=== PATIENT | female | born 1950 | race Caucasian/White ===

== ENCOUNTER 2016-11-22 08:01 | Emergency (ER) | payer MEDICAID, OTHER ==
[~2016-11-22] VITALS: Ht 157.5 cm; Wt 85.7 kg
--- NOTE | 2016-11-22 08:13 | ED Fall/Injury ---
General Chief Complaint: Trauma-Non Activation Stated Complaint: FALL Source: patient, EMS Exam Limitations: no limitations History of Present Illness Time seen by provider: 08:12 Initial Comments Patient presents to ER by EMS with chief complaint of just prior to arrival she was getting up to go the bathroom and she just fell backwards landing on her butt. She has some chronic right hip and knee pain but is been exacerbated by this fall as well as she had quite a bit of back pain 9 out of 10 according to EMS of the gave her 50 g of fentanyl IV. She says she does not member the details of the fall entirely and can say that for sure she did not pass out but does not think she hit her head and she is not having any pain in her head. She has some pain in the base of her neck as well as her right hip. The neck pain is more acute as well as the back pain. She has no nausea, vomiting, headache, vision disturbances. She has a history of atrial fibrillation for which she uses aspirin only. No history of seizures. Patient states back in 2015 she did have a stroke but she was known to have a defibrillation before that. She says her atrial fibrillation goes in and out. She says at the time she had left-sided weakness and left facial droop which persisted for several weeks but then has resolved since then. She has noticed no neurologic symptoms, speech problems, facial droop etc. today. She was seen for her stroke in [place]. Allergies and Home Medications Allergies Coded Allergies: No Known Drug Allergies (Unverified , 11/22/16) Home Medications Amitriptyline HCl 50 Mg Tablet, (Reported) Aspirin 81 Mg Tablet.dr, 81 MG PO DAILY, (Reported) Atorvastatin Calcium 20 Mg Tablet, (Reported) Duloxetine HCl 30 Mg Capsule., (Reported) Gabapentin 400 Mg Capsule, (Reported) Insulin Detemir 100 Unit/1 Ml Insuln.pen, (Reported) Lisinopril 5 Mg Tablet, (Reported) Metoprolol Tartrate 50 Mg Tablet, (Reported) Trazodone HCl 50 Mg Tablet, (Reported) Constitutional: No chills, No diaphoresis, No fever, No malaise Eyes: Denies Blindness, Denies Drainage Ears, Nose, Mouth, Throat: denies ear pain, denies ear discharge Respiratory: No cough, No short of breath Cardiovascular: No chest pain, No Hx of Intervention, No palpitations, syncope , No vascular heart diseas Gastrointestinal: No abdominal pain, No constipation, No diarrhea, No nausea Genitourinary: No discharge, No dysuria : No Musculoskeletal: see HPI, back pain, joint pain (right hip) Skin: No pruritus, No rash Psychiatric/Neurological: Denies Headache, Denies Numbness, Denies Paresthesia Past Bzvogqk-Obyqat-[place]og[place] Hx Patient Social History Alcohol Use: Denies Use Recreational Drug Use: No Smoking Status: Never a Smoker Physical Exam Vital Signs Vital Sign - Last 12Hours 11/22/16 08:04 Temp 95.1 Pulse 70 Resp 18 B/P (MAP) 122/58 Pulse Ox 95 Capillary Refill : General Appearance: WD/WN, no apparent distress HEENT: PERRL/EOMI, normal ENT inspection, TMs normal, pharynx normal Neck: non-tender, supple, normal inspection Cardiovascular: normal peripheral pulses, no edema, no murmur, irregularly irregular Respiratory: chest non-tender, lungs clear, normal breath sounds, no respiratory distress Peripheral Pulses: 2+ Dorsalis Pedis (R), 2+ Left Dors-Pedis (L), 2+ Radial Pulses (R), 2+ Radial Pulses (L) Gastrointestinal: normal bowel sounds, non tender, soft, no organomegaly Back: normal inspection, vertebral tenderness (midline lumbar) Extremities: normal range of motion, non-tender, normal inspection, no pedal edema, no calf tenderness, normal capillary refill Neurologic/Psychiatric: alert, normal mood/affect, oriented x 3, abnormal regional geodetic advisor II-XII (left side cranial nerve V branch 3 has some diminished sensation on examination otherwise cranial nerves normal.), other (NIH score 0) Skin: normal color, warm/dry Lymphatic: no adenopathy [place] Coma Score Best Eye Response: (4) Open Spontaneously Best Verbal Response: (5) Oriented Best Motor Response: (6) Obeys Commands Jayme Total: 15 Progress/Results/Core Measures Results/Orders Lab Results Laboratory Tests Test 11/22/16 08:07 Range/Units White Blood Count 9.3 4.3-11.0 10^3/uL Red Blood Count 4.34 L 4.35-5.85 10^6/uL Hemoglobin 12.8 11.5-16.0 G/DL Hematocrit 39 35-52 % Mean Corpuscular Volume 90 80-99 FL Mean Corpuscular Hemoglobin 30 25-34 PG Mean Corpuscular Hemoglobin Concent 33 32-36 G/DL Red Cell Distribution Width 12.5 10.0-14.5 % Platelet Count 230 130-400 10^3/uL Mean Platelet Volume 9.9 7.4-10.4 FL Neutrophils (%) (Auto) 43 42-75 % Lymphocytes (%) (Auto) 48 H 12-44 % Monocytes (%) (Auto) 5 0-12 % Eosinophils (%) (Auto) 3 0-10 % Basophils (%) (Auto) 0 0-10 % Neutrophils # (Auto) 4.0 1.8-7.8 X 10^3 Lymphocytes # (Auto) 4.5 H 1.0-4.0 X 10^3 Monocytes # (Auto) 0.5 0.0-1.0 X 10^3 Eosinophils # (Auto) 0.3 0.0-0.3 10^3/uL Basophils # (Auto) 0.0 0.0-0.1 10^3/uL Sodium Level 138 135-145 MMOL/L Potassium Level 3.8 3.6-5.0 MMOL/L Chloride Level 98 98-107 MMOL/L Carbon Dioxide Level 29 21-32 MMOL/L Anion Gap 11 5-14 MMOL/L Blood Urea Nitrogen 9 7-18 MG/DL Creatinine 0.81 0.60-1.30 MG/DL Estimat Glomerular Filtration Rate > 60 BUN/Creatinine Ratio 11 Glucose Level 192 H 70-105 MG/DL Calcium Level 9.0 8.5-10.1 MG/DL Total Bilirubin 0.4 0.1-1.0 MG/DL Aspartate Amino Transf (AST/SGOT) 21 5-34 U/L Alanine Aminotransferase (ALT/SGPT) 14 0-55 U/L Alkaline Phosphatase 166 H 40-136 U/L Troponin I < 0.30 <0.30 NG/ML Total Protein 6.6 6.4-8.2 GM/DL Albumin 3.1 L 3.2-4.5 GM/DL My Orders Orders - JERRELL PAREDES Ct Head/Cervical Spine Wo (11/22/16 08:13) Ct Lumbar Spine Wo (11/22/16 08:13) Cbc With Automated Diff (11/22/16 08:13) Comprehensive Metabolic Panel (11/22/16 08:13) Drug Screen Stat (Urine) (11/22/16 08:13) Troponin I (11/22/16 08:13) Ua Culture If Indicated (11/22/16 08:13) Chest 1 View, Ap/Pa Only (11/22/16 08:13) Hip, Right, 2 Views (11/22/16 08:13) Ekg Tracing (11/22/16 08:13) Continuous Ekg Monitoring (11/22/16 08:13) Hydrocodone/Apap 5/325 Tablet (Lortab 5 (11/22/16 09:30) Vital Signs/I&O Vital Sign - Last 12Hours 11/22/16 08:04 Temp 95.1 Pulse 70 Resp 18 B/P (MAP) 122/58 Pulse Ox 95 ECG Initial ECG Impression Date: Nov 22, 2016 Initial ECG Impression Time: 08:50 Initial ECG Rate: 67 Initial ECG Rhythm: Normal Sinus Initial ECG Intervals: Normal Initial ECG Impression: Normal Initial ECG Comparisson: No Previous ECG Available Comment No ST elevation or depression. She is in sinus rhythm at this time. Diagnostic Imaging Diagonstic Imaging: Xray Plain Films/CT/US/NM/MRI: chest Comments NAME: FERMIN KRISHNAMURTHY [facility] REC#: [id number] PHYSICIAN: JERRELL PAREDES MD CC: GERDA BARAHONA MD; JERRELL PAREDES Page 1 of 1 RADIOLOGY REPORT VIA [facility]. [place], [place] CC: GERDA BARAHONA MD; JERRELL PAREDES Page 1 of 1 RADIOLOGY REPORT NAME: FERMIN KRISHNAMURTHY [facility] REC#: [id number] PT STATUS: REG ER : 1950 PHYSICIAN: JERRELL PAREDES MD ADMIT DATE: 11/22/16/ER Signed Date of Exam: 11/22/16 CHEST 1 VIEW, AP/PA ONLY EXAMINATION: AP view of the chest in supine position. INDICATION: Fall. FINDINGS: The cardiac silhouette appears prominent as well as the pulmonary vascular markings. This could be exaggerated by the supine position. No definite focal infiltrate. No effusion or pneumothorax is evident on this supine radiograph. The mediastinum and amelia appear unremarkable. IMPRESSION: Prominent cardiac size. Dictated by: Dictated on workstation # [id number] Dict: 11/22/16 0843 Trans: 11/22/1649 Interpreted by: GERDA BARAHONA MD Electronically signed by: GERDA BARAHONA MD 11/22/1649 Reviewed: Reviewed by Or Diagonstic Imaging: Xray Plain Films/CT/US/NM/MRI: hip (right) Comments VIA [place], [place] [facility] [id number] PT STATUS: REG ER : 1950 PHYSICIAN: JERRELL PAREDES MD ADMIT DATE: 11/22/16/ER Draft Date of Exam:11/22/16 HIP, RIGHT, 2 VIEWS EXAMINATION: AP and frog-lateral views of the right hip. INDICATION: Fall. FINDINGS: There is a mild subchondral sclerosis and suggestion of a subchondral cyst and mild hypertrophy along the lateral margin of the acetabulum probably degenerative. No fracture or dislocation is seen. No radiopaque foreign body. IMPRESSION: Mild right hip osteoarthritis. Dictated on workstation # [id number] Dict: 11/22/1646 Trans: 11/22/16 0850 NESS [id number] Interpreted by: GERDA BARAHONA MD Electronically signed by: Reviewed: Reviewed by Or Diagonstic Imaging: CT Plain Films/CT/US/NM/MRI: c-spine, head Comments [place]IA [place], [place] [facility] REC[facility] [id number] PT STATUS: REG ER : 1950 PHYSICIAN: JERRELL PAREDES MD ADMIT DATE: 11/22/16/ER Draft Date of Exam:11/22/16 CT HEAD/CERVICAL SPINE WO PROCEDURE: CT head and CT cervical spine without contrast. TECHNIQUE: Multiple contiguous axial images were obtained through the brain and cervical spine without the use of intravenous contrast. Sagittal and coronal reformations through the cervical spine were then performed. INDICATION: Fall, pain. No priors. FINDINGS: There is no intracranial hemorrhage. There is no hydrocephalus, edema, mass or mass effect. The basal cisterns are patent. Orbits, sinuses and calvarium appeared within normal limits. There is no hydrocephalus. No sulcal effacement. No evidence for focal or generalized edema. No hemorrhage. CT cervical spine: Skull base intact. No cervical fracture or paravertebral hemorrhage. There is straightening of curvature without listhesis. No fracture. Degenerative changes are present greatest at C5-C6 without high-grade canal stenosis. IMPRESSION: CT head: Negative. CT cervical spine: Degenerative change but no fracture or dislocation. Dictated on workstation # [id number] Dict: 11/22/16 0850 Trans: 11/22/16 0902 [id number] Interpreted by: HEIDI KNIGHT Electronically signed by: Reviewed: Reviewed by Me Diagonstic Imaging: CT Plain Films/CT/US/NM/MRI: other (lumbar spine) Comments [place]IA [place], [place] NAME: FERMIN KRISHNAMURTHY [facility] REC#: [id number] PT STATUS: REG ER : 1950 PHYSICIAN: JERRELL PAREDES MD ADMIT DATE: 11/22/16/ER Draft Date of Exam:11/22/16 CT LUMBAR SPINE WO PROCEDURE: CT lumbar spine without contrast. TECHNIQUE: Multiple contiguous axial images were obtained through the lumbar spine without the use of intravenous contrast. Sagittal and coronal reformations were then performed. INDICATION: Fall with low back pain. COMPARISON: I have no previous exam for comparison. FINDINGS: A superior endplate compression fracture involves predominantly the anterior third of the L1 vertebral body. There are lucent fracture lines seen in the axial imaging and, despite the absence of any appreciable paravertebral hemorrhage, the appearance is felt more likely an acute to subacute fracture. No involvement of the posterior cortex or retropulsion. The remaining lumbar vertebral body heights are maintained and aligned anatomically. There is mild lumbar degenerative disc, endplate, and facet disease. No high-grade canal stenosis. IMPRESSION: A superior endplate fracture of L1 is isolated to its anterior third and shows a maximal 20% stature loss. No retropulsion or involvement of its posterior cortex. This is a single column injury. While there is no appreciable paravertebral hemorrhage associated with this fracture, its appearance is felt more likely to reflect an acute injury as opposed to an old chronic finding. No other acute appearing abnormality. There are mild degenerative changes without substantial stenosis. Dictated on workstation # [id number] Dict: 11/22/1647 Trans: 11/22/16904 [id number] Interpreted by: HEIDI KNIGHT Electronically signed by: Reviewed: Reviewed by Me Consults Consults : Consulting Physician: ZACHERY FINNEGAN DO Consults Notes spoke to Igor; recommends conservative treatment, back brace and follow up in 1- 2 weeks in their clinic where they can order a outpatient MRI. I gave him the patient's information and he will have their balcony worker's call her. Departure Impression Impression: Primary Impression: L1 vertebral fracture Qualified Codes: S32.019A - Unspecified fracture of first lumbar vertebra, initial encounter for closed fracture Additional Impressions: Fall from standing Qualified Codes: W19.XXXA - Unspecified fall, initial encounter Syncope and collapse Disposition: HOME, SELF-CARE Condition: Stable Departure-Patient Inst. Decision time for Depature: 09:31 Referrals: NO,LOCAL PHYSICIAN (PCP) Primary Care Physician AMY ANDERSON MD Patient Instructions: Vertebral Compression Fracture (DC) Add. Discharge Instructions: Make plans to follow-up with your primary care physician in the next week or 2 to workup this fainting episode. Expect a phone call from [facility] Dr. Finnegan's office to schedule an appointment in 1-2 weeks to follow up your L1, vertebral compression fracture. Wear the back brace when it helps. You can also use ice or heat directly applied to the area that hurts. You can use Tylenol 1000 mg every 8 hours or ibuprofen 800 mg every 8 hours. In lieu of ibuprofen you can use Naprosyn 2 capsules twice a day. If this is not controlling her pain and limiting her function then you may also use the hydrocodone, pain pill. Be aware that the hydrocodone will cause constipation so you should be on a laxative when using it as well as drowsiness and increase your risk of further falls. All discharge instructions reviewed with patient and/or family. Voiced understanding. Scripts Hydrocodone/Acetaminophen (Hydrocodon -Acetaminophen 5-325) 1 Each Tablet 1-2 EACH PO Q6H Y for BREAKTHROUGH PAIN, #15 TAB 0 Refills Prov: JERRELL PAREDES 11/22/16 Copy Copies To 1: THERESA AMARO TITUS J Nov 22, 2016 08:13
[2016-11-22 08:21] LABS: BASOPHILS % (AUTO) 0 % (0-10); EOSINOPHILS # (AUTO) 0.3 10^3/uL (0.0-0.3); EOSINOPHILS % (AUTO) 3 % (0-10); LYMPHOCYTES # (AUTO) 4.5 X 10^3 (1.0-4.0); LYMPHOCYTES % (AUTO) 48 % (12-44); MEAN CORPUSCULAR HEMOGLOBIN 30 PG (25-34); MEAN CORPUSCULAR HGB CONC 33 G/DL (32-36); MEAN CORPUSCULAR VOLUME 90 FL (80-99); MEAN PLATELET VOLUME 9.9 FL (7.4-10.4); MONOCYTES # (AUTO) 0.5 X 10^3 (0.0-1.0); MONOCYTES % (AUTO) 5 % (0-12); NEUTROPHILS % (AUTO) 43 % (42-75); PLATELET COUNT 230 10^3/uL (130-400); RED BLOOD COUNT 4.34 10^6/uL (4.35-5.85); RED CELL DISTRIBUTION WIDTH 12.5 % (10.0-14.5); WHITE BLOOD COUNT 9.3 10^3/uL (4.3-11.0)
[2016-11-22] MEDS ORDERED: INSU100I29 (08:27)
[2016-11-22] MEDS ORDERED: TRAZ-28 (08:27)
[2016-11-22] MEDS ORDERED: DULO30CA48 (08:27)
[2016-11-22] MEDS ORDERED: GABA-490 (08:27)
[2016-11-22] MEDS ORDERED: AMIT50TA3 (08:27)
[2016-11-22] MEDS ORDERED: ASPI-586 PO (08:27)
[2016-11-22] MEDS ORDERED: METO50TA2 (08:27)
[2016-11-22] MEDS ORDERED: LISI-556 (08:27)
[2016-11-22] MEDS ORDERED: ATOR20TA66 (08:27)
[2016-11-22 08:35] LABS: ALANINE AMINOTRANSFERASE 14 U/L (0-55); ALBUMIN 3.1 GM/DL (3.2-4.5); ANION GAP 11 MMOL/L (5-14); ASPARTATE AMINO TRANSFERASE 21 U/L (5-34); BILIRUBIN,TOTAL 0.4 MG/DL (0.1-1.0); BLOOD UREA NITROGEN 9 MG/DL (7-18); BUN/CREATININE RATIO 11; CARBON DIOXIDE 29 MMOL/L (21-32); CHLORIDE 98 MMOL/L (98-107); CREATININE SERUM 0.81 MG/DL (0.60-1.30); GFR ESTIMATED > 60; GLUCOSE 192 MG/DL (70-105); POTASSIUM 3.8 MMOL/L (3.6-5.0); SODIUM 138 MMOL/L (135-145); TOTAL PROTEIN 6.6 GM/DL (6.4-8.2)
[2016-11-22 08:43] LABS: TROPONIN I < 0.30 NG/ML (<0.30)
--- NOTE | 2016-11-22 08:48 | Diagnostic Imaging Report ---
EXAMINATION: AP view of the chest in supine position. INDICATION: Fall. FINDINGS: The cardiac silhouette appears prominent as well as the pulmonary vascular markings. This could be exaggerated by the supine position. No definite focal infiltrate. No effusion or pneumothorax is evident on this supine radiograph. The mediastinum and amelia appear unremarkable. IMPRESSION: Prominent cardiac size. Dictated by: Dictated on workstation # [id number]
--- NOTE | 2016-11-22 08:50 | Diagnostic Imaging Report ---
EXAMINATION: AP and frog-lateral views of the right hip. INDICATION: Fall. FINDINGS: There is a mild subchondral sclerosis and suggestion of a subchondral cyst and mild hypertrophy along the lateral margin of the acetabulum probably degenerative. No fracture or dislocation is seen. No radiopaque foreign body. IMPRESSION: Mild right hip osteoarthritis. Dictated by: Dictated on workstation # [id number]
--- NOTE | 2016-11-22 09:03 | Diagnostic Imaging Report ---
PROCEDURE: CT head and CT cervical spine without contrast. TECHNIQUE: Multiple contiguous axial images were obtained through the brain and cervical spine without the use of intravenous contrast. Sagittal and coronal reformations through the cervical spine were then performed. INDICATION: Fall, pain. No priors. FINDINGS: There is no intracranial hemorrhage. There is no hydrocephalus, edema, mass or mass effect. The basal cisterns are patent. Orbits, sinuses and calvarium appeared within normal limits. There is no hydrocephalus. No sulcal effacement. No evidence for focal or generalized edema. No hemorrhage. CT cervical spine: Skull base intact. No cervical fracture or paravertebral hemorrhage. There is straightening of curvature without listhesis. No fracture. Degenerative changes are present greatest at C5-C6 without high-grade canal stenosis. IMPRESSION: CT head: Negative. CT cervical spine: Degenerative change but no fracture or dislocation. Dictated by: Dictated on workstation # [id number]
--- NOTE | 2016-11-22 09:05 | Diagnostic Imaging Report ---
PROCEDURE: CT lumbar spine without contrast. TECHNIQUE: Multiple contiguous axial images were obtained through the lumbar spine without the use of intravenous contrast. Sagittal and coronal reformations were then performed. INDICATION: Fall with low back pain. COMPARISON: I have no previous exam for comparison. FINDINGS: A superior endplate compression fracture involves predominantly the anterior third of the L1 vertebral body. There are lucent fracture lines seen in the axial imaging and, despite the absence of any appreciable paravertebral hemorrhage, the appearance is felt more likely an acute to subacute fracture. No involvement of the posterior cortex or retropulsion. The remaining lumbar vertebral body heights are maintained and aligned anatomically. There is mild lumbar degenerative disc, endplate, and facet disease. No high-grade canal stenosis. IMPRESSION: A superior endplate fracture of L1 is isolated to its anterior third and shows a maximal 20% stature loss. No retropulsion or involvement of its posterior cortex. This is a single column injury. While there is no appreciable paravertebral hemorrhage associated with this fracture, its appearance is felt more likely to reflect an acute injury as opposed to an old chronic finding. No other acute appearing abnormality. There are mild degenerative changes without substantial stenosis. Dictated by: Dictated on workstation # [id number]
[2016-11-22 09:25] LABS: BILIRUBIN,URINE NEGATIVE (NEGATIVE); KETONES,URINE NEGATIVE (NEGATIVE); LEUKOCYTE ESTERASE ,URINE 1+ (NEGATIVE); NITRITE,URINE NEGATIVE (NEGATIVE); PH,URINE 6 (5-9); PROTEIN,URINE NEGATIVE (NEGATIVE); UROBILINOGEN,URINE NORMAL (NORMAL)
[2016-11-22] MEDS ORDERED: HYDROcodone/APAP 5 MG/325 MG (LORTAB) TAB PO ONE (09:30)
[2016-11-22] MEDS ORDERED: HYDR-3812 PO (09:36)
[2016-11-22 09:52] VITALS: BP 120/63
== END 2016-11-22 10:15 | disposition home or self-care (01) ==
LOC: EDUNIT# 08:01 → ER 08:04
DX: S32.019A Unspecified fracture of first lumbar vertebra, initial encounter for closed fracture (principal); R55 Syncope and collapse; I48.91 Unspecified atrial fibrillation; G89.29 Other chronic pain; M25.551 Pain in right hip; M25.561 Pain in right knee; Z86.73 Personal history of transient ischemic attack (TIA), and cerebral infarction without residual deficits; Z79.82 Long term (current) use of aspirin; Z79.4 Long term (current) use of insulin; W18.30XA Fall on same level, unspecified, initial encounter
CPT/HCPCS: 36415; 70450; 71010; 72125; 72131; 73502; 80053; 80306; 81000; 84484; 85025; 87088; 93005

== ENCOUNTER 2016-12-13 14:44 | Observation (INO) | payer MEDICAID ==
[~2016-12-13] VITALS: Ht 157.5 cm; Wt 98.0 kg
[~2016-12-13 14:44] MED LIST: AMIT50TA3 PO; ASPI-586 PO; ATOR20TA66 PO; DULO30CA48 PO; GABA-490 PO; HYDR-3812 PO; INSU100I29 SC; LISI-556 PO; METO50TA2 PO; TRAZ-28 PO
[2016-12-13] MEDS ORDERED: NS IV 1000 ML 1,000 ML IV STA (15:07)
[2016-12-13] MEDS ORDERED: ONDANSETRON 4 MG/2 ML (SDV) Z0FRAN IVP ONE (15:15)
[2016-12-13] MEDS ORDERED: ASPIRIN 81 MG CHEW (CHILDREN'S ASA) PO ONE (15:15)
[2016-12-13 15:21] LABS: BASOPHILS % (AUTO) 0 % (0-10); EOSINOPHILS % (AUTO) 0 % (0-10); LYMPHOCYTES # (AUTO) 5.1 X 10^3 (1.0-4.0); LYMPHOCYTES % (AUTO) 49 % (12-44); MEAN CORPUSCULAR HEMOGLOBIN 29 PG (25-34); MEAN CORPUSCULAR HGB CONC 33 G/DL (32-36); MEAN CORPUSCULAR VOLUME 88 FL (80-99); MEAN PLATELET VOLUME 9.6 FL (7.4-10.4); MONOCYTES # (AUTO) 0.6 X 10^3 (0.0-1.0); MONOCYTES % (AUTO) 6 % (0-12); NEUTROPHILS # (AUTO) 4.6 X 10^3 (1.8-7.8); NEUTROPHILS % (AUTO) 44 % (42-75); PLATELET COUNT 350 10^3/uL (130-400); RED BLOOD COUNT 5.06 10^6/uL (4.35-5.85); RED CELL DISTRIBUTION WIDTH 13.9 % (10.0-14.5); WHITE BLOOD COUNT 10.5 10^3/uL (4.3-11.0)
[2016-12-13 15:31] LABS: PROTHROMBIN TIME PATIENT 12.8 SEC (12.2-14.7)
--- NOTE | 2016-12-13 15:38 | Diagnostic Imaging Report ---
INDICATION: Nausea, vomiting, and diarrhea for three days. Portable chest at 03:30 p.m. FINDINGS: Heart size and pulmonary vascularity are normal. Lungs are clear. There are no effusions or pneumothoraces. IMPRESSION: Negative chest. Dictated by: Dictated on workstation # [id number]
[2016-12-13 15:41] LABS: ALANINE AMINOTRANSFERASE 33 U/L (0-55); ALBUMIN 3.5 GM/DL (3.2-4.5); ANION GAP 18 MMOL/L (5-14); ASPARTATE AMINO TRANSFERASE 29 U/L (5-34); BILIRUBIN,TOTAL 0.8 MG/DL (0.1-1.0); BLOOD UREA NITROGEN 10 MG/DL (7-18); BUN/CREATININE RATIO 11; CALCIUM 9.7 MG/DL (8.5-10.1); CARBON DIOXIDE 22 MMOL/L (21-32); CHLORIDE 95 MMOL/L (98-107); GFR ESTIMATED > 60; GLUCOSE 382 MG/DL (70-105); MAGNESIUM 1.5 MG/DL (1.8-2.4); SODIUM 135 MMOL/L (135-145); TOTAL PROTEIN 8.2 GM/DL (6.4-8.2)
--- NOTE | 2016-12-13 15:48 | ED General ---
General Chief Complaint: Abdominal/GI Problems Stated Complaint: N/V/D, DEHYDRATED/ Nursing Triage Note: VOMITING X3 DAYS WITH X3 EPISODES TODAY. LOOSE STOOL X1 YESTERDAY. Nursing Sepsis Screen: No Definite Risk Source of Information: Patient Exam Limitations: No Limitations History of Present Illness Time Seen by Provider: 15:00 Initial Comments Here with a variety of complaints including 3 days of nausea and vomiting and one day of diarrhea which was yesterday. States that she's vomited 3 times today. Complains of some upper chest discomfort as well. She is a diabetic and out of her regular insulin but not her long-acting insulin. She has ability to previous visit August so she has not taken her insulin. Denies blood in her vomit or stool. Denies breathing problems but states his breathing faster. Timing/Duration: 2-3 Days Severity: Moderate Associated Systoms: Chest Pain, No Cough, No Fever/Chills, Nausea/Vomiting, Shortness of Air, Weakness Allergies and Home Medications Allergies Coded Allergies: No Known Drug Allergies (Unverified , 11/22/16) Home Medications Amitriptyline HCl 50 Mg Tablet, (Reported) Aspirin 81 Mg Tablet.dr, 81 MG PO DAILY, (Reported) Atorvastatin Calcium 20 Mg Tablet, (Reported) Duloxetine HCl 30 Mg Capsule.dr, (Reported) Gabapentin 400 Mg Capsule, (Reported) Hydrocodone/Acetaminophen 1 Each Tablet, 1-2 EACH PO Q6H PRN for BREAKTHROUGH PAIN, #15 Ref 0 Prescribed by: JERRELL PAREDES on 11/22/16 0936 Insulin Detemir 100 Unit/1 Ml Insuln.pen, (Reported) Lisinopril 5 Mg Tablet, (Reported) Metoprolol Tartrate 50 Mg Tablet, (Reported) Trazodone HCl 50 Mg Tablet, (Reported) Constitutional: see HPI, No chills, No fever EENTM: no symptoms reported Respiratory: see HPI, short of breath, No wheezing Cardiovascular: chest pain, No palpitations Gastrointestinal: No abdominal pain, diarrhea, nausea, vomiting Genitourinary: no symptoms reported : No Musculoskeletal: no symptoms reported Skin: no symptoms reported All Other Systems Reviewed Negative Unless Noted: Yes Past Npdlqda-Zdpoux-Bzsugg Hx Patient Social History Alcohol Use: Denies Use Recreational Drug Use: No Smoking Status: Never a Smoker Recent Foreign Travel: No Contact w/Someone Who Travel: No Recent Infectious Disease Expo: No Recent Hopitalizations: No Seasonal Allergies Seasonal Allergies: No Surgeries Surgeries: Joint Replacement, Orthopedic Respiratory History of Respiratory Disorde: No Cardiovascular History of Cardiac Disorders: Yes Cardiac Disorders: Atrial Fibrillation, Hypertension Neurological History of Neurological Disord: No Gastrointestinal History of Gastrointestinal Di: No Musculoskeletal History of Musculoskeletal Dis: Yes Musculoskeletal Disorders: Arthritis Endocrine History of Endocrine Disorders: Yes Endocrine Disorders: Diabetes, Non-Insulin dep Cancer History of Cancer: No Psychosocial History of Psychiatric Problem: Yes Behavioral Health Disorders: Anxiety, Depression Integumentary History of Skin or Integumenta: No Reviewed Nursing Assessment Reviewed/Agree w Nursing PMH: Yes Physical Exam Vital Signs Vital Sign - Last 12Hours 12/13/16 14:55 Temp 97.9 Pulse 122 Resp 18 B/P (MAP) 129/83 Pulse Ox 96 Capillary Refill : Less Than 3 Seconds General Appearance: No Apparent Distress, WD/WN HEENT: PERRL/EOMI, Pharynx Normal Neck: Non Tender, Supple Respiratory: Lungs Clear, Normal Breath Sounds Cardiovascular: No Murmur, Tachycardia Gastrointestinal: Non Tender, Soft Back: Normal Inspection, No CVA Tenderness, No Vertebral Tenderness Extremity: Normal Range of Motion, Non Tender Neurologic/Psychiatric: Alert, Oriented x3 Skin: Normal Color, Warm/Dry Progress/Results/Core Measures Results/Orders Lab Results Laboratory Tests Test 12/13/16 15:05 12/13/16 15:50 12/13/16 16:19 Range/Units White Blood Count 10.5 4.3-11.0 10^3/uL Red Blood Count 5.06 4.35-5.85 10^6/uL Hemoglobin 14.8 11.5-16.0 G/DL Hematocrit 45 35-52 % Mean Corpuscular Volume 88 80-99 FL Mean Corpuscular Hemoglobin 29 25-34 PG Mean Corpuscular Hemoglobin Concent 33 32-36 G/DL Red Cell Distribution Width 13.9 10.0-14.5 % Platelet Count 350 130-400 10^3/uL Mean Platelet Volume 9.6 7.4-10.4 FL Neutrophils (%) (Auto) 44 42-75 % Lymphocytes (%) (Auto) 49 H 12-44 % Monocytes (%) (Auto) 6 0-12 % Eosinophils (%) (Auto) 0 0-10 % Basophils (%) (Auto) 0 0-10 % Neutrophils # (Auto) 4.6 1.8-7.8 X 10^3 Lymphocytes # (Auto) 5.1 H 1.0-4.0 X 10^3 Monocytes # (Auto) 0.6 0.0-1.0 X 10^3 Eosinophils # (Auto) 0.0 0.0-0.3 10^3/uL Basophils # (Auto) 0.0 0.0-0.1 10^3/uL Prothrombin Time 12.8 12.2-14.7 SEC INR Comment 1.0 0.8-1.4 Activated Partial Thromboplast Time 27 24-35 SEC Sodium Level 135 135-145 MMOL/L Potassium Level 4.0 3.6-5.0 MMOL/L Chloride Level 95 L 98-107 MMOL/L Carbon Dioxide Level 22 21-32 MMOL/L Anion Gap 18 H 5-14 MMOL/L Blood Urea Nitrogen 10 7-18 MG/DL Creatinine 0.90 0.60-1.30 MG/DL Estimat Glomerular Filtration Rate > 60 BUN/Creatinine Ratio 11 Glucose Level 382 H 70-105 MG/DL Calcium Level 9.7 8.5-10.1 MG/DL Magnesium Level 1.5 L 1.8-2.4 MG/DL Total Bilirubin 0.8 0.1-1.0 MG/DL Aspartate Amino Transf (AST/SGOT) 29 5-34 U/L Alanine Aminotransferase (ALT/SGPT) 33 0-55 U/L Alkaline Phosphatase 303 H 40-136 U/L Myoglobin 29.8 10.0-92.0 NG/ML Troponin I < 0.30 <0.30 NG/ML Total Protein 8.2 6.4-8.2 GM/DL Albumin 3.5 3.2-4.5 GM/DL D-Dimer 1.38 H 0.00-0.49 UG/ML Urine Color YELLOW Urine Clarity CLEAR Urine pH 6 5-9 Urine Specific [place] 1.010 L 1.016-1.022 Urine Protein 1+ H NEGATIVE Urine Glucose (UA) 4+ H NEGATIVE Urine Ketones 4+ H NEGATIVE Urine Nitrite NEGATIVE NEGATIVE Urine Bilirubin NEGATIVE NEGATIVE Urine Urobilinogen 1 NORMAL MG/DL Urine Leukocyte Esterase NEGATIVE NEGATIVE Urine RBC (Auto) 2+ H NEGATIVE Urine RBC 2-5 H /HPF Urine WBC RARE /HPF Urine Squamous Epithelial Cells 5-10 /HPF Urine Crystals NONE /LPF Urine Bacteria TRACE /HPF Urine Casts NONE /LPF Urine Mucus NEGATIVE /LPF Urine Yeast TRACE /HPF Urine Culture Indicated NO My Orders Orders - SOULEYMANE VELASQUEZ MD Cbc With Automated Diff (12/13/16 15:07) Magnesium (12/13/16 15:07) Chest 1 View, Ap/Pa Only (12/13/16 15:07) Ekg Tracing (12/13/16:07) Cardiac Profile 1 (12/13/16 15:07) Comprehensive Metabolic Panel (12/13/16 15:07) Myoglobin Serum (12/13/16 15:07) Protime With Inr (12/13/16:07) Partial Thromboplastin Time (12/13/16:07) O2 (12/13/16 15:07) Monitor-Rhythm Ecg Trace Only (12/13/16 15:07) Lipid Panel (12/14/16 06:00) Aspirin Chewable Tablet (Baby Aspirin Ch (12/13/16 15:15) Saline Lock/Iv-Start (12/13/16 15:07) Ondansetron Injection (Zofran Injectio (12/13/16 15:15) Ns Iv 1000 Ml (Sodium Chloride 0.9%) (12/13/16 15:07) Saline Lock/Iv-Start (12/13/16 16:05) Ns Iv 1000 Ml (Sodium Chloride 0.9%) (12/13/16 16:05) Fibrin Degradation Products (12/13/16 16:05) Ua Culture If Indicated (12/13/16 16:05) Insulin (Regular) Human (Humulin R (Per (12/13/16 16:12) Ct Angio Chest W (12/13/16 16:48) Iohexol Injection (Omnipaque 350 Mg/Ml 1 (12/13/16 17:00) Ns (Ivpb) (Sodium Chloride 0.9% Ivpb Bag (12/13/16 17:00) Labetalol Injection (Normodyne Injection (12/13/16 17:45) Mylanta Po (12/13/16 18:00) Pepcid 20 Mg Iv (12/13/16 17:50) Medications Given in ED Current Medications Medications Dose Ordered Sig/Radha Route Start Time Stop Time Status Last Admin Dose Admin Aspirin 324 mg ONCE ONCE PO 12/13/16 15:15 12/13/16 15:16 DC 12/13/16 15:18 324 MG Iohexol 150 ml ONCE ONCE IV 12/13/16 17:00 12/13/16 17:01 DC 12/13/16 16:59 125 ML Ondansetron HCl 4 mg ONCE ONCE IVP 12/13/16 15:15 12/13/16 15:16 DC 12/13/16 15:17 4 MG Sodium Chloride 100 ml ONCE ONCE IV 12/13/16 17:00 12/13/16 17:01 DC 12/13/16 16:59 80 ML Sodium Chloride 1,000 ml @ 0 mls/hr Q0M ONCE IV 12/13/16 16:05 12/13/16 16:06 DC 12/13/16 16:25 1,000 MLS/HR Vital Signs/I&O Vital Sign - Last 12Hours 12/13/16 14:55 Temp 97.9 Pulse 122 Resp 18 B/P (MAP) 129/83 Pulse Ox 96 Intake and Output 12/14/16 00:00 Intake Total 1000 ml Balance 1000 ml Blood Pressure Mean: 98 Progress Note : Progress Note Seen and evaluated. IV, labs, EKG and chest x-ray ordered. Normal saline 1 L bolus. ASA 324 mg by mouth. Zofran 4 mg IV. Monitor patient. 1610: Repeat normal saline 1 L bolus. UA and d-dimer ordered. Patient's heart rate still 120. Monitor patient. 1730: CT scan of the chest rule out PE was ordered due to elevated d-dimer. Second liter of normal saline has infused and heart rate still 120s. States feels a little better. Patient did receive 10 units of insulin IV. No evidence of PE. I'm unsure of the cause of the persistent tachycardia at this point. Continue to monitor. 1745: I did discuss the case with Dr. Amy Anderson. This is the patient's primary care doctor. Due to the persistent tachycardia and nausea and vomiting as well as dehydration with ketones and the hyperglycemia, we will admit the patient overnight for continued hydration and to control the sugars. Labetalol 20 mg IV now and we will continue metoprolol by mouth dosing. I admit, observation status. Patient family agree with plan. ECG Initial ECG Impression Date: Dec 13, 2016 Initial ECG Impression Time: 15:12 Initial ECG Rate: 127 Initial ECG Rhythm: S.Tach Comment Sinus tachycardia with multiple PVCs. Left atrial abnormality noted. Normal axis. No evidence of ST elevation MA. Interpreted by me. Change from previous with respect to rate. Underlying morphology appears similar to previous. Diagnostic Imaging Diagonstic Imaging: Xray Plain Films/CT/US/NM/MRI: chest Comments [place]IA [place], [place] NAME: FERMIN KRISHNAMURTHY [facility] REC#: [id number] PT STATUS: REG ER : 1950 PHYSICIAN: SOULEYMANE VELASQUEZ MD ADMIT DATE: 12/13/16/ER Draft Date of Exam:12/13/16 CHEST 1 VIEW, AP/PA ONLY INDICATION: Nausea, vomiting, and diarrhea for three days. Portable chest at 03:30 p.m. FINDINGS: Heart size and pulmonary vascularity are normal. Lungs are clear. There are no effusions or pneumothoraces. IMPRESSION: Negative chest. Dictated on workstation # [id number] Dict: 12/13/16 1532 Trans: 12/13/16 1537 [id number] Interpreted by: SOULEYMANE CHICAS MD Electronically signed by: Diagonstic Imaging: CT Plain Films/CT/US/NM/MRI: chest Comments [place], [place] NAME: FERMIN KRISHNAMURTHY [facility] REC#: [id number] PT STATUS: REG ER : 1950 PHYSICIAN: SOULEYMANE VELASQUEZ MD ADMIT DATE: 12/13/16/ER Draft Date of Exam:12/13/16 CT ANGIO CHEST W PROCEDURE: CT angiography of the chest with contrast. TECHNIQUE: Multiple contiguous axial images were obtained through the chest after uneventful bolus administration of intravenous contrast. Reconstructed CTA MIP acquisitions were also performed. INDICATION: Respiratory distress, arrhythmia. FINDINGS: There are no infiltrates, effusions or pneumothoraces. There is no hilar or mediastinal lymphadenopathy. There are no pulmonary emboli. There is no aortic aneurysm or dissection. There is some calcification of the coronary arteries and the thoracic aorta. IMPRESSION: Atherosclerosis. No evidence for pulmonary embolism. 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 Referrals: AMY ANDERSON MD (PCP/Family) Primary Care Physician SOULEYMANE VELASQUEZ MD Dec 13, 2016 15:48
[2016-12-13 15:51] LABS: MYOGLOBIN SERUM 29.8 NG/ML (10.0-92.0)
[2016-12-13] MEDS ORDERED: NS IV 1000 ML 1,000 ML IV ONE (16:05)
[2016-12-13] MEDS ORDERED: inSUlin (REGULAR) HUMAN 1 UNIT/0.01 ML (CHARGE PER UNIT) IV STA (16:12)
[2016-12-13 16:28] LABS: BILIRUBIN,URINE NEGATIVE (NEGATIVE); KETONES,URINE 4+ (NEGATIVE); LEUKOCYTE ESTERASE ,URINE NEGATIVE (NEGATIVE); NITRITE,URINE NEGATIVE (NEGATIVE); PH,URINE 6 (5-9); PROTEIN,URINE 1+ (NEGATIVE); UROBILINOGEN,URINE 1 MG/DL (NORMAL)
[2016-12-13 16:39] LABS: WBC,URINE RARE /HPF
[2016-12-13 16:40] LABS: YEAST,URINE TRACE /HPF
[2016-12-13] MEDS ORDERED: NS 100 ML (IVPB) BAG IV ONE (17:00)
[2016-12-13] MEDS ORDERED: IOHEXOL 350 MG/ML 150 ML (OMNIPAQUE 350) VIAL IV ONE (17:00)
--- NOTE | 2016-12-13 17:22 | Diagnostic Imaging Report ---
PROCEDURE: CT angiography of the chest with contrast. TECHNIQUE: Multiple contiguous axial images were obtained through the chest after uneventful bolus administration of intravenous contrast. Reconstructed CTA MIP acquisitions were also performed. INDICATION: Respiratory distress, arrhythmia. FINDINGS: There are no infiltrates, effusions or pneumothoraces. There is no hilar or mediastinal lymphadenopathy. There are no pulmonary emboli. There is no aortic aneurysm or dissection. There is some calcification of the coronary arteries and the thoracic aorta. IMPRESSION: Atherosclerosis. No evidence for pulmonary embolism. Dictated by: Dictated on workstation # [id number]
[2016-12-13] MEDS ORDERED: LABETALOL HCL 20 MG/4 ML VIAL IV ONE (17:45)
[2016-12-13] MEDS ORDERED: FAMOTIDINE 20MG/2ML IV (PEPCID) IV STA (17:50)
[2016-12-13] MEDS ORDERED: ANTACID SUSP 30 ML UDC (MYLANTA) PO ONE (18:00)
[2016-12-13 19:20] VITALS: BP 133/74
[2016-12-13] MEDS ORDERED: CATHETER FLUSH 10 ML SYR IV PRN ×2 (19:45)
[2016-12-13] MEDS ORDERED: ONDANSETRON 4 MG/2 ML (SDV) Z0FRAN IV PRN (19:45)
[2016-12-13] MEDS: NS IV 1000 ML 1,000 ML IV SCH (19:56)
[2016-12-13] MEDS ORDERED: FAMOTIDINE 20MG/2ML IV (PEPCID) IV SCH (21:00)
[2016-12-13] MEDS: meTOprolol TARTRATE 25 MG (LOPRESSOR) TABLET PO SCH (22:37)
[2016-12-13] MEDS: inSUlin (REGULAR) HUMAN 1 UNIT/0.01 ML (CHARGE PER UNIT) SC SCH (22:38)
[2016-12-13 22:39] VITALS: BP 138/74
[2016-12-14] VITALS: BP 126/68
[2016-12-14 04:00] VITALS: BP 116/74
[2016-12-14] MEDS: NS IV 1000 ML 1,000 ML IV SCH ×2 (04:02→11:52)
[2016-12-14 05:54] LABS: BASOPHILS % (AUTO) 0 % (0-10); EOSINOPHILS # (AUTO) 0.1 10^3/uL (0.0-0.3); EOSINOPHILS % (AUTO) 2 % (0-10); LYMPHOCYTES # (AUTO) 2.9 X 10^3 (1.0-4.0); LYMPHOCYTES % (AUTO) 43 % (12-44); MEAN CORPUSCULAR HEMOGLOBIN 30 PG (25-34); MEAN CORPUSCULAR HGB CONC 32 G/DL (32-36); MEAN CORPUSCULAR VOLUME 91 FL (80-99); MEAN PLATELET VOLUME 9.3 FL (7.4-10.4); MONOCYTES # (AUTO) 0.5 X 10^3 (0.0-1.0); MONOCYTES % (AUTO) 8 % (0-12); NEUTROPHILS # (AUTO) 3.2 X 10^3 (1.8-7.8); NEUTROPHILS % (AUTO) 47 % (42-75); PLATELET COUNT 258 10^3/uL (130-400); RED BLOOD COUNT 3.92 10^6/uL (4.35-5.85); RED CELL DISTRIBUTION WIDTH 14.2 % (10.0-14.5); WHITE BLOOD COUNT 6.8 10^3/uL (4.3-11.0)
[2016-12-14 06:14] LABS: ALANINE AMINOTRANSFERASE 21 U/L (0-55); ANION GAP 10 MMOL/L (5-14); ASPARTATE AMINO TRANSFERASE 17 U/L (5-34); BLOOD UREA NITROGEN 8 MG/DL (7-18); BUN/CREATININE RATIO 11; CALCIUM 8.1 MG/DL (8.5-10.1); CARBON DIOXIDE 24 MMOL/L (21-32); CHLORIDE 105 MMOL/L (98-107); CHOLESTEROL 169 MG/DL (< 200); CREATININE SERUM 0.75 MG/DL (0.60-1.30); DIRECT LDL 108 MG/DL (1-129); GFR ESTIMATED > 60; GLUCOSE 177 MG/DL (70-105); POTASSIUM 3.3 MMOL/L (3.6-5.0); SODIUM 139 MMOL/L (135-145); TOTAL PROTEIN 5.8 GM/DL (6.4-8.2); TRIGLYCERIDES 176 MG/DL (<150); VLDL CHOLESTEROL 35 MG/DL (5-40)
[2016-12-14 06:27] LABS: ALBUMIN 2.6 GM/DL (3.2-4.5); BILIRUBIN,TOTAL 0.5 MG/DL (0.1-1.0)
[2016-12-14] MEDS ORDERED: INFLUENZA TRIvalent 2017-2018 0.5 ML/45 MCG SYR IM ONE (07:15)
[2016-12-14] MEDS: inSUlin (REGULAR) HUMAN 1 UNIT/0.01 ML (CHARGE PER UNIT) SC SCH ×2 (07:42→10:11)
[2016-12-14 08:16] VITALS: BP 105/67
[2016-12-14] MEDS ORDERED: DIPH25TA65 PO (08:53)
[2016-12-14] MEDS ORDERED: NAPR220T66 PO (08:53)
[2016-12-14] MEDS ORDERED: ACET-2469 PO (08:53)
[2016-12-14] MEDS ORDERED: NITR0.4T SL (08:53)
[2016-12-14] MEDS ORDERED: ACET-2650 PO ×2 (08:53→09:05)
[2016-12-14] MEDS ORDERED: FAMOTIDINE 20MG/2ML IV (PEPCID) IV SCH (09:00)
[2016-12-14] MEDS ORDERED: INSU100V16 SC ×2 (09:05→10:32)
[2016-12-14] MEDS ORDERED: ACET1TAB43 PO (09:05)
[2016-12-14] MEDS: meTOprolol TARTRATE 25 MG (LOPRESSOR) TABLET PO SCH (09:37)
--- NOTE | 2016-12-14 10:35 | Discharge Instructions ---
Discharge [facility] Discharge Medications New, Converted or Re-Newed RX: Transmitted to Pharmacy Continued Medications: Acetaminophen (Tylenol Arthritis) 650 Mg Tablet.er 650 MG PO HS, TAB Acetaminophen with Codeine (Acetaminophen-Cod #3 Tablet) 1 Each Tablet 1 TAB PO Q4H PRN for PAIN-MODERATE, TAB Acetaminophen (Tylenol Arthritis) 650 Mg Tablet.er 650 MG PO Q8H PRN for PAIN-MILD, TAB Amitriptyline HCl (Amitriptyline HCl) 50 Mg Tablet 100 MG PO HS, TAB LAST FILLED #60 11-10-16 TAKES 2 (50MG) TABLETS Aspirin (Aspir 81) 81 Mg Tablet.dr 81 MG PO DAILY, TAB Atorvastatin Calcium (Atorvastatin Calcium) 20 Mg Tablet 20 MG PO HS, TAB LAST FILLED #30 10-18-16 Diphenhydramine HCl (Benadryl Allergy) 25 Mg Tablet 50 MG PO HS, TAB TAKES 2 (25MG) TABLETS Duloxetine HCl (Duloxetine HCl) 30 Mg Capsule.dr 90 MG PO HS, CAP LAST FILLED #90 11-10-16 TAKES 3 (30MG) CAPSULES Gabapentin (Gabapentin) 400 Mg Capsule 400 MG PO BID, CAP Insulin Aspart (Novolog) 100 Unit/1 Ml Susp 30 UNITS SC AC, #100 ML 0 Refills (This prescription has been renewed) Insulin Detemir (Levemir Flextouch) 100 Unit/1 Ml Insuln.pen 50 UNITS SC HS, EA Lisinopril (Lisinopril) 5 Mg Tablet 5 MG PO DAILY, TAB LAST FILLED #30 11-10-16 Metoprolol Tartrate (Metoprolol Tartrate) 50 Mg Tablet 75 MG PO BID, TAB LAST FILLED #90 09-27-16 TAKES 1 & 1/2 (50MG) TABLETS Naproxen Sodium (Aleve) 220 Mg Tablet 440 MG PO Q8H PRN for KNEE PAIN, TAB TAKES 2 (220MG) TABLETS Nitroglycerin (Nitrostat) 0.4 Mg Tab.subl 0.4 MG SL UD PRN for CHEST PAIN, TAB Trazodone HCl (Trazodone HCl) 50 Mg Tablet 50 MG PO HS, TAB LAST FILLED #30 11-10-16 Patient Instructions Goal/Follow Up Appt: DR ANDERSON DEC 11 AT 1:40 PM Patient Instructions: PLEASE TAKE ALL MEDICATIONS - INCLUDING YOUR INSULIN - PRESCRIBED. OUR DIABETIC NURSE WILL BE CALLING YOU TO VERIFY YOUR BLOOD SUGARS ARE IMPROVING. PLEASE ATTEND ALL CLINIC FOLLOW UP APPOINTMENTS TO IMPROVE CONTINUITY OF CARE AND YOUR OVERALL HEALTH. Return to The Hospital For: BS >500 - CALL CLINIC; IF YOU CANNOT KEEP ANY LIQUIDS DOWN Activity & Diet Discharge Diet: ADA Diet Activity as Tolerated: Yes Copy Copies To 1: AMY ANDERSON MD, JULIE A MD Dec 14, 2016 10:35 am
[2016-12-14 11:30] VITALS: BP 114/73
[2016-12-14 13:36] VITALS: BP 114/73
--- NOTE | 2016-12-14 14:42 | Short Stay Summary ---
HPI History of Present Illness: Lennox is a 65yo woman with a history of uncontrolled diabetes who presented to ER with a several day history of nausea, vomiting, and a brief episode of diarrhea. SHe reported to ER that she has been out of her prandial insulin for some period of time and her BS have been quite high. SHe has not had any fever. Mild, diffuse abd pain in this time. NO blood in diarrhea or vomitus. She has not had any sick contacts. Source: patient Exam Limitations: no limitations Date seen by provider: Dec 14, 2016 Time Seen by Provider: 09:00 Attending Physician Amy Anderson MD PCP Amy Anderson MD Consult Date of Admission Dec 13, 2016 at 6:34 pm Home Medications Home Medications Reviewed patient Home Medication Reconciliation Form Allergies Coded Allergies: No Known Drug Allergies (Unverified , 11/22/16) NIR-Jxofmg-Fryjve Hx Patient Social History Alcohol Use: Denies Use Recreational Drug Use: No Smoking Status: Never a Smoker Recent Foreign Travel: No Contact w/other who traveled: No Recent Hopitalizations: No Recent Infectious Disease Expo: No Physical Abuse Screen: No Sexual Abuse: No Immunizations Up To Date Date of Pneumonia Vaccine: Jan 11, 2014 Family Medical History Family History: Diabetes mellitus 19 MOTHER G8 BROTHER FH: CVA (cerebrovascular accident) FH: pancreatic cancer 19 FATHER Hypertension G8 BROTHER Review of Systems ([facility]) Constitutional: no symptoms reported All Other Systems Reviewed Negative Unless Noted: Yes (Negative excepted noted.) Reviewed Test Results Reviewed Test Results Lab Laboratory Tests Test 12/13/16 15:05 12/13/16 15:50 12/13/16 16:19 12/13/16 17:56 Range/Units White Blood Count 10.5 4.3-11.0 10^3/uL Red Blood Count 5.06 4.35-5.85 10^6/uL Hemoglobin 14.8 11.5-16.0 G/DL Hematocrit 45 35-52 % Mean Corpuscular Volume 88 80-99 FL Mean Corpuscular Hemoglobin 29 25-34 PG Mean Corpuscular Hemoglobin Concent 33 32-36 G/DL Red Cell Distribution Width 13.9 10.0-14.5 % Platelet Count 350 130-400 10^3/uL Mean Platelet Volume 9.6 7.4-10.4 FL Neutrophils (%) (Auto) 44 42-75 % Lymphocytes (%) (Auto) 49 H 12-44 % Monocytes (%) (Auto) 6 0-12 % Eosinophils (%) (Auto) 0 0-10 % Basophils (%) (Auto) 0 0-10 % Neutrophils # (Auto) 4.6 1.8-7.8 X 10^3 Lymphocytes # (Auto) 5.1 H 1.0-4.0 X 10^3 Monocytes # (Auto) 0.6 0.0-1.0 X 10^3 Eosinophils # (Auto) 0.0 0.0-0.3 10^3/uL Basophils # (Auto) 0.0 0.0-0.1 10^3/uL Prothrombin Time 12.8 12.2-14.7 SEC INR Comment 1.0 0.8-1.4 Activated Partial Thromboplast Time 27 24-35 SEC Sodium Level 135 135-145 MMOL/L Potassium Level 4.0 3.6-5.0 MMOL/L Chloride Level 95 L 98-107 MMOL/L Carbon Dioxide Level 22 21-32 MMOL/L Anion Gap 18 H 5-14 MMOL/L Blood Urea Nitrogen 10 7-18 MG/DL Creatinine 0.90 0.60-1.30 MG/DL Estimat Glomerular Filtration Rate > 60 BUN/Creatinine Ratio 11 Glucose Level 382 H 70-105 MG/DL Calcium Level 9.7 8.5-10.1 MG/DL Magnesium Level 1.5 L 1.8-2.4 MG/DL Total Bilirubin 0.8 0.1-1.0 MG/DL Aspartate Amino Transf (AST/SGOT) 29 5-34 U/L Alanine Aminotransferase (ALT/SGPT) 33 0-55 U/L Alkaline Phosphatase 303 H 40-136 U/L Myoglobin 29.8 10.0-92.0 NG/ML Troponin I < 0.30 <0.30 NG/ML Total Protein 8.2 6.4-8.2 GM/DL Albumin 3.5 3.2-4.5 GM/DL D-Dimer 1.38 H 0.00-0.49 UG/ML Urine Color YELLOW Urine Clarity CLEAR Urine pH 6 5-9 Urine Specific [place] 1.010 L 1.016-1.022 Urine Protein 1+ H NEGATIVE Urine Glucose (UA) 4+ H NEGATIVE Urine Ketones 4+ H NEGATIVE Urine Nitrite NEGATIVE NEGATIVE Urine Bilirubin NEGATIVE NEGATIVE Urine Urobilinogen 1 NORMAL MG/DL Urine Leukocyte Esterase NEGATIVE NEGATIVE Urine RBC (Auto) 2+ H NEGATIVE Urine RBC 2-5 H /HPF Urine WBC RARE /HPF Urine Squamous Epithelial Cells 5-10 /HPF Urine Crystals NONE /LPF Urine Bacteria TRACE /HPF Urine Casts NONE /LPF Urine Mucus NEGATIVE /LPF Urine Yeast TRACE /HPF Urine Culture Indicated NO Glucometer 191 H 70-110 MG/DL Test 12/13/16 22:00 12/14/16 05:13 12/14/16 05:22 12/14/16 09:50 Range/Units Glucometer 258 H 177 H 282 H 70-110 MG/DL White Blood Count 6.8 4.3-11.0 10^3/uL Red Blood Count 3.92 L 4.35-5.85 10^6/uL Hemoglobin 11.6 # 11.5-16.0 G/DL Hematocrit 36 35-52 % Mean Corpuscular Volume 91 80-99 FL Mean Corpuscular Hemoglobin 30 25-34 PG Mean Corpuscular Hemoglobin Concent 32 32-36 G/DL Red Cell Distribution Width 14.2 10.0-14.5 % Platelet Count 258 130-400 10^3/uL Mean Platelet Volume 9.3 7.4-10.4 FL Neutrophils (%) (Auto) 47 42-75 % Lymphocytes (%) (Auto) 43 12-44 % Monocytes (%) (Auto) 8 0-12 % Eosinophils (%) (Auto) 2 0-10 % Basophils (%) (Auto) 0 0-10 % Neutrophils # (Auto) 3.2 1.8-7.8 X 10^3 Lymphocytes # (Auto) 2.9 1.0-4.0 X 10^3 Monocytes # (Auto) 0.5 0.0-1.0 X 10^3 Eosinophils # (Auto) 0.1 0.0-0.3 10^3/uL Basophils # (Auto) 0.0 0.0-0.1 10^3/uL Sodium Level 139 135-145 MMOL/L Potassium Level 3.3 L 3.6-5.0 MMOL/L Chloride Level 105 98-107 MMOL/L Carbon Dioxide Level 24 21-32 MMOL/L Anion Gap 10 5-14 MMOL/L Blood Urea Nitrogen 8 7-18 MG/DL Creatinine 0.75 0.60-1.30 MG/DL Estimat Glomerular Filtration Rate > 60 BUN/Creatinine Ratio 11 Glucose Level 177 H 70-105 MG/DL Calcium Level 8.1 L 8.5-10.1 MG/DL Total Bilirubin 0.5 0.1-1.0 MG/DL Aspartate Amino Transf (AST/SGOT) 17 5-34 U/L Alanine Aminotransferase (ALT/SGPT) 21 0-55 U/L Alkaline Phosphatase 209 H 40-136 U/L Total Protein 5.8 L 6.4-8.2 GM/DL Albumin 2.6 L 3.2-4.5 GM/DL Triglycerides Level 176 H <150 MG/DL Cholesterol Level 169 < 200 MG/DL LDL Cholesterol Direct 108 1-129 MG/DL VLDL Cholesterol 35 5-40 MG/DL HDL Cholesterol 30 L 40-60 MG/DL Radiology Date of Exam: 12/13/16 CT ANGIO CHEST W PROCEDURE: CT angiography of the chest with contrast. TECHNIQUE: Multiple contiguous axial images were obtained through the chest after uneventful bolus administration of intravenous contrast. Reconstructed CTA MIP acquisitions were also performed. INDICATION: Respiratory distress, arrhythmia. FINDINGS: There are no infiltrates, effusions or pneumothoraces. There is no hilar or mediastinal lymphadenopathy. There are no pulmonary emboli. There is no aortic aneurysm or dissection. There is some calcification of the coronary arteries and the thoracic aorta. IMPRESSION: Atherosclerosis. No evidence for pulmonary embolism. Physical Exam-([facility]) Physical Exam Vital Signs VS - Last 72 Hours, by Label 12/13/16 12/13/16 12/13/16 12/13/16 14:55 19:04 19:20 19:20 Temp 97.9 97.8 Pulse 122 9 96 Resp 18 16 18 B/P (MAP) 129/83 133/74 Pulse Ox 96 95 97 O2 Delivery Room Air Room Air 12/13/16 12/14/16 12/14/16 12/14/16 22:39 00:00 04:00 08:16 Temp 97.7 97.2 96.8 Pulse 96 91 82 84 Resp 18 20 18 B/P (MAP) 138/74 126/68 116/74 105/67 Pulse Ox 94 92 92 O2 Delivery Room Air Room Air Room Air 12/14/16 12/14/16 11:30 13:36 Temp 97.4 Pulse 87 87 Resp 16 16 B/P (MAP) 114/73 114/73 Pulse Ox 96 96 O2 Delivery Room Air Room Air Capillary Refill : Less Than 3 Seconds General Appearance: WD/WN, no apparent distress HEENT: PERRL/EOMI, normal ENT inspection, pharynx normal Neck: non-tender, full range of motion, supple, normal inspection Respiratory: chest non-tender, lungs clear, normal breath sounds, no respiratory distress, no accessory muscle use Cardiovascular: regular rate, rhythm, no edema, no gallop, no JVD, no murmur Gastrointestinal: normal bowel sounds, non tender, soft, no organomegaly, no pulsatile mass Extremities: normal range of motion, non-tender, normal inspection, no pedal edema, no calf tenderness, normal capillary refill Neurologic/Psychiatric: respiratory care faculty II-XII nml as tested, no motor/sensory deficits, alert, normal mood/affect, oriented x 3 Skin: normal color, warm/dry Short Stay Diagnosis Discharge Diagnosis-Short Stay Admission Diagnosis DEHYDRATION UNCONTROLLED TYPE 2 DIABETES, INSULIN REQUIRING WITH COMPLICATIONS NONCOMPLIANCE WITH MEDICAL THERAPY Final Discharge Diagnosis SAME Conclusion Plan Lennox was observed in hospital overnight where she received IVF and a clear diet. By morning, her symptoms had improved, and she was able to be discharged. I did encourage her to make her follow up appointments with me at the clinic (I am her PCP). She has no-showed several clinic visits but appears to be frequenting the ER. This will not improve her overall prognosis or quality of life. SHe did agree to be seen next week. I have refilled her prandial insulin so that she can restart that prior to our next visit. Clinical Quality Measures DVT/VTE Risk/Contraindication: Risk Factor Score Per Nursin RFS Level Per Nursing on Admit: 4+=Very High Copy Copies To 1: AMY ANDERSON MD, JULIE A MD Dec 14, 2016 14:42
== END 2016-12-14 10:33 | disposition home or self-care (01) ==
LOC: EDUNIT# 14:44 → ER 14:46 → 4TH 18:34 → UNDOADMOB 18:34 → 4TH 19:20 → UNDODISOB 12-14 13:30
PROVIDERS: ADMIT Pediatrics; ATTEND Pediatrics
DX: Z79.899 Other long term (current) drug therapy; R00.0 Tachycardia, unspecified; E11.65 Type 2 diabetes mellitus with hyperglycemia; E86.0 Dehydration; I10 Essential (primary) hypertension; I70.0 Atherosclerosis of aorta; R11.2 Nausea with vomiting, unspecified; I25.10 Atherosclerotic heart disease of native coronary artery without angina pectoris; I48.2 Chronic atrial fibrillation; R19.7 Diarrhea, unspecified; Z79.4 Long term (current) use of insulin; Z79.82 Long term (current) use of aspirin
CPT/HCPCS: 36415; 71010; 71275; 80053; 80061; 81000; 82962; 83735; 83874; 84484; 85025; 85379; 85610; 85730; 93005; 93041; 96374; 96375; G0378

== ENCOUNTER 2016-12-26 18:44 | Emergency (ER) | payer MEDICAID ==
[~2016-12-26] VITALS: Ht 157.5 cm; Wt 90.7 kg
[~2016-12-26 18:44] MED LIST changes: +ACET-2469 PO; +ACET-2650 PO; +ACET1TAB43 PO; +DIPH25TA65 PO; +INSU100V16 SC; +NAPR220T66 PO; +NITR0.4T SL
[2016-12-26] MEDS ORDERED: APIX5TAB (19:55)
--- NOTE | 2016-12-26 20:27 | ED Back Pain ---
General Chief Complaint: Back Problems Stated Complaint: FALL/LOWER BACK PAIN Nursing Triage Note: RIGHT FLANK/LOWER BACK PAIN S/P FALL 12/23/16 Nursing Sepsis Screen: No Definite Risk Source of Information: Patient, Spouse Exam Limitations: No Limitations History of Present Illness Time Seen by Provider: 20:17 Initial Comments Patient presents ER report conveyance with her spouse with a chief complaint that she has some pain in her back, starts in the right side and travels across to the left of her upper lumbar lower thoracic spine. She states Monday approximate 4 days ago she was trying to sit down in her chair and missed her chair and landed on the floor with her back striking the coffee table for her but floor. She denies hitting her head or passing out. She is on blood thinners , Eliquis. She has pretty good bruise on her back right flank. She states that she had a fall in March 2016 and fractured her femur of her right leg because of the prostheses TKA joint being twisted. She also has a history of stroke. She denies any confusion, dysuria, cough, shortness of breath. She takes medicines for pain to include Tylenol, gabapentin, Cymbalta for her peripheral neuropathy secondary to her diabetes but says she cannot stand the pain anymore. She typically uses a walker to ambulate. Allergies and Home Medications Allergies Coded Allergies: No Known Drug Allergies (Unverified , 11/22/16) Home Medications Acetaminophen 650 Mg Tablet.er, 650 MG PO Q8H PRN for PAIN-MILD, (Reported) Acetaminophen with Codeine 1 Each Tablet, 1 TAB PO Q4H PRN for PAIN-MODERATE, ( Reported) Amitriptyline HCl 50 Mg Tablet, 100 MG PO HS, (Reported) LAST FILLED #60 11-10-16 TAKES 2 (50MG) TABLETS Apixaban 5 Mg Tablet, (Reported) Aspirin 81 Mg Tablet.dr, 81 MG PO DAILY, (Reported) Atorvastatin Calcium 20 Mg Tablet, 20 MG PO HS, (Reported) LAST FILLED #30 10-18-16 Diphenhydramine HCl 25 Mg Tablet, 50 MG PO HS, (Reported) TAKES 2 (25MG) TABLETS Duloxetine HCl 30 Mg Capsule.dr, 90 MG PO HS, (Reported) LAST FILLED #90 11-10-16 TAKES 3 (30MG) CAPSULES Gabapentin 400 Mg Capsule, 400 MG PO BID, (Reported) Insulin Aspart 100 Unit/1 Ml Susp, 30 UNITS SC AC, #100 Ref 0 Prescribed by: AMY ANDERSON on 12/14/16 1032 Insulin Detemir 100 Unit/1 Ml Insuln.pen, 50 UNITS SC HS, (Reported) Lisinopril 5 Mg Tablet, 5 MG PO DAILY, (Reported) LAST FILLED #30 11-10-16 Metoprolol Tartrate 50 Mg Tablet, 75 MG PO BID, (Reported) LAST FILLED #90 09-27-16 TAKES 1 & 1/2 (50MG) TABLETS Trazodone HCl 50 Mg Tablet, 50 MG PO HS, (Reported) LAST FILLED #30 11-10-16 Constitutional: No chills, No fever, No malaise EENTM: No ear discharge, No ear pain Respiratory: No cough, No phlegm, No short of breath, No wheezing Cardiovascular: No chest pain, No edema, No palpitations Gastrointestinal: No abdominal pain, No constipation, No diarrhea, No nausea, No vomiting Genitourinary: No dysuria, No frequency, No hematuria Musculoskeletal: see HPI, back pain Skin: see HPI, No pruritus, No rash Psychiatric/Neurological: Denies Numbness, Paresthesia (chronic peripheral neuropathy) Past Uraowwt-Vzfnkb-Njvjkr Hx Patient Social History Alcohol Use: Denies Use Recreational Drug Use: No Smoking Status: Never a Smoker Recent Foreign Travel: No Contact w/Someone Who Travel: No Recent Infectious Disease Expo: No Recent Hopitalizations: No Immunizations Up To Date Tetanus Booster (TDap): Unknown Date of Pneumonia Vaccine: Jan 11, 2014 Seasonal Allergies Seasonal Allergies: No Surgeries Surgeries: Gallbladder, Hysterectomy, Joint Replacement, Orthopedic Respiratory History of Respiratory Disorde: No Cardiovascular History of Cardiac Disorders: No (tachycardia) Cardiac Disorders: Atrial Fibrillation, Hypertension Neurological History of Neurological Disord: Yes Neurological Disorders: Stroke Reproductive System : 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 Genitourinary History of Genitourinary Disor: No Gastrointestinal History of Gastrointestinal Di: No Musculoskeletal History of Musculoskeletal Dis: Yes Musculoskeletal Disorders: Arthritis Endocrine History of Endocrine Disorders: Yes Endocrine Disorders: Diabetes, Insulin dep HEENT History of HEENT Disorders: No Cancer History of Cancer: No Psychosocial History of Psychiatric Problem: Yes Behavioral Health Disorders: Anxiety, Depression Integumentary History of Skin or Integumenta: No Family Medical History Family Medial History: Diabetes mellitus 19 MOTHER G8 BROTHER FH: CVA (cerebrovascular accident) FH: pancreatic cancer 19 FATHER Hypertension G8 BROTHER Physical Exam Vital Signs Vital Sign - Last 12Hours 12/26/16 19:55 Temp 96.5 Pulse 102 Resp 18 B/P (MAP) 140/77 Pulse Ox 96 O2 Delivery Room Air Capillary Refill : Less Than 3 Seconds General Appearance: WD/WN, Mild Distress HEENT: PERRL/EOMI, Pharynx Normal Neck: Full Range of Motion, Supple Cardiovascular: No Edema, Normal Peripheral Pulses Respiratory: No Accessory Muscle Use, No Respiratory Distress Peripheral Pulses: 2+ Dorsalis Pedis (R), 2+ Left Dors-Pedis (L) Gastrointestinal: Normal Bowel Sounds, No Organomegaly, Non Tender, Soft, No Distended Back: No CVA Tenderness, Vertebral Tenderness (upper lumbar spine bilaterally) , Other (6-8 cm diameter ecchymoses on the right flank even with about L1) Extremity: Normal Capillary Refill, No Pedal Edema Neurologic/Psychiatric: Alert, Oriented x3 Skin: Warm/Dry, Ecchymosis (right flank) Progress/Results/Core Measures Results/Orders My Orders Orders - JERRELL PAREDES Thoracic Spine, 2 Views Only (12/26/16 20:20) Lumbar Spine - 2-3 Views (12/26/16 20:20) Ua Culture If Indicated (12/26/16 20:20) Hydrocodone/Apap 5/325 Tablet (Lortab 5 (12/26/16 20:30) Medications Given in ED Current Medications Medications Dose Ordered Sig/Radha Route Start Time Stop Time Status Last Admin Dose Admin Acetaminophen/ Hydrocodone Bitart 1 tab ONCE ONCE PO 12/26/16 20:30 12/26/16 20:31 DC 12/26/16 20:38 1 TAB Vital Signs/I&O Vital Sign - Last 12Hours 12/26/16 19:55 Temp 96.5 Pulse 102 Resp 18 B/P (MAP) 140/77 Pulse Ox 96 O2 Delivery Room Air Blood Pressure Mean: 98 Diagnostic Imaging Diagonstic Imaging: Xray Plain Films/CT/US/NM/MRI: other (thoracic and lumbar spine) Comments NAME: F[facility] REC#: [id number] PHYSICIAN: JERRELL PAREDES MD CC: GREER WILBURN MD; JERRELL PAREDES Page 2 of 2 RADIOLOGY REPORT [facility]IA [facility]. [place], [place] CC: GREER WILBURN MD; JERRELL PAREDES Page 1 of 2 RADIOLOGY REPORT NAME: FERMIN KRISHNAMURTHY [facility] REC#: [id number] PT STATUS: REG ER : 1950 PHYSICIAN: JERRELL PAREDES MD ADMIT DATE: 12/26/16/ER Signed Date of Exam: 12/26/16 LUMBAR SPINE - 2-3 VIEWS Clinical indication: Patient status post fall and having back pain and bruising. Exam: X-ray of the lumbar spine, 3 views. Comparison: CT scan of the lumbar spine dated 11/22/2016. Findings: There is progression of loss of height involving the compression deformity of the upper endplate of the L1 vertebral body which is seen on the prior CT scan. The upper portion appears slightly sclerotic which has progressed in the interim. There is no other concern for acute fracture. There is grade 1 anterolisthesis of L4 on L5 with no pars defect which is better seen on this exam than the prior CT. There are degenerative spurs involving the lumbar spine. There is lumbar spine facet arthropathy. Visualized portions of the sacrum is unremarkable. There is mild left curvature of the lumbar spine. Impression: 1: There is progression of loss of height involving the L1 vertebral body compression fracture deformity of the upper endplate. There is progression of sclerosis in the region. 2: There is no interval acute lumbar spine fracture. 3: There is subtle grade 1 anterolisthesis of L4 on L5 which is better seen on this x-ray exam. Dictated by: Dictated on workstation # [id number] Dict: 12/26/162039 Trans: 12/26/162049 Interpreted by: GREER WILBURN MD Electronically signed by: GREER WILBURN MD 12/26/162049 [facility] [place], [place] NAME: FERMIN KRISHNAMURTHY [facility] REC#: [id number] PT STATUS: REG ER : 1950 PHYSICIAN: JERRELL PAREDES MD ADMIT DATE: 12/26/16/ER Draft Date of Exam:12/26/16 THORACIC SPINE, 2 VIEWS ONLY Clinical indication: Patient status post fall, now having pain and bruising on back. Exam: X-ray of the thoracic spine, 3 views. Comparison: CT scan lumbar spine dated 11/22/2016. Findings: Again seen compression deformity of the upper L1 vertebral body level. This fracture appears to have slightly progressed compared to the prior study, but there is sclerosis in the regions suggesting some degree of healing. There is no retropulsed fragment seen. There is no other concern for fracture of the thoracic spine. Limited visualization of the upper thoracic spine due to overlapping bone and soft tissue. There is hypertrophic spurs involving the thoracic spine. Likely gallbladder resection clips seen in the right upper quadrant region. Impression: 1.: There is no acute thoracic spine fracture or dislocation visualized. 2: Progression of loss of height of the L1 vertebral body fracture seen on the prior CT scan with sclerosis seen in the fracture region. Dictated on workstation # [id number] Dict: 12/26/162044 Trans: 12/26/162049 [facility] [id number] Interpreted by: GREER WILBURN MD Electronically signed by: Reviewed: Reviewed by Me Departure Impression Impression: Primary Impression: Back pain Qualified Codes: M54.5 - Low back pain Additional Impression: Closed compression fracture of L1 lumbar vertebral body Disposition: 01 HOME, SELF-CARE Condition: Stable Departure-Patient Inst. Decision time for Depature: 21:13 Referrals: AMY ANDERSON MD (PCP/Family) Primary Care Physician Patient Instructions: Low Back Pain (DC) Add. Discharge Instructions: Although you may have aggravated your L1 vertebral body compression fracture from this fall it does show signs of healing and there are no new fractures. You should use conservative care to treat your pain so that you can remain functional. Tylenol, creams such as icy hot or Biofreeze, heating pads, back brace and if needed hydrocodone. Hydrocodone is to be used one tablet every 6 hours as it will cause constipation. Please use MiraLAX every day that you use hydrocodone. Hydrocodone can also cause drowsiness so be cautious as it may increase your risk for falls. If you have new worrisome symptoms or you're unable to control your back pain you should follow-up with your primary care physician. All discharge instructions reviewed with patient and/or family. Voiced understanding. Scripts Hydrocodone/Acetaminophen (Hydrocodon -Acetaminophen 5-325) 1 Each Tablet 1 EACH PO Q6H Y for BREAKTHROUGH PAIN, #15 TAB 0 Refills Prov: JERRELL PAREDES 12/26/16 Copy Copies To 1: THERESA AMARO DO JERRELL PAREDES Dec 26, 2016 20:27
[2016-12-26] MEDS ORDERED: HYDROcodone/APAP 5 MG/325 MG (LORTAB) TAB PO ONE (20:30)
--- NOTE | 2016-12-26 20:48 | Diagnostic Imaging Report ---
Clinical indication: Patient status post fall and having back pain and bruising. Exam: X-ray of the lumbar spine, 3 views. Comparison: CT scan of the lumbar spine dated 11/22/2016. Findings: There is progression of loss of height involving the compression deformity of the upper endplate of the L1 vertebral body which is seen on the prior CT scan. The upper portion appears slightly sclerotic which has progressed in the interim. There is no other concern for acute fracture. There is grade 1 anterolisthesis of L4 on L5 with no pars defect which is better seen on this exam than the prior CT. There are degenerative spurs involving the lumbar spine. There is lumbar spine facet arthropathy. Visualized portions of the sacrum is unremarkable. There is mild left curvature of the lumbar spine. Impression: 1: There is progression of loss of height involving the L1 vertebral body compression fracture deformity of the upper endplate. There is progression of sclerosis in the region. 2: There is no interval acute lumbar spine fracture. 3: There is subtle grade 1 anterolisthesis of L4 on L5 which is better seen on this x-ray exam. Dictated by: Dictated on workstation # [id number]
--- NOTE | 2016-12-26 20:51 | Diagnostic Imaging Report ---
Clinical indication: Patient status post fall, now having pain and bruising on back. Exam: X-ray of the thoracic spine, 3 views. Comparison: CT scan lumbar spine dated 11/22/2016. Findings: Again seen compression deformity of the upper L1 vertebral body level. This fracture appears to have slightly progressed compared to the prior study, but there is sclerosis in the regions suggesting some degree of healing. There is no retropulsed fragment seen. There is no other concern for fracture of the thoracic spine. Limited visualization of the upper thoracic spine due to overlapping bone and soft tissue. There is hypertrophic spurs involving the thoracic spine. Likely gallbladder resection clips seen in the right upper quadrant region. Impression: 1.: There is no acute thoracic spine fracture or dislocation visualized. 2: Progression of loss of height of the L1 vertebral body fracture seen on the prior CT scan with sclerosis seen in the fracture region. Dictated by: Dictated on workstation # [id number]
[2016-12-26] MEDS ORDERED: HYDR-3812 PO (21:17)
[2016-12-26 21:39] VITALS: BP 140/77
== END 2016-12-26 21:38 | disposition home or self-care (01) ==
LOC: EDUNIT# 18:44 → ER 18:46
DX: M48.56XA Collapsed vertebra, not elsewhere classified, lumbar region, initial encounter for fracture (principal); E11.40 Type 2 diabetes mellitus with diabetic neuropathy, unspecified; F41.9 Anxiety disorder, unspecified; F32.9 Major depressive disorder, single episode, unspecified; I10 Essential (primary) hypertension; I48.91 Unspecified atrial fibrillation; Z86.73 Personal history of transient ischemic attack (TIA), and cerebral infarction without residual deficits; Z90.710 Acquired absence of both cervix and uterus; Z79.4 Long term (current) use of insulin; Z79.82 Long term (current) use of aspirin; Z79.01 Long term (current) use of anticoagulants
CPT/HCPCS: 72070; 72100; 99283

== ENCOUNTER 2017-05-04 16:06 | Emergency (ER) | payer MEDICAID ==
[~2017-05-04] VITALS: Ht 157.5 cm; Wt 122.5 kg
[~2017-05-04 16:06] MED LIST changes: +ACHD5005 PO; +APIX5TAB; -HYDR-3812 PO; +METO50TA15 PO; -METO50TA2 PO
--- NOTE | 2017-05-04 16:23 | ED Lower Extremity ---
General Chief Complaint: Trauma-Non Activation Stated Complaint: FALL/R KNEE DEFORMITY History of Present Illness Date Seen by Provider: May 04, 2017 Time Seen by Provider: 16:18 Initial Comments PT TO ER BY EMS WITH REPORTS OF FALLING WHILE WALKING DOWN THE [place] IN HER HOME TODAY. PT HAS DEFORMITY TO R KNEE AND LACERATION TO LEFT THIRD TOE. Location Injury Occurred: PTS HOME Onset: this afternoon Severity: moderate Pain/Injury Location: right knee (DEFORMITY TO KNEE), left 3rd toe (1.5 CM LACERATION) Method of Injury: fell Modifying Factors: Improves With Immobilization, Worse With Movement (LAMIN WINTER STUDENT) Initial Comments I have seen the patient with nurse practitioner student Lamin Iqbal. Patient fell at home unknown mechanism she states. She states that she has neuropathy and falls fairly frequently.. Complains of pain and deformity to the right knee or just below the knee, laceration and bleeding to one of the toes on the left foot. Denies hitting her head or any other injury. EMS was summoned, given 100 g of fentanyl in route to the hospital. She is an insulin dependent diabetic. She had bilateral total knee replacement 19 years ago at [facility] in [place], revision of the right knee last year at [place]. She does not recall who the physician was because she states "I had several of them".. (NONI MCDONALD APRN) Allergies and Home Medications Allergies Coded Allergies: No Known Drug Allergies (Unverified , 11/22/16) Home Medications Acetaminophen 650 Mg Tablet.er, 650 MG PO Q8H PRN for PAIN-MILD, (Reported) Acetaminophen with Codeine 1 Each Tablet, 1 TAB PO Q4H PRN for PAIN-MODERATE, ( Reported) Amitriptyline HCl 50 Mg Tablet, 100 MG PO HS, (Reported) LAST FILLED #60 11-10-16 TAKES 2 (50MG) TABLETS Apixaban 5 Mg Tablet, (Reported) Aspirin 81 Mg Tablet.dr, 81 MG PO DAILY, (Reported) Atorvastatin Calcium 20 Mg Tablet, 20 MG PO HS, (Reported) LAST FILLED #30 10-18-16 Diphenhydramine HCl 25 Mg Tablet, 50 MG PO HS, (Reported) TAKES 2 (25MG) TABLETS Duloxetine HCl 30 Mg Capsule.dr, 90 MG PO HS, (Reported) LAST FILLED #90 11-10-16 TAKES 3 (30MG) CAPSULES Gabapentin 400 Mg Capsule, 400 MG PO BID, (Reported) Hydrocodone Bit/Acetaminophen 1 Each Tablet, 1 EACH PO Q6H PRN for BREAKTHROUGH PAIN, #15 Ref 0 Prescribed by: JERRELL PAREDES on 12/26/167 Insulin Aspart 100 Unit/1 Ml Susp, 30 UNITS SC AC, #100 Ref 0 Prescribed by: AMY ANDERSON on 12/14/16 1032 Insulin Detemir 100 Unit/1 Ml Insuln.pen, 50 UNITS SC HS, (Reported) Lisinopril 5 Mg Tablet, 5 MG PO DAILY, (Reported) LAST FILLED #30 11-10-16 Metoprolol Tartrate 50 Mg Tablet, 75 MG PO BID, (Reported) LAST FILLED #90 09-27-16 TAKES 1 & 1/2 (50MG) TABLETS Trazodone HCl 50 Mg Tablet, 50 MG PO HS, (Reported) LAST FILLED #30 11-10-16 Constitutional: no symptoms reported, see HPI EENTM: see HPI, no symptoms reported Respiratory: no symptoms reported Cardiovascular: no symptoms reported, see HPI Genitourinary: no symptoms reported, see HPI Musculoskeletal: no symptoms reported, see HPI Skin: no symptoms reported, see HPI Psychiatric/Neurological: No Symptoms Reported, See HPI (LAMIN WINTER STUDENT) Past Vfqjpeu-Plptkd-Ipjbvt Hx Patient Social History Recent Hopitalizations: No (LAMIN WINTER STUDENT) Immunizations Up To Date Tetanus Booster (TDap): Unknown Date of Pneumonia Vaccine: Jan 11, 2014 (LAMIN WINTER STUDENT) Seasonal Allergies Seasonal Allergies: No (LAMIN WINTER STUDENT) Surgeries Surgeries: Gallbladder, Hysterectomy, Joint Replacement, Orthopedic (LAMIN WINTER STUDENT) Respiratory History of Respiratory Disorde: No (LAMIN WINTER STUDENT) Cardiovascular History of Cardiac Disorders: No (tachycardia) Cardiac Disorders: Atrial Fibrillation, Hypertension (LAMIN WINTER STUDENT) Neurological History of Neurological Disord: Yes Neurological Disorders: Stroke (LAMIN WINTER STUDENT) 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 (LAMIN WINTER STUDENT) Genitourinary History of Genitourinary Disor: No (LAMIN WINTER STUDENT) Gastrointestinal History of Gastrointestinal Di: No (LAMIN WINTER STUDENT) Musculoskeletal History of Musculoskeletal Dis: Yes Musculoskeletal Disorders: Arthritis (LAMIN WINTER STUDENT) Endocrine History of Endocrine Disorders: Yes Endocrine Disorders: Diabetes, Insulin dep (LAMIN WINTER STUDENT) HEENT History of HEENT Disorders: No (LAMIN WINTER STUDENT) Cancer History of Cancer: No (LAMIN WINTER STUDENT) Psychosocial History of Psychiatric Problem: Yes Behavioral Health Disorders: Anxiety, Depression (LAMIN IWNTER STUDENT) Integumentary History of Skin or Integumenta: No (LAMIN WINTER STUDENT) Family Medical History Family Medial History: Diabetes mellitus 19 MOTHER G8 BROTHER FH: CVA (cerebrovascular accident) FH: pancreatic cancer 19 FATHER Hypertension G8 BROTHER (LAMIN WINTER STUDENT) Family Medial History: Diabetes mellitus 19 MOTHER G8 BROTHER FH: CVA (cerebrovascular accident) FH: pancreatic cancer 19 FATHER Hypertension G8 BROTHER (NONI MCDONALD APRN) Physical Exam Vital Signs Vital Signs - First Documented 05/04/17 16:29 Temp 98.2 Pulse 98 Resp 20 B/P (MAP) 124/65 (84) Pulse Ox 94 (NONI MCDONALD APRN) Vital Signs Capillary Refill : (LAMIN WINTER STUDENT) General Appearance: WD/WN HEENT: normal ENT inspection Neck: non-tender, full range of motion Cardiovascular: normal peripheral pulses, regular rate, rhythm Respiratory: chest non-tender, lungs clear Gastrointestinal: normal bowel sounds, non tender Back: normal inspection Legs: left leg non-tender, left leg normal inspection, right leg deformity, right leg limited range of motion Knees: left knee non-tender, left knee normal inspection, right knee deformity Ankles: bilateral ankle non-tender, bilateral ankle normal inspection Feet: right foot pain, right foot other (LACERATION TO LEFT 3RD TOE) Neurologic/Tendon: normal sensation, normal motor functions, responds to pain Neurologic/Psychiatric: alert, normal mood/affect, oriented x 3 Skin: normal color, warm/dry Lymphatic: no adenopathy (LAMIN IWNTER STUDENT) Knees: right knee other (right proximal tibia has deformity and ecchymosis. She maintains motor and sensory function of the foot) Feet: left foot other (LACERATION TO LEFT 3RD TOE there is a 1.5 cm laceration to the plantar surface of the left third toe at the MTP joint. Depth is to the subcutaneous tissue.) (NONI MCDONALD APRN) Laceration Repair : Other Wound Location plantar surface of the left 3 toe. Wound Length (cm): 1.5 Wound's Depth, Shape: superficial Wound Explored: clean Irrigated w/ Saline (ccs): 50 Betadine Prep?: No Anesthesia: 1% Lidocaine Volume Anesthetic (ccs): 2 Wound Debrided: minimal Suture: Prolene Suture Size: 5-0 Number of Sutures: 5 Progress The laceration was cleaned with normal saline and chlorhexidine. The area was anesthetized with 2ml 1% lidocaine without epi and the wound was closed with 5 simple interrupted 5-0 Prolene sutures. (LAMIN WINTER STUDENT) Progress/Results/Core Measures Results/Orders Lab Results Laboratory Tests Test 05/04/17 16:14 Range/Units White Blood Count 14.1 H 4.3-11.0 10^3/uL Red Blood Count 4.44 4.35-5.85 10^6/uL Hemoglobin 13.5 11.5-16.0 G/DL Hematocrit 40 35-52 % Mean Corpuscular Volume 91 80-99 FL Mean Corpuscular Hemoglobin 30 25-34 PG Mean Corpuscular Hemoglobin Concent 34 32-36 G/DL Red Cell Distribution Width 13.0 10.0-14.5 % Platelet Count 356 130-400 10^3/uL Mean Platelet Volume 9.4 7.4-10.4 FL Neutrophils (%) (Auto) 53 42-75 % Lymphocytes (%) (Auto) 41 12-44 % Monocytes (%) (Auto) 5 0-12 % Eosinophils (%) (Auto) 2 0-10 % Basophils (%) (Auto) 0 0-10 % Neutrophils # (Auto) 7.4 1.8-7.8 X 10^3 Lymphocytes # (Auto) 5.8 H 1.0-4.0 X 10^3 Monocytes # (Auto) 0.6 0.0-1.0 X 10^3 Eosinophils # (Auto) 0.3 0.0-0.3 10^3/uL Basophils # (Auto) 0.0 0.0-0.1 10^3/uL Neutrophils % (Manual) 56 % Lymphocytes % (Manual) 40 % Monocytes % (Manual) 0 % Eosinophils % (Manual) 3 % Basophils % (Manual) 0 % Band Neutrophils 1 % Blood Morphology Comment NORMAL Sodium Level 136 135-145 MMOL/L Potassium Level 3.6 3.6-5.0 MMOL/L Chloride Level 98 98-107 MMOL/L Carbon Dioxide Level 25 21-32 MMOL/L Anion Gap 13 5-14 MMOL/L Blood Urea Nitrogen 11 7-18 MG/DL Creatinine 0.81 0.60-1.30 MG/DL Estimat Glomerular Filtration Rate > 60 BUN/Creatinine Ratio 14 Glucose Level 163 H 70-105 MG/DL Calcium Level 8.9 8.5-10.1 MG/DL Total Bilirubin 0.4 0.1-1.0 MG/DL Aspartate Amino Transf (AST/SGOT) 31 5-34 U/L Alanine Aminotransferase (ALT/SGPT) 20 0-55 U/L Alkaline Phosphatase 127 40-136 U/L Total Protein 7.3 6.4-8.2 GM/DL Albumin 3.3 3.2-4.5 GM/DL (NONI MCDONALD APRN) My Orders Orders - NONI MCDONALD APRN Cbc With Automated Diff (05/04/17 16:17) Comprehensive Metabolic Panel (05/04/17 16:17) Femur, Right, 2 Views (05/04/17 16:17) Tibia/Fibula, Right, 2 Views (05/04/17 16:17) Foot, Left, 3 Views (05/04/17 16:17) Fentanyl Injection (Sublimaze Injection (05/04/17 16:30) Saline Lock/Iv-Start (05/04/17 16:17) Ekg Tracing (05/04/17 16:17) Chest 1 View, Ap/Pa Only (05/04/17 16:17) Manual Differential (05/04/17 16:14) Lidocaine 2% Injection 20 Ml (Xylocaine (05/04/17 16:30) Fentanyl Injection (Sublimaze Injection (05/04/17 16:30) Ua Culture If Indicated (05/04/17 16:37) Varma Cath Insertion (05/04/17 16:37) Dipht,Pertuss(Acell),Tet Adult (Boostrix (05/04/17 16:45) Hydromorphone Injection (Dilaudid Inject (05/04/17 17:00) (NONI MCDONALD APRN) Vital Signs/I&O Vital Sign - Last 12Hours 05/04/17 16:29 Temp 98.2 Pulse 98 Resp 20 B/P (MAP) 124/65 (84) Pulse Ox 94 (NONI MCDONALD APRN) Departure Communication (Admissions) Progress Notes [facility] dispatch notified of need for EMS transfer to [place] at 174 (LAMIN WINTER STUDENT) Progress Notes 173- discussed the case with Dr. Mcfadden from orthopedics. Since the patient had revision done at [facility] he would like to have her transferred back there. I then discussed the case with Dr. Kirkpatrick in the emergency room at [place] and Dr. Meeks from orthopedics. They would like the patient placed in a posterior long-leg splint and transferred. 1746-patient placed in a posterior long-leg splint using 4 inch Ortho-Glass. Maintains brisk capillary refill of the toes (NONI MCDONALD APRN) Impression Impression: Primary Impression: Closed fracture of proximal end of right tibia and fibula Disposition: 02 XFER SHT-TRM HOSP Condition: Stable Departure-Patient Inst. Referrals: AMY ANDERSON MD (PCP/Family) Primary Care Physician LAMIN WINTER STUDENT May 04, 2017 16:23 NONI MCDONALD APRN May 04, 2017 16:37
[2017-05-04 16:24] LABS: BASOPHILS % (AUTO) 0 % (0-10); EOSINOPHILS # (AUTO) 0.3 10^3/uL (0.0-0.3); EOSINOPHILS % (AUTO) 2 % (0-10); HEMATOCRIT 40 % (35-52); HEMOGLOBIN 13.5 G/DL (11.5-16.0); LYMPHOCYTES # (AUTO) 5.8 X 10^3 (1.0-4.0); LYMPHOCYTES % (AUTO) 41 % (12-44); MEAN CORPUSCULAR HEMOGLOBIN 30 PG (25-34); MEAN CORPUSCULAR HGB CONC 34 G/DL (32-36); MEAN CORPUSCULAR VOLUME 91 FL (80-99); MEAN PLATELET VOLUME 9.4 FL (7.4-10.4); MONOCYTES # (AUTO) 0.6 X 10^3 (0.0-1.0); MONOCYTES % (AUTO) 5 % (0-12); NEUTROPHILS # (AUTO) 7.4 X 10^3 (1.8-7.8); NEUTROPHILS % (AUTO) 53 % (42-75); PLATELET COUNT 356 10^3/uL (130-400); RED BLOOD COUNT 4.44 10^6/uL (4.35-5.85); WHITE BLOOD COUNT 14.1 10^3/uL (4.3-11.0)
[2017-05-04] MEDS ORDERED: LIDOCAINE 2% 20 ML (XYLOCAINE) VIAL INJ ONE (16:30)
[2017-05-04] MEDS ORDERED: fentaNYL INJECTION 100 MCG/2 ML AMP IVP ONE ×3 (16:30→19:00)
[2017-05-04 16:44] LABS: BAND NEUTROPHILS 1 %; BASOPHILS % (MANUAL) 0 %; EOSINOPHILS % (MANUAL) 3 %; LYMPHOCYTES % (MANUAL) 40 %; MONOCYTES % (MANUAL) 0 %; NEUTROPHILS % (MANUAL) 56 %; RBC MORPH NORMAL
[2017-05-04] MEDS ORDERED: TETANUS,DIPTH,PERTUSS P/F (BOOSTRIX) 0.5 ML VIAL IM ONE (16:45)
[2017-05-04 16:46] LABS: ALANINE AMINOTRANSFERASE 20 U/L (0-55); ALBUMIN 3.3 GM/DL (3.2-4.5); ALKALINE PHOSPHATASE 127 U/L (40-136); BILIRUBIN,TOTAL 0.4 MG/DL (0.1-1.0); BUN/CREATININE RATIO 14; CALCIUM 8.9 MG/DL (8.5-10.1); CARBON DIOXIDE 25 MMOL/L (21-32); CHLORIDE 98 MMOL/L (98-107); CREATININE SERUM 0.81 MG/DL (0.60-1.30); GFR ESTIMATED > 60; GLUCOSE 163 MG/DL (70-105); POTASSIUM 3.6 MMOL/L (3.6-5.0); SODIUM 136 MMOL/L (135-145); TOTAL PROTEIN 7.3 GM/DL (6.4-8.2)
--- NOTE | 2017-05-04 16:56 | Diagnostic Imaging Report ---
INDICATION: Fall with laceration to left foot. FINDINGS: The alignment of the foot is grossly normal. There is a questionable fracture of the dorsal aspect of the distal talus. There is no other fracture or dislocation. There are mild degenerative changes. IMPRESSION: Questionable fracture of the dorsal aspect of the distal talus. Osteopenia and mild degenerative change. Dictated by: Dictated on workstation # [id number]
--- NOTE | 2017-05-04 16:58 | Diagnostic Imaging Report ---
INDICATION: Nausea, vomiting, and diarrhea. Comparison made with prior examination from 12/13/2016. FINDINGS: There is cardiomegaly. There is mild venous congestion. There is no pleural effusion or pneumothorax. Mediastinum is unremarkable. IMPRESSION: Cardiomegaly and mild central pulmonary venous congestion. Dictated by: Dictated on workstation # [id number]
--- NOTE | 2017-05-04 16:59 | Diagnostic Imaging Report ---
INDICATION: Fall with right leg pain. AP and lateral views of the right tibia and fibula are performed at 5:01 p.m. FINDINGS: There is a previous right knee prosthesis. There is an oblique fracture of the proximal tibia just below the level of prosthesis. There is also a fracture of the fibular neck with mild displacement. There is no definite fracture seen elsewhere. IMPRESSION: Acute proximal tibial fracture just below the level of the patient's knee prosthesis, with oblique orientation and mild displacement. There is also a fibular neck fracture. Dictated by: Dictated on workstation # [id number]
[2017-05-04] MEDS ORDERED: HYDROmorphone (DILAUDID) 2 MG/ML VIAL IVP ONE (17:00)
--- NOTE | 2017-05-04 17:01 | Diagnostic Imaging Report ---
INDICATION: Fall with painful deformity. FINDINGS: There are fractures of the proximal tibia and fibula extending below the [id number] of this exam. Femur is osteoporotic and there is a knee replacement and plate and screws transfixing the distal femur laterally. The femur itself appears nonacute. IMPRESSION: Osteoporosis and partial visualization of the proximal tibial and fibular fractures with no acute femoral injury apparent. Dictated by: Dictated on workstation # [id number]
[2017-05-04 19:35] VITALS: BP 111/70
== END 2017-05-04 19:35 | disposition short-term general hospital (02) ==
LOC: EDUNIT# 16:06 → ER 16:07
DX: S82.101A Unspecified fracture of upper end of right tibia, initial encounter for closed fracture (principal); S82.831A Other fracture of upper and lower end of right fibula, initial encounter for closed fracture; S91.115A Laceration without foreign body of left lesser toe(s) without damage to nail, initial encounter; E11.9 Type 2 diabetes mellitus without complications; I48.91 Unspecified atrial fibrillation; I10 Essential (primary) hypertension; F41.9 Anxiety disorder, unspecified; F32.9 Major depressive disorder, single episode, unspecified; Z86.73 Personal history of transient ischemic attack (TIA), and cerebral infarction without residual deficits; Z23 Encounter for immunization; Z80.0 Family history of malignant neoplasm of digestive organs; Z79.01 Long term (current) use of anticoagulants; Z79.4 Long term (current) use of insulin; Z79.82 Long term (current) use of aspirin; Z96.653 Presence of artificial knee joint, bilateral; W18.30XA Fall on same level, unspecified, initial encounter
CPT/HCPCS: 29505; 36415; 71045; 73552; 73590; 73630; 80053; 85007; 85027; 90471; 90715; 93005; 96374; 96376

== ENCOUNTER 2017-06-18 13:20 | Inpatient (IN) | payer MEDICAID ==
[~2017-06-18] VITALS: Ht 157.5 cm; Wt 100.8 kg
[~2017-06-18 13:20] MED LIST changes: -APIX5TAB; +APIX5TAB PO; -INSU100I29 SC; +INSU100I29 SQ; +TRAZ-189 PO; -TRAZ-28 PO
[2017-06-18] MEDS ORDERED: NS IV 1000 ML 1,000 ML IV ONE (13:33)
[2017-06-18 13:39] LABS: BASOPHILS % (AUTO) 0 % (0-10); EOSINOPHILS # (AUTO) 0.1 10^3/uL (0.0-0.3); EOSINOPHILS % (AUTO) 2 % (0-10); HEMATOCRIT 27 % (35-52); HEMOGLOBIN 8.5 G/DL (11.5-16.0); LYMPHOCYTES # (AUTO) 2.5 X 10^3 (1.0-4.0); LYMPHOCYTES % (AUTO) 33 % (12-44); MEAN CORPUSCULAR HEMOGLOBIN 30 PG (25-34); MEAN CORPUSCULAR HGB CONC 31 G/DL (32-36); MEAN CORPUSCULAR VOLUME 96 FL (80-99); MEAN PLATELET VOLUME 9.4 FL (7.4-10.4); MONOCYTES # (AUTO) 0.4 X 10^3 (0.0-1.0); MONOCYTES % (AUTO) 5 % (0-12); NEUTROPHILS # (AUTO) 4.4 X 10^3 (1.8-7.8); NEUTROPHILS % (AUTO) 60 % (42-75); PLATELET COUNT 274 10^3/uL (130-400); RED BLOOD COUNT 2.85 10^6/uL (4.35-5.85); RED CELL DISTRIBUTION WIDTH 14.7 % (10.0-14.5); WHITE BLOOD COUNT 7.4 10^3/uL (4.3-11.0)
--- NOTE | 2017-06-18 13:55 | Diagnostic Imaging Report ---
EXAMINATION: Portable chest. Compared to prior study from May 04, 2017. INDICATION: Chest pain with cough and dizziness. FINDINGS: There is enlargement of the cardiac silhouette which is similar to the prior study. While there are chronic interstitial changes on the previous exam there are new increased prominent interstitial markings at both lung bases as well as a few small regions of superimposed alveolar opacification. There is no large effusion. There is no pneumothorax. IMPRESSION: 1. While there are chronic features of interstitial lung disease on prior examination, the prominence of the interstitial markings increased and there also are scattered bibasilar alveolar opacities. In the setting of cough, pneumonia would be the primary consideration. There is stable enlargement of the cardiac silhouette. The central pulmonary vascularity appears within normal limits. Dictated by: Dictated on workstation # [id number]
[2017-06-18 14:00] LABS: ALBUMIN 2.9 GM/DL (3.2-4.5); BILIRUBIN,TOTAL 0.7 MG/DL (0.1-1.0); CALCIUM 9.4 MG/DL (8.5-10.1); CREATININE SERUM 1.23 MG/DL (0.60-1.30); POTASSIUM 5.1 MMOL/L (3.6-5.0); TOTAL PROTEIN 6.5 GM/DL (6.4-8.2)
[2017-06-18 14:05] LABS: SMEAR SCAN COMMENT YES
--- NOTE | 2017-06-18 14:31 | ED Respiratory ---
General Chief Complaint: Respiratory Problems Stated Complaint: DIZZINESS Nursing Triage Note: ARRIVED VIA EMS FROM [facility]. STAFF REPORTS PT PULSE OX WAS LOW IN THE 80'S ET INCREASED HIGH 90'S ON 3L. ALSO REPORTS A BP OF 79/55 AFTER TAKING BP PILL THIS AM. WHEN PT ARRIVED SHE STATES SHE FEELS FINE AND DID NOT WANT TO COME TO THE ER. Source: patient Exam Limitations: no limitations History of Present Illness Date Seen by Provider: Jun 18, 2017 Time Seen by Provider: 13:30 Initial Comments Here by EMS from the half-way with report of low blood pressure and O2 saturations in the 80s. She is placed on oxygen, which she is not normally on clonidine and this rapidly improved her O2 saturations back to normal. Arrives and was noted to be 80 percent on room air here and 97 percent or above on O2 via nasal cannula at 3 L. Chest x-ray, labs normal saline 1 L bolus ordered. Patient states that she does not necessarily feel bad. Denies any recent fever or chills, nausea, vomiting or diarrhea. She did have right leg surgery a month and a half ago. This was to the proximal tib-fib region. Does report that she's had recent cough and chills. Not sure about fever. She is on blood thinners (apixavan) and has been taking those as scheduled per half-way records. Did have episode of vomiting last night. Denies diarrhea. Timing/Duration: getting worse, other Severity: moderate Prior Episodes/Possible Cause: occasional episodes Modifying Factors: Worse With Activity, Improves With Oxygen, Improves With Rest Associated Symptoms: cough, fever/chills, No muscle aches, nasal congestion, shortness of breath, No wheezing Allergies and Home Medications Allergies Coded Allergies: No Known Drug Allergies (Unverified , 11/22/16) Home Medications Acetaminophen 650 Mg Tablet.er, 650 MG PO Q8H PRN for PAIN-MILD, (Reported) Acetaminophen with Codeine 1 Each Tablet, 1 TAB PO Q4H PRN for PAIN-MODERATE, ( Reported) Amitriptyline HCl 50 Mg Tablet, 100 MG PO HS, (Reported) LAST FILLED #60 11-10-16 TAKES 2 (50MG) TABLETS Aspirin 81 Mg Tablet.dr, 81 MG PO DAILY, (Reported) Atorvastatin Calcium 20 Mg Tablet, 20 MG PO HS, (Reported) LAST FILLED #30 10-18-16 Diphenhydramine HCl 25 Mg Tablet, 50 MG PO HS, (Reported) TAKES 2 (25MG) TABLETS Duloxetine HCl 30 Mg Capsule.dr, 90 MG PO HS, (Reported) LAST FILLED #90 11-10-16 TAKES 3 (30MG) CAPSULES Gabapentin 400 Mg Capsule, 400 MG PO BID, (Reported) Hydrocodone Bit/Acetaminophen 1 Each Tablet, 1 EACH PO Q6H PRN for BREAKTHROUGH PAIN Prescribed by: JERRELL PAREDES on 12/26/162116 Insulin Aspart 100 Unit/1 Ml Susp, 30 UNITS SC AC Prescribed by: AMY ANDERSON on 12/14/16 1032 Insulin Detemir 100 Unit/1 Ml Insuln.pen, 50 UNITS SC HS, (Reported) Lisinopril 5 Mg Tablet, 5 MG PO DAILY, (Reported) LAST FILLED #30 11-10-16 Metoprolol Tartrate 50 Mg Tablet, 75 MG PO BID, (Reported) LAST FILLED #90 09-27-16 TAKES 1 & 1/2 (50MG) TABLETS Trazodone HCl 50 Mg Tablet, 50 MG PO HS, (Reported) LAST FILLED #30 11-10-16 Patient Home Medication List Home Medication List Reviewed: Yes Review of Systems Constitutional: see HPI EENTM: see HPI Respiratory: see HPI, cough, short of breath Cardiovascular: No chest pain, edema Gastrointestinal: No abdominal pain, nausea, vomiting Genitourinary: no symptoms reported Musculoskeletal: no symptoms reported Skin: no symptoms reported All Other Systems Reviewed Negative Unless Noted: Yes Past Tnswjbd-Uhuqdw-Ypxjlr Hx Past Med/Social Hx: Reviewed Nursing Past Med/Soc Hx Patient Social History Alcohol Use: Denies Use Recreational Drug Use: No Smoking Status: Former Smoker Former Smoker, Quit: May 08, 1998 Recent Foreign Travel: No Contact w/Someone Who Travel: No Recent Infectious Disease Expo: No Recent Hopitalizations: No Immunizations Up To Date Tetanus Booster (TDap): Unknown Date of Pneumonia Vaccine: Jan 11, 2014 Seasonal Allergies Seasonal Allergies: No Past Medical History Gallbladder, Hysterectomy, Joint Replacement, Orthopedic Respiratory: No Cardiac: No (tachycardia) Atrial Fibrillation, Hypertension Neurological: Yes Stroke 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 Genitourinary: No Gastrointestinal: No Musculoskeletal: Yes Arthritis Endocrine: Yes Diabetes, Insulin dep HEENT: No Cancer: No Did You Recieve Any Treatments: No Psychosocial: Yes Anxiety, Depression Integumentary: No Family Medical History Reviewed Nursing Family Hx ([place] as) Diabetes mellitus 19 MOTHER G8 BROTHER FH: CVA (cerebrovascular accident) FH: pancreatic cancer 19 FATHER Hypertension G8 BROTHER Physical Exam Vital Signs Vital Signs - First Documented 06/18/17 13:34 Temp 97.9 Pulse 75 Resp 18 B/P (MAP) 101/63 (76) Pulse Ox 88 O2 Delivery Room Air Capillary Refill : Less Than 3 Seconds General Appearance: WD/WN, no apparent distress HEENT: PERRL/EOMI, pharynx normal Neck: full range of motion, supple Respiratory: lungs clear, normal breath sounds Cardiovascular: regular rate, rhythm, no murmur Gastrointestinal: non tender, soft Extremities: non-tender, normal inspection Neurologic/Psychiatric: alert, oriented x 3 Skin: normal color, warm/dry Focused Exam Lactate Level 06/18/17 14:38: Lactic Acid Level 1.88 Lactic Acid Level Laboratory Tests Test 06/18/17 14:38 Lactic Acid Level 1.88 MMOL/L (0.50-2.00) Procedures/Interventions Suture Size: 5-0 Progress/Results/Core Measures Suspected Sepsis Recent Fever Within 48 Hours: No Infection Criteria Present: Suspected New Infection New/Unexplained Altered Menta: No Sepsis Screen: No Definite Risk Sepsis Diagnosis: SIRS Temperature:97.9 Pulse: 75 Respiratory Rate: 18 Laboratory Tests 06/18/17 13:30: White Blood Count 7.4 Blood Pressure 101 /63 Mean: 76 06/18/17 14:38: Lactic Acid Level 1.88 Laboratory Tests 06/18/17 13:30: Creatinine 1.23, Platelet Count 274, Total Bilirubin 0.7 Results/Orders Lab Results Laboratory Tests Test 06/18/17 13:30 06/18/17 14:38 Range/Units White Blood Count 7.4 4.3-11.0 10^3/uL Red Blood Count 2.85 L 4.35-5.85 10^6/uL Hemoglobin 8.5 L 11.5-16.0 G/DL Hematocrit 27 L 35-52 % Mean Corpuscular Volume 96 80-99 FL Mean Corpuscular Hemoglobin 30 25-34 PG Mean Corpuscular Hemoglobin Concent 31 L 32-36 G/DL Red Cell Distribution Width 14.7 H 10.0-14.5 % Platelet Count 274 130-400 10^3/uL Mean Platelet Volume 9.4 7.4-10.4 FL Neutrophils (%) (Auto) 60 42-75 % Lymphocytes (%) (Auto) 33 12-44 % Monocytes (%) (Auto) 5 0-12 % Eosinophils (%) (Auto) 2 0-10 % Basophils (%) (Auto) 0 0-10 % Neutrophils # (Auto) 4.4 1.8-7.8 X 10^3 Lymphocytes # (Auto) 2.5 1.0-4.0 X 10^3 Monocytes # (Auto) 0.4 0.0-1.0 X 10^3 Eosinophils # (Auto) 0.1 0.0-0.3 10^3/uL Basophils # (Auto) 0.0 0.0-0.1 10^3/uL Sodium Level 136 135-145 MMOL/L Potassium Level 5.1 H 3.6-5.0 MMOL/L Chloride Level 103 98-107 MMOL/L Carbon Dioxide Level 27 21-32 MMOL/L Anion Gap 6 5-14 MMOL/L Blood Urea Nitrogen 17 7-18 MG/DL Creatinine 1.23 0.60-1.30 MG/DL Estimat Glomerular Filtration Rate 44 BUN/Creatinine Ratio 14 Glucose Level 187 H 70-105 MG/DL Calcium Level 9.4 8.5-10.1 MG/DL Total Bilirubin 0.7 0.1-1.0 MG/DL Aspartate Amino Transf (AST/SGOT) 42 H 5-34 U/L Alanine Aminotransferase (ALT/SGPT) 21 0-55 U/L Alkaline Phosphatase 207 H 40-136 U/L C-Reactive Protein High Sensitivity 23.04 H 0.00-0.50 MG/DL B-Type Natriuretic Peptide 680.3 H <100.0 PG/ML Total Protein 6.5 6.4-8.2 GM/DL Albumin 2.9 L 3.2-4.5 GM/DL Smear Scan YES Lactic Acid Level 1.88 0.50-2.00 MMOL/L My Orders Orders - SOULEYMANE VELASQUEZ MD Cbc With Automated Diff (06/18/17 13:33) Comprehensive Metabolic Panel (06/18/17 13:33) Hs C Reactive Protein (06/18/17 13:33) Chest 1 View, Ap/Pa Only (06/18/17 13:33) Saline Lock/Iv-Start (06/18/17 13:33) Ns Iv 1000 Ml (Sodium Chloride 0.9%) (06/18/17 13:33) Lactic Acid Analyzer (06/18/17 14:22) Blood Culture (06/18/17 14:22) BNP (06/18/17 14:23) Medications Given in ED Current Medications Medications Dose Ordered Sig/Radha Route Start Time Stop Time Status Last Admin Dose Admin Sodium Chloride 1,000 ml @ 0 mls/hr Q0M ONCE IV 06/18/17 13:33 06/18/17 13:36 DC 06/18/17 13:55 1,000 MLS/HR Vital Signs/I&O 06/18/17 13:34 Temp 97.9 Pulse 75 Resp 18 B/P (MAP) 101/63 (76) Pulse Ox 88 O2 Delivery Room Air Capillary Refill : Less Than 3 Seconds Blood Pressure Mean: 76 Progress Note : Progress Note Seen and evaluated on arrival by EMS. IV, labs and chest x-ray ordered. Monitor patient. While in -5: Chest x-ray concerning for infiltrate in bilateral pneumonia. Patient has improved on oxygen. Blood pressure remains greater than 90 systolic and greater than 65 not throughout the ER stay. We will get blood cultures and lactic acid and initiate pneumonia protocol. No need to further workup embolism as patient is therapeutic on medication currently. Monitor patient. 1510: I discussed the case with Dr. Arminda Flores. She accepts patient for admission, inpatient status for right lower lobe pneumonia. We will keep the patient on her blood thinners. Cefepime 2 g IV ordered. Findings concerns discussed with patient and she agrees to admission. Diagnostic Imaging Diagonstic Imaging: Xray Plain Films/CT/US/NM/MRI: chest Comments NAME: JIHAN MCMULLEN MED REC#: [id number] PT STATUS: REG ER : 09/10/1929 PHYSICIAN: SOULEYMANE VELASQUEZ MD ADMIT DATE: 06/18/17/ER Signed Date of Exam: 06/18/17 CHEST 1 VIEW, AP/PA ONLY PATIENT HISTORY: Shortness of breath and decreased oxygen saturation. TECHNIQUE: Single frontal view of the chest. COMPARISON: 02/15/2017 FINDINGS: There is mildly increased opacity at the medial right lung base, new since 02/15/2017. No large pleural effusion or pneumothorax is seen. The cardiac silhouette is stable in size. There is mild aortic atherosclerosis. No acute osseous abnormality seen. IMPRESSION: New airspace opacities in the medial right lung base, may represent atelectasis or infiltrate. Dictated by: Dictated on workstation # [id number] Dict: 06/18/17 1159 Trans: 06/18/17 1206 Interpreted by: MARYELLEN QUEVEDO MD Electronically signed by: MARYELLEN QUEVEDO MD 06/18/17 1206 Departure Communication (Admissions) Time/Spoke to Admitting Phy: 15:10 Impression Primary Impression: Right lower lobe pneumonia Qualified Codes: J18.1 - Lobar pneumonia, unspecified organism Additional Impression: Hypoxia Disposition: 09 ADMITTED INPATIENT Condition: Stable Admissions Decision to Admit Reason: Admit from ER (General) Decision to Admit/Date: Jun 18, 2017 Time/Decision to Admit Time: 15:10 Departure-Patient Inst. Referrals: AMY ANDERSON MD (PCP/Family) Primary Care Physician SOULEYMANE VELASQUEZ MD Jun 18, 2017 14:31
[2017-06-18] MEDS ORDERED: CEFEPIME INJECTION 2,000 MG in NS (IVPB) 100 ML IV STA (15:17)
[2017-06-18 16:50] VITALS: BP 122/88
[2017-06-18] MEDS ORDERED: CATHETER FLUSH 10 ML SYR IV PRN (17:15)
[2017-06-18] MEDS: NS IV 1000 ML 1,000 ML IV SCH (17:21)
[2017-06-18 19:52] VITALS: BP 122/88
[2017-06-18 20:00] VITALS: BP 137/66
[2017-06-18] MEDS: APIXABAN 5 MG (ELIQUIS) TABLET PO SCH (20:16)
[2017-06-18] MEDS ORDERED: INSU100V16 SQ (20:50)
[2017-06-18] MEDS ORDERED: diphenhydrAMINE 25 MG TAB (BENADRYL) PO SCH (21:00)
[2017-06-18] MEDS ORDERED: NON-FORMULARY MEDICATION 1 EA EA (Insulin Detemir (Levemir Flextouch) 50 UNITS) SC SCH (21:00)
[2017-06-18] MEDS ORDERED: inSUlin DETERMIR 1 UNIT/0.01 ML (LEVEMIR) CHARGE PER UNIT SQ ONE (21:44)
[2017-06-18] MEDS: ATORVASTATIN 20 MG (LIPITOR) TABLET PO SCH (21:56)
[2017-06-18] MEDS: traZODone 50 MG (DESYREL) TAB PO SCH (21:56)
[2017-06-18] MEDS: AMITRIPTYLINE 50 MG (ELAVIL) TAB PO SCH (21:56)
[2017-06-18] MEDS: DULoxetine 30 MG (CYMBALTA) CAP PO SCH (21:56)
[2017-06-18] MEDS: meTOprolol TARTRATE 50 MG (LOPRESSOR) TAB PO SCH (21:57)
[2017-06-18] MEDS: GABAPENTIN 400 MG (NEURONTIN) CAP PO SCH (22:00)
[2017-06-19] VITALS: BP 126/60
[2017-06-19] MEDS: CEFEPIME INJECTION 2,000 MG in NS (IVPB) 100 ML IV SCH ×2 (03:22→16:50)
[2017-06-19 04:00] VITALS: BP 108/63
[2017-06-19] MEDS: inSUlin ASPART (NovoLOG) 1 UNIT/0.01 ML (CHARGE PER UNIT) SC SCH ×4 (05:25→21:07)
[2017-06-19] MEDS ORDERED: inSUlin (REGULAR) HUMAN 1 UNIT/0.01 ML (CHARGE PER UNIT) SC SCH (06:00)
[2017-06-19] MEDS ORDERED: inSUlin ASPART (NovoLOG) 1 UNIT/0.01 ML (CHARGE PER UNIT) SQ SCH (06:00)
[2017-06-19] MEDS: RT-ALBUTEROL SULF 2.5 MG/3 ML PRE-MIX VIAL INH SCH ×4 (07:26→18:55)
[2017-06-19 07:47] LABS: BASOPHILS % (AUTO) 0 % (0-10); EOSINOPHILS # (AUTO) 0.5 10^3/uL (0.0-0.3); EOSINOPHILS % (AUTO) 6 % (0-10); HEMATOCRIT 27 % (35-52); HEMOGLOBIN 8.2 G/DL (11.5-16.0); LYMPHOCYTES # (AUTO) 2.8 X 10^3 (1.0-4.0); LYMPHOCYTES % (AUTO) 34 % (12-44); MEAN CORPUSCULAR HEMOGLOBIN 29 PG (25-34); MEAN CORPUSCULAR HGB CONC 31 G/DL (32-36); MEAN CORPUSCULAR VOLUME 96 FL (80-99); MEAN PLATELET VOLUME 9.4 FL (7.4-10.4); MONOCYTES # (AUTO) 0.5 X 10^3 (0.0-1.0); MONOCYTES % (AUTO) 6 % (0-12); NEUTROPHILS # (AUTO) 4.5 X 10^3 (1.8-7.8); NEUTROPHILS % (AUTO) 54 % (42-75); PLATELET COUNT 289 10^3/uL (130-400); RED BLOOD COUNT 2.79 10^6/uL (4.35-5.85); RED CELL DISTRIBUTION WIDTH 14.5 % (10.0-14.5); WHITE BLOOD COUNT 8.3 10^3/uL (4.3-11.0)
[2017-06-19 08:00] VITALS: BP 128/60
[2017-06-19 08:10] LABS: ALBUMIN 2.8 GM/DL (3.2-4.5); BILIRUBIN,TOTAL 0.5 MG/DL (0.1-1.0); CALCIUM 8.8 MG/DL (8.5-10.1); CREATININE SERUM 1.03 MG/DL (0.60-1.30); POTASSIUM 4.6 MMOL/L (3.6-5.0); TOTAL PROTEIN 5.9 GM/DL (6.4-8.2)
[2017-06-19] MEDS: lisINopril 5 MG (PRINIVIL) TABLET PO SCH (08:36)
[2017-06-19] MEDS: ASPIRIN E.C. 81 MG (ECOTRIN) TAB PO SCH (08:36)
[2017-06-19] MEDS: GABAPENTIN 400 MG (NEURONTIN) CAP PO SCH ×2 (08:36→20:05)
[2017-06-19] MEDS: meTOprolol TARTRATE 50 MG (LOPRESSOR) TAB PO SCH ×2 (08:36→20:05)
[2017-06-19] MEDS: APIXABAN 5 MG (ELIQUIS) TABLET PO SCH ×2 (08:36→20:05)
[2017-06-19] MEDS: ACETAMINOPHEN 325 MG TABLET PO PRN (09:29)
[2017-06-19] MEDS ORDERED: SENN-145 PO (10:16)
[2017-06-19] MEDS ORDERED: NAPR-915 PO (10:16)
[2017-06-19] MEDS ORDERED: AMIT25TA9 PO (10:16)
[2017-06-19] MEDS ORDERED: HYDR-34 PO (10:16)
[2017-06-19] MEDS ORDERED: CALC1TAB94 PO (10:16)
[2017-06-19] MEDS ORDERED: ACET-2267 PO (10:16)
[2017-06-19] MEDS ORDERED: NITR0.4T SL (10:16)
[2017-06-19] MEDS ORDERED: DEXTROSE 50% 50 ML (IMS) SYR IV NR (11:15)
[2017-06-19 12:00] VITALS: BP 139/63
--- NOTE | 2017-06-19 12:02 | Diagnostic Imaging Report ---
PROCEDURE: CT head without contrast. TECHNIQUE: Multiple contiguous axial images were obtained through the brain without the use of intravenous contrast. INDICATION: Hypoxia and confusion. Comparison is made with prior CT brain from 11/22/2016. The ventricles and sulci are within normal limits. No sulcal effacement is identified. There is no midline shift. No acute intra-axial or extra-axial hemorrhage is detected. Cisterns are patent. The visualized paranasal sinuses are clear. IMPRESSION: No acute intracranial process is detected. Dictated by: Dictated on workstation # [id number]
--- NOTE | 2017-06-19 14:31 | History & Physicial ([facility]) ---
HPI History of Present Illness: 66 yo F that came from [facility] when she was found to be hypoxic. They state that she does not have a previous oxygen requirement and was found to be in the 80s prior to transfer to the ER. She recently had surgery to repair RLE fracture and placed on oral anticoagulation. Saturations improved rapidly with oxygen supplementation but she was found to have infiltrates on CXR. This AM patient was confused and not responding appropriately to questioning. She was following some commands and moving all extremities equally. Oxygen saturations were 98%. Blood sugar was taken and was 78. Patient was then given an amp of D50 and improved some but was still confused. CT head ordered. Patient denies any pain. Source: patient, RN/MD, old records Exam Limitations: clinical condition Date seen by provider: Jun 19, 2017 Time Seen by Provider: 11:05 Attending Physician Arminda Flores Julie A MD Consult Date of Admission Jun 18, 2017 at 15:20 Home Medications Home Medications Reviewed patient Home Medication Reconciliation performed by pharmacy medication reconciliations cryptologic technician technical and/or nursing. Patients Allergies have been reviewed. Allergies Coded Allergies: No Known Drug Allergies (Unverified , 11/22/16) GEB-Ixfpkp-Prwyfp Hx Patient Social History Living Status: Staying at [facility] for PT post surgery Alcohol Use: Denies Use Recreational Drug Use: No Smoking Status: Former Smoker Recent Foreign Travel: No Contact w/other who traveled: No Recent Hopitalizations: No Recent Infectious Disease Expo: No Physical Abuse Screen: No Sexual Abuse: No Immunizations Up To Date Tetanus Booster (TDap): Unknown Date of Pneumonia Vaccine: Jan 11, 2014 Past Medical History IDDM Paroxysmal Atrial fibrillation Obesity Family Medical History Family History: Diabetes mellitus 19 MOTHER G8 BROTHER FH: CVA (cerebrovascular accident) FH: pancreatic cancer 19 FATHER Hypertension G8 BROTHER Review of Systems ([facility]) Constitutional: no symptoms reported Other Unable to get due to confusion and altered mental status Reviewed Test Results Reviewed Test Results Lab Laboratory Tests Test 06/18/17 20:23 06/19/17 05:19 06/19/17 07:20 06/19/17 10:26 Range/Units Glucometer 147 H 133 H 98 70-110 MG/DL White Blood Count 8.3 4.3-11.0 10^3/uL Red Blood Count 2.79 L 4.35-5.85 10^6/uL Hemoglobin 8.2 L 11.5-16.0 G/DL Hematocrit 27 L 35-52 % Mean Corpuscular Volume 96 80-99 FL Mean Corpuscular Hemoglobin 29 25-34 PG Mean Corpuscular Hemoglobin Concent 31 L 32-36 G/DL Red Cell Distribution Width 14.5 10.0-14.5 % Platelet Count 289 130-400 10^3/uL Mean Platelet Volume 9.4 7.4-10.4 FL Neutrophils (%) (Auto) 54 42-75 % Lymphocytes (%) (Auto) 34 12-44 % Monocytes (%) (Auto) 6 0-12 % Eosinophils (%) (Auto) 6 0-10 % Basophils (%) (Auto) 0 0-10 % Neutrophils # (Auto) 4.5 1.8-7.8 X 10^3 Lymphocytes # (Auto) 2.8 1.0-4.0 X 10^3 Monocytes # (Auto) 0.5 0.0-1.0 X 10^3 Eosinophils # (Auto) 0.5 H 0.0-0.3 10^3/uL Basophils # (Auto) 0.0 0.0-0.1 10^3/uL Sodium Level 138 135-145 MMOL/L Potassium Level 4.6 3.6-5.0 MMOL/L Chloride Level 106 98-107 MMOL/L Carbon Dioxide Level 25 21-32 MMOL/L Anion Gap 7 5-14 MMOL/L Blood Urea Nitrogen 20 H 7-18 MG/DL Creatinine 1.03 0.60-1.30 MG/DL Estimat Glomerular Filtration Rate 54 BUN/Creatinine Ratio 19 Glucose Level 113 H 70-105 MG/DL Calcium Level 8.8 8.5-10.1 MG/DL Total Bilirubin 0.5 0.1-1.0 MG/DL Aspartate Amino Transf (AST/SGOT) 37 H 5-34 U/L Alanine Aminotransferase (ALT/SGPT) 24 0-55 U/L Alkaline Phosphatase 227 H 40-136 U/L Total Protein 5.9 L 6.4-8.2 GM/DL Albumin 2.8 L 3.2-4.5 GM/DL Test 06/19/17 11:07 06/19/17 12:25 06/19/17 14:40 Range/Units Glucometer 76 106 477 *H 70-110 MG/DL Radiology Date of Exam:06/18/17 CHEST 1 VIEW, AP/PA ONLY EXAMINATION: Portable chest. Compared to prior study from May 04, 2017. INDICATION: Chest pain with cough and dizziness. FINDINGS: There is enlargement of the cardiac silhouette which is similar to the prior study. While there are chronic interstitial changes on the previous exam there are new increased prominent interstitial markings at both lung bases as well as a few small regions of superimposed alveolar opacification. There is no large effusion. There is no pneumothorax. IMPRESSION: 1. While there are chronic features of interstitial lung disease on prior examination, the prominence of the interstitial markings increased and there also are scattered bibasilar alveolar opacities. In the setting of cough, pneumonia would be the primary consideration. There is stable enlargement of the cardiac silhouette. The central pulmonary vascularity appears within normal limits. Date of Exam:06/19/17 CT HEAD WO PROCEDURE: CT head without contrast. TECHNIQUE: Multiple contiguous axial images were obtained through the brain without the use of intravenous contrast. INDICATION: Hypoxia and confusion. Comparison is made with prior CT brain from 11/22/2016. The ventricles and sulci are within normal limits. No sulcal effacement is identified. There is no midline shift. No acute intra-axial or extra-axial hemorrhage is detected. Cisterns are patent. The visualized paranasal sinuses are clear. IMPRESSION: No acute intracranial process is detected. Physical Exam-([facility]) Physical Exam Vital Signs VS - Last 72 Hours, by Label 06/18/17 06/18/17 06/18/17 06/18/17 13:34 13:34 16:36 16:50 Temp 97.9 97.9 96.5 Pulse 75 70 75 Resp 18 16 20 B/P (MAP) 101/63 (76) 100/75 122/88 (99) Pulse Ox 88 100 97 O2 Delivery Nasal Cannula Room Air Nasal Cannula Nasal Cannula O2 Flow Rate 2.00 3.00 2.00 06/18/17 06/18/17 06/18/17 06/18/17 18:30 19:52 20:00 20:55 Temp 97.5 Pulse 80 79 Resp 20 B/P (MAP) 137/66 (89) Pulse Ox 97 97 99 98 O2 Delivery Nasal Cannula Nasal Cannula Nasal Cannula O2 Flow Rate 0.00 2.00 2.00 FiO2 30 06/18/17 06/19/17 06/19/17 06/19/17 21:00 00:00 04:00 04:06 Temp 96.8 97.3 Pulse 83 67 Resp 20 22 B/P (MAP) 126/60 (82) 108/63 (78) Pulse Ox 98 98 80 85 O2 Delivery Nasal Cannula Nasal Cannula Nasal Cannula Nasal Cannula O2 Flow Rate 2.00 2.00 2.00 4.00 06/19/17 06/19/17 06/19/17 06/19/17 04:10 07:26 08:00 09:00 Temp 96.7 Pulse 69 Resp 18 B/P (MAP) 128/60 (82) Pulse Ox 95 84 100 100 O2 Delivery OxyMask Room Air OxyMask Nasal Cannula O2 Flow Rate 5.00 3.00 06/19/17 06/19/17 11:15 12:00 Temp 97.7 Pulse 79 Resp 18 B/P (MAP) 139/63 (88) Pulse Ox 98 95 O2 Delivery Nasal Cannula Nasal Cannula O2 Flow Rate 3.00 Capillary Refill : Less Than 3 SecondsLess Than 3 Seconds General Appearance: other (Pleasantly confused, not answering questions appropriately) HEENT: PERRL/EOMI Respiratory: chest non-tender, normal breath sounds, no respiratory distress, no accessory muscle use Cardiovascular: regular rate, rhythm, no murmur Gastrointestinal: normal bowel sounds, non tender, soft, no organomegaly Extremities: non-tender, no calf tenderness, pedal edema (3+ pitting edema equal bilaterally) Neurologic/Psychiatric: no motor/sensory deficits, other (Oriented x1) Skin: normal color, warm/dry Lymphatic: no adenopathy Assessment/Plan Assessment/Plan Admission Dx Right Lower Lobe PNA s/p surgery Altered Mental Status Admission Status: Inpatient Order (span 2 midnights) Reason for Inpatient Admission: Requiring oxygen support and poorly controlled DM (1) Right lower lobe pneumonia Status: Acute Assessment & Plan: - Likely related to recent surgery - A/A nebs PRN - Titrate oxygen as tolerated - Continue antibiotics to cover HCAP Qualifiers: Qualified Codes: J18.1 - Lobar pneumonia, unspecified organism (2) Hypoxia Status: Acute Assessment & Plan: - See Above - CT chest neg for PE (3) Altered mental status Status: Acute Assessment & Plan: - Likely 2/2 to hypoglycemia as she is improving after treatment - CT head normal, No acute processes - Reviewed medication list Qualifiers: Qualified Codes: R40.4 - Transient alteration of awareness (4) Insulin dependent diabetes mellitus with complications Status: Chronic Assessment & Plan: - Adjusted insulin down due to low PO intake, continue to monitor blood sugars closely - A1c pending (5) Paroxysmal atrial fibrillation Status: Chronic Assessment & Plan: - First episode during recent hospitalization for fracture repair - Continue PO anticoagulation (6) Normocytic anemia due to blood loss Status: Acute Assessment & Plan: - Iron studies pending, no signs of acute bleeding, post surgical (7) DVT prophylaxis Status: Acute Assessment & Plan: - Continue PO anticoagulation (8) Discharge planning issues Status: Acute Assessment & Plan: - Plan to d/c back to [facility] when safe to D/c Clinical Quality Measures DVT/VTE Risk/Contraindication: Risk Factor Score Per Nursin RFS Level Per Nursing on Admit: 4+=Very High Copy Copies To 1: AMY ANDERSON MD, HOLLY R MD Jun 19, 2017 14:30
--- NOTE | 2017-06-19 14:51 | Physical Therapy Evaluation ---
PT Evaluation-General Medical Diagnosis Admission Date Jun 18, 2017 at 15:20 Medical Diagnosis: RLL pneumonia/hypoxia Onset Date: Jun 18, 2017 Therapy Diagnosis Therapy Diagnosis: generalized weakness/debility Height/Weight Height (Feet): 5 Height (Inches): 2.00 Weight (Pounds): 255 Weight (Ounces): 0.0 Precautions Precautions/Isolations: Fall Prevention, Standard Precautions Weight Bear Status Right Lower Extremity: Right Weight Bearing/Tolerated Left Lower Extremity: Left Weight Bearing/Tolerated Referral Physician: Vince Reason for Referral: Evaluation/Treatment Medical History Pertinent Medical History: Atrial Fib, DM, HTN Additional Medical History fall in Apr resulting in right distal femur fracture and proximal tib/fib fracture with repair Current History EMS from [place] with decreased BP and SAO2 Reviewed History: Yes Social History Home: [facility] Prior/Core FIM Prior Level of Function Functional R[place] Measure 0=Not Assessed/NA 4=Minimal Assistance 1=Total Assistance 5=Supervision or Setup 2=Maximal Assistance 6=Modified [place] 3=Moderate Assistance 7=Complete R[place] Bed Mobility: 4 Transfers (B,C,W/C) (FIM): 1 PT Evaluation-Current Subjective Patient reports she is 6 wks out from surgery and is able to weight bear right LE. Pain Numeric Pain Scale: 0-No Pain Location: No Pain Reported Objective Patient Orientation: Person, Time, Situation Problem Solving: Fair ROM/Strength ROM Lower Extremities bilateral LE WNL (noted edema right LE) Strength Lower Extremities right knee flexion/extension 3-/5; hip flexion 2/5; DF/PF 3-/5 left knee flexion/extension 3/5; hip flexion 3/5; DF/PF 3/5 Integumentary/Posture Integumentary refer to nursing notes Bowel Incontinence: No Bladder Incontinence: No Posture WFL Neuromuscular (Tone, Coordination, Reflexes) noted "twitching" of bilateral UE's at rest and with movement/severely diminished coordination due to inactivity PLOF Sensory Vision: Wears Glasses Hearing: Functional Sensation Right Lower Extremit: Impaired Sensation Left Lower Extremity: Impaired Transfers Functional R[place] Measure 0=Not Assessed/NA 4=Minimal Assistance 1=Total Assistance 5=Supervision or Setup 2=Maximal Assistance 6=Modified Rhea 3=Moderate Assistance 7=Complete Rhea Transfers (B, C, W/C) (FIM): 2 Scootin Rollin Supine to/from Sit: 4 Sit to/from Stand: 2 bed t/f WC(FIM only if WC use): 2 max assist x 2 with blocking bilateral knees to prevent flexion Gait Mode of Locomotion: Wheelchair Anticipated Mode of Locomotion: Wheelchair Balance Sitting Static: Poor Sitting Dynamic: Poor Standing Static: Poor Standing Dynamic: Poor Assessment/Needs 66 y.o. female, will benefit from skilled PT to address functional strength and mobility to improve current LOF. Patient is currently receiving therapies in NH with will continue to receive upon dismissal. Rehab Potential: Guarded PT Disbursing Officer Goals Mcc Goals PT Mcc Goals Time Frame: Jun 30, 2017 Transfers (B,C,W/C) (FIM): 3 PT Plan Problem List Problem List: Activity Tolerance, Functional Strength, Safety, Balance, Transfer, Bed Mobility Treatment/Plan Treatment Plan: Continue Plan of Care Treatment Plan: Bed Mobility, Education, Functional Activity Zen[place], Functional Strength, Safety, Therapeutic Exercise, Transfers Treatment Duration: Jun 30, 2017 Frequency: 6 times per week Estimated Hrs Per Day: .5 hour per day Patient and/or Family Agrees t: Yes Discharge Recommendations Therapy D/C Recommendations: [facility] Placement, Shelter (TCU/NH) Time/GCodes Time In: 1331 Time Out: 1350 Total Billed Treatment Time: 19 Total Billed Treatment 1 visit EVMod 19 min PARUL MCFARLAND PT Jun 19, 2017 14:50
[2017-06-19 15:30] VITALS: BP 129/58
[2017-06-19] MEDS: NS IV 1000 ML 1,000 ML IV SCH (17:28)
[2017-06-19 19:55] VITALS: BP 125/59
[2017-06-19] MEDS: traZODone 50 MG (DESYREL) TAB PO SCH (20:05)
[2017-06-19] MEDS: ATORVASTATIN 20 MG (LIPITOR) TABLET PO SCH (20:05)
[2017-06-19] MEDS: SENNA W/DOCUSATE (SENOKOT S) TABLET PO SCH (20:05)
[2017-06-19] MEDS: DULoxetine 30 MG (CYMBALTA) CAP PO SCH (20:06)
[2017-06-19] MEDS: AMITRIPTYLINE 50 MG (ELAVIL) TAB PO SCH (20:09)
[2017-06-19] MEDS ORDERED: diphenhydrAMINE 25 MG TAB (BENADRYL) PO SCH (21:00)
[2017-06-19] MEDS ORDERED: inSUlin DETERMIR 1 UNIT/0.01 ML (LEVEMIR) CHARGE PER UNIT SQ SCH (21:00)
[2017-06-19] MEDS: inSUlin DETERMIR 1 UNIT/0.01 ML (LEVEMIR) CHARGE PER UNIT SQ SCH (21:07)
[2017-06-20 00:11] VITALS: BP 110/68
[2017-06-20] MEDS: CEFEPIME INJECTION 2,000 MG in NS (IVPB) 100 ML IV SCH ×2 (03:13→14:56)
[2017-06-20] MEDS: NS IV 1000 ML 1,000 ML IV SCH (03:15)
[2017-06-20 04:41] VITALS: BP 124/73
[2017-06-20] MEDS: inSUlin ASPART (NovoLOG) 1 UNIT/0.01 ML (CHARGE PER UNIT) SC SCH ×4 (05:08→21:44)
[2017-06-20 06:27] LABS: BASOPHILS % (AUTO) 0 % (0-10); EOSINOPHILS # (AUTO) 0.4 10^3/uL (0.0-0.3); EOSINOPHILS % (AUTO) 5 % (0-10); HEMATOCRIT 27 % (35-52); HEMOGLOBIN 8.3 G/DL (11.5-16.0); LYMPHOCYTES % (AUTO) 24 % (12-44); MEAN CORPUSCULAR HEMOGLOBIN 30 PG (25-34); MEAN CORPUSCULAR HGB CONC 31 G/DL (32-36); MEAN CORPUSCULAR VOLUME 96 FL (80-99); MEAN PLATELET VOLUME 9.6 FL (7.4-10.4); MONOCYTES # (AUTO) 0.5 X 10^3 (0.0-1.0); MONOCYTES % (AUTO) 6 % (0-12); NEUTROPHILS # (AUTO) 5.6 X 10^3 (1.8-7.8); NEUTROPHILS % (AUTO) 65 % (42-75); PLATELET COUNT 328 10^3/uL (130-400); RED BLOOD COUNT 2.79 10^6/uL (4.35-5.85); RED CELL DISTRIBUTION WIDTH 14.6 % (10.0-14.5); WHITE BLOOD COUNT 8.6 10^3/uL (4.3-11.0)
[2017-06-20 06:48] LABS: ALANINE AMINOTRANSFERASE 24 U/L (0-55); ALBUMIN 2.9 GM/DL (3.2-4.5); ALKALINE PHOSPHATASE 284 U/L (40-136); BILIRUBIN,TOTAL 0.5 MG/DL (0.1-1.0); BUN/CREATININE RATIO 21; CALCIUM 8.9 MG/DL (8.5-10.1); CARBON DIOXIDE 27 MMOL/L (21-32); CHLORIDE 107 MMOL/L (98-107); CREATININE SERUM 0.73 MG/DL (0.60-1.30); GFR ESTIMATED > 60; GLUCOSE 116 MG/DL (70-105); POTASSIUM 4.7 MMOL/L (3.6-5.0); SODIUM 139 MMOL/L (135-145); TOTAL PROTEIN 6.6 GM/DL (6.4-8.2)
[2017-06-20] MEDS: RT-ALBUTEROL SULF 2.5 MG/3 ML PRE-MIX VIAL INH SCH ×4 (07:12→18:23)
[2017-06-20 08:00] VITALS: BP 146/68
[2017-06-20] MEDS: lisINopril 5 MG (PRINIVIL) TABLET PO SCH (08:52)
[2017-06-20] MEDS: GABAPENTIN 400 MG (NEURONTIN) CAP PO SCH ×2 (08:52→21:44)
[2017-06-20] MEDS: APIXABAN 5 MG (ELIQUIS) TABLET PO SCH ×2 (08:52→21:45)
[2017-06-20] MEDS: ASPIRIN E.C. 81 MG (ECOTRIN) TAB PO SCH (08:52)
[2017-06-20] MEDS: ACETAMINOPHEN 325 MG TABLET PO PRN (08:53)
[2017-06-20] MEDS: meTOprolol TARTRATE 50 MG (LOPRESSOR) TAB PO SCH ×2 (08:53→21:45)
[2017-06-20 12:00] VITALS: BP 164/65
--- NOTE | 2017-06-20 14:13 | Physical Therapy Daily Note ---
PT Daily Note-Current Subjective "I've done enough already today." Eventually agrees to PT. Transfers Functional [place] Measure 0=Not Assessed/NA 4=Minimal Assistance 1=Total Assistance 5=Supervision or Setup 2=Maximal Assistance 6=Modified [place] 3=Moderate Assistance 7=Complete IndependenceIRFPAI Quality Coding Scale 6 Independent with activity with or without an assistive device 5 Patient requires set up or clean up by helper. Patient completes activity by themselves 4 Supervision or touching assist (CGA). [place] provide cues , steadying assist 3 The helper provides less than half the effort to complete the activity 2 The helper provides more than half the effort to complete the activity 1 Dependent. The helper does all the effort to complete an activity 7 Patient refused to complete or attempt activity 9 The patient did not perform the activity before the current illness or injury 88 Not attempted due to Medical conditions or safety concerns Transfers (B, C, W/C) (FIM): 3 Supine to/from Sit: 3 Sit to/from Stand: 3 (assist of 2 but only needed min assist of 1 to complete. ) Pt required mod assist to transfer from supine to sit EOB but was able to lie back down with min assist. Sit to stand x 4 at EOB with FWW with assist of 2 for safety but required min assist. In standing, her right knee would buckle and she would sit on the bed. In sitting, she present with jerking movements of her UE;s and poor control of her trunk. At times needed min assist for seated balance and other times was SBA. In standing, her hip girdle and core seemed weak and with poor control. Pt in bed post treatment with needs met. Weight Bearing Right Lower Extremity: Right Weight Bearing/Tolerated Left Lower Extremity: Left Weight Bearing/Tolerated Assessment Current Status: Fair Progress Pt has movements of the UE and trunk that are uncontrolled. She also has a buckling of the right knee in standing that makes standing, transfers or gait difficult due to decreased stability. PT Senior Living Goals Senior Living Goals PT Core Composer Machine Tender Goals Time Frame: Jun 30, 2017 Transfers (B,C,W/C) (FIM): 3 PT Plan Problem List Problem List: Activity Tolerance, Functional Strength, Safety, Balance, Gait, Transfer, Bed Mobility Treatment/Plan Treatment Plan: Continue Plan of Care Treatment Plan: Bed Mobility, Education, Functional Activity Zen[place], Functional Strength, Safety, Therapeutic Exercise, Transfers Treatment Duration: Jun 30, 2017 Frequency: 6 times per week Estimated Hrs Per Day: .5 hour per day Patient and/or Family Agrees t: Yes Safety Risks/Education Patient Education: Safety Issues Teaching Recipient: Patient Teaching Methods: Discussion Response to Teaching: Reinforcement Needed Time/GCodes Time In: 1300 Time Out: 1324 Total Billed Treatment Time: 24 Total Billed Treatment vsiit FA 24 RHONDA RAMIREZ PT Jun 20, 2017 14:13
[2017-06-20 16:00] VITALS: BP 105/64
[2017-06-20 17:22] LABS: BILIRUBIN,URINE NEGATIVE (NEGATIVE); CLARITY,URINE CLEAR; COLOR,URINE YELLOW; GLUCOSE, URINE (UA) NEGATIVE (NEGATIVE); KETONES,URINE 1+ (NEGATIVE); LEUKOCYTE ESTERASE ,URINE NEGATIVE (NEGATIVE); NITRITE,URINE NEGATIVE (NEGATIVE); PH,URINE 5 (5-9); PROTEIN,URINE 1+ (NEGATIVE); UROBILINOGEN,URINE NORMAL (NORMAL)
[2017-06-20 17:36] LABS: BACTERIA,URINE MODERATE /HPF; WBC,URINE 0-2 /HPF
[2017-06-20 19:46] VITALS: BP 139/62
[2017-06-20] MEDS ORDERED: FUROSEMIDE 40 MG/4 ML INJ (LASIX) IVP ONE (21:30)
[2017-06-20] MEDS ORDERED: LORazepam INJ 2 MG/ML (ATIVAN) VIAL IVP ONE (21:30)
--- NOTE | 2017-06-20 21:35 | Progress Note (SOAP) ---
Subjective Subjective/Events-last exam Patient confused this AM but answers most questions appropriately. Tolerating PO diet. No BM since admission. Denies any pain this AM. Breathing comfortably. No low blood sugars ON. Review of Systems Date Seen by Provider: Jun 20, 2017 Time Seen by Provider: 10:30 General: Fatigue Pulmonary: Dyspnea Cardiovascular: Edema, No: Chest Pain Gastrointestinal: Constipation, No: Nausea, Vomiting, Diarrhea Genitourinary: No Dysuria, No Frequency, No Incontinence Neurological: Confusion Focused Exam Lactate Level 06/18/17 14:38: Lactic Acid Level 1.88 Objective Exam Last Set of Vital Signs Vital Signs Date Time Temp Pulse Resp B/P (MAP) Pulse Ox O2 Delivery O2 Flow Rate FiO2 06/20/17 19:46 99.3 87 18 139/62 (87) 93 Vapotherm 90.00 22.00 06/20/17 19:27 90 Capillary Refill : Less Than 3 SecondsLess Than 3 Seconds I&O Intake and Output 06/20/17 00:00 Intake Total 1880 ml Output Total 1100 ml Balance 780 ml Intake Oral 1780 ml IV Total 100 ml Output Urine Total 1100 ml # Voids 1 General: Alert, Cooperative, No Acute Distress, Other (Oriented x2, patient does not know where she is) Lungs: Other (+ crackles and wheezing diffusely) Heart: Regular Rate, No Murmurs Abdomen: Normal Bowel Sounds, Soft, No Tenderness, No Hepatosplenomegaly, No Masses Extremities: Other (Pitting edema bilaterally 3+) Neuro: Normal Speech, Sensation Intact, Cranial Nerves 3-12 NL Results/Procedures Lab Laboratory Tests 06/20/17 05:07: Glucometer 131H 06/20/17 05:45: White Blood Count 8.6, Red Blood Count 2.79L, Hemoglobin 8.3L, Hematocrit 27L, Mean Corpuscular Volume 96, Mean Corpuscular Hemoglobin 30, Mean Corpuscular Hemoglobin Concent 31L, Red Cell Distribution Width 14.6H, Platelet Count 328, Mean Platelet Volume 9.6, Neutrophils (%) (Auto) 65, Lymphocytes (%) (Auto) 24, Monocytes (%) (Auto) 6, Eosinophils (%) (Auto) 5, Basophils (%) (Auto) 0, Neutrophils # (Auto) 5.6, Lymphocytes # (Auto) 2.0, Monocytes # (Auto) 0.5, Eosinophils # (Auto) 0.4H, Basophils # (Auto) 0.0, Sodium Level 139, Potassium Level 4.7, Chloride Level 107, Carbon Dioxide Level 27, Anion Gap 5, Blood Urea Nitrogen 15, Creatinine 0.73, Estimat Glomerular Filtration Rate > 60, BUN/ Creatinine Ratio 21, Glucose Level 116H, Calcium Level 8.9, Total Bilirubin 0.5 , Aspartate Amino Transf (AST/SGOT) 34, Alanine Aminotransferase (ALT/SGPT) 24, Alkaline Phosphatase 284H, Total Protein 6.6, Albumin 2.9L 06/20/17 07:50: Iron Level 17L, Total Iron Binding Capacity 197L, Unsaturated Iron Binding Capacity 180, Transferrin % Saturation 9L 06/20/17 09:58: Glucometer 166H 06/20/17 14:26: Glucometer 149H 06/20/17 16:43: Urine Color YELLOW, Urine Clarity CLEAR, Urine pH 5, Urine Specific [place] 1.015L, Urine Protein 1+H, Urine Glucose (UA) NEGATIVE, Urine Ketones 1+H, Urine Nitrite NEGATIVE, Urine Bilirubin NEGATIVE, Urine Urobilinogen NORMAL, Urine Leukocyte Esterase NEGATIVE, Urine RBC (Auto) 1+H, Urine RBC 2-5H, Urine WBC 0-2, Urine Squamous Epithelial Cells 5-10, Urine Crystals NONE, Urine Bacteria MODERATEH, Urine Casts NONE, Urine Mucus SMALLH, Urine Culture Indicated NO 06/20/17 21:07: Glucometer 216H Microbiology 06/18/17 Blood Culture - Preliminary, Resulted No growth Radiology Date of Exam:06/18/17 CHEST 1 VIEW, AP/PA ONLY EXAMINATION: Portable chest. Compared to prior study from May 04, 2017. INDICATION: Chest pain with cough and dizziness. FINDINGS: There is enlargement of the cardiac silhouette which is similar to the prior study. While there are chronic interstitial changes on the previous exam there are new increased prominent interstitial markings at both lung bases as well as a few small regions of superimposed alveolar opacification. There is no large effusion. There is no pneumothorax. IMPRESSION: 1. While there are chronic features of interstitial lung disease on prior examination, the prominence of the interstitial markings increased and there also are scattered bibasilar alveolar opacities. In the setting of cough, pneumonia would be the primary consideration. There is stable enlargement of the cardiac silhouette. The central pulmonary vascularity appears within normal limits. Date of Exam:06/19/17 CT HEAD WO PROCEDURE: CT head without contrast. TECHNIQUE: Multiple contiguous axial images were obtained through the brain without the use of intravenous contrast. INDICATION: Hypoxia and confusion. Comparison is made with prior CT brain from 11/22/2016. The ventricles and sulci are within normal limits. No sulcal effacement is identified. There is no midline shift. No acute intra-axial or extra-axial hemorrhage is detected. Cisterns are patent. The visualized paranasal sinuses are clear. IMPRESSION: No acute intracranial process is detected. Assessment/Plan Assessment/Plan Admission Status: Inpatient Order (span 2 midnights) Reason for Inpatient Admission: Patient continues to require supplemental oxygen (1) Right lower lobe pneumonia Status: Acute Assessment & Plan: - Likely related to recent surgery - A/A nebs PRN - Titrate oxygen as tolerated - Continue antibiotics to cover HCAP Qualifiers: Qualified Codes: J18.1 - Lobar pneumonia, unspecified organism (2) Hypoxia Status: Acute Assessment & Plan: - See Above - CT chest neg for PE - Added steroids and lasix today (3) Altered mental status Status: Acute Assessment & Plan: - Likely 2/2 to hypoglycemia as she is improving after treatment - CT head normal, No acute processes - Reviewed medication list, Will hold gabapentin - UA today Qualifiers: Qualified Codes: R40.4 - Transient alteration of awareness (4) Insulin dependent diabetes mellitus with complications Status: Chronic Assessment & Plan: - Adjusted insulin down due to low PO intake, continue to monitor blood sugars closely - A1c pending (5) Paroxysmal atrial fibrillation Status: Chronic Assessment & Plan: - First episode during recent hospitalization for fracture repair, currently NSR - Continue PO anticoagulation (6) Normocytic anemia due to blood loss Status: Acute Assessment & Plan: - Iron def anemia, will dose iron in AM with pharmacy (7) DVT prophylaxis Status: Acute Assessment & Plan: - Continue PO anticoagulation (8) Discharge planning issues Status: Acute Assessment & Plan: - Plan to d/c back to [facility] when safe to D/c Clinical Quality Measures DVT/VTE Risk/Contraindication: Risk Factor Score Per Nursin RFS Level Per Nursing on Admit: 4+=Very High LUPE LEAL MD Jun 20, 2017 21:35
[2017-06-20] MEDS: DULoxetine 30 MG (CYMBALTA) CAP PO SCH (21:44)
[2017-06-20] MEDS: inSUlin DETERMIR 1 UNIT/0.01 ML (LEVEMIR) CHARGE PER UNIT SQ SCH (21:44)
[2017-06-20] MEDS: traZODone 50 MG (DESYREL) TAB PO SCH (21:45)
[2017-06-20] MEDS: AMITRIPTYLINE 50 MG (ELAVIL) TAB PO SCH (21:45)
[2017-06-20] MEDS: ATORVASTATIN 20 MG (LIPITOR) TABLET PO SCH (21:45)
[2017-06-20] MEDS: SENNA W/DOCUSATE (SENOKOT S) TABLET PO SCH (21:45)
[2017-06-20] MEDS: predniSONE 20 MG TAB PO SCH (21:47)
[2017-06-20] MEDS: RT-ALBUTEROL SULF 2.5 MG/3 ML PRE-MIX VIAL INH PRN (21:50)
[2017-06-21] VITALS (25 sets, daily range): BP systolic 101–154; BP diastolic 50–94
[2017-06-21] MEDS: RT-ALBUTEROL SULF 2.5 MG/3 ML PRE-MIX VIAL INH PRN (01:24)
[2017-06-21] MEDS: CEFEPIME INJECTION 2,000 MG in NS (IVPB) 100 ML IV SCH ×2 (02:31→16:33)
[2017-06-21 05:54] LABS: BASOPHILS % (AUTO) 0 % (0-10); EOSINOPHILS % (AUTO) 0 % (0-10); HEMATOCRIT 27 % (35-52); HEMOGLOBIN 8.4 G/DL (11.5-16.0); LYMPHOCYTES # (AUTO) 0.9 X 10^3 (1.0-4.0); LYMPHOCYTES % (AUTO) 11 % (12-44); MEAN CORPUSCULAR HEMOGLOBIN 30 PG (25-34); MEAN CORPUSCULAR HGB CONC 31 G/DL (32-36); MEAN CORPUSCULAR VOLUME 95 FL (80-99); MEAN PLATELET VOLUME 9.6 FL (7.4-10.4); MONOCYTES # (AUTO) 0.2 X 10^3 (0.0-1.0); MONOCYTES % (AUTO) 2 % (0-12); NEUTROPHILS # (AUTO) 6.9 X 10^3 (1.8-7.8); NEUTROPHILS % (AUTO) 87 % (42-75); PLATELET COUNT 314 10^3/uL (130-400); RED BLOOD COUNT 2.84 10^6/uL (4.35-5.85); RED CELL DISTRIBUTION WIDTH 14.6 % (10.0-14.5)
[2017-06-21 06:10] LABS: ALANINE AMINOTRANSFERASE 21 U/L (0-55); ALKALINE PHOSPHATASE 302 U/L (40-136); BILIRUBIN,TOTAL 0.6 MG/DL (0.1-1.0); BUN/CREATININE RATIO 19; CALCIUM 8.8 MG/DL (8.5-10.1); CARBON DIOXIDE 24 MMOL/L (21-32); CHLORIDE 103 MMOL/L (98-107); CREATININE SERUM 0.79 MG/DL (0.60-1.30); GFR ESTIMATED > 60; GLUCOSE 237 MG/DL (70-105); POTASSIUM 4.5 MMOL/L (3.6-5.0); SODIUM 138 MMOL/L (135-145); TOTAL PROTEIN 6.8 GM/DL (6.4-8.2)
[2017-06-21] MEDS: RT-ALBUTEROL SULF 2.5 MG/3 ML PRE-MIX VIAL INH SCH ×5 (06:39→22:01)
[2017-06-21] MEDS: predniSONE 20 MG TAB PO SCH (07:05)
[2017-06-21] MEDS: inSUlin ASPART (NovoLOG) 1 UNIT/0.01 ML (CHARGE PER UNIT) SC SCH ×4 (07:48→20:25)
--- NOTE | 2017-06-21 09:45 | Physical Therapy Daily Note ---
PT Daily Note-Current Subjective Pt sitting up in bed upon arrival. Pt is confused and wants to remove O2, advised this is needed. Pt reports needing to use BSC. Pain Location: No Pain Reported Mental Status Patient Orientation: Person, Confused, Place Attachments: Oxygen, Varma Catheter, IV Transfers Functional [place] Measure 0=Not Assessed/NA 4=Minimal Assistance 1=Total Assistance 5=Supervision or Setup 2=Maximal Assistance 6=Modified [place] 3=Moderate Assistance 7=Complete IndependenceIRFPAI Quality Coding Scale 6 Independent with activity with or without an assistive device 5 Patient requires set up or clean up by helper. Patient completes activity by themselves 4 Supervision or touching assist (CGA). [place] provide cues , steadying assist 3 The helper provides less than half the effort to complete the activity 2 The helper provides more than half the effort to complete the activity 1 Dependent. The helper does all the effort to complete an activity 7 Patient refused to complete or attempt activity 9 The patient did not perform the activity before the current illness or injury 88 Not attempted due to Medical conditions or safety concerns Scootin Supine to/from Sit: 4 Sit to/from Stand: 2 Bed to/from Chair: 2 Weight Bearing Right Lower Extremity: Right Weight Bearing/Tolerated Left Lower Extremity: Left Weight Bearing/Tolerated Treatments Pt transfers from Supine to EOB at Min A/SUMMER NANNY and needs to CGA to remain sitting up. Pt transfers via SPT from EOB to BSC. Pt's knees buckle and pt needs to sit back at EOB to adjust before attempting again. Pt using BSC but asks for a "little time" for completion. Pt is given call light and encouraged to Pursed Lip breathe to keep O2 up. GLOBAL CHIEF EXPERIENCE OFFICER returned to transfer pt back to Supine in bed. Assessment Current Status: Fair Progress Pt's O2 drops and knees buckle during transfers. PT Filler Shredder Machine Goals Fpc Goals PT Filler Shredder Machine Goals Time Frame: Jun 30, 2017 Transfers (B,C,W/C) (FIM): 3 PT Plan Problem List Problem List: Activity Tolerance, Functional Strength, Safety, Balance, Transfer Treatment/Plan Treatment Plan: Continue Plan of Care Treatment Plan: Bed Mobility, Education, Functional Activity [place], Functional Strength, Safety, Therapeutic Exercise, Transfers Treatment Duration: Jun 30, 2017 Frequency: 6 times per week Estimated Hrs Per Day: .5 hour per day Patient and/or Family Agrees t: Yes Safety Risks/Education Patient Education: Transfer Techniques, Correct Positioning, Safety Issues Teaching Recipient: Patient Teaching Methods: Discussion Response to Teaching: Verbalize Understanding Time/GCodes Time In: 900 (900, 1000) Time Out: 915 (915, 1015) Total Billed Treatment Time: 15 Total Billed Treatment 1, FA (15m) Returned for additional 15m of FA at 1000 TROY ROGERS GLOBAL CHIEF EXPERIENCE OFFICER Jun 21, 2017 09:45
--- NOTE | 2017-06-21 10:15 | Diagnostic Imaging Report ---
INDICATION: Shortness of breath and hypoxia. TIME OF EXAM: 10:03 AM Correlation is made with prior study from 06/18/2017. FINDINGS: There is a curvilinear density overlying the mid chest, perhaps a tubing overlying the patient. Diffuse bilateral infiltrates have increased since examination from 3 days earlier. The heart is enlarged. No significant effusion or pneumothorax is seen. IMPRESSION: Significant increase in diffuse bilateral pulmonary infiltrates when compared with examination from 3 days earlier. Dictated by: Dictated on workstation # [id number]
[2017-06-21] MEDS: GABAPENTIN 400 MG (NEURONTIN) CAP PO SCH ×2 (10:23→21:32)
[2017-06-21] MEDS: APIXABAN 5 MG (ELIQUIS) TABLET PO SCH ×2 (10:24→21:28)
[2017-06-21] MEDS: ASPIRIN E.C. 81 MG (ECOTRIN) TAB PO SCH (10:24)
[2017-06-21] MEDS: lisINopril 5 MG (PRINIVIL) TABLET PO SCH (10:24)
[2017-06-21] MEDS: meTOprolol TARTRATE 50 MG (LOPRESSOR) TAB PO SCH ×2 (10:24→21:28)
[2017-06-21 12:23] LABS: ABG BASE EXCESS 4.4 MMOL/L (-2.5-2.5); ABG OXYGEN SATURATION 96 % (94-100); ABG PCO2 42 MMHG (35-45); ABG PH 7.44 (7.37-7.43); ABG PO2 76 MMHG (79-93); ABG TCO2 29.7 MMOL/L (21.0-31.0)
[2017-06-21 12:25] LABS: ALLENS TEST YES-POS
[2017-06-21 12:26] LABS: INSPIRED O2 55% BIPAP; VENTILATOR NO
[2017-06-21] MEDS ORDERED: FUROSEMIDE 40 MG/4 ML INJ (LASIX) IVP NR (13:45)
[2017-06-21] MEDS: traZODone 50 MG (DESYREL) TAB PO SCH (20:27)
[2017-06-21] MEDS: AMITRIPTYLINE 50 MG (ELAVIL) TAB PO SCH (20:28)
[2017-06-21] MEDS: ATORVASTATIN 20 MG (LIPITOR) TABLET PO SCH (21:28)
[2017-06-21] MEDS: DULoxetine 30 MG (CYMBALTA) CAP PO SCH (21:28)
[2017-06-21] MEDS: SENNA W/DOCUSATE (SENOKOT S) TABLET PO SCH (21:28)
[2017-06-21] MEDS: inSUlin DETERMIR 1 UNIT/0.01 ML (LEVEMIR) CHARGE PER UNIT SQ SCH (21:32)
--- NOTE | 2017-06-21 22:21 | Progress Note (SOAP) ---
Subjective Subjective/Events-last exam Patient wakes but then falls asleep easily this AM. Not following directions as well as she has been. More confused and pulling off oxygen which is causing patient to decompensate. Spoke with nurse and melt house drag operator and patient to be transferred up to the ICU for critical care. Patient placed on Bipap and stat labs, ABG, CXR ordered. Consult for Dr Bowles to see patient in AM. Review of Systems Date Seen by Provider: Jun 21, 2017 Time Seen by Provider: 09:45 Objective Exam Last Set of Vital Signs Vital Signs Date Time Temp Pulse Resp B/P (MAP) Pulse Ox O2 Delivery O2 Flow Rate FiO2 06/21/17 22:01 79 38 92 55.00 06/21/17 19:39 98.8 06/21/17 18:13 149/76 (100) NIV Bilevel 06/21/17 16:10 55 Capillary Refill : Less Than 3 SecondsLess Than 3 Seconds I&O Intake and Output 06/21/17 00:00 Intake Total 2290 ml Output Total 800 ml Balance 1490 ml Intake Oral 1190 ml IV Total 1100 ml Output Urine Total 800 ml # Voids 4 General: Moderate Distress Lungs: Other (Diffuse crackles and wheezing, increased work of breathing) Heart: Regular Rate, No Murmurs Abdomen: Normal Bowel Sounds, Soft, No Tenderness, No Hepatosplenomegaly, No Masses Extremities: Other (3+ pitting edema bilaterally) Neuro: Other (Answers and follows some commands, responds to pain) Results/Procedures Lab Laboratory Tests 06/21/17 05:15: White Blood Count 8.0, Red Blood Count 2.84L, Hemoglobin 8.4L, Hematocrit 27L, Mean Corpuscular Volume 95, Mean Corpuscular Hemoglobin 30, Mean Corpuscular Hemoglobin Concent 31L, Red Cell Distribution Width 14.6H, Platelet Count 314, Mean Platelet Volume 9.6, Neutrophils (%) (Auto) 87H, Lymphocytes (%) (Auto) 11L , Monocytes (%) (Auto) 2, Eosinophils (%) (Auto) 0, Basophils (%) (Auto) 0, Neutrophils # (Auto) 6.9, Lymphocytes # (Auto) 0.9L, Monocytes # (Auto) 0.2, Eosinophils # (Auto) 0.0, Basophils # (Auto) 0.0, Sodium Level 138, Potassium Level 4.5, Chloride Level 103, Carbon Dioxide Level 24, Anion Gap 11, Blood Urea Nitrogen 15, Creatinine 0.79, Estimat Glomerular Filtration Rate > 60, BUN/ Creatinine Ratio 19, Glucose Level 237H, Calcium Level 8.8, Total Bilirubin 0.6 , Aspartate Amino Transf (AST/SGOT) 23, Alanine Aminotransferase (ALT/SGPT) 21, Alkaline Phosphatase 302H, Total Protein 6.8, Albumin 3.0L 06/21/17 05:20: Glucometer 258H 06/21/17 12:10: Blood Gas Puncture Site R RADIAL, Blood Gas Patient Temperature 98.0, Arterial Blood pH 7.44H, Arterial Blood Partial Pressure CO2 42, Arterial Blood Partial Pressure O2 76L, Arterial Blood HCO3 28H, Arterial Blood Total CO2 29.7, Arterial Blood Oxygen Saturation 96, Arterial Blood Base Excess 4.4H, [place] Test YES-POS, Blood Gas Ventilator Setting NO, Blood Gas Inspired Oxygen 55% BIPAP 06/21/17 12:58: Glucometer 318H 06/21/17 20:16: Glucometer 315H Microbiology 06/18/17 Blood Culture - Preliminary, Resulted No growth Radiology Date of Exam:06/18/17 CHEST 1 VIEW, AP/PA ONLY EXAMINATION: Portable chest. Compared to prior study from May 04, 2017. INDICATION: Chest pain with cough and dizziness. FINDINGS: There is enlargement of the cardiac silhouette which is similar to the prior study. While there are chronic interstitial changes on the previous exam there are new increased prominent interstitial markings at both lung bases as well as a few small regions of superimposed alveolar opacification. There is no large effusion. There is no pneumothorax. IMPRESSION: 1. While there are chronic features of interstitial lung disease on prior examination, the prominence of the interstitial markings increased and there also are scattered bibasilar alveolar opacities. In the setting of cough, pneumonia would be the primary consideration. There is stable enlargement of the cardiac silhouette. The central pulmonary vascularity appears within normal limits. Date of Exam:06/19/17 CT HEAD WO PROCEDURE: CT head without contrast. TECHNIQUE: Multiple contiguous axial images were obtained through the brain without the use of intravenous contrast. INDICATION: Hypoxia and confusion. Comparison is made with prior CT brain from 11/22/2016. The ventricles and sulci are within normal limits. No sulcal effacement is identified. There is no midline shift. No acute intra-axial or extra-axial hemorrhage is detected. Cisterns are patent. The visualized paranasal sinuses are clear. IMPRESSION: No acute intracranial process is detected. Assessment/Plan Assessment/Plan (1) Acute respiratory failure with hypoxia Status: Acute Assessment & Plan: - Patient placed on Bipap - CXR worse with multi lobe infiltrates - Consult Dr Bowles to see patient in AM (2) Right lower lobe pneumonia Status: Acute Assessment & Plan: - A/A nebs PRN - Titrate oxygen as tolerated - Continue antibiotics to cover HCAP 06/21: Patient with acute worsening Qualifiers: Qualified Codes: J18.1 - Lobar pneumonia, unspecified organism (3) Hypoxia Status: Acute Assessment & Plan: - See Above - CT chest neg for PE - Added steroids and lasix today 06/21: lasix given this AM (4) Altered mental status Status: Acute Assessment & Plan: - Likely 2/2 to hypoglycemia as she is improving after treatment - CT head normal, No acute processes - Reviewed medication list, Will hold gabapentin - UA today 06/21: Stopped all sedating medications Qualifiers: Qualified Codes: R40.4 - Transient alteration of awareness (5) Insulin dependent diabetes mellitus with complications Status: Chronic (6) Paroxysmal atrial fibrillation Status: Chronic Assessment & Plan: - First episode during recent hospitalization for fracture repair, currently NSR - Continue PO anticoagulation (7) Normocytic anemia due to blood loss Status: Acute Assessment & Plan: - Iron def anemia, will dose iron in AM with pharmacy (8) DVT prophylaxis Status: Acute Assessment & Plan: - Continue PO anticoagulation (9) Discharge planning issues Status: Acute Assessment & Plan: - Plan to d/c back to [facility] when safe to D/c Clinical Quality Measures DVT/VTE Risk/Contraindication: Risk Factor Score Per Nursin RFS Level Per Nursing on Admit: 4+=Very High LUPE LEAL MD Jun 21, 2017 22:21
[2017-06-22] VITALS (33 sets, daily range): BP systolic 104–162; BP diastolic 42–91
[2017-06-22] MEDS: RT-ALBUTEROL SULF 2.5 MG/3 ML PRE-MIX VIAL INH SCH ×6 (01:07→22:23)
[2017-06-22] MEDS: CEFEPIME INJECTION 2,000 MG in NS (IVPB) 100 ML IV SCH ×2 (03:05→15:29)
[2017-06-22] MEDS: ACETAMINOPHEN 325 MG TABLET PO PRN (03:36)
[2017-06-22] MEDS ORDERED: RT-ALBUTEROL/IPRATROPIUM 3 ML (DUONEB) VIAL INH PRN (04:00)
[2017-06-22 04:37] LABS: BASOPHILS % (AUTO) 0 % (0-10); EOSINOPHILS % (AUTO) 0 % (0-10); HEMATOCRIT 27 % (35-52); HEMOGLOBIN 8.3 G/DL (11.5-16.0); LYMPHOCYTES # (AUTO) 1.1 X 10^3 (1.0-4.0); LYMPHOCYTES % (AUTO) 12 % (12-44); MEAN CORPUSCULAR HEMOGLOBIN 29 PG (25-34); MEAN CORPUSCULAR HGB CONC 31 G/DL (32-36); MEAN CORPUSCULAR VOLUME 94 FL (80-99); MEAN PLATELET VOLUME 9.6 FL (7.4-10.4); MONOCYTES # (AUTO) 0.6 X 10^3 (0.0-1.0); MONOCYTES % (AUTO) 6 % (0-12); NEUTROPHILS % (AUTO) 83 % (42-75); PLATELET COUNT 353 10^3/uL (130-400); RED BLOOD COUNT 2.85 10^6/uL (4.35-5.85); RED CELL DISTRIBUTION WIDTH 14.3 % (10.0-14.5); WHITE BLOOD COUNT 9.7 10^3/uL (4.3-11.0)
[2017-06-22 04:55] LABS: ALANINE AMINOTRANSFERASE 17 U/L (0-55); ALKALINE PHOSPHATASE 237 U/L (40-136); BILIRUBIN,TOTAL 0.4 MG/DL (0.1-1.0); BUN/CREATININE RATIO 24; CALCIUM 8.9 MG/DL (8.5-10.1); CARBON DIOXIDE 27 MMOL/L (21-32); CHLORIDE 101 MMOL/L (98-107); CREATININE SERUM 0.72 MG/DL (0.60-1.30); GFR ESTIMATED > 60; GLUCOSE 247 MG/DL (70-105); PHOSPHORUS 2.4 MG/DL (2.3-4.7); POTASSIUM 3.6 MMOL/L (3.6-5.0); SODIUM 139 MMOL/L (135-145); TOTAL PROTEIN 6.7 GM/DL (6.4-8.2)
[2017-06-22] MEDS: inSUlin ASPART (NovoLOG) 1 UNIT/0.01 ML (CHARGE PER UNIT) SC SCH ×4 (05:01→20:20)
[2017-06-22] MEDS: KCL 20 MEQ TAB (K-DUR) PO SCH (05:02)
[2017-06-22] MEDS: MAGNESIUM 1 GM/100 ML IVPB 100 ML IV SCH (05:02)
[2017-06-22] MEDS: POTASSIUM CL 10MEQ/50ML IVPB 50 ML IV SCH ×3 (05:02→05:58)
[2017-06-22 05:43] LABS: ABG BASE EXCESS 6.3 MMOL/L (-2.5-2.5); ABG OXYGEN SATURATION 92 % (94-100); ABG PCO2 41 MMHG (35-45); ABG PH 7.48 (7.37-7.43); ABG PO2 57 MMHG (79-93); ABG TCO2 31.5 MMOL/L (21.0-31.0)
[2017-06-22 05:44] LABS: ALLENS TEST YES-POS; INSPIRED O2 60% FIO2; PATIENT TEMP 97.5; VENTILATOR NO
[2017-06-22] MEDS: predniSONE 20 MG TAB PO SCH (05:55)
[2017-06-22] MEDS: meTOprolol TARTRATE 50 MG (LOPRESSOR) TAB PO SCH ×2 (07:38→20:28)
[2017-06-22] MEDS: ASPIRIN E.C. 81 MG (ECOTRIN) TAB PO SCH (07:38)
[2017-06-22] MEDS: APIXABAN 5 MG (ELIQUIS) TABLET PO SCH ×2 (07:38→20:30)
[2017-06-22] MEDS: lisINopril 5 MG (PRINIVIL) TABLET PO SCH (07:39)
--- NOTE | 2017-06-22 09:03 | Diagnostic Imaging Report ---
Indication: Hypoxia. Comparison: Study compared to one day prior. Findings: While there is severe 5 lobe airspace opacities present, they have improved in overall density from the prior with better demonstration of the cardiac margins as well as diaphragmatic contours. There has been no adverse development. Impression: Improvements in what remains to be severe 5 lobe airspace disease. There has been no adverse development. Dictated by: Dictated on workstation # [id number]
[2017-06-22] MEDS ORDERED: FUROSEMIDE 40 MG/4 ML INJ (LASIX) IVP NR (09:45)
[2017-06-22] MEDS: PANTOPRAZOLE 40 MG/10 ML (PROTONIX) VIAL IV SCH (10:07)
--- NOTE | 2017-06-22 11:08 | Physical Therapy Progress Note ---
Therapy Progress Note Per Meka JOHN, patient is unable to tolerate activity and is currently on BiPap. Patient desats while on BiPap per report. PT will require new orders to continue. PARUL MCFARLAND PT Jun 22, 2017 11:08
--- NOTE | 2017-06-22 11:15 | Consultation-Hospitalist ---
HPI History of Present Illness: HPI/Chief Complaint CC: Consultation for respiratory failure HPI: This is a 66-year-old white female who recently sustained a right hip fracture and that was repaired at [facility] been sent from there to [facility] half-way and began having issues so she was assessed for hypoxia admitted on 06/18/17 and patient has declined gradually since that time. She has been on anticoagulation since admission and while at [facility]. She was transferred to the ICU with respiratory failure and now is on BiPAP and Lasix initiated for airspace disease on chest x-ray consistent with volume overload with elevated BNP of 630. Cardiology has been consulted and I have ordered an echocardiogram. ABG will be checked at noon to evaluate the need for intubation. Altered mental status has improved of which she had previously been unresponsive but now she is able to talk but she is confused. Unsure of the baseline cognitive ability of this patient considering she is 66 and now in a half-way due to debility so likely delirium is a factor. She has been placed on cefepime for IV antibiotic coverage for gram-negative resistant organism for pneumonia. Source: patient Exam Limitations: clinical condition Date Seen 06/22/17 Attending Physician Arminda Flores Julie A MD Referring Physician Date of Admission Jun 18, 2017 at 15:20 Home Medications & Allergies Home Medications Reviewed patient Home Medication Reconciliation performed by pharmacy medication reconciliations x ray service technician and/or nursing. Patients Allergies have been reviewed. Allergies Allergies Coded Allergies No Known Drug Allergies (Unverified11/22/16) Past Cozszxc-Mebxbb-Cduxkt Hx Past Med/Social Hx: Reviewed Nursing Past Med/Soc Hx, Reviewed and Corrections made Patient Social History Living Status: Staying at [facility] for PT post surgery Alcohol Use: Denies Use Recreational Drug Use: No Smoking Status: Former Smoker Former Smoker, Quit: May 08, 1998 Physical Abuse Screen: No Sexual Abuse: No Recent Foreign Travel: No Contact w/other who traveled: No Recent Hopitalizations: No Recent Infectious Disease Expo: No Immunizations Up To Date Tetanus Booster (TDap): Unknown Date of Pneumonia Vaccine: Jan 11, 2014 Seasonal Allergies Seasonal Allergies: No Past Medical History Surgeries: Gallbladder, Hysterectomy, Joint Replacement, Orthopedic Currently Using CPAP: No Currently Using BIPAP: No Cardiac: Atrial Fibrillation, Hypertension Neurological: Stroke : No Menopausal Gastrointestinal: Gastroesophageal Reflux Musculoskeletal: Arthritis Endocrine: Diabetes, Insulin dep Are Your Blood Sugars Over 250: No Did You Recieve Any Treatments: No Psychosocial: Anxiety, Depression History of Blood Disorders: No Adverse Reaction to Blood Vásquez: No Family History Reviewed Nursing Family Hx (Oler as) Diabetes mellitus 19 MOTHER G8 BROTHER FH: CVA (cerebrovascular accident) FH: pancreatic cancer 19 FATHER Hypertension G8 BROTHER Review of Systems ROS-Unable to Obtain: patient with AMS unable to ascertain Constitutional: see HPI Physical Exam Physical Exam Vital Signs Vital Signs - First Documented 06/18/17 06/18/17 13:34 19:52 Temp 97.9 Pulse 75 Resp 18 B/P (MAP) 101/63 (76) Pulse Ox 88 O2 Delivery Nasal Cannula O2 Flow Rate 2.00 FiO2 30 Capillary Refill : Less Than 3 SecondsLess Than 3 Seconds General Appearance: WD/WN, Chronically ill, Mild Distress (on biPAP), Obese, Other (on biPAP) HEENT: PERRL/EOMI, Normal ENT Inspection Neck: Normal Inspection, Non Tender Respiratory: Accessory Muscle Use (mild), Decreased Breath Sounds, Respiratory Distress (mild), Wheezing Cardiovascular: Tachycardia Gastrointestinal: Normal Bowel Sounds, Non Tender Back: Normal Inspection, No CVA Tenderness, No Vertebral Tenderness Extremity: Normal Capillary Refill, Normal Inspection, Normal Range of Motion, Non Tender, No Calf Tenderness, Pedal Edema, Swelling (equal lower legs) Neurologic/Psychiatric: Alert, Disoriented x3 Skin: Normal Color, Warm/Dry Lymphatic: No Adenopathy Results Results/Procedures Labs Laboratory Tests 06/21/17 05:15 06/22/17 03:50 Patient resulted labs reviewed. Assessment/Plan Assessment and Plan Assess & Plan/Chief Complaint Assessment: Subacute respiratory failure now and volume overload with elevated BNP giving Lasix with good urinary output for cardiology consultation and echocardiogram is ordered Multilobar airspace disease covered with cefepime in case infectious bacterial origin Recent hip fracture but maintain on anticoagulation for DVT prophylaxis Altered mental status unsure of baseline but likely delirium is a factor Plan: Check ECHO Consult Cardiology Monitor closely May need intubation depending on toleration of biPAP and ABG at 1200 Prognosis guarded Diagnosis/Problems Diagnosis/Problems (1) Acute respiratory failure with hypoxia Status: Acute (2) PNA (pneumonia) Status: Acute Qualifiers: Pneumonia type: due to unspecified organism Laterality: bilateral Lung location: unspecified part of lung Qualified Codes: J18.9 - Pneumonia, unspecified organism (3) Volume overload Status: Acute Qualifiers: Hypervolemia type: unspecified Qualified Codes: E87.70 - Fluid overload, unspecified (4) Diabetes mellitus Status: Chronic Qualifiers: Diabetes mellitus type: type 2 Diabetes mellitus senior care insulin use: without senior care use Diabetes mellitus complication status: without complication Qualified Codes: E11.9 - Type 2 diabetes mellitus without complications (5) Delirium Status: Acute Clinical Quality Measures DVT/VTE Risk/Contraindication: Risk Factor Score Per Nursin RFS Level Per Nursing on Admit: 4+=Very High REFUGIO ABERNATHY DO Jun 22, 2017 11:15
--- NOTE | 2017-06-22 11:38 | Consultation-Cardiology ---
HPI-Cardiology Cardiology Consultation: Date of Consultation 06/22/17 Time Seen by Provider: 11:10 Date of Admission 06-18-17 Attending Physician Arminda Flores DO Admitting Physician Dalia Blackburn MD Consulting Physician Kathi Hu MD, MA FACP [facility] HPI: Chief Complaint: Shortness of breath Leg swelling Ms. Rocha is a 66 year old female who was admitted on 06-18-17 from the ED. She currently resides at [facility]. She does have some confusion this morning. She is currently on Bi-pap which makes conversation difficult. She de -sats quickly with conversation. Chart review has been completed. She has been having increasing dyspnea over the last few days. She was found to be hypoxic with sats in the 70's at the [facility] facility and she was transferred to the ED. She reports her breathing is worse than before. She reports chronic chest heaviness which she states has been present for over 20 years and is unchanged. She reports she has seen Dr. Benavides in the past and had a cardiac cath 25 years ago; she reports he told her "it was nothing to worry about". She reports chronic LE swelling which has been worse. She does have some confusion. She reports she is not a diabetic, but records indicate she is. She is currently picking at her bedspread even though there is nothing on it. She report she had right knee surgery on June 05 at [facility] d/t a fracture. Review of Systems-Cardiology Review of Systems Constitutional: No chills, No fever Ears/Nose/Throat: No epistaxis Respiratory: As described under HPI Cardiovascular: As described under HPI Gastrointestinal: No nausea, No vomiting Genitourinary: No hematuria Skin: No rash Psychiatric/Neurological: No syncope All Other Systems Reviewed Negative Unless Noted: Yes AXQ-Agrxce-Jxnqnu Hx Patient Social History Living Status: Staying at [facility] for PT post surgery Alcohol Use: Denies Use Recreational Drug Use: No Smoking Status: Former Smoker Recent Foreign Travel: No Recent Infectious Disease Expo: No Physical Abuse Screen: No Sexual Abuse: No Immunizations Up To Date Tetanus Booster (TDap): Unknown Date of Pneumonia Vaccine: Jan 11, 2014 Past Medical History PMH As described under Assessment. Family Medical History Family History: Diabetes mellitus 19 MOTHER G8 BROTHER FH: CVA (cerebrovascular accident) FH: pancreatic cancer 19 FATHER Hypertension G8 BROTHER Allergies and Home Medications Allergies Coded Allergies: No Known Drug Allergies (Unverified , 11/22/16) Home Medications Acetaminophen 500 Mg Tablet, 1,000 MG PO Q6H PRN for PAIN-MILD, (Reported) TAKES 2 (500MG) TABLETS Amitriptyline HCl 25 Mg Tablet, 100 MG PO DAILY, (Reported) TAKES 4 (25MG) TABLETS Apixaban 5 Mg Tablet, 5 MG PO BID, (Reported) Aspirin 81 Mg Tablet.dr, 81 MG PO DAILY, (Reported) Calcium Carbonate/Vitamin D3 1 Each Tablet, 1 TAB PO BID, (Reported) Diphenhydramine HCl 25 Mg Tablet, 25 MG PO HS, (Reported) Duloxetine HCl 30 Mg Capsule.dr, 90 MG PO HS, (Reported) TAKES 3 (30MG) CAPSULES Gabapentin 400 Mg Capsule, 400 MG PO BID, (Reported) Hydrocodone Bit/Acetaminophen 1 Ea Tablet, 1 TAB PO Q6H PRN for PAIN-MODERATE, ( Reported) Insulin Aspart 100 Unit/1 Ml Susp, 15 UNIT SQ AC, (Reported) Insulin Detemir 100 Unit/1 Ml Insuln.pen, 50 UNITS SC HS, (Reported) Lisinopril 5 Mg Tablet, 5 MG PO DAILY, (Reported) HOLD FOR PULSE LESS THAN 60 OR SBP LESS THAN 100 Metoprolol Tartrate 50 Mg Tablet, 25 MG PO BID, (Reported) TAKES 1/2 (50MG) TABLET Naproxen 500 Mg Tablet, 500 MG PO BID, (Reported) Nitroglycerin 0.4 Mg Tab.subl, 0.4 MG SL UD PRN for CHEST PAIN, (Reported) Sennosides/Docusate Sodium 1 Each Tablet, 2 TAB PO HS, (Reported) Trazodone HCl 50 Mg Tablet, 50 MG PO TID, (Reported) Patient Home Medication List Home Medication List Reviewed: Yes Physical Exam-Cardiology Physical Exam Vital Signs/I&O 06/22/17 06/22/17 06/22/17 06/22/17 02:00 03:00 03:34 03:40 Temp 98.4 Pulse 79 75 75 Resp 30 30 35 B/P (MAP) 104/55 (71) 117/72 (87) Pulse Ox 95 89 90 O2 Delivery NIV Bilevel NIV Bilevel O2 Flow Rate 55.00 55.00 60.00 406/22/17 06/22/17 06/22/17 03:45 03:52 04:00 05:00 Pulse 80 81 79 Resp 39 33 31 B/P (MAP) 126/75 (92) 124/60 (81) Pulse Ox 95 92 93 90 O2 Delivery NIV Bilevel NIV Bilevel NIV Bilevel O2 Flow Rate 60.00 55.00 55.00 FiO2 60 06/22/17 06/22/17 06/22/17 06/22/17 06:00 06:36 07:00 07:00 Temp 99.9 Pulse 77 86 91 Resp 29 28 41 B/P (MAP) 131/59 (83) 137/67 (90) Pulse Ox 93 91 90 O2 Delivery NIV Bilevel NIV Bilevel O2 Flow Rate 55.00 65.00 55.00 06/22/17 06/22/17 06/22/17 06/22/17 07:00 07:45 08:00 08:00 Pulse 87 83 Resp 33 B/P (MAP) 146/66 (92) Pulse Ox 91 97 O2 Delivery NIV Bilevel NIV Bilevel O2 Flow Rate 70.00 100.00 FiO2 70 06/22/17 06/22/17 06/22/17 06/22/17 09:00 09:05 10:00 10:18 Pulse 87 81 71 Resp 31 18 38 B/P (MAP) 125/73 (90) 114/91 (99) Pulse Ox 92 91 93 O2 Delivery NIV Bilevel NIV Bilevel O2 Flow Rate 100.00 60.00 60.00 06/22/17 06/22/17 06/22/17 06/22/17 11:00 12:00 12:00 12:00 Temp 99.4 Pulse 75 77 Resp 40 49 B/P (MAP) 120/71 (87) 136/67 (90) Pulse Ox 93 92 92 O2 Delivery NIV Bilevel NIV Bilevel NIV Bilevel O2 Flow Rate 60.00 60.00 FiO2 60 06/22/17 06/22/17 12:05 13:45 Pulse 78 83 Resp 38 29 Pulse Ox 96 94 O2 Flow Rate 60.00 70.00 06/22/17 00:00 Intake Total 1000 ml Output Total 3300 ml Balance -2300 ml Capillary Refill : Less Than 3 SecondsLess Than 3 Seconds Constitutional: appears stated age, AAO x 3, well-developed, well-nourished HEENT: PERRL, hearing is well preserved Neck: No carotid bruit Respiratory: other (diminished all kerns; Bi-pap in place) Cardiovascular: regular rate-rhythm; No JVD; S1 and S2 Gastrointestinal: audible bowel sounds Rectal: deferred Genital/Rectal: other (Urinary catheter to DD; clear yellow) Extremities: swelling (Bilat pitting LE edema) Neurologic/Psychiatric: grossly intact Skin: No rash, No ulcerations Data Review Labs Laboratory Tests 06/21/17 20:16: Glucometer 315H 06/22/17 03:50: White Blood Count 9.7, Red Blood Count 2.85L, Hemoglobin 8.3L, Hematocrit 27L, Mean Corpuscular Volume 94, Mean Corpuscular Hemoglobin 29, Mean Corpuscular Hemoglobin Concent 31L, Red Cell Distribution Width 14.3, Platelet Count 353, Mean Platelet Volume 9.6, Neutrophils (%) (Auto) 83H, Lymphocytes (%) (Auto) 12 , Monocytes (%) (Auto) 6, Eosinophils (%) (Auto) 0, Basophils (%) (Auto) 0, Neutrophils # (Auto) 8.0H, Lymphocytes # (Auto) 1.1, Monocytes # (Auto) 0.6, Eosinophils # (Auto) 0.0, Basophils # (Auto) 0.0, Sodium Level 139, Potassium Level 3.6, Chloride Level 101, Carbon Dioxide Level 27, Anion Gap 11, Blood Urea Nitrogen 17, Creatinine 0.72, Estimat Glomerular Filtration Rate > 60, BUN/ Creatinine Ratio 24, Glucose Level 247H, Calcium Level 8.9, Phosphorus Level 2.4 , Magnesium Level 2.0, Total Bilirubin 0.4, Aspartate Amino Transf (AST/SGOT) 18 , Alanine Aminotransferase (ALT/SGPT) 17, Alkaline Phosphatase 237H, Total Protein 6.7, Albumin 3.0L 06/22/17 05:35: Blood Gas Puncture Site R RAD, Blood Gas Patient Temperature 97.5, Arterial Blood pH 7.48H, Arterial Blood Partial Pressure CO2 41, Arterial Blood Partial Pressure O2 57L, Arterial Blood HCO3 30H, Arterial Blood Total CO2 31.5H, Arterial Blood Oxygen Saturation 92L, Arterial Blood Base Excess 6.3H, Ludwin Test YES-POS, Blood Gas Ventilator Setting NO, Blood Gas Inspired Oxygen 60% FIO2 06/22/17 09:54: Glucometer 222H 06/22/17 12:47: Blood Gas Puncture Site left radial, Blood Gas Patient Temperature 97.0, Arterial Blood pH 7.47H, Arterial Blood Partial Pressure CO2 41, Arterial Blood Partial Pressure O2 50L, Arterial Blood HCO3 30H, Arterial Blood Total CO2 31.0 , Arterial Blood Oxygen Saturation 87L, Arterial Blood Base Excess 5.8H, Ludwin Test YES-POS, Blood Gas Ventilator Setting NO, Blood Gas Inspired Oxygen 60% bipap Microbiology 06/18/17 Blood Culture - Preliminary, Resulted No growth Radiology NAME: FERMIN ROCHA [facility] REC#: [id number] PT STATUS: ADM IN : 1950 PHYSICIAN: LUPE LEAL MD ADMIT DATE: 06/18/17/ICU Draft Date of Exam:06/22/17 CHEST 1 VIEW, AP/PA ONLY Indication: Hypoxia. Comparison: Study compared to one day prior. Findings: While there is severe 5 lobe airspace opacities present, they have improved in overall density from the prior with better demonstration of the cardiac margins as well as diaphragmatic contours. There has been no adverse development. Impression: Improvements in what remains to be severe 5 lobe airspace disease. There has been no adverse development. Dictated on workstation # [id number] Dict: 06/22/17717 Trans: 06/22/179[address] [facility] [id number] Interpreted by: HEIDI KNIGHT Electronically signed by: A/P-Cardiology Assessment/Admission Diagnosis Hypoxia likely r/t pneumonia Confusion likely d/t hypoxia Multi-factorial dyspnea likely r/t prob pneumonia and obesity hypoventilation syndrome Poss CHF of undetermined etiology H/O PAF (details unknown) OAC with Eliquis Probable pneumonia - management per medical services DM 2 Hypochromic monocytic anemia of undetermined etiology Pt reports h/o cardiac cath [address] Benavides which she states "did not show anything to be worried about" - details unknown, she is on ASA 81 mg HTN H/O right leg fracture requiring surgical repair at [facility] in May per pt report - detail unknown Obesity Discussion and Recomendations Complex management issue Multi-factorial dyspnea likely r/t prob pneumonia and obesity hypoventilation syndrome Possible CHF of undetermined etiology - echocardiogram today H/O PAF - keep on tele, EKG today OAC with Eliquis - continue for stroke prophylaxis Hypochromic monocytic anemia of undetermined etiology - medical services managing Monitor lab closely - CMP, CBC, TSH, Mg and BNP in the morning Give IV Lasix Further recs will be based on her hospital course We would like to thank medical services for this consult This consult is being scribed by MARY KATE Delatorre on behalf of Dr. Hu after discussion regarding plan of care Clinical Quality Measures DVT/VTE Risk/Contraindication: Risk Factor Score Per Nursin RFS Level Per Nursing on Admit: 4+=Very High Physician Assessment Physician Assessment On BiPAP. Notes shortness of breath. No cp or palp or syncope. Has had some leg swelling, apparently in the recent past Lungs: scattered rhonchi, diminished air entry at the bases Cor: reg with occ irreg Ext: no c/c. Mild to mod edema ECG: NSR with isolated PVCs A&R * As documented in our note above that I updated (italics) and as noted below * Echo * Monitor labs * Furosemide, empirically, for now JAYDA PARISI Jun 22, 2017 11:38 KATHI HU MD FACP [facility] Jun 22, 2017 13:57
[2017-06-22 13:00] LABS: ABG BASE EXCESS 5.8 MMOL/L (-2.5-2.5); ABG OXYGEN SATURATION 87 % (94-100); ABG PCO2 41 MMHG (35-45); ABG PH 7.47 (7.37-7.43); ABG PO2 50 MMHG (79-93)
[2017-06-22 13:01] LABS: ALLENS TEST YES-POS
[2017-06-22 13:02] LABS: VENTILATOR NO
[2017-06-22] MEDS ORDERED: NS (IVPB) 50 ML ONE (14:51)
[2017-06-22] MEDS ORDERED: FUROSEMIDE 40 MG/4 ML INJ (LASIX) IV NR (15:00)
[2017-06-22] MEDS: methylPREDNISolone 40 MG/ML (Solu-MEDROL) VIAL IV SCH ×2 (15:24→21:48)
[2017-06-22] MEDS ORDERED: DEXMEDETOMIDINE 400 MCG/NS 100 ML IV DRIP IV SCH ×2 (15:30)
[2017-06-22] MEDS ORDERED: FUROSEMIDE 40 MG/4 ML INJ (LASIX) IVP SCH (17:00)
[2017-06-22] MEDS ORDERED: DEXMEDETOMIDINE INJECTION 1,000 MCG in NS (IVPB) 240 ML IV SCH ×2 (17:45→20:00)
[2017-06-22] MEDS: GABAPENTIN 400 MG (NEURONTIN) CAP PO SCH (18:19)
[2017-06-22] MEDS ORDERED: FUROSEMIDE 40 MG/4 ML INJ (LASIX) IVP ONE (18:30)
[2017-06-22 18:49] LABS: ABG BASE EXCESS 8.5 MMOL/L (-2.5-2.5); ABG OXYGEN SATURATION 87 % (94-100); ABG PCO2 42 MMHG (35-45); ABG PO2 53 MMHG (79-93); ABG TCO2 33.4 MMOL/L (21.0-31.0)
[2017-06-22 18:50] LABS: ALLENS TEST YES-POS; INSPIRED O2 70%; PATIENT TEMP 99.9; VENTILATOR NO
[2017-06-22 18:52] LABS: BUN/CREATININE RATIO 26; CALCIUM 8.9 MG/DL (8.5-10.1); CARBON DIOXIDE 29 MMOL/L (21-32); CHLORIDE 99 MMOL/L (98-107); CREATININE SERUM 0.72 MG/DL (0.60-1.30); GFR ESTIMATED > 60; GLUCOSE 247 MG/DL (70-105); POTASSIUM 3.8 MMOL/L (3.6-5.0); SODIUM 138 MMOL/L (135-145)
[2017-06-22] MEDS: inSUlin DETERMIR 1 UNIT/0.01 ML (LEVEMIR) CHARGE PER UNIT SQ SCH (20:21)
[2017-06-22] MEDS: traZODone 50 MG (DESYREL) TAB PO SCH (20:28)
[2017-06-22] MEDS: DULoxetine 30 MG (CYMBALTA) CAP PO SCH (20:28)
[2017-06-22] MEDS: AMITRIPTYLINE 50 MG (ELAVIL) TAB PO SCH (20:28)
[2017-06-22] MEDS: ATORVASTATIN 20 MG (LIPITOR) TABLET PO SCH (20:28)
[2017-06-22] MEDS: SENNA W/DOCUSATE (SENOKOT S) TABLET PO SCH (20:29)
--- NOTE | 2017-06-22 22:11 | Progress Note (SOAP) ---
Subjective Subjective/Events-last exam Patient more alert this AM. Responding appropriately with Bipap on. Continues to have increased work of breathing with Bipap. Denies any pain. States that she is hungry but unable to tolerate bipap off long enough to eat. Review of Systems Date Seen by Provider: Jun 22, 2017 Time Seen by Provider: 09:55 Pulmonary: Dyspnea Cardiovascular: No: Chest Pain, Palpitations Gastrointestinal: No: Nausea, Vomiting, Diarrhea, Constipation Neurological: Weakness, Confusion Objective Exam Last Set of Vital Signs Vital Signs Date Time Temp Pulse Resp B/P (MAP) Pulse Ox O2 Delivery O2 Flow Rate FiO2 06/22/17 20:00 97.4 NIV Bilevel 65.00 06/22/17 19:10 71 26 96 06/22/17 16:00 60 Capillary Refill : Less Than 3 SecondsLess Than 3 Seconds I&O Intake and Output 06/22/17 00:00 Intake Total 1150 ml Output Total 5925 ml Balance -4775 ml Intake Oral 200 ml IV Total 950 ml Output Urine Total 5925 ml # Bowel Movements 1 General: Alert, Oriented X3, Mild Distress (Increased work of breathing with bipap on) Lungs: Other (diffuse wheezing, crackles and increased work of breathing.) Heart: Regular Rate, No Murmurs Abdomen: Normal Bowel Sounds, Soft, No Tenderness, No Hepatosplenomegaly, No Masses Extremities: Other (3+ pitting edema bilaterally R>L) Neuro: Normal Speech, Sensation Intact Results/Procedures Lab Laboratory Tests 06/22/17 03:50: White Blood Count 9.7, Red Blood Count 2.85L, Hemoglobin 8.3L, Hematocrit 27L, Mean Corpuscular Volume 94, Mean Corpuscular Hemoglobin 29, Mean Corpuscular Hemoglobin Concent 31L, Red Cell Distribution Width 14.3, Platelet Count 353, Mean Platelet Volume 9.6, Neutrophils (%) (Auto) 83H, Lymphocytes (%) (Auto) 12 , Monocytes (%) (Auto) 6, Eosinophils (%) (Auto) 0, Basophils (%) (Auto) 0, Neutrophils # (Auto) 8.0H, Lymphocytes # (Auto) 1.1, Monocytes # (Auto) 0.6, Eosinophils # (Auto) 0.0, Basophils # (Auto) 0.0, Sodium Level 139, Potassium Level 3.6, Chloride Level 101, Carbon Dioxide Level 27, Anion Gap 11, Blood Urea Nitrogen 17, Creatinine 0.72, Estimat Glomerular Filtration Rate > 60, BUN/ Creatinine Ratio 24, Glucose Level 247H, Calcium Level 8.9, Phosphorus Level 2.4 , Magnesium Level 2.0, Total Bilirubin 0.4, Aspartate Amino Transf (AST/SGOT) 18 , Alanine Aminotransferase (ALT/SGPT) 17, Alkaline Phosphatase 237H, Total Protein 6.7, Albumin 3.0L 06/22/17 05:35: Blood Gas Puncture Site R RAD, Blood Gas Patient Temperature 97.5, Arterial Blood pH 7.48H, Arterial Blood Partial Pressure CO2 41, Arterial Blood Partial Pressure O2 57L, Arterial Blood HCO3 30H, Arterial Blood Total CO2 31.5H, Arterial Blood Oxygen Saturation 92L, Arterial Blood Base Excess 6.3H, Ludwin Test YES-POS, Blood Gas Ventilator Setting NO, Blood Gas Inspired Oxygen 60% FIO2 06/22/17 09:54: Glucometer 222H 06/22/17 12:47: Blood Gas Puncture Site left radial, Blood Gas Patient Temperature 97.0, Arterial Blood pH 7.47H, Arterial Blood Partial Pressure CO2 41, Arterial Blood Partial Pressure O2 50L, Arterial Blood HCO3 30H, Arterial Blood Total CO2 31.0 , Arterial Blood Oxygen Saturation 87L, Arterial Blood Base Excess 5.8H, Ludwin Test YES-POS, Blood Gas Ventilator Setting NO, Blood Gas Inspired Oxygen 60% bipap 06/22/17 15:28: Glucometer 230H 06/22/17 18:30: Sodium Level 138, Potassium Level 3.8, Chloride Level 99, Carbon Dioxide Level 29, Anion Gap 10, Blood Urea Nitrogen 19H, Creatinine 0.72, Estimat Glomerular Filtration Rate > 60, BUN/Creatinine Ratio 26, Glucose Level 247H, Calcium Level 8.9, Phosphorus Level 2.0L, Albumin 3.0L 06/22/17 18:44: Blood Gas Puncture Site RT RAD, Blood Gas Patient Temperature 99.9, Arterial Blood pH 7.50H, Arterial Blood Partial Pressure CO2 42, Arterial Blood Partial Pressure O2 53L, Arterial Blood HCO3 32H, Arterial Blood Total CO2 33.4H, Arterial Blood Oxygen Saturation 87L, Arterial Blood Base Excess 8.5H, Ludwin Test YES-POS, Blood Gas Ventilator Setting NO, Blood Gas Inspired Oxygen 70% 06/22/17 20:04: Glucometer 265H Microbiology 06/18/17 Blood Culture - Preliminary, Resulted No growth Radiology NAME: [facility] REC#: [id number] PT STATUS: ADM IN : 1950 PHYSICIAN: LUPE LEAL MD ADMIT DATE: 06/18/17/ICU Draft Date of Exam:06/22/17 CHEST 1 VIEW, AP/PA ONLY Indication: Hypoxia. Comparison: Study compared to one day prior. Findings: While there is severe 5 lobe airspace opacities present, they have improved in overall density from the prior with better demonstration of the cardiac margins as well as diaphragmatic contours. There has been no adverse development. Impression: Improvements in what remains to be severe 5 lobe airspace disease. There has been no adverse development. Dictated on workstation # [id number] Dict: 06/22/17717 Trans: 06/22/1702 CV [id number] Interpreted by: HEIDI KNIGHT Electronically signed by: Assessment/Plan Assessment/Plan (1) Acute respiratory failure with hypoxia Status: Acute Assessment & Plan: - Multifactoral with 5 lobe infiltrates, CXR improved this AM - Will increase lasix today - EICU consulted and helping in management of patient, Dr Renee also consulted for help with critical care management - Cardiology consulted and Echo pending (2) PNA (pneumonia) Status: Acute Assessment & Plan: - 5 lobe disease, on Cefepime for PNA broad spectrum coverage Qualifiers: Qualified Codes: J18.9 - Pneumonia, unspecified organism (3) Volume overload Status: Acute Assessment & Plan: - Varma in place for accurate UOP - Aggressive diuresis today, repeat CXR in AM - Echo pending Qualifiers: Qualified Codes: E87.70 - Fluid overload, unspecified (4) Diabetes mellitus Status: Chronic Qualifiers: Qualified Codes: E11.9 - Type 2 diabetes mellitus without complications (5) Delirium Status: Acute Assessment & Plan: - Patient put on Precedex today to help with agitation (6) Normocytic anemia due to blood loss Status: Acute Assessment & Plan: - Likely post surgical - Will replace iron when concerns for infection have decreased (7) Paroxysmal atrial fibrillation Status: Chronic Assessment & Plan: - Rate controlled, continue PO anticoagulation (8) DVT prophylaxis Status: Acute Assessment & Plan: - PO anticoagulation given h/o A fib Clinical Quality Measures DVT/VTE Risk/Contraindication: Risk Factor Score Per Nursin RFS Level Per Nursing on Admit: 4+=Very High LUPE LEAL MD Jun 22, 2017 22:11
[2017-06-23] VITALS (23 sets, daily range): BP systolic 129–170; BP diastolic 59–93
[2017-06-23] MEDS: RT-ALBUTEROL SULF 2.5 MG/3 ML PRE-MIX VIAL INH SCH ×3 (02:35→09:49)
[2017-06-23] MEDS: CEFEPIME INJECTION 2,000 MG in NS (IVPB) 100 ML IV SCH (02:59)
[2017-06-23 03:35] LABS: ABG BASE EXCESS 7.6 MMOL/L (-2.5-2.5); ABG OXYGEN SATURATION 89 % (94-100); ABG PCO2 41 MMHG (35-45); ABG PH 7.49 (7.37-7.43); ABG PO2 53 MMHG (79-93); ABG TCO2 32.8 MMOL/L (21.0-31.0); ALLENS TEST YES-POS
[2017-06-23 03:36] LABS: INSPIRED O2 65% FIO2 BIPAP; PATIENT TEMP 97.3; VENTILATOR NO
[2017-06-23 03:51] LABS: BASOPHILS % (AUTO) 0 % (0-10); EOSINOPHILS % (AUTO) 0 % (0-10); HEMATOCRIT 30 % (35-52); HEMOGLOBIN 9.4 G/DL (11.5-16.0); LYMPHOCYTES # (AUTO) 0.6 X 10^3 (1.0-4.0); LYMPHOCYTES % (AUTO) 9 % (12-44); MEAN CORPUSCULAR HEMOGLOBIN 29 PG (25-34); MEAN CORPUSCULAR HGB CONC 32 G/DL (32-36); MEAN CORPUSCULAR VOLUME 93 FL (80-99); MEAN PLATELET VOLUME 9.9 FL (7.4-10.4); MONOCYTES # (AUTO) 0.2 X 10^3 (0.0-1.0); MONOCYTES % (AUTO) 3 % (0-12); NEUTROPHILS # (AUTO) 6.2 X 10^3 (1.8-7.8); NEUTROPHILS % (AUTO) 88 % (42-75); PLATELET COUNT 370 10^3/uL (130-400); RED BLOOD COUNT 3.21 10^6/uL (4.35-5.85); RED CELL DISTRIBUTION WIDTH 14.5 % (10.0-14.5); WHITE BLOOD COUNT 7.1 10^3/uL (4.3-11.0)
[2017-06-23 04:05] LABS: ANISOCYTOSIS SLIGHT; BAND NEUTROPHILS 0 %; BASOPHILS % (MANUAL) 0 %; EOSINOPHILS % (MANUAL) 0 %; LYMPHOCYTES % (MANUAL) 5 %; MONOCYTES % (MANUAL) 1 %; NEUTROPHILS % (MANUAL) 94 %; POLYCHROMASIA SLIGHT
[2017-06-23 04:11] LABS: ALANINE AMINOTRANSFERASE 14 U/L (0-55); ALBUMIN 3.1 GM/DL (3.2-4.5); ALKALINE PHOSPHATASE 231 U/L (40-136); BILIRUBIN,TOTAL 0.5 MG/DL (0.1-1.0); BUN/CREATININE RATIO 30; CALCIUM 9.1 MG/DL (8.5-10.1); CARBON DIOXIDE 29 MMOL/L (21-32); CHLORIDE 97 MMOL/L (98-107); CREATININE SERUM 0.81 MG/DL (0.60-1.30); GFR ESTIMATED > 60; GLUCOSE 309 MG/DL (70-105); MAGNESIUM 2.2 MG/DL (1.8-2.4); PHOSPHORUS 2.3 MG/DL (2.3-4.7); POTASSIUM 3.7 MMOL/L (3.6-5.0); SODIUM 139 MMOL/L (135-145); TOTAL PROTEIN 7.5 GM/DL (6.4-8.2)
[2017-06-23] MEDS: MAGNESIUM 1 GM/100 ML IVPB 100 ML IV SCH (05:13)
[2017-06-23] MEDS: KCL 20 MEQ TAB (K-DUR) PO SCH (05:13)
[2017-06-23] MEDS: POTASSIUM CL 10MEQ/50ML IVPB 50 ML IV SCH (05:14)
[2017-06-23] MEDS: inSUlin ASPART (NovoLOG) 1 UNIT/0.01 ML (CHARGE PER UNIT) SC SCH ×2 (05:38→12:06)
[2017-06-23] MEDS: methylPREDNISolone 40 MG/ML (Solu-MEDROL) VIAL IV SCH (05:38)
[2017-06-23] MEDS ORDERED: FUROSEMIDE 40 MG/4 ML INJ (LASIX) IVP SCH ×2 (07:00→22:00)
[2017-06-23] MEDS ORDERED: FUROSEMIDE 40 MG/4 ML INJ (LASIX) IVP ONE (07:00)
--- NOTE | 2017-06-23 08:15 | Physical Therapy Progress Note ---
Therapy Progress Note Patient continues to have difficulty with pulmonary function. No PT orders at this time. PARUL MCFARLAND PT Jun 23, 2017 08:15
--- NOTE | 2017-06-23 08:45 | Diagnostic Imaging Report ---
INDICATION: Shortness of air. TIME OF EXAM: 3:21 AM Comparison is made with prior study one day earlier. FINDINGS: The heart is enlarged. Extensive bilateral pulmonary infiltrates persist and appear to be increased when compared with yesterday. In particular, there is significant increase in consolidation on the left. No effusion or pneumothorax is seen. IMPRESSION: Significant increase in bilateral pulmonary infiltrates when compared with examination one day earlier. Dictated by: Dictated on workstation # [id number]
--- NOTE | 2017-06-23 09:29 | Progress Note-Cardiology ---
Cardiology SOAP Progress Note Subjective: On BiPAP, somnolent. Does not report symptoms Objective: I&O/Vital Signs 06/22/17 06/22/17 06/22/17 06/22/17 22:00 22:23 22:31 23:00 Pulse 64 63 68 Resp 23 24 27 B/P (MAP) 141/72 (95) 157/77 (103) Pulse Ox 100 100 95 O2 Delivery NIV Bilevel NIV Bilevel NIV Bilevel O2 Flow Rate 70.00 65.00 65.00 65.00 06/22/17 06/23/17 06/23/17 06/23/17 23:46 00:00 00:00 00:30 Temp 96.8 Pulse 63 65 Resp 25 24 B/P (MAP) 157/76 (103) Pulse Ox 92 96 100 O2 Delivery NIV Bilevel NIV Bilevel NIV Bilevel O2 Flow Rate 65.00 65.00 65.00 FiO2 60 06/23/17 06/23/17 06/23/17 06/23/17 01:00 01:00 02:00 02:35 Pulse 63 64 65 66 Resp 22 28 33 B/P (MAP) 162/81 (108) 155/72 (99) Pulse Ox 97 89 93 O2 Delivery NIV Bilevel NIV Bilevel O2 Flow Rate 65.00 65.00 65.00 06/23/17 06/23/17 06/23/17 06/23/17 03:00 04:00 04:00 04:00 Temp 97.3 Pulse 78 76 Resp 32 30 B/P (MAP) 163/87 (112) 162/78 (106) Pulse Ox 94 91 93 O2 Delivery NIV Bilevel NIV Bilevel NIV Bilevel O2 Flow Rate 65.00 65.00 FiO2 65 06/23/17 06/23/17 06/23/17 06/23/17 05:00 06:00 06:08 06:25 Pulse 61 66 64 Resp 28 29 34 B/P (MAP) 159/77 (104) 169/86 (113) Pulse Ox 95 90 92 O2 Delivery NIV Bilevel NIV Bilevel NIV Bilevel O2 Flow Rate 65.00 65.00 65.00 70.00 06/23/17 06/23/17 06/23/17 06/23/17 07:00 07:00 07:35 08:00 Pulse 78 80 74 73 Resp 25 22 22 B/P (MAP) 170/77 (108) 160/80 (106) Pulse Ox 98 98 94 O2 Delivery NIV Bilevel NIV Bilevel O2 Flow Rate 70.00 70.00 70.00 06/23/17 06/23/17 08:32 09:00 Temp 97.2 Pulse 71 Resp 25 B/P (MAP) 166/93 (117) Pulse Ox 97 O2 Delivery NIV Bilevel NIV Bilevel O2 Flow Rate 70.00 70.00 06/22/17 23:59 Intake Total 275 ml Output Total 1500 ml Balance -1225 ml Weight (Pounds): 222 Weight (Ounces): 4.0 Weight (Calculated Kilograms): 100.714973 Constitutional: appears stated age, well-developed, well-nourished, other (on BiPAP) Respiratory: other (diminished all kerns; Bi-pap in place) Cardiovascular: regular rate-rhythm; No JVD; S1 and S2 Gastrointestional: audible bowel sounds Genital/Rectal: other (Urinary catheter to DD; clear yellow) Extremities: swelling (Bilat pitting LE edema) Neurologic/Psychiatric: grossly intact Skin: No rash, No ulcerations Results/Procedures: Labs Laboratory Tests 06/22/17 09:54: Glucometer 222H 06/22/17 12:47: Blood Gas Puncture Site left radial, Blood Gas Patient Temperature 97.0, Arterial Blood pH 7.47H, Arterial Blood Partial Pressure CO2 41, Arterial Blood Partial Pressure O2 50L, Arterial Blood HCO3 30H, Arterial Blood Total CO2 31.0 , Arterial Blood Oxygen Saturation 87L, Arterial Blood Base Excess 5.8H, Ludwin Test YES-POS, Blood Gas Ventilator Setting NO, Blood Gas Inspired Oxygen 60% bipap 06/22/17 15:28: Glucometer 230H 06/22/17 18:30: Sodium Level 138, Potassium Level 3.8, Chloride Level 99, Carbon Dioxide Level 29, Anion Gap 10, Blood Urea Nitrogen 19H, Creatinine 0.72, Estimat Glomerular Filtration Rate > 60, BUN/Creatinine Ratio 26, Glucose Level 247H, Calcium Level 8.9, Phosphorus Level 2.0L, Albumin 3.0L 06/22/17 18:44: Blood Gas Puncture Site RT RAD, Blood Gas Patient Temperature 99.9, Arterial Blood pH 7.50H, Arterial Blood Partial Pressure CO2 42, Arterial Blood Partial Pressure O2 53L, Arterial Blood HCO3 32H, Arterial Blood Total CO2 33.4H, Arterial Blood Oxygen Saturation 87L, Arterial Blood Base Excess 8.5H, Ludwin Test YES-POS, Blood Gas Ventilator Setting NO, Blood Gas Inspired Oxygen 70% 06/22/17 20:04: Glucometer 265H 06/23/17 03:15: White Blood Count 7.1, Red Blood Count 3.21L, Hemoglobin 9.4L, Hematocrit 30L, Mean Corpuscular Volume 93, Mean Corpuscular Hemoglobin 29, Mean Corpuscular Hemoglobin Concent 32, Red Cell Distribution Width 14.5, Platelet Count 370, Mean Platelet Volume 9.9, Neutrophils (%) (Auto) 88H, Lymphocytes (%) (Auto) 9L , Monocytes (%) (Auto) 3, Eosinophils (%) (Auto) 0, Basophils (%) (Auto) 0, Neutrophils # (Auto) 6.2, Lymphocytes # (Auto) 0.6L, Monocytes # (Auto) 0.2, Eosinophils # (Auto) 0.0, Basophils # (Auto) 0.0, Neutrophils % (Manual) 94, Lymphocytes % (Manual) 5, Monocytes % (Manual) 1, Eosinophils % (Manual) 0, Basophils % (Manual) 0, Band Neutrophils 0, Polychromasia SLIGHT, Anisocytosis SLIGHT, Sodium Level 139, Potassium Level 3.7, Chloride Level 97L, Carbon Dioxide Level 29, Anion Gap 13, Blood Urea Nitrogen 24H, Creatinine 0.81, Estimat Glomerular Filtration Rate > 60, BUN/Creatinine Ratio 30, Glucose Level 309H, Calcium Level 9.1, Phosphorus Level 2.3, Magnesium Level 2.2, Total Bilirubin 0.5, Aspartate Amino Transf (AST/SGOT) 17, Alanine Aminotransferase ( ALT/SGPT) 14, Alkaline Phosphatase 231H, B-Type Natriuretic Peptide 923.8H, Total Protein 7.5, Albumin 3.1L, Thyroid Stimulating Hormone (TSH) 0.81 06/23/17 03:29: Blood Gas Puncture Site R RAD, Blood Gas Patient Temperature 97.3, Arterial Blood pH 7.49H, Arterial Blood Partial Pressure CO2 41, Arterial Blood Partial Pressure O2 53L, Arterial Blood HCO3 32H, Arterial Blood Total CO2 32.8H, Arterial Blood Oxygen Saturation 89L, Arterial Blood Base Excess 7.6H, Ludwin Test YES-POS, Blood Gas Ventilator Setting NO, Blood Gas Inspired Oxygen 65% FIO2 BIPAP Microbiology 06/18/17 Blood Culture - Preliminary, Resulted No growth A/P: Assessment: Acute resp failure, likely multifactorial Pneumonia with ARDS Probable obesity-hypoventilation and mild to mod mod pulm htn (PASP 40-45 mmHg on echo) Ac diastolic CHF Echo of 06/22/17: LVEF 60-65%, grade 2 diastolic dysfunction, mild MR and TR, PASP 40-45 mmHG Hypoxia and confusion due to ac resp failure H/O PAF, stated to have been diagnosed at [facility] during recent admission for R leg fracture that was treated with surgery OAC with Eliquis DM 2 Hypochromic monocytic anemia of undetermined etiology Pt reports h/o cardiac cath [address] Benavides which she states "did not show anything to be worried about" - details unknown, she is on ASA 81 mg HTN Plan: * Complex management due to multiple comorbidities * Continue diuretics as needed * Continue apixaban for stroke prophylaxis * Management of pneumonia, ARDS, anemia is with the Med Svce * Follow labs CAROL ESTRADA MD FACP FAC CCDS Jun 23, 2017 09:29
[2017-06-23] MEDS ORDERED: KCL 20 MEQ TAB (K-DUR) PO ONE (09:30)
[2017-06-23] MEDS: meTOprolol TARTRATE 50 MG (LOPRESSOR) TAB PO SCH (09:39)
[2017-06-23] MEDS: ASPIRIN E.C. 81 MG (ECOTRIN) TAB PO SCH (09:39)
[2017-06-23] MEDS: lisINopril 5 MG (PRINIVIL) TABLET PO SCH (09:40)
[2017-06-23] MEDS: PANTOPRAZOLE 40 MG/10 ML (PROTONIX) VIAL IV SCH (09:40)
[2017-06-23] MEDS: APIXABAN 5 MG (ELIQUIS) TABLET PO SCH (09:40)
[2017-06-23] MEDS ORDERED: PROPOFOL DRIP (ICU) 100 ML IV ONE (10:00)
[2017-06-23] MEDS ORDERED: ENOXAPARIN 100 MG/1 ML (LOVENOX) SYR SC SCH (10:00)
[2017-06-23] MEDS ORDERED: MIDAZOLAM FOR DRIPS 10 MG/2 ML VIAL ONE (10:19)
[2017-06-23] MEDS ORDERED: NS (IVPB) 100 ML ONE (10:20)
--- NOTE | 2017-06-23 10:39 | Anesthesia-Procedure Note ---
Procedures/Interventions Procedure Start/Stop/Diagnosis Date of Procedure: Jun 23, 2017 Start Time: 10:00 Stop Time: 10:20 Intubation Reason Intubation/Diagnosis: ARDS RSI: Yes 100% pre-Ox, [id number]: Yes Intubation Method: orotracheal Videoscope used: Yes Grade View: 1 Medications: Propofol (100), Succinylcholine (100) Mask Ventilation: positive Positive End Tide CO2: Yes Breath Sounds after Intubation: bilateral-equal ETT Securred @ (cm): 23 Intubated with ease: Yes Post Intubation Xray-done: Yes Post Procedure Attempts x 2. First attempt unable to pass tube due to poor bend on ETT. Bagged. Tube re-bent by myself. Attempt 2 with ease. Care turned over to: CAREER AND GUIDANCE COUNSELOR. HORTENCIA KONG CRNA Jun 23, 2017 10:39
--- NOTE | 2017-06-23 10:42 | Diagnostic Imaging Report ---
INDICATION: ET tube and OG tube placement. TIME OF EXAMINATION: 10:28 AM. COMPARISON: Correlation is made with the prior exam from earlier this same day. FINDINGS: An endotracheal tube has been placed with the tip located just above the ross by approximately 1 cm. An OG tube also has been placed and passes below the diaphragm. Extensive bilateral pulmonary infiltrates are again noted. No pneumothorax is seen. The heart is enlarged. IMPRESSION: Endotracheal and OG tube placement, as described. Dictated by: Dictated on workstation # [id number]
--- NOTE | 2017-06-23 10:53 | Progress Note-Hospitalist ---
Subjective HPI/CC On Admission Date Seen by Provider: Jun 23, 2017 Time Seen by Provider: 10:00 CC: Consultation for respiratory failure HPI: This is a 66-year-old white female who recently sustained a right hip fracture and that was repaired at [facility] been sent from there to [facility] and began having issues so she was assessed for hypoxia admitted on 06/18/17 and patient has declined gradually since that time. She has been on anticoagulation since admission and while at [facility]. She was transferred to the ICU with respiratory failure and now is on BiPAP and Lasix initiated for airspace disease on chest x-ray consistent with volume overload with elevated BNP of 630. Cardiology has been consulted and I have ordered an echocardiogram. ABG will be checked at noon to evaluate the need for intubation. Altered mental status has improved of which she had previously been unresponsive but now she is able to talk but she is confused. Unsure of the baseline cognitive ability of this patient considering she is 66 and now in a shelter due to debility so likely delirium is a factor. She has been placed on cefepime for IV antibiotic coverage for gram-negative resistant organism for pneumonia. Subjective/Events-last exam Patient is failing noninvasive ventilation Evaluated chest x-ray in the appears ARDS Patient will need to be intubated and transferred to her local care at [facility] Lovenox will be given therapeutic dose now since she did not take her Eliquis this am Prognosis guarded and she is critically ill I spoke with Dr. Clarke and updated her on the plan and she agrees Objective Exam Vital Signs Vital Signs Date Time Temp Pulse Resp B/P (MAP) Pulse Ox O2 Delivery O2 Flow Rate FiO2 06/18/17 13:34 Nasal Cannula 2.00 06/18/17 13:34 97.9 75 18 101/63 (76 88 06/18/17 19:52 30 Capillary Refill : Less Than 3 SecondsLess Than 3 Seconds General Appearance: WD/WN, Mild Distress, Obese, Other (on biPAP) Respiratory: Accessory Muscle Use, Crackles, Decreased Breath Sounds, Respiratory Distress Cardiovascular: Tachycardia Neurologic/Psychiatric: Disoriented x3 Results/Procedures Lab Laboratory Tests 06/22/17 18:30 06/23/17 03:15 Patient resulted labs reviewed. Assessment/Plan Assessment and Plan Assess & Plan/Chief Complaint Assessment: Subacute respiratory failure and volume overload with elevated BNP s/p Lasix with good urinary output for cardiology consultation and echocardiogram completed but patient has worsened and now CXR and clinical scenario appears ARDS and failed biPAP Multilobar airspace disease covered with cefepime in case infectious bacterial origin Recent hip fracture but maintain on anticoagulation for DVT prophylaxis Altered mental status unsure of baseline but likely delirium is a factor Plan: Intubate Franco transfer Diagnosis/Problems Diagnosis/Problems (1) Acute respiratory failure with hypoxia Status: Acute (2) PNA (pneumonia) Status: Acute Qualifiers: Pneumonia type: due to unspecified organism Laterality: bilateral Lung location: unspecified part of lung Qualified Codes: J18.9 - Pneumonia, unspecified organism (3) Volume overload Status: Acute Qualifiers: Hypervolemia type: unspecified Qualified Codes: E87.70 - Fluid overload, unspecified (4) Diabetes mellitus Status: Chronic Qualifiers: Diabetes mellitus type: type 2 Diabetes mellitus longterm insulin use: without longterm use Diabetes mellitus complication status: without complication Qualified Codes: E11.9 - Type 2 diabetes mellitus without complications (5) Delirium Status: Acute Clinical Quality Measures DVT/VTE Risk/Contraindication: Risk Factor Score Per Nursin RFS Level Per Nursing on Admit: 4+=Very High REFUGIO ABERNATHY DO Jun 23, 2017 10:53
[2017-06-23] MEDS ORDERED: MIDAZOLAM INJECTION FOR DRIPS 50 MG in NS (IVPB) 90 ML IV SCH (11:30)
[2017-06-23] MEDS: PROPOFOL DRIP (ICU) 100 ML IV SCH ×3 (11:53→14:45)
[2017-06-23] MEDS ORDERED: SUCCINYLCHOLINE INJ 100 MG/5 ML SYR INJ ONE (14:40)
[2017-06-24] MEDS ORDERED: KCL 20 MEQ TAB (K-DUR) PO SCH (07:00)
--- NOTE | 2017-06-24 22:07 | Discharge Summary ---
Diagnosis/Chief Complaint Date of Admission Jun 18, 2017 at 15:20 Date of Discharge Jun 23, 2017 at 14:45 Admission Diagnosis Admission Diagnosis Acute on Chronic Respiratory Failure with hypoxia PNA with ARDS Acute Diastolic CHF with preserved EF Paroxysmal Atrial fibrillation IDDM II Microcytic Anemia with iron def HTN Discharge Diagnosis See Above Chief Complaint/HPI Chief Complaint/HPI 66 yo F that came from [facility] when she was found to be hypoxic. They state that she does not have a previous oxygen requirement and was found to be in the 80s prior to transfer to the ER. She recently had surgery to repair RLE fracture and placed on oral anticoagulation. Saturations improved rapidly with oxygen supplementation but she was found to have infiltrates on CXR. This AM patient was confused and not responding appropriately to questioning. She was following some commands and moving all extremities equally. Oxygen saturations were 98%. Blood sugar was taken and was 78. Patient was then given an amp of D50 and improved some but was still confused. CT head ordered. Patient denies any pain. Discharge Summary-Simple/Stand Consultations Dr Renee: Internal Medicine Dr Hu: Cardiology Discharge Physical Examination Allergies: Coded Allergies: No Known Drug Allergies (Unverified , 11/22/16) Vitals & I&Os Vital Sign - Last 12Hours Date Time Temp Pulse Resp B/P (MAP) Pulse Ox O2 Delivery O2 Flow Rate FiO2 06/23/17 14:45 61 18 131/63 97 Mechanical Ventilator 70.00 06/23/17 14:45 96.9 06/23/17 13:45 100 Intake and Output 06/24/17 00:00 Intake Total 160 ml Output Total 150 ml Balance 10 ml General Appearance: Alert, Moderate Distress HEENT: Mucous Memb Moist/Medley Respiratory: Other (Diminished breath sounds with increased work of breathing, wheezing and crackles in all lung kerns) Cardiovascular: Regular Rate, No Murmurs Abdominal: Normal Bowel Sounds, Soft, No Tenderness, No Hepatosplenomegaly, No Masses Extremities: Other (2+ pitting edema to knee bilaterally, no erythema, non tender, neg homans) Skin: No Rashes Neuro: Normal Speech, Sensation Intact, Cranial Nerves 3-12 NL Psych/Mental Status: Other (+ anxiety) Hospital Course See final discharge diagnosis. Radiology Reviewed NAME: YESSYFERMIN Segundo MED REC#: [id number] PT STATUS: ADM IN : 1950 PHYSICIAN: LUPE LEAL MD ADMIT DATE: 06/18/17/ICU Draft Date of Exam:06/22/17 CHEST 1 VIEW, AP/PA ONLY Indication: Hypoxia. Comparison: Study compared to one day prior. Findings: While there is severe 5 lobe airspace opacities present, they have improved in overall density from the prior with better demonstration of the cardiac margins as well as diaphragmatic contours. There has been no adverse development. Impression: Improvements in what remains to be severe 5 lobe airspace disease. There has been no adverse development. Dictated on workstation # [id number] Dict: 06/22/17717 Trans: 06/22/17901 CV [id number] Interpreted by: HEIDI KNIGHT Electronically signed by: Discussion & Recommendations 66 yo F with recent surgery that was sent to ER from [facility] with new oxygen requirement and confusion Acute on Chronic Respiratory Failure with hypoxia: Patient required oxygen at 3L upon arrival. On day 2 of admission patient became profoundly hypoxic and required vapotherm at 20L. She was then transitioned to ICU care and started on Bipap. Multiple ABGs with hypoxia. Patient had CT scan that did not show PE. She was thought to be in pulmonary edema and given aggressive diuretics for fluid overload. Patient diuresed over 6L of fluid w/o any significant improvement in hypoxia and no improvement on ABG and was unable to be titrated off bipap. eICU was consulted and helped with management. Echo showed that patient was in diastolic CHF with preserved EF. Patient continued to have difficultly breathing and had 5 lung field worsening on CXR and was then intubated for support. Case was reviewed with Dr Renee and decision to transfer patient to tertiary care center was made. PNA with ARDS: See above. Patient was on Cefepime during admission. Acute Diastolic CHF with preserved EF: Cardiology was consulted and echo performed. Paroxysmal Atrial fibrillation: Patient was on PO anticoagulation upon admission and was transitioned to Lovenox when unable to take PO. IDDM II: Managed with subcutaneous insulin. Microcytic Anemia with iron def: No signs of acute bleeding. Likely 2/2 to recent surgery. HTN: Controlled during admission. Patient required critical care and intubation and transferred to [facility] for high level of care. Discharge Condition at discharge Guarded Instructions to patient/family Please see electronic discharge instructions given to patient. Discharge Medications Reviewed and agree with Discharge Medication list on patient's Discharge Instruction sheet Clinical Quality Measures DVT/VTE Risk/Contraindication: Risk Factor Score Per Nursin RFS Level Per Nursing on Admit: 4+=Very High Copy Copies To 1: AMY ANDERSON MD, HOLLY R MD Jun 24, 2017 22:07
[2017-07-22] MEDS ORDERED: IPRA3AMP31 IH (17:43)
== END 2017-06-23 14:45 | disposition short-term general hospital (02) | DRG 208 ==
LOC: ER 13:20 → EDUNIT# 13:20 → 4TH 15:20 → ICU 06-21 11:45
PROVIDERS: ADMIT Family Medicine; ATTEND Family Medicine
PROC: 5A1935Z Respiratory Ventilation, Less than 24 Consecutive Hours (ICD-10-PCS; principal; 2017-06-23)
DX: J18.9 Pneumonia, unspecified organism (principal); J80 Acute respiratory distress syndrome; I11.0 Hypertensive heart disease with heart failure; I50.31 Acute diastolic (congestive) heart failure; E66.2 Morbid (severe) obesity with alveolar hypoventilation; Z68.41 Body mass index [BMI] 40.0-44.9, adult; I27.20 Pulmonary hypertension, unspecified; I08.1 Rheumatic disorders of both mitral and tricuspid valves; R41.0 Disorientation, unspecified; D50.0 Iron deficiency anemia secondary to blood loss (chronic); I48.0 Paroxysmal atrial fibrillation; E11.9 Type 2 diabetes mellitus without complications; F32.9 Major depressive disorder, single episode, unspecified; F41.9 Anxiety disorder, unspecified; Z86.73 Personal history of transient ischemic attack (TIA), and cerebral infarction without residual deficits; Z79.4 Long term (current) use of insulin
CPT/HCPCS: 36415; 36600; 70450; 71045; 80053; 80069; 81000; 82728; 82805; 82962; 83036; 83540; 83605; 83735; 83880; 84100; 84443; 84478; 85007; 85025; 85027; 86141; 87040; 87070; 87205; 93005; 93306; 94002; 94640; 94660; 94664; 94760; 94799; 96361; 96365

== ENCOUNTER 2017-07-22 09:14 | Inpatient (IN) | payer MEDICAID ==
[2017-07-22] VITALS (16 sets, daily range): BP systolic 93–130; BP diastolic 46–82
[~2017-07-22] VITALS: Ht 157.5 cm; Wt 93.1 kg
[~2017-07-22 09:14] MED LIST changes: +ACET-2267 PO; +AMIT25TA9 PO; +CALC1TAB94 PO; +HYDR-34 PO; +INSU100V16 SQ; +NAPR-915 PO; +SENN-145 PO; -TRAZ-189 PO; +TRAZ-28 PO
--- OUTSIDE RECORDS SUMMARY | 2017-07-22 09:24 | XMS REPORT ---
Author Author AMY ANDERSON Organization [facility] Address [address] [place] [address] Care Team Providers Care Tufter Name Role Phone AMY ANDERSON Unavailable PROBLEMS Type Condition ICD9-CM Code AJP89-LL Code Onset Dates Condition Status SNOMED Code Problem Essential hypertension I10 Active 16045019 Problem Coronary artery disease involving chinik coronary artery of chinik heart without angina pectoris I25.10 Active 0534311010520 Problem Hypoglycemia E16.2 Active 605629523 Problem Paroxysmal atrial fibrillation I48.0 Active 095049541 Problem Type 2 diabetes mellitus without complications E11.9 Active 218414448 Problem Pain in right knee M25.561 Active 11797652 Problem Polyneuropathy associated with underlying disease G63 Active 562888673 Problem Insomnia, unspecified type G47.00 Active 725195593 ALLERGIES No Information ENCOUNTERS Encounter Location Date Diagnosis [facility] [id number] [place] [address] Jun, [facility] [id number] [place] [address]- [address] Jun, [facility] [id number] [place] [address]34- [address] May, [facility] [id number] [place] [address]- [address] May, Hypoglycemia E16.2 [facility] [id number] [place] [address] 41874- [address] May, [facility] [id number] [place] [address]4865- [address] May, [facility] and [address] [id number] May, Encounter for examination for admission to alf Z02.2 ; Closed fracture of shaft of left tibia with routine healing, unspecified fracture morphology, subsequent encounter S82.202D ; Type 2 diabetes mellitus without complications E11.9 ; Essential hypertension I10 and Paroxysmal atrial fibrillation I48.0 [facility] [id number] [place] [address]93- [address] May, [facility] [id number] [place] [address]267- [address] Apr, [facility] [id number] [place] [address]132- [address] Feb, [facility] [id number] [place] [address] 78359- [address] Jan, [facility] [id number] [place] [address] 35720- [address]600 Dec, Pain in right knee M25.561 [facility] [address] [phone] Dec, [facility] [id number] [place] [address] 24679- [address]96 Dec, [facility] [id number] [place] [address] 08772- 3557 Dec, Type 2 diabetes mellitus without complications E11.9 [facility] [id number] [place] [address]- [address] Dec, Type 2 diabetes mellitus without complications E11.9 [facility] [id number] [place] [address]92- 2943 Dec, Type 2 diabetes mellitus without complications E11.9 ; Paroxysmal atrial fibrillation I48.0 and Polyneuropathy associated with underlying disease G63 [facility] [id number] [place] [address]- [address] Dec, [facility] [id number] [place] [address] 64289- [address] Nov, [facility] [id number] [place] [address] 90015- 8086 Oct, [facility] [address] [facility] [id number] [place] [address] Oct, [facility] [address] [facility] [id number] [address] Oct, [facility] [address] [facility] [id number] [place] [address] 2546 Oct, Type 2 diabetes mellitus without complications E11.9 ; Essential hypertension I10 ; Coronary artery disease involving chinik coronary artery of chinik heart without angina pectoris I25.10 ; Insomnia, unspecified type G47.00 and Pain in right knee M25.561 IMMUNIZATIONS No Known Immunizations SOCIAL HISTORY Never Assessed REASON FOR VISIT Medication refill request PLAN OF CARE VITAL SIGNS MEDICATIONS Medication Instructions Dosage Frequency Start Date End Date Duration Status Atorvastatin Calcium 20 mg Orally Once a day 1 tablet 24h 30 days Active RESULTS No Results PROCEDURES No Known procedures INSTRUCTIONS MEDICATIONS ADMINISTERED No Known Medications MEDICAL (GENERAL) HISTORY Type Description Date Medical History Diabetes Medical History Neuropathy Medical History irregular heartbeat Medical History CVA- April 2015 Surgical History Right total knee replacement 19 years ago Surgical History Right knee replacement gave out and right femur fracture. Repairments made, but knee replacement was not replacement 03/2016 Surgical History Total hysterectomy Surgical History Left rotator cuff repair Surgical History Right rotator cuff repair and bone scraping Surgical History Left total knee replacement Surgical History Left ankle surgery Hospitalization History past surgery Hospitalization History [facility] gastritis 11/2016
--- OUTSIDE RECORDS SUMMARY | 2017-07-22 09:24 | XMS REPORT ---
Author Author AMY ANDERSON Organization [facility] Address [address] [place] [address] Care Team Providers Care Radiology Asst Name Role Phone AMY ANDERSON Unavailable PROBLEMS Type Condition ICD9-CM Code MLB17-CL Code Onset Dates Condition Status SNOMED Code Problem Essential hypertension I10 Active 28905028 Problem Coronary artery disease involving [place] coronary artery of [place] heart without angina pectoris I25.10 Active 3194115685958 Problem Hypoglycemia E16.2 Active 790100896 Problem Paroxysmal atrial fibrillation I48.0 Active 949867280 Problem Type 2 diabetes mellitus without complications E11.9 Active 450525854 Problem Pain in right knee M25.561 Active 32172611 Problem Polyneuropathy associated with underlying disease G63 Active 531276625 Problem Insomnia, unspecified type G47.00 Active 327150800 ALLERGIES No Information ENCOUNTERS Encounter Location Date Diagnosis [facility] [id number] [place] [address]23- 4265 Jun, [facility] [id number] [place] [address] 53735- 7060 May, [facility] [id number] [place] [address] 91547- 0709 May, Hypoglycemia E16.2 [facility] [id number] [place] [address] 14033- 3455 May, [facility] [id number] [place] [address] 99913- 5465 May, [facility] [address] [place] [id number] May, Encounter for examination for admission to detention Z02.2 ; Closed fracture of shaft of left tibia with routine healing, unspecified fracture morphology, subsequent encounter S82.202D ; Type 2 diabetes mellitus without complications E11.9 ; Essential hypertension I10 and Paroxysmal atrial fibrillation I48.0 [facility] [address], [place] [address] May, [facility] [id number] [place] [address] 42759- 9819 Apr, [facility] [id number] [place] [address] 63367- 4842 Feb, [facility] [id number] [place] [address] 24498- 5406 Jan, [facility] [id number] [place] [address] 48997- 9283 Dec, Pain in right knee M25.561 [facility] [id number] [place] [address] 07563- 1441 Dec, [facility] [id number] [place] [address] 85598- 1302 Dec, [facility] [id number] [place] [address] 77889- 8679 Dec, Type 2 diabetes mellitus without complications E11.9 [facility] [id number] [place] [address] 09419- 1533 Dec, Type 2 diabetes mellitus without complications E11.9 [facility] [address], [place] [address] 3[address] Dec, Type 2 diabetes mellitus without complications E11.9 ; Paroxysmal atrial fibrillation I48.0 and Polyneuropathy associated with underlying disease G63 [facility] [address], [place] [address] 5882 Dec, [facility] [id number] [place] [address] 47949- 5698 Nov, [facility] [id number], [place] [address] 28[address] Oct, [facility] [id number] [place] [address] 09976- 2546 Oct, [facility] [address] [facility] [id number] [place] [address] Oct, [facility] [address] [facility] [id number] [place] [address]- 0976 Oct, Type 2 diabetes mellitus without complications E11.9 ; Essential hypertension I10 ; Coronary artery disease involving [place] coronary artery of [place] heart without angina pectoris I25.10 ; Insomnia, unspecified type G47.00 and Pain in right knee M25.561 IMMUNIZATIONS No Known Immunizations SOCIAL HISTORY Never Assessed REASON FOR VISIT requesting back brace PLAN OF CARE VITAL SIGNS MEDICATIONS Unknown Medications RESULTS No Results PROCEDURES No Known procedures [...]
--- OUTSIDE RECORDS SUMMARY | 2017-07-22 09:25 | XMS REPORT ---
Author Author AMY ANDERSON Organization [facility] Address [address] [place] [address] Care Team Providers Care Clinical Genetics Laboratory Chief Name Role Phone AMY ANDERSON Unavailable PROBLEMS Type Condition ICD9-CM Code RNX12-IX Code Onset Dates Condition Status SNOMED Code Problem Essential hypertension I10 Active 93969564 Problem Coronary artery disease involving [place] coronary artery of [place] heart without angina pectoris I25.10 Active 1889211299053 Problem Hypoglycemia E16.2 Active 766910330 Problem Paroxysmal atrial fibrillation I48.0 Active 088703097 Problem Type 2 diabetes mellitus without complications E11.9 Active 776176647 Problem Pain in right knee M25.561 Active 67226989 Problem Polyneuropathy associated with underlying disease G63 Active 151296557 Problem Insomnia, unspecified type G47.00 Active 526331949 ALLERGIES No Information ENCOUNTERS Encounter Location Date Diagnosis [facility] [id number] [place] [address] 33527- 4631 Jun, [facility] [id number] [place] [address] 34600- 2579 May, [facility] [id number] [place] [address] 47391- 2119 May, Hypoglycemia E16.2 [facility] [id number] [place] [address] 95466- 3393 May, [facility] [id number] [place] [address] 67463- 5923 May, [facility] [address] [place] [phone] May, Encounter for examination for admission to [facility] Z02.2 ; Closed fracture of shaft of left tibia with routine healing, unspecified fracture morphology, subsequent encounter S82.202D ; Type 2 diabetes mellitus without complications E11.9 ; Essential hypertension I10 and Paroxysmal atrial fibrillation I48.0 [facility] [address] [address]- 1766 May, [facility] [id number] [place] [address] 28002- 5964 Apr, [facility] [id number] [place] [address] 89745- 1545 Feb, [facility] [id number] [place] [address] 59679- 0115 Jan, [facility] [id number] [place] [address] 97047- 9161 Dec, Pain in right knee M25.561 [facility] [id number] [place] [address] 86004- 6031 Dec, [facility] [id number] [place] [address] 12107- 2711 Dec, [facility] [id number] [place] [address] 54105- 2075 Dec, Type 2 diabetes mellitus without complications E11.9 [facility] [id number] [place] [address] 77712- 0432 Dec, Type 2 diabetes mellitus without complications E11.9 [facility] [address] [address]- 6250 Dec, Type 2 diabetes mellitus without complications E11.9 ; Paroxysmal atrial fibrillation I48.0 and Polyneuropathy associated with underlying disease G63 [facility] [address] [address]- 6544 Dec, [facility] [id number] [place] [address] 87951- 2014 Nov, [facility] [id number] [address]- 9504 Oct, [facility] [id number] [place] [address] 50819- 2546 Oct, [facility] [address] [facility] [id number] [place] [address]- 2071 Oct, [facility] [address] [facility] [id number] [place] [address]- 6756 Oct, Type 2 diabetes mellitus without complications E11.9 ; Essential hypertension I10 ; Coronary artery disease involving [place] coronary artery of [place] heart without angina pectoris I25.10 ; Insomnia, unspecified type G47.00 and Pain in right knee M25.561 IMMUNIZATIONS No Known Immunizations SOCIAL HISTORY Never Assessed REASON FOR VISIT schedule eye appt. PLAN OF CARE VITAL SIGNS MEDICATIONS Unknown [...]
--- OUTSIDE RECORDS SUMMARY | 2017-07-22 09:25 | XMS REPORT ---
Author Author AMY ANDERSON Organization [facility] Address [address] [place] [address] Care Team Providers Care Pea Viner Mechanic Name Role Phone AMY ANDERSON Unavailable PROBLEMS Type Condition ICD9-CM Code SPI61-AM Code Onset Dates Condition Status SNOMED Code Problem Essential hypertension I10 Active 80226702 Problem Coronary artery disease involving [place]re[place]ski coronary artery of [place]reafski heart without angina pectoris I25.10 Active 1331335938643 Problem Hypoglycemia E16.2 Active 714002584 Problem Paroxysmal atrial fibrillation I48.0 Active 654934658 Problem Type 2 diabetes mellitus without complications E11.9 Active 058304158 Problem Pain in right knee M25.561 Active 69724623 Problem Polyneuropathy associated with underlying disease G63 Active 204855504 Problem Insomnia, unspecified type G47.00 Active 652652727 ALLERGIES No Information ENCOUNTERS Encounter Location Date Diagnosis [facility] [id number] [place] [address] 17655- 8973 Jun, [facility] [id number] [place] [address] 41043- 4855 May, [facility] [id number] [place] [address] 72079- 6368 May, Hypoglycemia E16.2 [facility] [id number] [place] [address] 33141- 0206 May, [facility] [id number] [place] [address] 90683- 8525 May, [facility] [address] [place] [address] [id number] May, Encounter for examination for admission to residential Z02.2 ; Closed fracture of shaft of left tibia with routine healing, unspecified fracture morphology, subsequent encounter S82.202D ; Type 2 diabetes mellitus without complications E11.9 ; Essential hypertension I10 and Paroxysmal atrial fibrillation I48.0 [facility] [address], [place] [address]- 7219 May, [facility] [id number] [place] [address] 43897- 7272 Apr, [facility] [id number] [place] [address] 86414- 6075 Feb, [facility] [id number] [place] [address] 64257- 6047 Jan, [facility] [id number] [place] [address] 09935- 7103 Dec, Pain in right knee M25.561 [facility] [id number] [place] [address] 00248- 6679 Dec, [facility] [id number] [place] [address] 86103- 3890 Dec, [facility] [id number] [place] [address] 72815- 4327 Dec, Type 2 diabetes mellitus without complications E11.9 [facility] [id number] [place] [address] 53162- 2094 Dec, Type 2 diabetes mellitus without complications E11.9 [facility] [address], [place] [address]- 3099 Dec, Type 2 diabetes mellitus without complications E11.9 ; Paroxysmal atrial fibrillation I48.0 and Polyneuropathy associated with underlying disease G63 [facility] [address], [place] [address]- 8433 Dec, [facility] [id number] [place] [address] 22985- 3361 Nov, [facility] [id number], [place] [address]- 8486 Oct, [facility] [id number] [place] [address] 28239- 9206 Oct, [facility] [address] [facility] [id number] [place] [address]- 8136 Oct, [facility] [address] [facility] [id number] [place] [address]- 4136 Oct, Type 2 diabetes mellitus without complications E11.9 ; Essential hypertension I10 ; Coronary artery disease involving [place]reafski coronary artery of andreafski heart without angina pectoris I25.10 ; Insomnia, unspecified type G47.00 and Pain in right knee M25.561 IMMUNIZATIONS No Known Immunizations SOCIAL HISTORY Never Assessed REASON FOR VISIT refills PLAN OF CARE VITAL SIGNS MEDICATIONS Medication Instructions Dosage Frequency Start Date End Date Duration Status Lisinopril 5 mg Orally Once a day 1 tablet 24h Oct, 90 days Active Trazodone HCl 50 mg Orally Once a day 1 tablet at bedtime as needed 24h 90 days Active Amitriptyline HCl 50 mg Orally Once a day 2 tablets at bedtime 24h 90 days Active Duloxetine HCl 30 MG Orally Once a day 3 capsules at bedtime 24h 90 days Active RESULTS No Results PROCEDURES No [...]
--- NOTE | 2017-07-22 09:29 | ED Respiratory ---
General Stated Complaint: RESP DISTRESS Source: patient, EMS, [place] [facility] records History of Present Illness Date Seen by Provider: July 22, 2017 Time Seen by Provider: 09:24 Initial Comments This 66-year-old white female presents with increasing respiratory distress that was noted at the [place] [facility] this morning. Although the patient did not complain of shortness of breath her pulse oximeter was in the 70s. This improved with supplemental oxygen and the patient was brought to the emergency department by the paramedics. In route to try some of room air demonstrated that the patient continued to be significantly hypoxic. The patient denied associated chest pain, fever, chills, productive cough, palpitations, increase in peripheral edema, the missing of her daily medications , nausea, vomiting, diarrhea, or dysuria. Patient states that she has chronic A. fib. Patient states that she has been coughing since yesterday but that it has been nonproductive. Allergies and Home Medications Allergies Coded Allergies: No Known Drug Allergies (Unverified , 11/22/16) Home Medications Acetaminophen 500 Mg Tablet, 1,000 MG PO Q6H PRN for PAIN-MILD, (Reported) TAKES 2 (500MG) TABLETS Amitriptyline HCl 25 Mg Tablet, 100 MG PO DAILY, (Reported) TAKES 4 (25MG) TABLETS Apixaban 5 Mg Tablet, 5 MG PO BID, (Reported) Aspirin 81 Mg Tablet.dr, 81 MG PO DAILY, (Reported) Calcium Carbonate/Vitamin D3 1 Each Tablet, 1 TAB PO BID, (Reported) Diphenhydramine HCl 25 Mg Tablet, 25 MG PO HS, (Reported) Duloxetine HCl 30 Mg Capsule.dr, 90 MG PO HS, (Reported) TAKES 3 (30MG) CAPSULES Gabapentin 400 Mg Capsule, 400 MG PO BID, (Reported) Hydrocodone Bit/Acetaminophen 1 Ea Tablet, 1 TAB PO Q6H PRN for PAIN-MODERATE, ( Reported) Insulin Aspart 100 Unit/1 Ml Susp, 15 UNIT SQ AC, (Reported) Insulin Detemir 100 Unit/1 Ml Insuln.pen, 50 UNITS SC HS, (Reported) Lisinopril 5 Mg Tablet, 5 MG PO DAILY, (Reported) HOLD FOR PULSE LESS THAN 60 OR SBP LESS THAN 100 Metoprolol Tartrate 50 Mg Tablet, 25 MG PO BID, (Reported) TAKES 1/2 (50MG) TABLET Naproxen 500 Mg Tablet, 500 MG PO BID, (Reported) Nitroglycerin 0.4 Mg Tab.subl, 0.4 MG SL UD PRN for CHEST PAIN, (Reported) Sennosides/Docusate Sodium 1 Each Tablet, 2 TAB PO HS, (Reported) Trazodone HCl 50 Mg Tablet, 50 MG PO TID, (Reported) Patient Home Medication List Home Medication List Reviewed: Yes Review of Systems Constitutional: No chills, No fever EENTM: No throat swelling Respiratory: see HPI, cough; No short of breath Cardiovascular: No chest pain, No palpitations, No syncope Gastrointestinal: No abdominal pain, No diarrhea, No vomiting Genitourinary: No dysuria, No frequency : No Musculoskeletal: No back pain Skin: No rash Psychiatric/Neurological: No Symptoms Reported Hematologic/Lymphatic: No Symptoms Reported Immunological/Allergic: no symptoms reported Past Otknuos-Bpormi-Hhksjz Hx Past Med/Social Hx: Reviewed Nursing Past Med/Soc Hx Patient Social History Former Smoker, Quit: May 08, 1998 Recent Hopitalizations: No Immunizations Up To Date Tetanus Booster (TDap): Unknown Date of Pneumonia Vaccine: Jan 11, 2014 Seasonal Allergies Seasonal Allergies: No Past Medical History Gallbladder, Hysterectomy, Joint Replacement, Orthopedic Respiratory: Yes Pneumonia Currently Using CPAP: No Currently Using BIPAP: No Cardiac: Yes (tachycardia) Atrial Fibrillation, Hypertension Neurological: 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 Genitourinary: No Gastrointestinal: Yes Gastroesophageal Reflux Musculoskeletal: Yes Arthritis Endocrine: Yes Diabetes, Insulin dep HEENT: No Cancer: No Did You Recieve Any Treatments: No Psychosocial: Yes Anxiety, Depression Integumentary: No Blood Disorders: No Adverse Reaction/Blood Tranf: No Family Medical History Diabetes mellitus 19 MOTHER G8 BROTHER FH: CVA (cerebrovascular accident) FH: pancreatic cancer 19 FATHER Hypertension G8 BROTHER Physical Exam Vital Signs Vital Signs - First Documented 07/22/17 09:30 Pulse Ox 95 O2 Delivery Simple Mask O2 Flow Rate 10.00 Capillary Refill : General Appearance: WD/WN, no apparent distress HEENT: normal ENT inspection Neck: normal inspection Respiratory: decreased breath sounds Cardiovascular: irregularly irregular Gastrointestinal: normal bowel sounds, non tender, soft Extremities: normal range of motion, non-tender, normal inspection, pedal edema (1+) Neurologic/Psychiatric: no motor/sensory deficits, alert, normal mood/affect Skin: normal color, warm/dry Focused Exam Lactate Level 07/22/17 09:37: Lactic Acid Level 2.20*H Lactic Acid Level Laboratory Tests Test 07/22/17 09:37 Lactic Acid Level 2.20 MMOL/L (0.50-2.00) *H Procedures/Interventions Date of ETT Placement: Jun 23, 2017 Time of ETT Placement: 1030 Suture Size: 5-0 Progress/Results/Core Measures Suspected Sepsis SIRS Temperature: Pulse: Respiratory Rate: Blood Pressure / Mean: 07/22/17 09:37: Lactic Acid Level 2.20*H Results/Orders Lab Results Laboratory Tests Test 07/22/17 09:37 07/22/17 09:39 Range/Units Lactic Acid Level 2.20 *H 0.50-2.00 MMOL/L Blood Gas Puncture Site RT RAD Blood Gas Patient Temperature 97.1 Arterial Blood pH 7.44 H 7.37-7.43 Arterial Blood Partial Pressure CO2 49 H 35-45 MMHG Arterial Blood Partial Pressure O2 73 L 79-93 MMHG Arterial Blood HCO3 33 H 23-27 MMOL/L Arterial Blood Total CO2 34.4 H 21.0-31.0 MMOL/L Arterial Blood Oxygen Saturation 96 94-100 % Arterial Blood Base Excess 8.3 H -2.5-2.5 MMOL/L Ludwin Test YES-POS Blood Gas Ventilator Setting NO Blood Gas Inspired Oxygen 10 L My Orders Orders - MEREDITH HARPER MD Cbc With Automated Diff (07/22/17:20) Comprehensive Metabolic Panel (07/22/17:20) BNP (07/22/17:20) Blood Culture (07/22/17:20) Chest 1 View, Ap/Pa Only (07/22/17:20) Albuterol/Ipra Inhalation Soln (Duoneb I (07/22/17 09:30) Fibrin Degradation Products (07/22/17:20) Ekg Tracing (07/22/17:20) O2 (07/22/17:20) Saline Lock/Iv-Start (07/22/17:20) Monitor-Rhythm Ecg Trace Only (07/22/17:20) Lactic Acid Analyzer (07/22/17:20) Svn Small Volume Nebulizer (07/22/17:20) Troponin I (07/22/17:20) Furosemide Injection (Lasix Injection) (07/22/17 09:30) Arterial Blood Gas (07/22/17 09:42) Piperacillin Sodium/Tazobactam (Zosyn Vi (07/22/17 10:30) Vancomycin Injection (Vancomycin Injecti (07/22/17 10:30) Medications Given in ED Current Medications Medications Dose Ordered Sig/Radha Route Start Time Stop Time Status Last Admin Dose Admin Albuterol/ Ipratropium 3 ml ONCE ONCE INH 07/22/17 09:30 07/22/17 09:31 DC 07/22/17 09:30 3 ML Vital Signs/I&O 07/22/17 09:30 Pulse Ox 95 O2 Delivery Simple Mask O2 Flow Rate 10.00 Capillary Refill : Progress Note : Time: 10:32 Progress Note The patient remained hypoxic without significant oxygen support. Patient was ultimately placed on Vapotherm at 15 L with an FiO2 of 65 percent. Patient's chest x-ray demonstrated a bilateral infiltrative process suggestive of CHF and pneumonia. The patient's lactic acid was elevated at more than 2. The patient received 40 mg of Lasix IV. 1 g of vancomycin IV and 4.5 grams of Zosyn IV after telephone consultation with Drs. Bowles and Mark. The patient was given a limited amount of saline due to the failure. I don't think that sepsis is severe enough to require 30 makes per cake. Furthermore think this would be counterproductive to the patient's best medical care. Critical Care Note Critical Care Total Time (minutes) 30 minutes. Departure Communication (Admissions) Time/Spoke to Admitting Phy: 10:30 Dr. Flores. Time/Spoke to Consulting Phy: 10:30 Dr. Bowles. Impression Primary Impression: Acute respiratory failure with hypoxia Additional Impressions: CHF (congestive heart failure) Qualified Codes: I50.9 - Heart failure, unspecified Pneumonia Qualified Codes: J18.9 - Pneumonia, unspecified organism Disposition: ADMITTED INPATIENT Condition: Improved Admissions Decision to Admit Reason: Admit from ER (General) Decision to Admit/Date: July 22, 2017 Time/Decision to Admit Time: 10:52 Departure-Patient Inst. Referrals: AMY ANDERSON MD (PCP/Family) Primary Care Physician MEREDITH HARPER MD July 22, 2017 09:29
[2017-07-22] MEDS ORDERED: FUROSEMIDE 40 MG/4 ML INJ (LASIX) IVP ONE (09:30)
[2017-07-22] MEDS ORDERED: RT-ALBUTEROL/IPRATROPIUM 3 ML (DUONEB) VIAL INH ONE (09:30)
[2017-07-22 09:49] LABS: ABG BASE EXCESS 8.3 MMOL/L (-2.5-2.5); ABG OXYGEN SATURATION 96 % (94-100); ABG PCO2 49 MMHG (35-45); ABG PH 7.44 (7.37-7.43); ABG PO2 73 MMHG (79-93); ABG TCO2 34.4 MMOL/L (21.0-31.0)
[2017-07-22 09:52] LABS: ALLENS TEST YES-POS; INSPIRED O2 10 L; PATIENT TEMP 97.1; VENTILATOR NO
--- NOTE | 2017-07-22 10:20 | Diagnostic Imaging Report ---
INDICATION: Cough, shortness of air. TECHNIQUE: Single view chest 10:08 AM. CORRELATION STUDY: 06/23/2017 FINDINGS: There has been interval extubation to remove the gastric tube. Heart size enlarged. Mediastinum is prominent, likely stable. There is rather significant pulmonary vascular congestion and perihilar edema. Scattered pulmonary parenchyma is noted, likely largely edematous. A superimposed infiltrate/pneumonia would be difficult to exclude. IMPRESSION: 1. Enlargement present with pulmonary vascular congestion, perihilar and likely pulmonary edema. Superimposed infiltrate difficult to exclude. Followup imaging recommended. Dictated by: Dictated on workstation # [id number]
[2017-07-22] MEDS ORDERED: PIPERACILLIN SODIUM/TAZOBACTAM 4.5 GM in D5W 100 ML IVPB 100 ML IV ONE (10:30)
[2017-07-22 10:40] LABS: BASOPHILS % (AUTO) 0 % (0-10); EOSINOPHILS # (AUTO) 0.2 10^3/uL (0.0-0.3); EOSINOPHILS % (AUTO) 1 % (0-10); HEMATOCRIT 37 % (35-52); HEMOGLOBIN 11.5 G/DL (11.5-16.0); LYMPHOCYTES # (AUTO) 5.9 X 10^3 (1.0-4.0); LYMPHOCYTES % (AUTO) 41 % (12-44); MEAN CORPUSCULAR HEMOGLOBIN 28 PG (25-34); MEAN CORPUSCULAR HGB CONC 31 G/DL (32-36); MEAN CORPUSCULAR VOLUME 91 FL (80-99); MEAN PLATELET VOLUME 9.3 FL (7.4-10.4); MONOCYTES # (AUTO) 1.2 X 10^3 (0.0-1.0); MONOCYTES % (AUTO) 8 % (0-12); NEUTROPHILS # (AUTO) 7.3 X 10^3 (1.8-7.8); NEUTROPHILS % (AUTO) 50 % (42-75); PLATELET COUNT 343 10^3/uL (130-400); RED BLOOD COUNT 4.04 10^6/uL (4.35-5.85); RED CELL DISTRIBUTION WIDTH 14.9 % (10.0-14.5); WHITE BLOOD COUNT 14.6 10^3/uL (4.3-11.0)
[2017-07-22 10:58] LABS: ALANINE AMINOTRANSFERASE 12 U/L (0-55); ALKALINE PHOSPHATASE 93 U/L (40-136); BILIRUBIN,TOTAL 0.2 MG/DL (0.1-1.0); BUN/CREATININE RATIO 39; CALCIUM 9.2 MG/DL (8.5-10.1); CARBON DIOXIDE 31 MMOL/L (21-32); CHLORIDE 101 MMOL/L (98-107); CREATININE SERUM 0.74 MG/DL (0.60-1.30); GFR ESTIMATED > 60; GLUCOSE 113 MG/DL (70-105); POTASSIUM 3.9 MMOL/L (3.6-5.0); SODIUM 140 MMOL/L (135-145); TOTAL PROTEIN 6.4 GM/DL (6.4-8.2)
[2017-07-22] MEDS: VANCOMYCIN INJECTION 1,000 MG in NS (IVPB) 250 ML IV ONE ×2 (10:59→11:15)
[2017-07-22 11:17] LABS: NEUTROPHILS % (MANUAL) 46 %
[2017-07-22 11:18] LABS: EOSINOPHILS % (MANUAL) 1 %; LYMPHOCYTES % (MANUAL) 47 %; MONOCYTES % (MANUAL) 6 %; RBC MORPH NORMAL
[2017-07-22] MEDS ORDERED: VANCOMYCIN 1 GM/NS 250 ML IVPB IV NR ×2 (13:20)
[2017-07-22] MEDS ORDERED: diphenhydrAMINE 25 MG TAB (BENADRYL) PO PRN (13:30)
[2017-07-22] MEDS ORDERED: ONDANSETRON 4 MG/2 ML (SDV) Z0FRAN IV PRN (13:30)
[2017-07-22] MEDS: NS IV 1000 ML 1,000 ML IV SCH (13:52)
[2017-07-22] MEDS ORDERED: RT-ALBUTEROL SULF 2.5 MG/3 ML PRE-MIX VIAL INH PRN (15:30)
[2017-07-22] MEDS: PIPERACILLIN/TAZO 4.5 GM/D5W 100 ML IVPB IV SCH ×2 (17:19)
[2017-07-22] MEDS ORDERED: ALBU1.25 IH (17:36)
[2017-07-22] MEDS ORDERED: IPRA3AMP IH (17:43)
[2017-07-22] MEDS ORDERED: MELA3TAB PO (17:43)
[2017-07-22] MEDS ORDERED: DOCU100C37 PO (17:43)
[2017-07-22] MEDS ORDERED: METO-451 PO (17:43)
[2017-07-22] MEDS ORDERED: ISOS30TA3 PO (17:43)
[2017-07-22] MEDS ORDERED: MAGN400O7 PO (17:43)
[2017-07-22] MEDS ORDERED: PANT40TA3 PO (17:43)
[2017-07-22] MEDS ORDERED: RT-ALBUTEROL SULF 2.5 MG/3 ML PRE-MIX VIAL INH SCH (18:00)
[2017-07-22] MEDS: RT-ALBUTEROL SULF 2.5 MG/3 ML PRE-MIX VIAL INH SCH ×2 (18:32→22:21)
[2017-07-22] MEDS ORDERED: inSUlin ASPART (NovoLOG) 1 UNIT/0.01 ML (CHARGE PER UNIT) ONE (18:44)
[2017-07-22] MEDS: inSUlin ASPART (NovoLOG) 1 UNIT/0.01 ML (CHARGE PER UNIT) SC SCH ×2 (18:49→20:33)
[2017-07-22] MEDS: VANCOMYCIN 1500 MG/NS 500 ML IVPB IV SCH ×2 (23:13)
[2017-07-23] VITALS (24 sets, daily range): BP systolic 91–145; BP diastolic 31–99
[2017-07-23] MEDS: PIPERACILLIN/TAZO 4.5 GM/D5W 100 ML IVPB IV SCH ×6 (01:35→16:20)
[2017-07-23] MEDS: RT-ALBUTEROL SULF 2.5 MG/3 ML PRE-MIX VIAL INH SCH ×6 (02:53→22:03)
[2017-07-23 03:35] LABS: BASOPHILS % (AUTO) 0 % (0-10); EOSINOPHILS # (AUTO) 1.2 10^3/uL (0.0-0.3); EOSINOPHILS % (AUTO) 11 % (0-10); HEMATOCRIT 35 % (35-52); HEMOGLOBIN 11.1 G/DL (11.5-16.0); LYMPHOCYTES # (AUTO) 4.9 X 10^3 (1.0-4.0); LYMPHOCYTES % (AUTO) 44 % (12-44); MEAN CORPUSCULAR HEMOGLOBIN 29 PG (25-34); MEAN CORPUSCULAR HGB CONC 31 G/DL (32-36); MEAN CORPUSCULAR VOLUME 91 FL (80-99); MEAN PLATELET VOLUME 9.6 FL (7.4-10.4); MONOCYTES # (AUTO) 0.8 X 10^3 (0.0-1.0); MONOCYTES % (AUTO) 8 % (0-12); NEUTROPHILS # (AUTO) 4.2 X 10^3 (1.8-7.8); NEUTROPHILS % (AUTO) 38 % (42-75); PLATELET COUNT 319 10^3/uL (130-400); RED BLOOD COUNT 3.89 10^6/uL (4.35-5.85); RED CELL DISTRIBUTION WIDTH 14.7 % (10.0-14.5); WHITE BLOOD COUNT 11.1 10^3/uL (4.3-11.0)
[2017-07-23 03:57] LABS: PHOSPHORUS 3.8 MG/DL (2.3-4.7)
[2017-07-23 04:01] LABS: ALANINE AMINOTRANSFERASE 15 U/L (0-55); ALBUMIN 2.7 GM/DL (3.2-4.5); ALKALINE PHOSPHATASE 106 U/L (40-136); BILIRUBIN,TOTAL 0.3 MG/DL (0.1-1.0); BUN/CREATININE RATIO 31; CALCIUM 8.5 MG/DL (8.5-10.1); CARBON DIOXIDE 29 MMOL/L (21-32); CHLORIDE 101 MMOL/L (98-107); CREATININE SERUM 0.68 MG/DL (0.60-1.30); GFR ESTIMATED > 60; GLUCOSE 105 MG/DL (70-105); POTASSIUM 4.2 MMOL/L (3.6-5.0); SODIUM 141 MMOL/L (135-145); TOTAL PROTEIN 5.7 GM/DL (6.4-8.2)
[2017-07-23] MEDS: POTASSIUM CL 10MEQ/50ML IVPB 50 ML IV SCH (05:15)
[2017-07-23] MEDS: MAGNESIUM 1 GM/100 ML IVPB 100 ML IV SCH (05:15)
[2017-07-23] MEDS: KCL 20 MEQ TAB (K-DUR) PO SCH (05:15)
[2017-07-23] MEDS: inSUlin ASPART (NovoLOG) 1 UNIT/0.01 ML (CHARGE PER UNIT) SC SCH ×3 (05:16→16:19)
--- NOTE | 2017-07-23 08:45 | History & Physicial (CHS) ---
HPI History of Present Illness: Was hospitalized 1 month ago at for pneumonia w/ ARDS, required intubation and was transferred to [place]. Pt was just recently admitted to [facility]; required 6L oxygen as baseline after DC from [place] (did not require oxygen prior to that hospitalization). Pt was stable until the day of admission and sats were in the 70's. Pt did not feel SOA. Denies cough or fever. Currently on 13L Vapotherm at 55% sats 94%. Date seen by provider: July 23, 2017 Time Seen by Provider: 08:45 Attending Physician Theresa Flores Julie A MD Consult Date of Admission July 22, 2017 at 11:08 Home Medications Home Medications Reviewed patient Home Medication Reconciliation performed by pharmacy medication reconciliations licensed chemical spray technician and/or nursing. Patients Allergies have been reviewed. Allergies Coded Allergies: No Known Drug Allergies (Unverified , 11/22/16) [id number] Hx Patient Social History Alcohol Use: Denies Use Recreational Drug Use: No Smoking Status: Former Smoker Recent Foreign Travel: No Contact w/other who traveled: No Recent Hopitalizations: Yes (RDS) Recent Infectious Disease Expo: No Physical Abuse Screen: No Sexual Abuse: No Immunizations Up To Date Tetanus Booster (TDap): Unknown Date of Pneumonia Vaccine: Jan 11, 2014 Past Medical History IDDM- Type 2 Paroxysmal Atrial fibrillation Obesity GERD Depression/Anxiety Diastolic dysfunction; Echo 06/2017 EF 60-65% Diabetic Neuropathy Hypertension OA PSH: hoang knee replacement TEO/BSO - for AUB cholecystectomy appendectomy Family Medical History Family History: Diabetes mellitus 19 MOTHER G8 BROTHER FH: CVA (cerebrovascular accident) FH: pancreatic cancer 19 FATHER Hypertension G8 BROTHER Review of Systems (CHC) Constitutional: see HPI; No fever Respiratory: no symptoms reported; No cough, No short of breath, No wheezing Cardiovascular: no symptoms reported Gastrointestinal: no symptoms reported Genitourinary: no symptoms reported Musculoskeletal: no symptoms reported Psychiatric/Neurological: Anxiety, Depressed Other see HPI for ROS Reviewed Test Results Reviewed Test Results Lab Laboratory Tests 07/22/17 09:37: Lactic Acid Level 2.20*H 07/22/17 09:39: Blood Gas Puncture Site RT RAD, Blood Gas Patient Temperature 97.1, Arterial Blood pH 7.44H, Arterial Blood Partial Pressure CO2 49H, Arterial Blood Partial Pressure O2 73L, Arterial Blood HCO3 33H, Arterial Blood Total CO2 34.4H, Arterial Blood Oxygen Saturation 96, Arterial Blood Base Excess 8.3H, Ludwin Test YES-POS, Blood Gas Ventilator Setting NO, Blood Gas Inspired Oxygen 10 L 07/22/17 10:28: White Blood Count 14.6H, Red Blood Count 4.04L, Hemoglobin 11.5, Hematocrit 37, Mean Corpuscular Volume 91, Mean Corpuscular Hemoglobin 28, Mean Corpuscular Hemoglobin Concent 31L, Red Cell Distribution Width 14.9H, Platelet Count 343, Mean Platelet Volume 9.3, Neutrophils (%) (Auto) 50, Lymphocytes (%) (Auto) 41, Monocytes (%) (Auto) 8, Eosinophils (%) (Auto) 1, Basophils (%) (Auto) 0, Neutrophils # (Auto) 7.3, Lymphocytes # (Auto) 5.9H, Monocytes # (Auto) 1.2H, Eosinophils # (Auto) 0.2, Basophils # (Auto) 0.0, Neutrophils % (Manual) 46, Lymphocytes % (Manual) 47, Monocytes % (Manual) 6, Eosinophils % (Manual) 1, Blood Morphology Comment NORMAL, D-Dimer 0.94H, Sodium Level 140, Potassium Level 3.9, Chloride Level 101, Carbon Dioxide Level 31, Anion Gap 8, Blood Urea Nitrogen 29H, Creatinine 0.74, Estimat Glomerular Filtration Rate > 60, BUN/ Creatinine Ratio 39, Glucose Level 113H, Calcium Level 9.2, Total Bilirubin 0.2 , Aspartate Amino Transf (AST/SGOT) 27, Alanine Aminotransferase (ALT/SGPT) 12, Alkaline Phosphatase 93, Troponin I < 0.30, B-Type Natriuretic Peptide 232.8H, Total Protein 6.4, Albumin 3.0L 07/22/17 11:53: Lactic Acid Level 2.02*H 07/22/17 15:04: Lactic Acid Level 1.71 07/22/17 17:38: Glucometer 193H 07/22/17 20:29: Glucometer 183H 07/23/17 03:05: Lactic Acid Level 1.73, White Blood Count 11.1H, Red Blood Count 3.89L, Hemoglobin 11.1L, Hematocrit 35, Mean Corpuscular Volume 91, Mean Corpuscular Hemoglobin 29, Mean Corpuscular Hemoglobin Concent 31L, Red Cell Distribution Width 14.7H, Platelet Count 319, Mean Platelet Volume 9.6, Neutrophils (%) (Auto ) 38L, Lymphocytes (%) (Auto) 44, Monocytes (%) (Auto) 8, Eosinophils (%) (Auto ) 11H, Basophils (%) (Auto) 0, Neutrophils # (Auto) 4.2, Lymphocytes # (Auto) 4.9H, Monocytes # (Auto) 0.8, Eosinophils # (Auto) 1.2H, Basophils # (Auto) 0.0 , Sodium Level 141, Potassium Level 4.2, Chloride Level 101, Carbon Dioxide Level 29, Anion Gap 11, Blood Urea Nitrogen 21H, Creatinine 0.68, Estimat Glomerular Filtration Rate > 60, BUN/Creatinine Ratio 31, Glucose Level 105, Calcium Level 8.5, Phosphorus Level 3.8, Magnesium Level 2.0, Total Bilirubin 0.3, Aspartate Amino Transf (AST/SGOT) 28, Alanine Aminotransferase (ALT/SGPT) 15, Alkaline Phosphatase 106, Total Protein 5.7L, Albumin 2.7L Radiology Date of Exam: 07/22/17 CHEST 1 VIEW, AP/PA ONLY INDICATION: Cough, shortness of air. TECHNIQUE: Single view chest 10:08 AM. CORRELATION STUDY: 06/23/2017 FINDINGS: There has been interval extubation to remove the gastric tube. Heart size enlarged. Mediastinum is prominent, likely stable. There is rather significant pulmonary vascular congestion and perihilar edema. Scattered pulmonary parenchyma is noted, likely largely edematous. A superimposed infiltrate/pneumonia would be difficult to exclude. IMPRESSION: 1. Enlargement present with pulmonary vascular congestion, perihilar and likely pulmonary edema. Superimposed infiltrate difficult to exclude. Followup imaging recommended. Physical Exam-([facility]) Physical Exam Vital Signs VS - Last 72 Hours, by Label 07/22/17 07/22/17 07/22/17 07/22/17 09:14 09:14 09:30 10:32 Temp 97.1 Pulse 59 Resp 18 B/P (MAP) 126/71 (89) Pulse Ox 99 98 95 93 O2 Delivery Non Rebreather Simple Mask Nasal Cannula O2 Flow Rate 10.00 10.00 10.00 6.00 07/22/17 07/22/17 07/22/17 07/22/17 10:53 11:42 12:20 12:25 Temp 97.3 96.8 Pulse 80 86 Resp 18 18 B/P (MAP) 108/60 112/44 Pulse Ox 99 96 98 O2 Delivery High Flow NC Vapotherm High Flow N/C Vapotherm O2 Flow Rate 15.00 15.00 15.00 60.00 13.00 FiO2 65 07/22/17 07/22/17 07/22/17 07/22/17 12:27 12:40 12:45 12:45 Pulse 79 80 84 Resp 19 27 B/P (MAP) 130/70 (90) 119/82 (94) Pulse Ox 94 99 O2 Delivery Vapotherm Vapotherm Vapotherm O2 Flow Rate 60.00 13.00 FiO2 60 07/22/17 07/22/17 07/22/17 07/22/17 13:00 13:15 13:30 14:00 Pulse 84 80 81 84 Resp 21 10 23 12 B/P (MAP) 127/70 (89) 126/80 (95) 111/63 (79) 130/51 (77) Pulse Ox 97 97 100 97 O2 Delivery Vapotherm Vapotherm Vapotherm Vapotherm O2 Flow Rate 60.00 60.00 60.00 60.00 13.00 13.00 13.00 13.00 07/22/17 07/22/17 07/22/17 07/22/17 15:00 15:09 15:19 15:25 Pulse 85 86 Resp 18 B/P (MAP) 126/61 (82) Pulse Ox 99 99 O2 Delivery Vapotherm Vapotherm Vapotherm O2 Flow Rate 45.00 45.00 13.00 13.00 13.00 FiO2 60 60 07/22/17 07/22/17 07/22/17 07/22/17 16:00 16:00 16:19 16:41 Temp 98.0 98.0 Pulse 90 Resp 18 B/P (MAP) 115/61 (79) Pulse Ox 100 100 O2 Delivery Vapotherm Vapotherm Vapotherm Vapotherm O2 Flow Rate 60.00 60.00 13.00 13.00 13.00 13.00 FiO2 60 65 07/22/17 07/22/17 07/22/17 07/22/17 17:00 18:00 18:32 19:00 Pulse 90 98 91 Resp 27 35 B/P (MAP) 118/46 (70) 120/68 (85) Pulse Ox 100 97 97 O2 Delivery Vapotherm Vapotherm O2 Flow Rate 55.00 55.00 13.00 13.00 13.00 FiO2 55 07/22/17 07/22/17 07/22/17 07/22/17 19:44 19:50 20:00 21:00 Temp 98.2 Pulse 92 94 100 Resp 24 26 32 B/P (MAP) 123/64 (83) 123/55 (77) 101/55 (70) Pulse Ox 95 95 93 96 O2 Delivery Vapotherm Vapotherm Vapotherm Vapotherm O2 Flow Rate 55.00 13.00 55.00 55.00 13.00 13.00 13.00 FiO2 55 07/22/17 07/22/17 07/22/17 07/22/17 22:00 22:21 23:00 23:10 Temp 98.6 Pulse 94 85 Resp 27 22 B/P (MAP) 93/54 (67) 98/48 (65) Pulse Ox 96 94 97 98 O2 Delivery Vapotherm Vapotherm Vapotherm Vapotherm O2 Flow Rate 55.00 13.00 55.00 13.00 13.00 13.00 FiO2 55 55 07/23/17 07/23/17 07/23/17 07/23/17 00:00 01:00 01:00 02:00 Pulse 81 82 82 84 Resp 20 23 20 B/P (MAP) 100/45 (63) 97/41 (59) 93/69 (77) Pulse Ox 98 99 96 O2 Delivery Vapotherm Vapotherm Vapotherm O2 Flow Rate 55.00 55.00 55.00 13.00 13.00 13.00 07/23/17 07/23/17 07/23/17 07/23/17 02:53 03:00 03:20 03:50 Temp 97.7 Pulse 92 Resp 28 B/P (MAP) 116/57 (76) Pulse Ox 97 93 95 O2 Delivery Vapotherm Vapotherm Vapotherm O2 Flow Rate 13.00 55.00 13.00 13.00 FiO2 55 55 07/23/17 07/23/17 07/23/17 07/23/17 04:00 05:00 06:00 06:30 Pulse 91 94 89 Resp 23 25 24 B/P (MAP) 118/67 (84) 104/60 (75) 99/50 (66) Pulse Ox 98 95 97 95 O2 Delivery Vapotherm Vapotherm Vapotherm Vapotherm O2 Flow Rate 55.00 55.00 55.00 13.00 13.00 13.00 13.00 FiO2 55 07/23/17 07/23/17 07/23/17 07/23/17 06:37 06:52 06:52 07:00 Pulse 111 Pulse Ox 86 O2 Delivery Vapotherm Vapotherm O2 Flow Rate 50.00 55.00 10.00 10.00 13.00 FiO2 50 07/23/17 07/23/17 08:00 08:00 Temp 98.1 Pulse 105 Resp 20 B/P (MAP) 105/48 (67) Pulse Ox 95 95 O2 Delivery Vapotherm Vapotherm O2 Flow Rate 13.00 55.00 13.00 FiO2 55 Capillary Refill : Less Than 3 Seconds General Appearance: WD/WN, no apparent distress HEENT: PERRL/EOMI Respiratory: lungs clear, normal breath sounds, no respiratory distress Cardiovascular: tachycardia Gastrointestinal: non tender, soft Back: normal inspection Extremities: no pedal edema Neurologic/Psychiatric: alert, normal mood/affect, oriented x 3 Skin: normal color, warm/dry Assessment/Plan Assessment/Plan Admission Dx 1. Acute on chronic respiratory failure w/ hypoxia 2. hx of ARDS w/ prolonged hospitalization June 2017 3. possible Pneumonia 4. Diabetes Mellitus Type 2 - insulin requiring 5. Paroxysmal Afib on chronic anticoaguation 6. CHF Admission Status: Inpatient Order (span 2 midnights) Reason for Inpatient Admission: Respiratory distress requiring ICU Assessment & Plan 1. Acute on chronic respiratory failure w/ hypoxia 07/23 - admitted 07/22/17 to ICU on Vapotherm, titrated down since admission currently on 13L 55% FIO2; O2 sat 94% (baseline 6L nc) - Dr. Bowles consulted 2. hx of ARDS w/ prolonged hospitalization June 2017 - required intubation and transfer to [place] from - recently admitted to [facility] after DC from [place] 3. possible Pneumonia - CXR in ED showed vascular congestion; unable to delineate clear infiltrated - currently on Zosyn and Vancomycin 4. Diabetes Mellitus Type 2 - insulin requiring - restart home insulin regimen of Levemir and novolog w/ Novolog SSI 5. Paroxysmal Afib on chronic anticoaguation - on Eliquis 6. 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 Mild to moderate pulmonary hypertension 40-45mmHg on Echo 06/2017 8. Probably obesity-hypoventilation syndrome Clinical Quality Measures DVT/VTE Risk/Contraindication: VTE Addressed: Yes Risk Factor Score Per Nursin RFS Level Per Nursing on Admit: 4+=Very High Risk Score Comment: on THERESA See DO July 23, 2017 08:45
[2017-07-23] MEDS ORDERED: inSUlin DETERMIR 1 UNIT/0.01 ML (LEVEMIR) CHARGE PER UNIT SQ ONE (09:21)
[2017-07-23] MEDS: GABAPENTIN 400 MG (NEURONTIN) CAP PO SCH ×2 (09:31→20:30)
[2017-07-23] MEDS: traZODone 50 MG (DESYREL) TAB PO SCH ×3 (09:31→20:30)
[2017-07-23] MEDS: PANTOPRAZOLE 40 MG (PROTONIX) TAB PO SCH (09:31)
[2017-07-23] MEDS: APIXABAN 5 MG (ELIQUIS) TABLET PO SCH ×2 (09:31→20:31)
[2017-07-23] MEDS: ASPIRIN 81 MG CHEW (CHILDREN'S ASA) PO SCH (09:31)
[2017-07-23] MEDS: meTOprolol TARTRATE 50 MG (LOPRESSOR) TAB PO SCH ×2 (09:32→20:30)
[2017-07-23] MEDS: lisINopril 5 MG (PRINIVIL) TABLET PO SCH (09:33)
[2017-07-23] MEDS: inSUlin DETERMIR 1 UNIT/0.01 ML (LEVEMIR) CHARGE PER UNIT SQ SCH (09:33)
--- NOTE | 2017-07-23 10:29 | Diagnostic Imaging Report ---
INDICATION: Pneumonia and congestive failure. Shortness of breath. COMPARISON: Comparison is made to prior from 07/22/2017. FINDINGS: Enlargement of the cardiac silhouette is unchanged. Mediastinal margins stable. Prominence of pulmonary vascularity as well as patchy predominately basilar alveolar opacification is not significantly changed. No large effusion is evident. There is no evidence of pneumothorax. IMPRESSION: 1. Enlarged cardiac silhouette with persistent vascular prominence as well as scattered alveolar opacities at the lung bases. As before, the findings are most suggestive of congestive failure but would be difficult to exclude superimposed pneumonia. Dictated by: Dictated on workstation # [id number]
[2017-07-23] MEDS ORDERED: TROUGH ORDER-PHARMACY XX NR (10:30)
[2017-07-23] MEDS ORDERED: INSULIN VIAL ASPART for PUMP 100 UNIT/ML VIAL SQ SCH (11:00)
[2017-07-23] MEDS: VANCOMYCIN 1500 MG/NS 500 ML IVPB IV SCH ×2 (11:07)
--- NOTE | 2017-07-23 12:27 | Consultation-Cardiology ---
HPI-Cardiology Cardiology Consultation: Date of Consultation 07/23/17 Date of Admission Attending Physician Arminda Flores DO Admitting Physician Dalia Blackburn MD Consulting Physician Ratna MARIE MD HPI: Time Seen by Provider: 12:00 Chief Complaint: Shortness of breath This is a 66-year-old lady who was admitted to our hospital around a month ago with pneumonia and severe hypoxia, gradually worsened to ARDS and required intubation and transferred to [place]. She was discharged subsequently from [facility] to a intermediate. She was discharged on home oxygen. She presented with again mild shortness of breath with hypoxia with oxygen saturations in the 70s. The patient seems to be stable during my examination. She denied complaining of any significant shortness of breath, chest pain, palpitation, syncope or near syncope. She does have history of paroxysmal atrial fibrillation and is on Eliquis. Review of Systems-Cardiology Review of Systems Constitutional: As described under HPI; No As described under HPI, No no symptoms reported, No chills, No fever, No lightheadedness Eyes: No As described under HPI, No no symptoms reported, No blindness, No blurred vision, No contact lenses, No drainage, No decreased acuity, No foreign body sensation, No pain, No vision change Ears/Nose/Throat: No As described under HPI, No no symptoms reported, No chronic hearing loss, No ear discharge, No ear pain, No nasal drainage, No ulcerations Respiratory: No no symptoms reported; As described under HPI; No As described under HPI, No cough, No orthopnea; shortness of breath; No SOB with excertion Cardiovascular: No no symptoms reported; As described under HPI; No As described under HPI, No chest pain, No edema, No irregular heart rate, No lightheadedness, No palpitations Gastrointestinal: No no symptoms reported, No As described under HPI, No abdomen distended, No abdominal pain, No blood streaked bowels, No constipation , No diarrhea, No nausea, No vomiting, No stool coloration changes Genitourinary: No As described under HPI, No burning, No dysuria, No discharge , No frequency, No flank pain, No hematuria, No urgency : No Musculoskeletal: No no symptoms reported, No As describe under HPI, No back pain, No gout, No joint pain, No joint swelling, No muscle pain, No muscle stiffness, No neck pain, No other Skin: No no symptoms reported, No As described under HPI, No change in color, No change in hair/nails, No dryness, No lesions, No lumps, No rash, No other, No skin related problems, No ulcerations, No rash on exposed areas, No ulcerations on exposed areas Psychiatric/Neurological: No anxiety, No depression, No seizure, No focal weakness, No syncope Hematologic: No bleeding abnormalities [id number] Hx Patient Social History Alcohol Use: Denies Use Recreational Drug Use: No Smoking Status: Former Smoker Recent Foreign Travel: No Recent Infectious Disease Expo: No Physical Abuse Screen: No Sexual Abuse: No Immunizations Up To Date Tetanus Booster (TDap): Unknown Date of Pneumonia Vaccine: Jan 11, 2014 Past Medical History PMH As described under Assessment. Family Medical History Family History: Diabetes mellitus 19 MOTHER G8 BROTHER FH: CVA (cerebrovascular accident) FH: pancreatic cancer 19 FATHER Hypertension G8 BROTHER Allergies and Home Medications Allergies Coded Allergies: No Known Drug Allergies (Unverified , 11/22/16) Home Medications Acetaminophen 500 Mg Tablet, 1,000 MG PO Q6H PRN for PAIN-MILD, (Reported) TAKES 2 (500MG) TABLETS Albuterol Sulfate 1.25 Mg/3 Ml Vial.neb, 1.25 MG IH Q3HR PRN for SHORTNESS OF BREATH, (Reported) Amitriptyline HCl 25 Mg Tablet, 100 MG PO HS, (Reported) TAKES 4 (25MG) TABLETS Apixaban 5 Mg Tablet, 5 MG PO BID, (Reported) Aspirin 81 Mg Tablet.dr, 81 MG PO DAILY, (Reported) Calcium Carbonate/Vitamin D3 1 Each Tablet, 1 TAB PO BID, (Reported) Diphenhydramine HCl 25 Mg Tablet, 25 MG PO HS, (Reported) Docusate Sodium 100 Mg Capsule, 100 MG PO DAILY, (Reported) Duloxetine HCl 30 Mg Capsule.dr, 90 MG PO HS, (Reported) TAKES 3 (30MG) CAPSULES Gabapentin 400 Mg Capsule, 400 MG PO BID, (Reported) Insulin Aspart 100 Unit/1 Ml Susp, 15 UNIT SQ AC, (Reported) Insulin Detemir 100 Unit/1 Ml Insuln.pen, 50 UNITS SC HS, (Reported) Ipratropium/Albuterol Sulfate 3 Ml Ampul.neb, 3 ML IH Q6H PRN for SHORTNESS OF BREATH, (Reported) Isosorbide Mononitrate 30 Mg Tab.er.24h, 30 MG PO DAILY, (Reported) Lisinopril 5 Mg Tablet, 5 MG PO DAILY, (Reported) HOLD FOR PULSE LESS THAN 60 OR SBP LESS THAN 100 Magnesium Hydroxide 400 Mg/5 Ml Oral.susp, 400 MG PO Q6H PRN for CONSTIPATION- 2ND LINE, (Reported) Melatonin 3 Mg Tablet, 3 MG PO HS, (Reported) Metoprolol Tartrate 50 Mg Tablet, 75 MG PO BID, (Reported) Naproxen 500 Mg Tablet, 500 MG PO BID, (Reported) Nitroglycerin 0.4 Mg Tab.subl, 0.4 MG SL UD PRN for CHEST PAIN, (Reported) Pantoprazole Sodium 40 Mg Tablet.dr, 40 MG PO DAILY, (Reported) Sennosides/Docusate Sodium 1 Each Tablet, 2 TAB PO HS, (Reported) Trazodone HCl 50 Mg Tablet, 50 MG PO TID, (Reported) Patient Home Medication List Home Medication List Reviewed: Yes Physical Exam-Cardiology Physical Exam Vital Signs/I&O 07/23/17 07/23/17 07/23/17 07/23/17 02:00 02:53 03:00 03:20 Pulse 84 92 Resp 20 28 B/P (MAP) 93/69 (77) 116/57 (76) Pulse Ox 96 97 93 95 O2 Delivery Vapotherm Vapotherm Vapotherm Vapotherm O2 Flow Rate 55.00 13.00 55.00 13.00 13.00 13.00 FiO2 55 55 07/23/17 07/23/17 07/23/17 07/23/17 03:50 04:00 05:00 06:00 Temp 97.7 Pulse 91 94 89 Resp 23 25 24 B/P (MAP) 118/67 (84) 104/60 (75) 99/50 (66) Pulse Ox 98 95 97 O2 Delivery Vapotherm Vapotherm Vapotherm O2 Flow Rate 55.00 55.00 55.00 13.00 13.00 13.00 07/23/17 07/23/17 07/23/17 07/23/17 06:30 06:37 06:52 06:52 Pulse Ox 95 86 O2 Delivery Vapotherm Vapotherm Vapotherm O2 Flow Rate 13.00 50.00 55.00 10.00 10.00 13.00 FiO2 55 50 07/23/17 07/23/17 07/23/17 07/23/17 07:00 07:00 08:00 08:00 Temp 98.1 Pulse 111 102 105 Resp 34 20 B/P (MAP) 98/50 (66) 105/48 (67) Pulse Ox 97 95 95 O2 Delivery Vapotherm Vapotherm Vapotherm O2 Flow Rate 55.00 13.00 55.00 13.00 13.00 FiO2 55 07/23/17 07/23/17 07/23/17 07/23/17 09:00 10:00 10:44 11:00 Pulse 105 89 66 Resp 35 17 28 B/P (MAP) 110/43 (65) 112/56 (74) 91/35 (53) Pulse Ox 94 99 97 95 O2 Delivery Vapotherm Vapotherm Vapotherm Vapotherm O2 Flow Rate 55.00 55.00 13.00 55.00 13.00 13.00 13.00 FiO2 55 07/23/17 12:00 Pulse 71 Resp 32 B/P (MAP) 95/31 (52) Pulse Ox 94 O2 Delivery Vapotherm O2 Flow Rate 55.00 13.00 07/23/17 00:00 Intake Total 587 ml Output Total 1500 ml Balance -913 ml Capillary Refill : Less Than 3 Seconds Constitutional: appears stated age, AAO x 3; No apparent distress; well- developed, well-nourished HEENT: PERRL; No normal ENT inspection, No TMs normal, No pharynx normal, No scleral icterus (R), No scleral icterus (L), No pale conjunctivae (R), No pale conjunctivae (L), No photophobia, No TM abnormal (R), No TM abnormal (L), No pharyngeal erythema, No tonsillar exudate, No other, No discharge, No EOMI; hearing is well preserved; No hard of hearing; oral hygience is good; No ulceration, No xanthelasmas are seen Neck: No non-tender, No full range of motion, No supple, No normal inspection, No carotid bruit, No limited range of motion, No lymphadenopathy (R), No lymphadenopathy (L), No tender lateral, No tender midline, No thyromegaly, No other; carotid pulses are 2 + bilaterally; No with good upstrokes Respiratory: No accessory muscle use, No respiratory distress, No chest tender , No chest expansion is symmetric; chest is bilaterally symmetric; No lungs clear to percussion; lungs clear to auscultation; No crackles, No rhonchi, No rales, No stridor, No wheezing, No pleural rub, No other Cardiovascular: regular rate-rhythm; No irregularly irregular, No extra beats, No parasternal heave is noted, No JVD, No edema, No bradycardia, No tachycardia , No point of maximal impulse, No cardiac thrills are palpable; S1 and S2; No gallop/S3, No gallop/S4, No diastolic murmur, No systolic murmur, No friction rub, No click, No other Gastrointestinal: No tender, No soft, No round, No distended, No pulsatile mass , No organomegaly, No guarding, No rebound, No tenderness, No hernia, No mass, No audible bowel sounds, No abnormal bowel sounds, No abdominal bruits, No spleenomegaly, No other Rectal: deferred Extremities: No normal range of motion, No non-tender, No normal inspection, No pedal edema, No calf tenderness, No normal capillary refill, No pelvis stable , No calf tenderness, No inflammation, No pedal edema, No slow capillary refill , No swelling, No other, No abrasion, No clubbing, No cyanosis, No ecchymosis, No laceration, No no lower extremity edema bilateral, No significant edema, No tenderness, No wound Neurologic/Psychiatric: no motor/sensory deficits, alert, normal mood/affect, oriented x 3, power is 5/5 both on sides Skin: No normal color, No warm/dry, No cyanosis, No cool, No diaphoresis, No damp, No ecchymosis, No jaundice, No mottled, No pallor, No rash, No tattoos/ piercings, No ulcerations, No rash on exposed areas, No ulcerations on exposed areas, No other Data Review Labs Laboratory Tests 07/22/17 15:04: Lactic Acid Level 1.71 07/22/17 17:38: Glucometer 193H 07/22/17 20:29: Glucometer 183H 07/23/17 03:05: Lactic Acid Level 1.73, White Blood Count 11.1H, Red Blood Count 3.89L, Hemoglobin 11.1L, Hematocrit 35, Mean Corpuscular Volume 91, Mean Corpuscular Hemoglobin 29, Mean Corpuscular Hemoglobin Concent 31L, Red Cell Distribution Width 14.7H, Platelet Count 319, Mean Platelet Volume 9.6, Neutrophils (%) (Auto ) 38L, Lymphocytes (%) (Auto) 44, Monocytes (%) (Auto) 8, Eosinophils (%) (Auto ) 11H, Basophils (%) (Auto) 0, Neutrophils # (Auto) 4.2, Lymphocytes # (Auto) 4.9H, Monocytes # (Auto) 0.8, Eosinophils # (Auto) 1.2H, Basophils # (Auto) 0.0 , Sodium Level 141, Potassium Level 4.2, Chloride Level 101, Carbon Dioxide Level 29, Anion Gap 11, Blood Urea Nitrogen 21H, Creatinine 0.68, Estimat Glomerular Filtration Rate > 60, BUN/Creatinine Ratio 31, Glucose Level 105, Calcium Level 8.5, Phosphorus Level 3.8, Magnesium Level 2.0, Total Bilirubin 0.3, Aspartate Amino Transf (AST/SGOT) 28, Alanine Aminotransferase (ALT/SGPT) 15, Alkaline Phosphatase 106, Total Protein 5.7L, Albumin 2.7L 07/23/17 10:00: Glucometer 196H 07/23/17 10:32: Vancomycin Level Trough 27.6*H ECG Impression ECG Initial ECG Rhythm: Normal Sinus Comment PVCs. A/P-Cardiology Assessment/Admission Diagnosis Shortness of breath, hypoxia, Sepsis, Pneumonia, Mild diastolic congestive heart failure, Paroxysmal atrial fibrillation, Pulmonary hypertension, Moderate aortic insufficiency, Frequent PVCs, Diabetes Plan Shortness of breath, hypoxia, on Vapotherm. Broad-spectrum IV antibiotics. Sepsis, with lactic acidosis. Can give IV fluids as required. Pneumonia, on IV antibiotics. Mild diastolic congestive heart failure, mild elevated BNP. Will hold Lasix for now since IV fluids need to be given for severe sepsis. Echocardiogram shows normal LVEF. Paroxysmal atrial fibrillation, currently in sinus rhythm. Continue Eliquis. Pulmonary hypertension: Continue to monitor. Moderate aortic regurgitation: Continue to monitor. Frequent PVCs: Low-dose metoprolol is recommended. Diabetes Thank you for your consultation. Please call me if you have any questions. Sloan Marie MD, FACP, FACC, FSCAI, FHRS, CCDS Interventional Cardiology Cardiac Electrophysiology Vascular Medicine and Endovascular Interventions Clinical Quality Measures DVT/VTE Risk/Contraindication: VTE Addressed: Yes Risk Factor Score Per Nursin RFS Level Per Nursing on Admit: 4+=Very High Risk Score Comment: on Ratna Amaya MD July 23, 2017 12:27 pm
[2017-07-23] MEDS ORDERED: DEXTROSE 50% 50 ML (IMS) SYR ONE (14:03)
[2017-07-23] MEDS ORDERED: DEXTROSE 50% 50 ML (IMS) SYR IV ONE (14:15)
[2017-07-23] MEDS ORDERED: inSUlin ASPART (NovoLOG) 1 UNIT/0.01 ML (CHARGE PER UNIT) SC SCH (14:30)
[2017-07-23] MEDS ORDERED: AMIT100T2 PO (15:02)
[2017-07-23] MEDS ORDERED: PRD20T PO (15:02)
[2017-07-23] MEDS: NS IV 1000 ML 1,000 ML IV SCH (16:20)
[2017-07-23] MEDS: DULoxetine 30 MG (CYMBALTA) CAP PO SCH (20:31)
[2017-07-23] MEDS: AMITRIPTYLINE 50 MG (ELAVIL) TAB PO SCH (20:31)
[2017-07-23] MEDS ORDERED: inSUlin DETERMIR 1 UNIT/0.01 ML (LEVEMIR) CHARGE PER UNIT SQ SCH ×2 (21:00)
[2017-07-23] MEDS ORDERED: VANCOMYCIN INJECTION 1,000 MG in NS (IVPB) 250 ML IV SCH (23:00)
[2017-07-24] VITALS (38 sets, daily range): BP systolic 71–141; BP diastolic 19–77
[2017-07-24] MEDS: PIPERACILLIN/TAZO 4.5 GM/D5W 100 ML IVPB IV SCH ×6 (01:38→16:46)
[2017-07-24] MEDS: RT-ALBUTEROL SULF 2.5 MG/3 ML PRE-MIX VIAL INH SCH ×6 (02:21→21:21)
[2017-07-24 04:23] LABS: BASOPHILS % (AUTO) 0 % (0-10); EOSINOPHILS # (AUTO) 1.3 10^3/uL (0.0-0.3); EOSINOPHILS % (AUTO) 11 % (0-10); HEMATOCRIT 35 % (35-52); HEMOGLOBIN 10.9 G/DL (11.5-16.0); LYMPHOCYTES # (AUTO) 4.7 X 10^3 (1.0-4.0); LYMPHOCYTES % (AUTO) 39 % (12-44); MEAN CORPUSCULAR HEMOGLOBIN 29 PG (25-34); MEAN CORPUSCULAR HGB CONC 31 G/DL (32-36); MEAN CORPUSCULAR VOLUME 92 FL (80-99); MEAN PLATELET VOLUME 9.6 FL (7.4-10.4); MONOCYTES % (AUTO) 8 % (0-12); NEUTROPHILS % (AUTO) 42 % (42-75); PLATELET COUNT 317 10^3/uL (130-400); RED CELL DISTRIBUTION WIDTH 14.9 % (10.0-14.5)
[2017-07-24 04:30] LABS: BUN/CREATININE RATIO 23; CALCIUM 8.6 MG/DL (8.5-10.1); CARBON DIOXIDE 31 MMOL/L (21-32); CHLORIDE 104 MMOL/L (98-107); GFR ESTIMATED > 60; GLUCOSE 97 MG/DL (70-105); MAGNESIUM 2.1 MG/DL (1.8-2.4); PHOSPHORUS 2.4 MG/DL (2.3-4.7); SODIUM 142 MMOL/L (135-145)
[2017-07-24] MEDS: MAGNESIUM 1 GM/100 ML IVPB 100 ML IV SCH (04:52)
[2017-07-24] MEDS: KCL 20 MEQ TAB (K-DUR) PO SCH (04:52)
[2017-07-24] MEDS: POTASSIUM CL 10MEQ/50ML IVPB 50 ML IV SCH (04:52)
[2017-07-24] MEDS ORDERED: FUROSEMIDE 40 MG/4 ML INJ (LASIX) IVP ONE (05:45)
[2017-07-24] MEDS ORDERED: KCL 10 MEQ TAB (MICRO K) PO ONE (05:45)
--- NOTE | 2017-07-24 05:54 | Pulmonary Consultation ---
History of Present Illness History of Present Illness Date of Consultation 07/24/17 05:47 Time Seen by Provider: 05:47 Date of Admission History of Present Illness 66yo with recent hospitalization secondary to pneumonia and ARDS required intubation and was transferred to [facility] at the time. From [facility] she was discharged to [facility]. She required 6 liters of oxygen at baseline after [place] discharge. Pt was found to have sp02 in the 70's and was transferred here for ICU admission. Pt is currently on Vapotherm at 100%. She still does c/o SOB. I am consulted for pulmonary/ICU management. All labs and radiology reviewed. Allergies and Home Medications Allergies Coded Allergies: No Known Drug Allergies (Unverified , 11/22/16) Home Medications Acetaminophen 500 Mg Tablet, 1,000 MG PO Q6H PRN for PAIN-MILD, (Reported) TAKES 2 (500MG) TABLETS Albuterol Sulfate 1.25 Mg/3 Ml Vial.neb, 1.25 MG IH Q3HR PRN for SHORTNESS OF BREATH, (Reported) Amitriptyline HCl 100 Mg Tablet, 100 MG PO HS, (Reported) Apixaban 5 Mg Tablet, 5 MG PO BID, (Reported) Aspirin 81 Mg Tablet.dr, 81 MG PO DAILY, (Reported) Calcium Carbonate/Vitamin D3 1 Each Tablet, 1 TAB PO BID, (Reported) Diphenhydramine HCl 25 Mg Tablet, 25 MG PO HS, (Reported) Docusate Sodium 100 Mg Capsule, 100 MG PO DAILY, (Reported) Duloxetine HCl 30 Mg Capsule.dr, 90 MG PO HS, (Reported) TAKES 3 (30MG) CAPSULES Gabapentin 400 Mg Capsule, 400 MG PO BID, (Reported) Insulin Aspart 100 Unit/1 Ml Susp, 15 UNIT SQ AC, (Reported) Insulin Detemir 100 Unit/1 Ml Insuln.pen, 50 UNITS SQ HS, (Reported) Ipratropium/Albuterol Sulfate 3 Ml Ampul.neb, 3 ML IH Q6H PRN for SHORTNESS OF BREATH, (Reported) Isosorbide Mononitrate 30 Mg Tab.er.24h, 30 MG PO DAILY, (Reported) Lisinopril 5 Mg Tablet, 5 MG PO DAILY, (Reported) HOLD FOR BLOOD PRESSURE < 80/50, > 180-110, OR PULSE < 50 Magnesium Hydroxide 400 Mg/5 Ml Oral.susp, 30 ML PO Q6H PRN for CONSTIPATION- 2ND LINE, (Reported) Melatonin 3 Mg Tablet, 6 MG PO HS, (Reported) TAKES 2 (3 MG) TABLETS Metoprolol Tartrate 50 Mg Tablet, 75 MG PO BID, (Reported) TAKES 1 & 1/2 OF A (50 MG) TABLET / HOLD FOR BLOOD PRESSURE < 80/50, > 180- 110, OR PULSE < 50 Naproxen 500 Mg Tablet, 500 MG PO BID, (Reported) Nitroglycerin 0.4 Mg Tab.subl, 0.4 MG SL UD PRN for CHEST PAIN, (Reported) Pantoprazole Sodium 40 Mg Tablet.dr, 40 MG PO DAILY, (Reported) Prednisone 20 Mg Tab, 40 MG PO DAILY, (Reported) TAKES 2 (20 MG) TABLETS / STARTED 07/19/17 FOR A 4 DAY THERAPY Sennosides/Docusate Sodium 1 Each Tablet, 2 TAB PO HS, (Reported) Trazodone HCl 50 Mg Tablet, 50 MG PO TID, (Reported) Past Bdiekaz-Drqgqt-Snqpqy Hx Past Med/Social Hx: Reviewed Nursing Past Med/Soc Hx Patient Social History Alcohol Use: Denies Use Recreational Drug Use: No Smoking Status: Former Smoker Former Smoker, Quit: May 08, 1998 Recent Foreign Travel: No Contact w/Someone Who Travel: No Recent Infectious Disease Expo: No Recent Hopitalizations: Yes (RDS) Physical Abuse: No Sexual Abuse: No Mistreated: No Fear: No Immunizations Up To Date Tetanus Booster (TDap): Unknown Date of Pneumonia Vaccine: Jan 11, 2014 Seasonal Allergies Seasonal Allergies: No Past Medical History Gallbladder, Hysterectomy, Joint Replacement, Orthopedic Respiratory: Yes Pneumonia Currently Using CPAP: No Currently Using BIPAP: No Cardiac: Yes (tachycardia) Atrial Fibrillation, Hypertension Neurological: Yes Stroke 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 Genitourinary: No Gastrointestinal: Yes Gastroesophageal Reflux Musculoskeletal: Yes Arthritis Endocrine: Yes Diabetes, Insulin dep HEENT: No Cancer: No Did You Recieve Any Treatments: No Psychosocial: Yes Anxiety, Depression Nursing Suicide Risk Score: 0 Integumentary: No Blood Disorders: No Adverse Reaction/Blood Tranf: No Family Medical History Diabetes mellitus 19 MOTHER G8 BROTHER FH: CVA (cerebrovascular accident) FH: pancreatic cancer 19 FATHER Hypertension G8 BROTHER Review of Systems Time Seen by Provider: 05:56 Constitutional: Sweats, Weakness, Malaise; No: Fever, Chills Eyes: No: Pain, Vision change, Conjunctivae inflammation, Eyelid inflammation, Other, Redness ENT: No: Ear pain, Ear discharge, Nose pain, Nose discharge, Nose congestion, Mouth pain, Mouth swelling, Throat pain, Throat swelling, Other Respiratory: Cough, Dry, Shortness of breath, SOB with excertion; No: Wheezing , Hemoptysis Cardiovascular: Orthopnea, Paroxysmal Noc. Dyspnea, Edema Gastrointestinal: No: Nausea, Abdominal Pain Neurological: Weakness Exam Exam Vital Signs Date Time Temp Pulse Resp B/P (MAP) Pulse Ox O2 Delivery O2 Flow Rate FiO2 07/24/17 05:00 73 21 100/46 (64) 100 Vapotherm 100.00 6.00 07/24/17 04:20 Vapotherm 100.00 6.00 07/24/17 04:00 76 30 102/51 (68) 81 Vapotherm 75.00 5.00 07/24/17 04:00 95 Vapotherm 6.00 100 07/24/17 03:09 Vapotherm 75.00 5.00 07/24/17 03:00 67 14 115/58 (77) 91 Vapotherm 60.00 5.00 07/24/17 02:27 94 Vapotherm 60.00 5.00 07/24/17 02:23 100 Vapotherm 6.00 100 07/24/17 02:00 66 21 99/54 (69) 100 Vapotherm 100.00 6.00 07/24/17 01:00 66 07/24/17 01:00 66 21 99/57 (71) 98 Vapotherm 100.00 6.00 07/24/17 00:00 95 Vapotherm 10.00 100 07/24/17 00:00 65 20 93/56 (68) 100 Vapotherm 100.00 6.00 07/23/17 23:00 64 22 96/51 (66) 97 Vapotherm 100.00 6.00 07/23/17 22:11 Vapotherm 100.00 6.00 07/23/17 22:05 100 Vapotherm 10.00 100 07/23/17 22:00 64 23 103/48 (66) 100 Vapotherm 100.00 10.00 07/23/17 21:00 75 27 118/51 (73) 100 Vapotherm 100.00 10.00 5/13/18 20:00 95 Vapotherm 10.00 100 07/23/17 20:00 88 22 132/63 (86) 100 Vapotherm 100.00 10.00 07/23/17 19:00 79 22 129/99 (109) 100 Vapotherm 100.00 10.00 07/23/17 19:00 78 07/23/17 18:00 80 13 103/71 (82) 98 Vapotherm 55.00 13.00 07/23/17 17:59 100 Vapotherm 13.00 55 07/23/17 17:00 66 19 102/53 (69) 100 Vapotherm 55.00 13.00 07/23/17 16:00 97.1 70 23 95/51 (66) 100 Vapotherm 55.00 13.00 07/23/17 16:00 95 Vapotherm 13.00 55 07/23/17 15:00 71 21 91/39 (56) 98 Vapotherm 55.00 13.00 07/23/17 14:00 81 40 143/62 (89) 97 Vapotherm 55.00 13.00 07/23/17 13:00 66 07/23/17 13:00 97.2 Vapotherm 55.00 13.00 07/23/17 13:00 66 27 145/62 (89) 99 Vapotherm 55.00 13.00 07/23/17 12:00 95 Vapotherm 13.00 55 07/23/17 12:00 71 32 95/31 (52) 94 Vapotherm 55.00 13.00 07/23/17 11:00 66 28 91/35 (53) 95 Vapotherm 55.00 13.00 07/23/17 10:44 97 Vapotherm 13.00 55 07/23/17 10:00 89 17 112/56 (74) 99 Vapotherm 55.00 13.00 07/23/17 09:00 105 35 110/43 (65) 94 Vapotherm 55.00 13.00 07/23/17 08:00 98.1 105 20 105/48 (67) 95 Vapotherm 55.00 13.00 07/23/17 08:00 95 Vapotherm 13.00 55 07/23/17 07:00 102 34 98/50 (66) 97 Vapotherm 55.00 13.00 07/23/17 07:00 111 07/23/17 06:52 86 10.00 50 07/23/17 06:52 Vapotherm 55.00 13.00 07/23/17 06:37 Vapotherm 50.00 10.00 07/23/17 06:30 95 Vapotherm 13.00 55 07/23/17 06:00 89 24 99/50 (66) 97 Vapotherm 55.00 13.00 I & O 07/24/17 07:00 Intake Total 920 ml Output Total 1150 ml Balance -230 ml General Appearance: Anxious, Mild Distress HEENT: PERRL/EOMI, Pharynx Normal Neck: Normal Inspection, Supple Respiratory: No Accessory Muscle Use, No Respiratory Distress, Crackles, Decreased Breath Sounds Cardiovascular: Other (2+ edema bilateral LE) Capillary Refill: Less Than 3 Seconds Gastrointestinal: non tender, soft Extremity: Normal Capillary Refill, Normal Inspection, Non Tender Neurologic/Psychiatric: Alert, Oriented x3 Skin: Normal Color, Warm/Dry Lymphatic: No Adenopathy Results Lab Laboratory Tests 07/22/17 10:28 07/23/17 03:05 07/24/17 03:50 Assessment/Plan Assessment/Plan Acute on chronic respiratory failure with severe hypoxia ARDS -Will diurese patient -Monitor close -Pt may need bronchoscopy however at this time she would need to be placed on vent if bronch was attempted. Paroxysmal Afib on anticoagulation Diastolic CHF with pulmonary HTN -PT needs out patient PSG -Start lasix, hep lock IVF IDDM II 255 GONZÁLEZ YE DO July 24, 2017 05:54
[2017-07-24] MEDS: ACETAMINOPHEN 325 MG TABLET/CAPLET (TYLENOL) PO PRN (06:38)
[2017-07-24 06:50] LABS: ABG BASE EXCESS 9.9 MMOL/L (-2.5-2.5); ABG OXYGEN SATURATION 96 % (94-100); ABG PCO2 53 MMHG (35-45); ABG PH 7.43 (7.37-7.43); ABG PO2 72 MMHG (79-93); ABG TCO2 36.3 MMOL/L (21.0-31.0)
[2017-07-24 06:51] LABS: ALLENS TEST YES-POS; INSPIRED O2 8L VAPOTHERM; PATIENT TEMP 97.6; VENTILATOR NO
--- NOTE | 2017-07-24 07:23 | Diagnostic Imaging Report ---
INDICATION: Dyspnea. Comparison made with prior examination 07/23/2017 FINDINGS: There is cardiomegaly. There is diffuse bilateral airspace disease. Some underlying central pulmonary venous congestion cannot be excluded. There is no pleural effusion or pneumothorax. IMPRESSION: Cardiomegaly and diffuse bilateral airspace disease. Again underlying central pulmonary venous congestion cannot be excluded. Dictated by: Dictated on workstation # [id number]
[2017-07-24] MEDS: inSUlin ASPART (NovoLOG) 1 UNIT/0.01 ML (CHARGE PER UNIT) SC SCH ×5 (07:48→20:52)
[2017-07-24] MEDS: GABAPENTIN 400 MG (NEURONTIN) CAP PO SCH ×2 (08:18→20:52)
[2017-07-24] MEDS: APIXABAN 5 MG (ELIQUIS) TABLET PO SCH ×2 (08:18→20:52)
[2017-07-24] MEDS: traZODone 50 MG (DESYREL) TAB PO SCH ×3 (08:18→20:52)
[2017-07-24] MEDS: PANTOPRAZOLE 40 MG (PROTONIX) TAB PO SCH (08:18)
[2017-07-24] MEDS: meTOprolol TARTRATE 50 MG (LOPRESSOR) TAB PO SCH ×2 (08:18→20:52)
[2017-07-24] MEDS: lisINopril 5 MG (PRINIVIL) TABLET PO SCH (08:18)
[2017-07-24] MEDS: ASPIRIN 81 MG CHEW (CHILDREN'S ASA) PO SCH (08:19)
[2017-07-24] MEDS ORDERED: meTOprolol TARTRATE 25 MG (LOPRESSOR) TABLET PO NR (09:16)
--- NOTE | 2017-07-24 09:25 | Cardiology Progress Note ---
Cardiology SOAP Progress Note Subjective: Mild shortness of breath. Still on Vapotherm. Objective: I&O/Vital Signs 07/23/17 07/23/17 07/23/17 07/23/17 22:00 22:05 22:11 23:00 Pulse 64 64 Resp 23 22 B/P (MAP) 103/48 (66) 96/51 (66) Pulse Ox 100 100 97 O2 Delivery Vapotherm Vapotherm Vapotherm Vapotherm O2 Flow Rate 100.00 10.00 100.00 100.00 10.00 6.00 6.00 FiO2 100 07/24/17 07/24/17 07/24/17 07/24/17 00:00 00:00 01:00 01:00 Pulse 65 66 66 Resp 20 21 B/P (MAP) 93/56 (68) 99/57 (71) Pulse Ox 100 95 98 O2 Delivery Vapotherm Vapotherm Vapotherm O2 Flow Rate 100.00 10.00 100.00 6.00 6.00 FiO2 100 07/24/17 07/24/17 07/24/17 07/24/17 02:00 02:23 02:27 03:00 Pulse 66 67 Resp 21 14 B/P (MAP) 99/54 (69) 115/58 (77) Pulse Ox 100 100 94 91 O2 Delivery Vapotherm Vapotherm Vapotherm Vapotherm O2 Flow Rate 100.00 6.00 60.00 60.00 6.00 5.00 5.00 FiO2 100 07/24/17 07/24/17 07/24/17 07/24/17 03:09 04:00 04:00 04:20 Pulse 76 Resp 30 B/P (MAP) 102/51 (68) Pulse Ox 95 81 O2 Delivery Vapotherm Vapotherm Vapotherm Vapotherm O2 Flow Rate 75.00 6.00 75.00 100.00 5.00 5.00 6.00 FiO2 100 07/24/17 07/24/17 07/24/17 07/24/17 05:00 05:39 06:00 06:16 Pulse 73 74 Resp 21 21 B/P (MAP) 100/46 (64) 112/51 (71) Pulse Ox 100 96 O2 Delivery Vapotherm Vapotherm Vapotherm Vapotherm O2 Flow Rate 100.00 80.00 80.00 90.00 6.00 6.00 6.00 8.00 07/24/17 07/24/17 07/24/17 07/24/17 06:48 06:56 07:00 07:00 Pulse 87 87 Resp 13 B/P (MAP) 133/66 (88) Pulse Ox 90 90 O2 Delivery Vapotherm Room Air Vapotherm O2 Flow Rate 8.00 90.00 8.00 FiO2 100 07/24/17 07/24/17 07/24/17 08:01 08:30 09:00 Temp 98.2 Pulse 91 85 Resp 30 21 B/P (MAP) 125/61 (82) 103/56 (72) Pulse Ox 92 100 O2 Delivery Vapotherm Vapotherm Vapotherm O2 Flow Rate 100.00 8.00 100.00 8.00 8.00 FiO2 100 07/24/17 00:00 Intake Total 680 ml Output Total 1150 ml Balance -470 ml Weight (Pounds): 197 Weight (Ounces): 1.0 Weight (Calculated Kilograms): 89.707216 Constitutional: appears stated age, AAO x 3; No apparent distress; well- developed, well-nourished Respiratory: No accessory muscle use, No respiratory distress, No chest tender , No chest expansion is symmetric; chest is bilaterally symmetric; No lungs clear to percussion; lungs clear to auscultation; No crackles, No rhonchi, No rales, No stridor, No wheezing, No pleural rub, No other Cardiovascular: regular rate-rhythm; No irregularly irregular, No extra beats, No parasternal heave is noted, No JVD, No edema, No bradycardia, No tachycardia , No point of maximal impulse, No cardiac thrills are palpable; S1 and S2; No gallop/S3, No gallop/S4, No diastolic murmur, No systolic murmur, No friction rub, No click, No other Gastrointestional: No tender, No soft, No round, No distended, No pulsatile mass, No organomegaly, No guarding, No rebound, No tenderness, No hernia, No mass, No audible bowel sounds, No abnormal bowel sounds, No abdominal bruits, No spleenomegaly, No other Extremities: No normal range of motion, No non-tender, No normal inspection, No pedal edema, No calf tenderness, No normal capillary refill, No pelvis stable , No calf tenderness, No inflammation, No pedal edema, No slow capillary refill , No swelling, No other, No abrasion, No clubbing, No cyanosis, No ecchymosis, No laceration, No no lower extremity edema bilateral, No significant edema, No tenderness, No wound Neurologic/Psychiatric: no motor/sensory deficits, alert, normal mood/affect, oriented x 3, power is 5/5 both on sides Skin: No normal color, No warm/dry, No cyanosis, No cool, No diaphoresis, No damp, No ecchymosis, No jaundice, No mottled, No pallor, No rash, No tattoos/ piercings, No ulcerations, No rash on exposed areas, No ulcerations on exposed areas, No other Results/Procedures: Labs Laboratory Tests 07/23/17 10:00: Glucometer 196H 07/23/17 10:32: Vancomycin Level Trough 27.6*H 07/23/17 13:54: Glucometer 23*L 07/23/17 14:05: Glucometer 30*L 07/23/17 14:24: Glucometer 179H 07/23/17 15:45: Glucometer 136H 07/24/17 03:50: White Blood Count 12.0H, Red Blood Count 3.80L, Hemoglobin 10.9L, Hematocrit 35 , Mean Corpuscular Volume 92, Mean Corpuscular Hemoglobin 29, Mean Corpuscular Hemoglobin Concent 31L, Red Cell Distribution Width 14.9H, Platelet Count 317, Mean Platelet Volume 9.6, Neutrophils (%) (Auto) 42, Lymphocytes (%) (Auto) 39, Monocytes (%) (Auto) 8, Eosinophils (%) (Auto) 11H, Basophils (%) (Auto) 0, Neutrophils # (Auto) 5.0, Lymphocytes # (Auto) 4.7H, Monocytes # (Auto) 1.0, Eosinophils # (Auto) 1.3H, Basophils # (Auto) 0.0, Sodium Level 142, Potassium Level 4.0, Chloride Level 104, Carbon Dioxide Level 31, Anion Gap 7, Blood Urea Nitrogen 14, Creatinine 0.60, Estimat Glomerular Filtration Rate > 60, BUN/ Creatinine Ratio 23, Glucose Level 97, Calcium Level 8.6, Phosphorus Level 2.4, Magnesium Level 2.1 5/14/18 06:33: Glucometer 74 07/24/17 06:45: Blood Gas Puncture Site L RAD, Blood Gas Patient Temperature 97.6, Arterial Blood pH 7.43, Arterial Blood Partial Pressure CO2 53H, Arterial Blood Partial Pressure O2 72L, Arterial Blood HCO3 35H, Arterial Blood Total CO2 36.3H, Arterial Blood Oxygen Saturation 96, Arterial Blood Base Excess 9.9H, Ludiwn Test YES-POS, Blood Gas Ventilator Setting NO, Blood Gas Inspired Oxygen 8L VAPOTHERM Microbiology 07/22/17 Blood Culture - Preliminary, Resulted No growth 07/22/17 MRSA Screen - Final, Complete MRSA not isolated A/P: Assessment/Dx: Shortness of breath, hypoxia, Sepsis, Pneumonia, Mild diastolic congestive heart failure, Paroxysmal atrial fibrillation, Pulmonary hypertension, Moderate aortic insufficiency, Frequent PVCs, Diabetes Plan: Shortness of breath, hypoxia, on Vapotherm. Broad-spectrum IV antibiotics. Sepsis, with lactic acidosis. Can give IV fluids as required. Pneumonia, on IV antibiotics. Mild diastolic congestive heart failure, mild elevated BNP. Will hold Lasix for now since IV fluids need to be given for severe sepsis. Echocardiogram shows normal LVEF. Paroxysmal atrial fibrillation, currently in sinus rhythm. Continue Eliquis. Pulmonary hypertension: Continue to monitor. Moderate aortic regurgitation: Continue to monitor. Frequent PVCs: Will increase her dose of metoprolol to 100 mg twice a day. Diabetes Thank you for your consultation. Please call me if you have any questions. Sloan Marie MD, FACP, FACC, FSCAI, FHRS, CCDS Interventional Cardiology Cardiac Electrophysiology Vascular Medicine and Endovascular Interventions Focused Exam Lactate Level 07/22/17 11:53: Lactic Acid Level 2.02*H 07/22/17 15:04: Lactic Acid Level 1.71 07/23/17 03:05: Lactic Acid Level 1.73 Ratna MARIE MD July 24, 2017 9:25 am
[2017-07-24] MEDS: inSUlin DETERMIR 1 UNIT/0.01 ML (LEVEMIR) CHARGE PER UNIT SQ SCH (09:31)
[2017-07-24] MEDS ORDERED: NS IV 500 ML 500 ML IV SCH (11:00)
[2017-07-24] MEDS ORDERED: NS IV 500 ML 500 ML IV ONE ×2 (13:30→13:45)
--- NOTE | 2017-07-24 13:39 | Physician Query Clarification ---
PQ-Conflicting Diagnosis Admission/Discharge Admission Date: July 22, 2017 at 11:08 Discharge Date: The medical record reflects the following clinical scenario: History/Risk Factors: Acute on chronic respiratory failure with hypoxia Clinical Findings: WBC 14.6, T 97.1, Pulse 59, Resp 18, BP 126/71, 02 sats 74% on room air, Lactic acid 2.20, blood culture no growth. Treatment: IV Vancomycin HCI, IV Piperacillin Sod/Tazobactam Sod/Dextrose. Question: Do you agree with the impression of the Sepsis(severe) per consulting physicians Dr. Marie and Sepsis-Dr. Apodaca in ED . Please document a response below. In responding to this query, please exercise your independent professional judgment. The purpose of this communication is to more accurately reflect the complexity of your patients condition. The fact that a question is asked does not imply that any particular answer is desired or expected. Thank you for your timely response to this clarification. Requestors name: Marika Chris [facility] Phone # ext [phone] or [phone] THIS PHYSICIAN QUERY FORM IS A PERMANENT PART OF THE MEDICAL RECORD MARIKA CHRIS July 24, 2017 13:39 JAMES ROY August 03, 2017 12:22
[2017-07-24] MEDS ORDERED: NS IV 1000 ML 1,000 ML IV SCH (13:45)
--- NOTE | 2017-07-24 13:52 | Physician Query Clarification ---
PQ-CHF Specificity The medical record reflects the following clinical scenario: History/Risk Factors: Acute on chronic respiratory failure with hypoxia. Possible pneumonia Clinical Findings: BNP 232.8, pulmonary vascular congestion,perihilar and likely pulmonary edema per 07/22 chest x ray, mild diastolic CHF per Dr. Marie. Treatment: 40mg IVP Lasix. Question: Can you further specify the acuity &/or type of CHF per the clinical indicators above? Please document a response below In responding to this query, please exercise your independent professional judgment. The purpose of this communication is to more accurately reflect the complexity of your patients condition. The fact that a question is asked does not imply that any particular answer is desired or expected. Thank you for your timely response to this clarification. Requestors name: Marika Ford [facility] Phone # ext [phone] or [phone] THIS PHYSICIAN QUERY FORM IS A PERMANENT PART OF THE MEDICAL RECORD MARIKA FORD July 24, 2017 13:52 JAMES ROY August 03, 2017 12:21
--- NOTE | 2017-07-24 14:55 | Occ Therapy Progress Note ---
Therapy Progress Note Order received, chart reviewed. Pt. on hold at this time. Spoke with nursing before treating pt. They request to let pt. be, as they are monitoring her heart and oxygen at this time. Will hold pt. and try tomorrow. 1, visit 1400 PEYTON GRAVES OT July 24, 2017 14:55
--- NOTE | 2017-07-24 14:58 | Progress Note (SOAP) ---
Subjective Subjective/Events-last exam Patient reports she "feels about the same as she did before". She reports still short of breath, although that has improved since admission. No other complaints or concerns. The nursing staff is preparing to place a olmos cath to help monitor accurate intake and output. No acute events overnight. Review of Systems Date Seen by Provider: July 24, 2017 Time Seen by Provider: 14:57 General: No Chills; Night Sweats, Fatigue HEENT: No Head Aches, No Eye Pain, No Ear Pain, No Dysphasia Pulmonary: Dyspnea, Cough Cardiovascular: No: Chest Pain, Palpitations, Edema Gastrointestinal: No: Nausea, Vomiting, Abdominal Pain, Hematochezia Genitourinary: No Dysuria, No Retention Neurological: No: Weakness, Numbness, Incoordination, Change in speech, Confusion, Seizures Focused Exam Lactate Level 07/22/17 11:53: Lactic Acid Level 2.02*H 07/22/17 15:04: Lactic Acid Level 1.71 07/23/17 03:05: Lactic Acid Level 1.73 Objective Exam Last Set of Vital Signs Vital Signs Date Time Temp Pulse Resp B/P (MAP) Pulse Ox O2 Delivery O2 Flow Rate FiO2 07/24/17 13:00 68 07/24/17 12:00 Vapotherm 8.00 85 07/24/17 11:30 98/63 (75) 07/24/17 11:03 99 07/24/17 11:00 12 07/24/17 10:53 97.8 Capillary Refill : Less Than 3 Seconds I&O Intake and Output 07/24/17 00:00 Intake Total 1615 ml Output Total 2170 ml Balance -555 ml Intake Oral 1000 ml IV Total 615 ml Output Urine Total 2170 ml General: Alert, Oriented X3, Cooperative, No Acute Distress HEENT: Atraumatic, EOMI, Mucous Memb Moist/[place] Neck: Supple, No Thyromegaly Lungs: Normal Air Movement, Other (scattered wheezes, diminished in bases) Heart: Regular Rate, Normal S1, Normal S2 Abdomen: Normal Bowel Sounds, Soft, No Tenderness, No Masses Extremities: No Clubbing, No Cyanosis Skin: No Rashes, No Significant Lesion Neuro: Normal Speech, Normal Tone, Sensation Intact, Cranial Nerves 3-12 NL Psych/Mental Status: Mental Status NL, Mood NL Results/Procedures Lab Laboratory Tests 07/23/17 15:45: Glucometer 136H 07/24/17 03:50: White Blood Count 12.0H, Red Blood Count 3.80L, Hemoglobin 10.9L, Hematocrit 35 , Mean Corpuscular Volume 92, Mean Corpuscular Hemoglobin 29, Mean Corpuscular Hemoglobin Concent 31L, Red Cell Distribution Width 14.9H, Platelet Count 317, Mean Platelet Volume 9.6, Neutrophils (%) (Auto) 42, Lymphocytes (%) (Auto) 39, Monocytes (%) (Auto) 8, Eosinophils (%) (Auto) 11H, Basophils (%) (Auto) 0, Neutrophils # (Auto) 5.0, Lymphocytes # (Auto) 4.7H, Monocytes # (Auto) 1.0, Eosinophils # (Auto) 1.3H, Basophils # (Auto) 0.0, Sodium Level 142, Potassium Level 4.0, Chloride Level 104, Carbon Dioxide Level 31, Anion Gap 7, Blood Urea Nitrogen 14, Creatinine 0.60, Estimat Glomerular Filtration Rate > 60, BUN/ Creatinine Ratio 23, Glucose Level 97, Calcium Level 8.6, Phosphorus Level 2.4, Magnesium Level 2.1 07/24/17 06:33: Glucometer 74 07/24/17 06:45: Blood Gas Puncture Site L RAD, Blood Gas Patient Temperature 97.6, Arterial Blood pH 7.43, Arterial Blood Partial Pressure CO2 53H, Arterial Blood Partial Pressure O2 72L, Arterial Blood HCO3 35H, Arterial Blood Total CO2 36.3H, Arterial Blood Oxygen Saturation 96, Arterial Blood Base Excess 9.9H, [place] Test YES-POS, Blood Gas Ventilator Setting NO, Blood Gas Inspired Oxygen 8L VAPOTHERM 07/24/17 09:30: Glucometer 226H 07/24/17 10:55: Glucometer 166H Microbiology 07/22/17 Blood Culture - Preliminary, Resulted No growth 07/22/17 MRSA Screen - Final, Complete MRSA not isolated Radiology Date of Exam: 07/22/17 CHEST 1 VIEW, AP/PA ONLY INDICATION: Cough, shortness of air. TECHNIQUE: Single view chest 10:08 AM. CORRELATION STUDY: 06/23/2017 FINDINGS: There has been interval extubation to remove the gastric tube. Heart size enlarged. Mediastinum is prominent, likely stable. There is rather significant pulmonary vascular congestion and perihilar edema. Scattered pulmonary parenchyma is noted, likely largely edematous. A superimposed infiltrate/pneumonia would be difficult to exclude. IMPRESSION: 1. Enlargement present with pulmonary vascular congestion, perihilar and likely pulmonary edema. Superimposed infiltrate difficult to exclude. Followup imaging recommended. Assessment/Plan Assessment/Plan Assessment & Plan 1. Acute on chronic respiratory failure w/ hypoxia 07/23 - admitted 07/22/17 to ICU on Vapotherm, titrated down since admission currently on 13L 55% FIO2; O2 sat 94% (baseline 6L nc) - Dr. Bowles consulted 07/24 - Dr. Bowles managing; currently 8L on 85% Vapotherm and tolerating well, with sats >95%. Baseline O2 6L NC 2. hx of ARDS w/ prolonged hospitalization June 2017 - required intubation and transfer to [place] from - recently admitted to [facility] after DC from [place] 07/24 - pt states she is planning to return to [facility] after discharge from here 3. possible Pneumonia - CXR in ED showed vascular congestion; unable to delineate clear infiltrated - currently on Zosyn and Vancomycin 07/24 - CXR suggestive of pulmonary vascular congestion, unable to rule out PNA, continued on abx at this time, Day 3 Vanc and Zosyn 4. Diabetes Mellitus Type 2 - insulin requiring - restart home insulin regimen of Levemir and novolog w/ Novolog SSI 07/24 - Accucheck AC and HS, sliding scale insulin per protocol with home dose of Levemir 5. Paroxysmal Afib on chronic anticoaguation - on Eliquis 07/24 - continue on eliquis for anticoagulation, metoprolol increased per cardiology, will defer management to the expertise 6. CHF - diastolic dysfunction w/ preserved EF - consult cardiology; pt reports she does not have primary lead refiner 07/24 - preserved EF per cardiology report, continue to defer to cardiology for management 7. Mild to moderate pulmonary hypertension 40-45mmHg on Echo 06/2017 8. Probably obesity-hypoventilation syndrome 9. Hypotension 07/24 - minimal response to intermittent fluid boluses, but requires diuresis from a cardiac standpoint; albumin and lasix to attempt to diurese and still buffer pressures if possible Dispo: The patient remains seriously ill and continues to require an ICU level of care at this time. Clinical Quality Measures DVT/VTE Risk/Contraindication: VTE Addressed: Yes Risk Factor Score Per Nursin RFS Level Per Nursing on Admit: 4+=Very High Risk Score Comment: on Eliquis Copy Copies To 1: [facility]/IMKE BARRAZA DO July 24, 2017 14:58
--- NOTE | 2017-07-24 15:35 | Physical Therapy Progress Note ---
Therapy Progress Note OT attempted to complete evaluation; nursing requested to hold off for now. This information was communicated to this PT. Will attempt PT evaluation tomorrow if pt stable. RHONDA RAMIREZ PT July 24, 2017 15:35
[2017-07-24] MEDS: DULoxetine 30 MG (CYMBALTA) CAP PO SCH (20:51)
[2017-07-24] MEDS: AMITRIPTYLINE 50 MG (ELAVIL) TAB PO SCH (20:51)
[2017-07-24] MEDS: meTOprolol TARTRATE 25 MG (LOPRESSOR) TABLET PO SCH (20:52)
[2017-07-24] MEDS ORDERED: meTOprolol TARTRATE 50 MG (LOPRESSOR) TAB PO SCH (21:00)
[2017-07-24] MEDS ORDERED: NS IV 1000 ML 1,000 ML ONE (23:09)
[2017-07-24] MEDS ORDERED: NOREPINEPHRINE 4 MG/4 ML (LEVOPHED) AMP IV ONE (23:42)
[2017-07-24] MEDS ORDERED: NS (IVPB) 250 ML ONE (23:42)
[2017-07-24] MEDS ORDERED: NOREPINEPHRINE 4 MG in NS (IVPB) 250 ML IV PRN (23:45)
[2017-07-25] VITALS (28 sets, daily range): BP systolic 94–150; BP diastolic 34–78
[2017-07-25] MEDS: PIPERACILLIN/TAZO 4.5 GM/D5W 100 ML IVPB IV SCH ×6 (01:00→16:24)
[2017-07-25] MEDS: RT-ALBUTEROL SULF 2.5 MG/3 ML PRE-MIX VIAL INH SCH ×6 (01:02→22:08)
[2017-07-25 04:05] LABS: BASOPHILS % (AUTO) 0 % (0-10); EOSINOPHILS # (AUTO) 1.4 10^3/uL (0.0-0.3); EOSINOPHILS % (AUTO) 10 % (0-10); HEMATOCRIT 33 % (35-52); HEMOGLOBIN 10.3 G/DL (11.5-16.0); LYMPHOCYTES # (AUTO) 5.6 X 10^3 (1.0-4.0); LYMPHOCYTES % (AUTO) 38 % (12-44); MEAN CORPUSCULAR HEMOGLOBIN 28 PG (25-34); MEAN CORPUSCULAR HGB CONC 31 G/DL (32-36); MEAN CORPUSCULAR VOLUME 92 FL (80-99); MEAN PLATELET VOLUME 9.3 FL (7.4-10.4); MONOCYTES % (AUTO) 6 % (0-12); NEUTROPHILS # (AUTO) 6.8 X 10^3 (1.8-7.8); NEUTROPHILS % (AUTO) 46 % (42-75); PLATELET COUNT 318 10^3/uL (130-400); RED BLOOD COUNT 3.65 10^6/uL (4.35-5.85); RED CELL DISTRIBUTION WIDTH 14.9 % (10.0-14.5); WHITE BLOOD COUNT 14.8 10^3/uL (4.3-11.0)
[2017-07-25 04:24] LABS: BUN/CREATININE RATIO 18; CALCIUM 8.4 MG/DL (8.5-10.1); CARBON DIOXIDE 27 MMOL/L (21-32); CHLORIDE 106 MMOL/L (98-107); CREATININE SERUM 0.61 MG/DL (0.60-1.30); GFR ESTIMATED > 60; GLUCOSE 96 MG/DL (70-105); PHOSPHORUS 2.5 MG/DL (2.3-4.7); POTASSIUM 3.9 MMOL/L (3.6-5.0); SODIUM 141 MMOL/L (135-145)
[2017-07-25] MEDS: POTASSIUM CL 10MEQ/50ML IVPB 50 ML IV SCH (05:24)
[2017-07-25] MEDS: MAGNESIUM 1 GM/100 ML IVPB 100 ML IV SCH (05:24)
[2017-07-25] MEDS: KCL 20 MEQ TAB (K-DUR) PO SCH (05:25)
--- NOTE | 2017-07-25 06:39 | Pulmonary Progress Note ---
Subjective Time Seen by Provider: 06:49 Subjective/Events-last exam PT states she is still SOB and is currently requiring Vapotherm. Focused Exam Lactate Level 07/22/17 11:53: Lactic Acid Level 2.02*H 07/22/17 15:04: Lactic Acid Level 1.71 07/23/17 03:05: Lactic Acid Level 1.73 Exam Exam Vital Signs Date Time Temp Pulse Resp B/P (MAP) Pulse Ox O2 Delivery O2 Flow Rate FiO2 07/25/17 05:00 81 23 125/56 (79) 97 Vapotherm 80.00 8.00 07/25/17 04:00 81 17 115/60 (78) 99 Vapotherm 80.00 8.00 07/25/17 04:00 Vapotherm 8.00 75 07/25/17 03:00 84 24 114/56 (75) 93 Vapotherm 80.00 8.00 07/25/17 02:00 84 11 104/60 (75) 97 Vapotherm 80.00 8.00 07/25/17 01:02 100 Vapotherm 8.00 80 07/25/17 01:00 73 07/25/17 01:00 73 26 100/54 (69) 100 Vapotherm 80.00 8.00 07/25/17 00:30 65 26 133/63 (86) 100 Vapotherm 80.00 8.00 07/25/17 00:00 74 27 94/34 (54) 98 Vapotherm 80.00 8.00 07/25/17 00:00 Vapotherm 8.00 75 07/24/17 23:00 73 24 73/42 (52) 100 Vapotherm 80.00 8.00 07/24/17 22:00 87 29 87/44 (58) 98 Vapotherm 80.00 8.00 07/24/17 21:21 93 Vapotherm 8.00 80 07/24/17 21:00 97 19 120/61 (80) 92 Vapotherm 80.00 8.00 07/24/17 20:00 Vapotherm 8.00 80 07/24/17 20:00 86 28 130/64 (86) 98 Vapotherm 80.00 8.00 07/24/17 19:22 96 29 126/60 (82) 93 Vapotherm 80.00 8.00 07/24/17 19:13 94 Vapotherm 8.00 85 07/24/17 19:00 83 24 111/57 (75) 100 Vapotherm 85.00 8.00 07/24/17 19:00 83 07/24/17 18:00 82 27 141/64 (89) 99 Vapotherm 85.00 8.00 07/24/17 17:00 80 11 120/54 (76) 93 Vapotherm 85.00 8.00 07/24/17 16:08 Vapotherm 8.00 85 07/24/17 15:45 74 24 101/19 (46) 98 Vapotherm 85.00 8.00 07/24/17 15:44 96 Vapotherm 8.00 85 07/24/17 15:28 98.6 79 30 103/61 (75) 99 Vapotherm 85.00 8.00 07/24/17 15:15 77 31 103/61 (75) Vapotherm 85.00 8.00 07/24/17 15:00 68 17 87/56 (66) 17 Vapotherm 85.00 8.00 07/24/17 14:45 73 29 73/51 (58) Vapotherm 85.00 8.00 07/24/17 14:30 70 14 88/56 (67) 98 07/24/17 14:15 66 13 86/43 (57) 07/24/17 14:00 72 15 75/46 (56) 98 07/24/17 13:45 67 13 79/50 (60) 97 07/24/17 13:30 73 16 74/47 (56) 97 07/24/17 13:15 69 13 79/48 (58) 98 07/24/17 13:00 68 17 81/41 (54) 98 07/24/17 13:00 68 07/24/17 12:45 66 18 89/40 (56) 98 07/24/17 12:30 68 17 92/77 (82) 90 07/24/17 12:15 84 12 87/57 (67) 97 07/24/17 12:00 Vapotherm 8.00 85 07/24/17 12:00 69 12 07/24/17 11:45 68 10 71/50 (57) 95 07/24/17 11:30 98/63 (75) 07/24/17 11:03 99 Vapotherm 8.00 85 07/24/17 11:00 71 12 89/51 (64) 98 Vapotherm 85.00 8.00 07/24/17 10:53 97.8 Vapotherm 85.00 8.00 07/24/17 10:22 80 07/24/17 10:00 73 16 91/49 (63) 98 Vapotherm 100.00 8.00 07/24/17 09:31 97/60 (72) 100 Vapotherm 100.00 8.00 07/24/17 09:00 85 21 103/56 (72) 100 Vapotherm 100.00 8.00 07/24/17 08:30 Vapotherm 8.00 100 07/24/17 08:01 98.2 91 30 125/61 (82) 92 Vapotherm 100.00 8.00 07/24/17 07:00 87 07/24/17 07:00 87 13 133/66 (88) 90 Vapotherm 90.00 8.00 07/24/17 06:48 90 Vapotherm 8.00 100 I & O 07/25/17 07:00 Intake Total 2251 ml Output Total 1650 ml Balance 601 ml General Appearance: Anxious, Mild Distress HEENT: PERRL/EOMI, Pharynx Normal Neck: Normal Inspection, Supple Respiratory: No Accessory Muscle Use, No Respiratory Distress, Crackles, Decreased Breath Sounds Cardiovascular: Other (2+ edema bilateral LE) Capillary Refill: Less Than 3 Seconds Gastrointestinal: non tender, soft Extremity: Normal Capillary Refill, Normal Inspection, Non Tender Neurologic/Psychiatric: Alert, Oriented x3 Skin: Normal Color, Warm/Dry Lymphatic: No Adenopathy Results Lab Laboratory Tests 07/24/17 03:50 07/25/17 03:58 Assessment/Plan Assessment/Plan Acute on chronic respiratory failure with severe hypoxia ARDS - pt has required ventilation and transfer to [place] in past. -Monitor close -Pt may need bronchoscopy however at this time she would need to be placed on vent if bronch was attempted. Hypotension -Pt was on small amount of levophed through the night however she is now off. -PT responded to IVF. -Will obtain PICC line Paroxysmal Afib on anticoagulation Diastolic CHF with pulmonary HTN -PT needs out patient PSG -Start lasix, hep lock IVF IDDM II Pt has been refusing PT/OT. I have discussed full code vs DNR vs Hospice care with patient. She is not sure if she wants ventilator care. She wants to d/w her regarding all options. Will consult hospice for education. Currently she is requiring Vapotherm will attempt to wean her to regular high flow NC. 233 GONZÁLEZ YE DO July 25, 2017 06:39
[2017-07-25] MEDS: inSUlin ASPART (NovoLOG) 1 UNIT/0.01 ML (CHARGE PER UNIT) SC SCH ×7 (07:18→20:57)
--- NOTE | 2017-07-25 08:14 | Diagnostic Imaging Report ---
Portable AP chest at 321 hours. INDICATION: Respiratory distress. FINDINGS: As noted on the prior exam of 07/24/2017, there is cardiomegaly and diffuse alveolar/interstitial pulmonary infiltrates. When compared to the prior study, there does not appear to have been any significant change. The mediastinum is not widened. The osseous structures are intact. IMPRESSION: Stable chest. There has been no adverse change since the prior exam. A followup study would be recommended for continued evaluation. Dictated by: Dictated on workstation # [id number]
[2017-07-25] MEDS: PANTOPRAZOLE 40 MG (PROTONIX) TAB PO SCH (08:59)
[2017-07-25] MEDS: GABAPENTIN 400 MG (NEURONTIN) CAP PO SCH ×2 (08:59→20:57)
[2017-07-25] MEDS: traZODone 50 MG (DESYREL) TAB PO SCH ×3 (08:59→20:57)
[2017-07-25] MEDS: ASPIRIN 81 MG CHEW (CHILDREN'S ASA) PO SCH (08:59)
[2017-07-25] MEDS: APIXABAN 5 MG (ELIQUIS) TABLET PO SCH ×2 (08:59→20:57)
[2017-07-25] MEDS: meTOprolol TARTRATE 50 MG (LOPRESSOR) TAB PO SCH (09:38)
[2017-07-25] MEDS: meTOprolol TARTRATE 25 MG (LOPRESSOR) TABLET PO SCH (09:38)
[2017-07-25] MEDS: lisINopril 5 MG (PRINIVIL) TABLET PO SCH (09:38)
--- NOTE | 2017-07-25 10:04 | Cardiology Progress Note ---
Cardiology SOAP Progress Note Subjective: Events of overnight noted. Patient became hypotensive and was started on nor- epinephrine. Objective: I&O/Vital Signs 07/24/17 07/25/17 07/25/17 07/25/17 23:00 00:00 00:00 00:30 Pulse 73 74 65 Resp 24 27 26 B/P (MAP) 73/42 (52) 94/34 (54) 133/63 (86) Pulse Ox 100 98 100 O2 Delivery Vapotherm Vapotherm Vapotherm Vapotherm O2 Flow Rate 80.00 8.00 80.00 80.00 8.00 8.00 8.00 FiO2 75 07/25/17 07/25/17 07/25/17 07/25/17 01:00 01:00 01:02 02:00 Pulse 73 73 84 Resp 26 11 B/P (MAP) 100/54 (69) 104/60 (75) Pulse Ox 100 100 97 O2 Delivery Vapotherm Vapotherm Vapotherm O2 Flow Rate 80.00 8.00 80.00 8.00 8.00 FiO2 80 07/25/17 07/25/17 07/25/17 07/25/17 03:00 04:00 04:00 05:00 Pulse 84 81 81 Resp 24 17 23 B/P (MAP) 114/56 (75) 115/60 (78) 125/56 (79) Pulse Ox 93 99 97 O2 Delivery Vapotherm Vapotherm Vapotherm Vapotherm O2 Flow Rate 80.00 8.00 80.00 80.00 8.00 8.00 8.00 FiO2 75 07/25/17 07/25/17 07/25/17 07/25/17 06:00 06:25 06:45 07:00 Pulse 79 87 81 Resp 23 32 B/P (MAP) 112/61 (78) 114/65 (81) Pulse Ox 95 94 93 O2 Delivery Vapotherm Vapotherm Vapotherm O2 Flow Rate 80.00 8.00 80.00 8.00 6.00 FiO2 75 07/25/17 07/25/17 07/25/17 07/25/17 07:40 07:45 07:48 09:58 Temp 97.0 Pulse 77 63 Resp 16 B/P (MAP) 102/63 (76) Pulse Ox 99 99 O2 Delivery High Flow N/C High Flow N/C High Flow N/C O2 Flow Rate 4.00 4.00 4.00 FiO2 36 07/25/17 00:00 Intake Total 1714 ml Output Total 1350 ml Balance 364 ml Weight (Pounds): 197 Weight (Ounces): 1.0 Weight (Calculated Kilograms): 89.423504 Constitutional: appears stated age, AAO x 3; No apparent distress; well- developed, well-nourished Respiratory: No accessory muscle use, No respiratory distress, No chest tender , No chest expansion is symmetric; chest is bilaterally symmetric; No lungs clear to percussion; lungs clear to auscultation; No crackles, No rhonchi, No rales, No stridor, No wheezing, No pleural rub, No other Cardiovascular: regular rate-rhythm; No irregularly irregular, No extra beats, No parasternal heave is noted, No JVD, No edema, No bradycardia, No tachycardia , No point of maximal impulse, No cardiac thrills are palpable; S1 and S2; No gallop/S3, No gallop/S4, No diastolic murmur, No systolic murmur, No friction rub, No click, No other Gastrointestional: No tender, No soft, No round, No distended, No pulsatile mass, No organomegaly, No guarding, No rebound, No tenderness, No hernia, No mass, No audible bowel sounds, No abnormal bowel sounds, No abdominal bruits, No spleenomegaly, No other Extremities: No normal range of motion, No non-tender, No normal inspection, No pedal edema, No calf tenderness, No normal capillary refill, No pelvis stable , No calf tenderness, No inflammation, No pedal edema, No slow capillary refill , No swelling, No other, No abrasion, No clubbing, No cyanosis, No ecchymosis, No laceration, No no lower extremity edema bilateral, No significant edema, No tenderness, No wound Neurologic/Psychiatric: no motor/sensory deficits, alert, normal mood/affect, oriented x 3, power is 5/5 both on sides Skin: No normal color, No warm/dry, No cyanosis, No cool, No diaphoresis, No damp, No ecchymosis, No jaundice, No mottled, No pallor, No rash, No tattoos/ piercings, No ulcerations, No rash on exposed areas, No ulcerations on exposed areas, No other Results/Procedures: Labs Laboratory Tests 07/24/17 10:55: Glucometer 166H 07/24/17 15:35: Glucometer 56*L 07/24/17 16:13: Glucometer 69L 07/24/17 20:45: Glucometer 133H 07/25/17 02:37: Glucometer 69L 07/25/17 03:58: White Blood Count 14.8H, Red Blood Count 3.65L, Hemoglobin 10.3L, Hematocrit 33L , Mean Corpuscular Volume 92, Mean Corpuscular Hemoglobin 28, Mean Corpuscular Hemoglobin Concent 31L, Red Cell Distribution Width 14.9H, Platelet Count 318, Mean Platelet Volume 9.3, Neutrophils (%) (Auto) 46, Lymphocytes (%) (Auto) 38, Monocytes (%) (Auto) 6, Eosinophils (%) (Auto) 10, Basophils (%) (Auto) 0, Neutrophils # (Auto) 6.8, Lymphocytes # (Auto) 5.6H, Monocytes # (Auto) 1.0, Eosinophils # (Auto) 1.4H, Basophils # (Auto) 0.0, Sodium Level 141, Potassium Level 3.9, Chloride Level 106, Carbon Dioxide Level 27, Anion Gap 8, Blood Urea Nitrogen 11, Creatinine 0.61, Estimat Glomerular Filtration Rate > 60, BUN/ Creatinine Ratio 18, Glucose Level 96, Calcium Level 8.4L, Phosphorus Level 2.5 , Magnesium Level 2.0 07/25/17 06:16: Glucometer 75 Microbiology 07/22/17 Blood Culture - Preliminary, Resulted No growth 07/22/17 MRSA Screen - Final, Complete MRSA not isolated A/P: Assessment/Dx: Shortness of breath, hypoxia, Sepsis, Pneumonia, Acute on chronic mild diastolic congestive heart failure, Paroxysmal atrial fibrillation, Pulmonary hypertension, Moderate aortic insufficiency, Frequent PVCs, Diabetes Plan: Shortness of breath, hypoxia, Broad-spectrum IV antibiotics. Vapotherm weaned of to 4 L of oxygen via nasal cannula. Sepsis, with lactic acidosis. Can give IV fluids as required. Pneumonia, on IV antibiotics. Brief episode of Hypotension yesterday and was started on vasopressors. Discontinued now with systolic blood pressure of over 120 mmHg. Acute on chronic mild diastolic congestive heart failure, mild elevated BNP. Will hold Lasix for now since IV fluids need to be given for severe sepsis. Echocardiogram shows normal LVEF. Paroxysmal atrial fibrillation, currently in sinus rhythm. Continue Eliquis. Pulmonary hypertension: Continue to monitor. Moderate aortic regurgitation: Continue to monitor. Frequent PVCs: Resolved. Will hold lisinopril and metoprolol till blood pressure improves significantly. And then can restart with small dosages. Diabetes Thank you for your consultation. Please call me if you have any questions. Sloan Marie MD, FACP, FACC, FSCAI, FHRS, CCDS Interventional Cardiology Cardiac Electrophysiology Vascular Medicine and Endovascular Interventions Focused Exam Lactate Level 07/22/17 11:53: Lactic Acid Level 2.02*H 07/22/17 15:04: Lactic Acid Level 1.71 07/23/17 03:05: Lactic Acid Level 1.73 Ratna MARIE MD July 25, 2017 10:04 am
[2017-07-25] MEDS ORDERED: NS 250 ML (IVPB) BAG IV ONE (10:15)
[2017-07-25] MEDS ORDERED: CATHETER FLUSH 10 ML SYR IV PRN (10:15)
[2017-07-25] MEDS ORDERED: IOHEXOL 350 MG/ML 100 ML (OMNIPAQUE 350) VIAL IV ONE (10:15)
[2017-07-25] MEDS ORDERED: RECEIVED CONTRAST (Hold Metformin) IV SCH (10:45)
--- NOTE | 2017-07-25 12:06 | Physical Therapy Evaluation ---
PT Evaluation-General Medical Diagnosis Admission Date July 22, 2017 at 11:08 Medical Diagnosis: pneumonia/CHF Onset Date: July 22, 2017 Therapy Diagnosis Therapy Diagnosis: generalized weakness/debility Height/Weight Height (Feet): 5 Height (Inches): 2.00 Weight (Pounds): 197 Weight (Ounces): 1.0 Precautions Precautions/Isolations: Standard Precautions Weight Bear Status Right Lower Extremity: Right Full Weight Bearing Left Lower Extremity: Left Full Weight Bearing Referral Physician: Rc Reason for Referral: Evaluation/Treatment Medical History Pertinent Medical History: Atrial Fib, DM, Heart Failure, HTN Additional Medical History was at [facility] with respiratory failure per her report Current History ICU secondary to pneumonia Reviewed History: Yes Social History Home: Fdc Prior/Core FIM Prior Level of Function Functional [place] Measure 0=Not Assessed/NA 4=Minimal Assistance 1=Total Assistance 5=Supervision or Setup 2=Maximal Assistance 6=Modified [place] 3=Moderate Assistance 7=Complete [place] Bed Mobility: 2 Transfers (B,C,W/C) (FIM): 2 Gait: 0 PT Evaluation-Current Subjective Patient is in bed and agrees to PT. Pain Numeric Pain Scale: 0-No Pain Location: No Pain Reported Objective Patient Orientation: Normal For Age Problem Solving: Fair Attachments: Oxygen (8L HF), Varma Catheter, IV ROM/Strength ROM Lower Extremities bilateral LE WNL Strength Lower Extremities 3-/5 grossly bilaterally Integumentary/Posture Integumentary refer to nursing notes Bowel Incontinence: No Bladder Incontinence: Varma Cath Posture WFL Neuromuscular (Tone, Coordination, Reflexes) diminished coordination due to weakness and inactivity Sensory Vision: Functional Hearing: Functional Sensation Right Lower Extremit: Impaired Sensation Left Lower Extremity: Impaired Transfers Functional [place] Measure 0=Not Assessed/NA 4=Minimal Assistance 1=Total Assistance 5=Supervision or Setup 2=Maximal Assistance 6=Modified [place] 3=Moderate Assistance 7=Complete [place] Transfers (B, C, W/C) (FIM): 1 Scootin Rollin Supine to/from Sit: 1 SAO2 sitting EOB decreased to 81% on 8L HF NC Balance Sitting Static: Fair Sitting Dynamic: Fair Assessment/Needs 66 y.o. female, will benefit from skilled PT to address functional strength and improve pulmonary function. Patient is currently limited by decreasing SAO2 with minimal activity and requires time to recover to >90%. Rehab Potential: Guarded PT Senior Care Goals Sales Merchandising Specialist Goals PT Sales Merchandising Specialist Goals Time Frame: August 04, 2017 Transfers (B,C,W/C) (FIM): 2 PT Plan Problem List Problem List: Activity Tolerance, Functional Strength, Balance, Transfer, Bed Mobility Treatment/Plan Treatment Plan: Continue Plan of Care Treatment Plan: Bed Mobility, Education, Functional Activity [place], Functional Strength, Safety, Therapeutic Exercise, Transfers Treatment Duration: August 04, 2017 Frequency: 6 times per week Estimated Hrs Per Day: .5 hour per day Patient and/or Family Agrees t: Yes Discharge Recommendations Therapy D/C Recommendations: Fdc Placement, Snf (TCU/NH) Time/GCodes Time In: 1106 Time Out: 1128 Total Billed Treatment Time: 22 [facility] PARUL MCFARLAND PT July 25, 2017 12:06
--- NOTE | 2017-07-25 13:06 | Diagnostic Imaging Report ---
PROCEDURE: CT chest with contrast only. TECHNIQUE: Multiple contiguous axial images were obtained through the chest after administration of intravenous contrast. INDICATION: Shortness of breath. Study is performed to evaluate for a mass. COMPARISON: Comparison is made with prior CT from 12/13/2016. FINDINGS: No axillary lymphadenopathy is identified. Mediastinal lymph nodes have increased in size since prior CT. A lymph node just lateral to the left of the main pulmonary artery measures 1.8 x 1.2 cm compared with 1.3 x 0.8 cm. A lymph node adjacent to the superior vena cava measures 1.5 x 1.3 cm compared with 1.0 x 0.8 cm. There are some prominent nodes in the subcarinal location. There also are multiple prominent bilateral hilar lymph nodes, all appearing increased in size when comparing with the prior exam from December 2016. Heart is significantly enlarged. No pericardial fluid is seen. There appears to be trace pleural fluid bilaterally. There are extensive groundglass opacities throughout both lungs. There appears to be some interlobular septal thickening present throughout both lungs as well. Central airways appear to be patent. No discrete parenchymal mass is identified. The upper abdomen is grossly unremarkable. IMPRESSION: Extensive bilateral groundglass and interstitial infiltrates. There is also trace bilateral pleural fluid and pleural thickening. Findings may be on infectious/inflammatory basis. There does appear to be mediastinal and hilar lymphadenopathy, new since December 2016. This could potentially be on a reactive basis. Short-interval followup after course of therapy is recommended to confirm improvement and resolution. Dictated by: Dictated on workstation # [id number]
--- NOTE | 2017-07-25 14:12 | Diagnostic Imaging Report ---
INDICATION: Evaluate PICC line placement. Comparison made with prior examination from 07/25/2017. FINDINGS: There is diffuse bilateral airspace disease. There is a right upper extremity PICC line which has its tip in the superior vena cava. There is cardiomegaly. Some underlying venous congestion cannot be excluded. There is no pleural effusion or pneumothorax. IMPRESSION: Cardiomegaly and diffuse bilateral airspace disease. Some underlying central pulmonary venous congestion cannot be excluded. Dictated by: Dictated on workstation # [id number]
[2017-07-25] MEDS: CATHETER FLUSH 10 ML SYR IV SCH ×2 (14:53→20:58)
--- NOTE | 2017-07-25 15:49 | Occupational Therapy Eval ---
OT Evaluation-General/PLF Medical Diagnosis Admission Date July 22, 2017 at 11:08 Medical Diagnosis: pneumonia/CHF Onset Date: July 22, 2017 Therapy Diagnosis Therapy Diagnosis: Weakness Height/Weight Height (Feet): 5 Height (Inches): 2.00 Weight (Pounds): 197 Weight (Ounces): 1.0 Precautions Precautions/Isolations: Standard Precautions Safety Interventions: None Referral Physician: Rc Referral Reason: Activity Tolerance, Self Care, Evaluation/Treatment, Strengthening/ROM Medical History Pertinent Medical History: Atrial Fib, DM, Heart Failure, HTN Additional Medical History DM2, Depression, Diabetic neuropathy, bilateral knee replacement. Current History Pt. currently lives at [facility]. Reviewed History: Yes Social History Home: Long-Term ADL-Prior Level of Function ADL PLOF Comments Pt. is unable to articulate at this time how much assistance that she needs with ADL tasks. Pt. lives in [place] and has constant supervision. OT Current Status Subjective Pt. states that she wasn't "doing well" yesterday, but is doing better today. Appearance Pt. in bed. Declines OOB activity. Pt. has recently been up to side of bed with PT, and sats dropped, oxygen turned up to 8 L. Spoke with nursing before treating pt. Nursing states that pt. is currently on 5 L. Okay for OT to work with pt. if pt. agreeable. Pt. declines OOB. Mental Status/Objective Patient Orientation: Unable to Assess Attachments: IV, Oxygen Current Upper Extremity ROM Pt. demonstrates ability to flex bilateral shoulders fully at bed level. Upper Extremity Strength 3/5 bilateral strength. Edema: Noted increased edema in left hand. ADL-Treatment Functional [place] Measure 0=Not Assessed/NA 4=Minimal Assistance 1=Total Assistance 5=Supervision or Setup 2=Maximal Assistance 6=Modified [place] 3=Moderate Assistance 7=Complete IndependenceIRFPAI Quality Coding Scale 6 Independent with activity with or without an assistive device 5 Patient requires set up or clean up by helper. Patient completes activity by themselves 4 Supervision or touching assist (CGA). [place] provide cues , steadying assist 3 The helper provides less than half the effort to complete the activity 2 The helper provides more than half the effort to complete the activity 1 Dependent. The helper does all the effort to complete an activity 7 Patient refused to complete or attempt activity 9 The patient did not perform the activity before the current illness or injury 88 Not attempted due to Medical conditions or safety concerns Eating (FIM): 5 (Pt. states that she was able to feed self this a.m. OT introduced her to Bud cup, but she states that she is in fact able to use the hospital cup. Lunch arrived for pt. Containers opened for pt, but she states that she will have no difficulty feeding self.) Pt. issued therapy sponge and theraband to work on in bed for increased UE strength, and to assist with swelling in hand. Pt. declines all out of bed at this time, as she had been up earlier with PT and de-satted. Pt. verbalizes understanding of theraband exercise and therapy sponge exercise. Lunch arriving and pt. wanting to eat at this time. Will continue to monitor pt. and begin more extensive out of bed activity, as well as ADL and skills training when pt. more medically stable. Education OT Patient Education: Correct positioning, Exercise program, Progress toward Goal/Update tx plan, Purpose of tx/functional activities, Reviewed precautions, Rehab process Teaching Recipient: Patient Teaching Methods: Demonstration, Discussion Response to Teaching: Verbalize Understanding OT Short Term Goals Short Term Goals Time Frame: August 01, 2017 Eating(FIM): 5 Grooming(FIM): 4 Bathing(FIM): 3 Upper Body Dressing(FIM): 4 Lower Body Dressing(FIM): 3 Toileting(FIM): 4 Transfers (B,C,W/C) (FIM): 4 Toilet/Commode Transfer(FIM): 4 Additional Short Term Goals: 1-Demonstrate ADL Tasks, 2-Verbalize Understanding , 3-ImproveStrength/Z[place] 1=Demonstrate adherence to instructed precautions during ADL tasks. 2=Patient will verbalize/demonstrate understanding of assistive devices/ modifications for ADL. 3=Patient will improve strength/tolerance for activity to enable patient to perform ADL's. OT Pattern Marking Supervisor Goals Pattern Marking Supervisor Goals Time Frame: August 08, 2017 Eating (FIM): 6 Grooming(FIM): 5 Bathing(FIM): 4 Upper Body Dressing(FIM): 4 Lower Body Dressing(FIM): 4 Toileting(FIM): 5 Transfers (B,C,W/C) (FIM): 5 Toilet/Commode Transfer(FIM): 5 Additional Goals: 1-Demonstrate ADL Tasks, 2-Verbalize Understanding, 3- ImproveStrength/Zenobia 1=Demonstrate adherence to instructed precautions during ADL tasks. 2=Patient will verbalize/demonstrate understanding of assistive devices/ modifications for ADL. 3=Patient will improve strength/tolerance for activity to enable patient to perform ADL's. OT Education/Plan Problem List/Assessment Assessment: Decreased Activ Tolerance, Decreased UE Strength, Dependent Transfers, Edema, Impaired Bed Mobility, Impaired Funct Balance, Impaired I ADL' s, Impaired Self-Care Skills Discharge Recommendations Plan/Recommendations: Continue POC Therapy D/C Recommendations: 24 hr Supervision Comment Discharge location and goals to be determined. Treatment Plan/Plan of Care Treatment,Training & Education: Yes Patient would benefit from OT for education, treatment and training to promote independence in ADL's, mobility, safety and/or upper extremity function for ADL' s. Plan of Care: ADL Retraining, Functional Mobility, UE Funct Exercise/Act Treatment Duration: August 08, 2017 Frequency: 5 times per week Estimated Hrs Per Day: .25 hour per day Agreement: Yes Rehab Potential: Guarded Time/GCodes Start Time: 11:45 Stop Time: 11:55 Total Time Billed (hr/min): 10 Billed Treatment Time 1, PEYTON TRINH OT July 25, 2017 15:49
[2017-07-25] MEDS ORDERED: meTOprolol TARTRATE 50 MG (LOPRESSOR) TAB PO NR (16:15)
--- NOTE | 2017-07-25 18:05 | Progress Note (SOAP) ---
Subjective Subjective/Events-last exam Patient's only complaint this morning is shortness of breath. She has been weaned off vapotherm this morning and is now on high flow nasal cannula. Patient did have a period of hypotension overnight and required levophed, and plan for PICC access today is in place, as they were not able to obtain central access last night. Her hypotension has resolved and she is off levophed now. Review of Systems Date Seen by Provider: July 25, 2017 Time Seen by Provider: 11:05 General: No Chills, No Night Sweats HEENT: No Eye Pain, No Dysphasia, No Sinus Congestion Pulmonary: Dyspnea, Cough Cardiovascular: No: Chest Pain, Palpitations Gastrointestinal: No: Nausea, Vomiting, Abdominal Pain Genitourinary: No Hematuria, No Retention Neurological: Weakness; No: Numbness, Incoordination, Change in speech, Confusion, Seizures Focused Exam Lactate Level 07/23/17 03:05: Lactic Acid Level 1.73 Objective Exam Last Set of Vital Signs Vital Signs Date Time Temp Pulse Resp B/P (MAP) Pulse Ox O2 Delivery O2 Flow Rate FiO2 07/25/17 16:19 100 High Flow N/C 8.00 07/25/17 16:00 101 23 115/45 (68) 07/25/17 15:41 98.2 07/25/17 09:58 36 Capillary Refill : Less Than 3 Seconds I&O Intake and Output 07/25/17 00:00 Intake Total 2851 ml Output Total 2550 ml Balance 301 ml Intake Oral 1351 ml IV Total 1500 ml Output Urine Total 2550 ml # Voids 1 # Bowel Movements 1 General: Alert, Oriented X3, Cooperative, No Acute Distress HEENT: Atraumatic, EOMI, Mucous Memb Moist/[place] Neck: Supple, No Thyromegaly Lungs: Other (diminished in bases bilaterally) Heart: Regular Rate, Normal S1, Normal S2, No Murmurs Abdomen: Normal Bowel Sounds, Soft, No Tenderness Extremities: No Clubbing, No Cyanosis Skin: No Rashes, No Significant Lesion Neuro: Normal Speech, Normal Tone, Sensation Intact, Cranial Nerves 3-12 NL Psych/Mental Status: Mental Status NL, Mood NL Results/Procedures Lab Laboratory Tests 07/24/17 20:45: Glucometer 133H 07/25/17 02:37: Glucometer 69L 07/25/17 03:58: White Blood Count 14.8H, Red Blood Count 3.65L, Hemoglobin 10.3L, Hematocrit 33L , Mean Corpuscular Volume 92, Mean Corpuscular Hemoglobin 28, Mean Corpuscular Hemoglobin Concent 31L, Red Cell Distribution Width 14.9H, Platelet Count 318, Mean Platelet Volume 9.3, Neutrophils (%) (Auto) 46, Lymphocytes (%) (Auto) 38, Monocytes (%) (Auto) 6, Eosinophils (%) (Auto) 10, Basophils (%) (Auto) 0, Neutrophils # (Auto) 6.8, Lymphocytes # (Auto) 5.6H, Monocytes # (Auto) 1.0, Eosinophils # (Auto) 1.4H, Basophils # (Auto) 0.0, Sodium Level 141, Potassium Level 3.9, Chloride Level 106, Carbon Dioxide Level 27, Anion Gap 8, Blood Urea Nitrogen 11, Creatinine 0.61, Estimat Glomerular Filtration Rate > 60, BUN/ Creatinine Ratio 18, Glucose Level 96, Calcium Level 8.4L, Phosphorus Level 2.5 , Magnesium Level 2.0 07/25/17 06:16: Glucometer 75 07/25/17 10:24: Glucometer 168H 07/25/17 12:23: Glucometer 212H 07/25/17 17:15: Glucometer 205H Microbiology 07/22/17 Blood Culture - Preliminary, Resulted No growth 07/22/17 MRSA Screen - Final, Complete MRSA not isolated Radiology Date of Exam: 07/22/17 CHEST 1 VIEW, AP/PA ONLY INDICATION: Cough, shortness of air. TECHNIQUE: Single view chest 10:08 AM. CORRELATION STUDY: 06/23/2017 FINDINGS: There has been interval extubation to remove the gastric tube. Heart size enlarged. Mediastinum is prominent, likely stable. There is rather significant pulmonary vascular congestion and perihilar edema. Scattered pulmonary parenchyma is noted, likely largely edematous. A superimposed infiltrate/pneumonia would be difficult to exclude. IMPRESSION: 1. Enlargement present with pulmonary vascular congestion, perihilar and likely pulmonary edema. Superimposed infiltrate difficult to exclude. Followup imaging recommended. Assessment/Plan Assessment/Plan Assessment & Plan 1. Acute on chronic respiratory failure w/ hypoxia 07/23 - admitted 07/22/17 to ICU on Vapotherm, titrated down since admission currently on 13L 55% FIO2; O2 sat 94% (baseline 6L nc) - Dr. Bowles consulted 07/24 - Dr. Bowles managing; currently 8L on 85% Vapotherm and tolerating well, with sats >95%. Baseline O2 6L NC 07/25 - continue to defer management to Dr. Bowles 2. hx of ARDS w/ prolonged hospitalization June 2017 - required intubation and transfer to [place] from - recently admitted to [facility] after DC from [place] 07/24 - pt states she is planning to return to [facility] after discharge from here 07/25 - continue to monitor closely 3. possible Pneumonia - CXR in ED showed vascular congestion; unable to delineate clear infiltrated - currently on Zosyn and Vancomycin 07/24 - CXR suggestive of pulmonary vascular congestion, unable to rule out PNA, continued on abx at this time, Day 3 Vanc and Zosyn 07/25 - Day 4 Vanc and Zosyn; CT Chest pending 4. Diabetes Mellitus Type 2 - insulin requiring - restart home insulin regimen of Levemir and novolog w/ Novolog SSI 07/24 - Accucheck AC and HS, sliding scale insulin per protocol with home dose of Levemir 07/25 - continue accuchecks and sliding scale with home levemir 5. Paroxysmal Afib on chronic anticoaguation - on Eliquis 07/24 - continue on eliquis for anticoagulation, metoprolol increased per cardiology, will defer management to their expertise 07/25 - continue to defer to cardiology 6. CHF - diastolic dysfunction w/ preserved EF - consult cardiology; pt reports she does not have primary insurance professional 07/24 - preserved EF per cardiology report, continue to defer to cardiology for management 07/25 - continue to defer to cardiology 7. Mild to moderate pulmonary hypertension 40-45mmHg on Echo 06/2017 8. Probably obesity-hypoventilation syndrome 9. Hypotension 07/24 - minimal response to intermittent fluid boluses, but requires diuresis from a cardiac standpoint; albumin and lasix to attempt to diurese and still buffer pressures if possible 07/25 - required levophed overnight; per nursing documentation, unable to contact surgeon for central access. Levophed off by this AM, plan for PICC placement today Hospice consult was done today, as patient was not sure if she would want to be placed back on ventilator if she should decline to that point, or if she would want to be intubated for bronchoscopy; seen by hospice, and at this time patient does not appear to qualify, as she does not have a documented end stage disease. Dispo: The patient remains seriously ill and continues to require an ICU level of care at this time. Clinical Quality Measures DVT/VTE Risk/Contraindication: VTE Addressed: Yes Risk Factor Score Per Nursin RFS Level Per Nursing on Admit: 4+=Very High Risk Score Comment: on Eliquis Copy Copies To 1: [facility]/MIKE BARRAZA DO July 25, 2017 18:05
[2017-07-25] MEDS: AMITRIPTYLINE 50 MG (ELAVIL) TAB PO SCH (20:57)
[2017-07-25] MEDS: DULoxetine 30 MG (CYMBALTA) CAP PO SCH (20:57)
[2017-07-25] MEDS ORDERED: inSUlin DETERMIR 1 UNIT/0.01 ML (LEVEMIR) CHARGE PER UNIT SQ SCH (21:00)
[2017-07-26] VITALS (24 sets, daily range): BP systolic 92–143; BP diastolic 37–96
[2017-07-26] MEDS: PIPERACILLIN/TAZO 4.5 GM/D5W 100 ML IVPB IV SCH ×6 (00:57→17:13)
[2017-07-26] MEDS: RT-ALBUTEROL SULF 2.5 MG/3 ML PRE-MIX VIAL INH SCH ×6 (02:11→21:55)
[2017-07-26 04:14] LABS: BASOPHILS % (AUTO) 0 % (0-10); EOSINOPHILS # (AUTO) 0.5 10^3/uL (0.0-0.3); EOSINOPHILS % (AUTO) 5 % (0-10); HEMATOCRIT 31 % (35-52); HEMOGLOBIN 9.5 G/DL (11.5-16.0); LYMPHOCYTES % (AUTO) 27 % (12-44); MEAN CORPUSCULAR HEMOGLOBIN 28 PG (25-34); MEAN CORPUSCULAR HGB CONC 31 G/DL (32-36); MEAN CORPUSCULAR VOLUME 91 FL (80-99); MEAN PLATELET VOLUME 9.4 FL (7.4-10.4); MONOCYTES % (AUTO) 9 % (0-12); NEUTROPHILS # (AUTO) 6.7 X 10^3 (1.8-7.8); NEUTROPHILS % (AUTO) 59 % (42-75); PLATELET COUNT 258 10^3/uL (130-400); RED BLOOD COUNT 3.37 10^6/uL (4.35-5.85); RED CELL DISTRIBUTION WIDTH 14.8 % (10.0-14.5); WHITE BLOOD COUNT 11.2 10^3/uL (4.3-11.0)
[2017-07-26] MEDS ORDERED: DEXTROSE 50% 50 ML (IMS) SYR ONE (04:24)
[2017-07-26] MEDS: CATHETER FLUSH 10 ML SYR IV SCH ×2 (04:36→14:37)
[2017-07-26 04:40] LABS: BUN/CREATININE RATIO 13; CALCIUM 8.5 MG/DL (8.5-10.1); CARBON DIOXIDE 27 MMOL/L (21-32); CHLORIDE 105 MMOL/L (98-107); CREATININE SERUM 0.53 MG/DL (0.60-1.30); GFR ESTIMATED > 60; MAGNESIUM 1.8 MG/DL (1.8-2.4); PHOSPHORUS 2.9 MG/DL (2.3-4.7); POTASSIUM 3.4 MMOL/L (3.6-5.0); SODIUM 141 MMOL/L (135-145)
[2017-07-26] MEDS: MAGNESIUM 1 GM/100 ML IVPB 100 ML IV SCH (04:44)
[2017-07-26] MEDS: KCL 20 MEQ TAB (K-DUR) PO SCH (04:44)
[2017-07-26] MEDS: inSUlin ASPART (NovoLOG) 1 UNIT/0.01 ML (CHARGE PER UNIT) SC SCH ×7 (04:45→21:57)
[2017-07-26] MEDS: POTASSIUM CL 10MEQ/50ML IVPB 50 ML IV SCH ×3 (04:45→06:38)
[2017-07-26 04:49] LABS: GLUCOSE 35 MG/DL (70-105)
[2017-07-26] MEDS ORDERED: methylPREDNISolone 125 MG (Solu-MEDROL) VIAL IVP SCH (05:45)
--- NOTE | 2017-07-26 05:48 | Pulmonary Progress Note ---
Subjective Time Seen by Provider: 08:11 Subjective/Events-last exam SOB and NPC Exam Exam Vital Signs Date Time Temp Pulse Resp B/P (MAP) Pulse Ox O2 Delivery O2 Flow Rate FiO2 07/26/17 05:00 81 22 109/50 (69) 95 Vapotherm 50.00 8.00 07/26/17 04:00 97.3 Vapotherm 50.00 8.00 07/26/17 04:00 90 25 113/51 (71) 100 Vapotherm 50.00 8.00 07/26/17 04:00 100 Vapotherm 8.00 50 07/26/17 03:00 101 24 123/54 (77) 93 Vapotherm 85.00 8.00 07/26/17 02:11 97 High Flow N/C 8.00 80 07/26/17 02:00 101 33 118/56 (76) 98 Vapotherm 85.00 8.00 07/26/17 01:00 96 21 122/63 (82) 97 Vapotherm 85.00 8.00 07/26/17 01:00 96 07/26/17 00:55 Vapotherm 85.00 8.00 07/26/17 00:00 90 26 118/64 (82) 100 Vapotherm 90.00 15.00 07/25/17 23:55 100 Vapotherm 15.00 90 07/25/17 23:35 98.4 Vapotherm 90.00 15.00 07/25/17 23:00 92 28 111/53 (72) 100 Vapotherm 90.00 15.00 07/25/17 22:08 96 High Flow N/C 15.00 90 07/25/17 22:00 90 32 111/58 (75) 100 Vapotherm 90.00 15.00 07/25/17 21:00 94 16 126/61 (82) 100 Vapotherm 90.00 15.00 07/25/17 20:00 Vapotherm 8.00 85 07/25/17 20:00 86 28 127/68 (87) 100 Vapotherm 85.00 8.00 07/25/17 19:00 97 07/25/17 19:00 93 128/76 (93) 92 Vapotherm 85.00 8.00 07/25/17 18:47 Vapotherm 75.00 12.00 07/25/17 18:38 90 High Flow N/C 8.00 07/25/17 18:00 90 24 100/47 (64) 90 High Flow N/C 6.00 07/25/17 17:00 95 21 102/59 (73) 100 High Flow N/C 6.00 07/25/17 16:19 100 High Flow N/C 8.00 07/25/17 16:00 101 23 115/45 (68) 100 High Flow N/C 6.00 07/25/17 15:54 High Flow N/C 8.00 07/25/17 15:41 98.2 108 28 115/78 (90) 97 High Flow N/C 8.00 07/25/17 15:00 109 21 129/61 (83) 97 High Flow N/C 8.00 07/25/17 14:46 92 High Flow N/C 8.00 07/25/17 14:00 100 32 150/71 (97) 97 High Flow N/C 8.00 07/25/17 13:57 90 High Flow N/C 8.00 07/25/17 13:00 101 44 116/74 (88) 95 High Flow N/C 5.00 07/25/17 13:00 101 07/25/17 12:00 102 33 120/64 (82) 91 High Flow N/C 5.00 07/25/17 11:56 98.0 07/25/17 11:42 High Flow N/C 5.00 07/25/17 11:34 100 High Flow N/C 5.00 07/25/17 11:10 91 High Flow N/C 8.00 07/25/17 11:00 98 37 100/68 (79) 95 High Flow N/C 4.00 07/25/17 10:29 96 High Flow N/C 4.00 07/25/17 10:00 85 17 117/47 (70) 100 High Flow N/C 4.00 07/25/17 09:58 63 99 36 07/25/17 09:00 88 30 120/61 (80) 94 High Flow N/C 4.00 07/25/17 08:00 79 20 110/58 (75) 98 High Flow N/C 4.00 07/25/17 07:48 High Flow N/C 4.00 07/25/17 07:45 97.0 77 16 102/63 (76) 99 High Flow N/C 4.00 07/25/17 07:40 High Flow N/C 4.00 07/25/17 07:00 81 07/25/17 07:00 81 11 114/55 (74) 100 Vapotherm 80.00 6.00 07/25/17 06:45 87 32 114/65 (81) 93 Vapotherm 80.00 6.00 07/25/17 06:25 94 Vapotherm 8.00 75 07/25/17 06:00 79 23 112/61 (78) 95 Vapotherm 80.00 8.00 I & O 07/26/17 07:00 Intake Total 1213 ml Output Total 1475 ml Balance -262 ml General Appearance: No Apparent Distress HEENT: PERRL/EOMI, Pharynx Normal Neck: Normal Inspection, Supple Respiratory: No Accessory Muscle Use, No Respiratory Distress, Crackles, Decreased Breath Sounds Cardiovascular: Other (2+ edema bilateral LE) Capillary Refill: Less Than 3 Seconds Gastrointestinal: non tender, soft Extremity: Normal Capillary Refill, Normal Inspection, Non Tender Neurologic/Psychiatric: Alert, Oriented x3 Skin: Normal Color, Warm/Dry Lymphatic: No Adenopathy Results Lab Laboratory Tests 07/25/17 03:58 07/26/17 04:00 Assessment/Plan Assessment/Plan Acute on chronic respiratory failure with severe hypoxia ILD inflamatory vs infectious -Add Solumedrol 125mg IV x 1 then 40 IV Q 6 -Check CRP, ESR, RA, FRIEDA, ANCA -Monitor close -Pt may need bronchoscopy however at this time she would need to be placed on vent if bronch was attempted. Hypotension- improved with IVF -PT responded to IVF. Paroxysmal Afib on anticoagulation Diastolic CHF with pulmonary HTN -PT needs out patient PSG -Start lasix, hep lock IVF IDDM II - Pt became hypoglycemic last night -Decrease Levemir 233 GONZÁLEZ YE DO July 26, 2017 05:48
[2017-07-26] MEDS: methylPREDNISolone 40 MG/ML (Solu-MEDROL) VIAL IV SCH ×3 (07:02→17:12)
[2017-07-26] MEDS: PANTOPRAZOLE 40 MG (PROTONIX) TAB PO SCH (08:34)
[2017-07-26] MEDS: APIXABAN 5 MG (ELIQUIS) TABLET PO SCH ×2 (08:34→20:20)
[2017-07-26] MEDS: traZODone 50 MG (DESYREL) TAB PO SCH ×3 (08:35→20:19)
[2017-07-26] MEDS: GABAPENTIN 400 MG (NEURONTIN) CAP PO SCH ×2 (08:35→20:19)
[2017-07-26] MEDS: ASPIRIN 81 MG CHEW (CHILDREN'S ASA) PO SCH (08:35)
--- NOTE | 2017-07-26 09:27 | Diagnostic Imaging Report ---
INDICATION: Followup pneumonia. Dyspnea. COMPARISON: 07/25/2017. FINDINGS: A single frontal radiographic view of the chest was obtained and continues to demonstrate diffuse bilateral airspace disease. Overall, the aeration has not significantly changed. No pneumothorax is seen on either side. The right upper extremity PICC line is again identified with the tip in the right atrium. The cardiac silhouette is heavily obscured but does appear to be enlarged. The bony structures show no gross acute abnormalities. IMPRESSION: Stable exam of the chest showing diffuse bilateral infiltrates. Dictated by: Dictated on workstation # [id number]
--- NOTE | 2017-07-26 09:37 | Occupational Ther Daily Note ---
OT Current Status-Daily Note Subjective Pt. states, "I'm just really sleepy today." Appearance Spoke with nursing before seeing pt. Nursing okay with pt. being treated. States that pt. is back on vapotherm. Mental Status/Objective Patient Orientation: Person, Place Functional [place] Measure 0=Not Assessed/NA 4=Minimal Assistance 1=Total Assistance 5=Supervision or Setup 2=Maximal Assistance 6=Modified [place] 3=Moderate Assistance 7=Complete [place] Attachments: IV, Oxygen, Telemetry ADL-Treatment Transfers (B, C, W/C) (FIM): 2 (Max assist for supine-sit.) Pt. agrees to work with therapy. Oxygen sats at 100% before moving. Pt. transferred supine-sit with max assist. Pt. sat on side of bed approximately 2- 3 minutes. Noted gown dirty and OT changed gown. Max assist with this due to tubing. Pt. stated that she started to feel dizzy. Monitored oxygen sats. Sats dropped to 74%. Pt. is laid back down but only requires mod assist for sit -supine. Dependent x 2 for bed mobility. HOB raised and pt. positioned. Notified nursing. All needs met. Education OT Patient Education: Correct positioning, Progress toward Goal/Update tx plan , Purpose of tx/functional activities, Reviewed precautions, Rehab process, Transfer techniques Teaching Recipient: Patient Teaching Methods: Demonstration, Discussion Response to Teaching: Verbalize Understanding, Return Demonstration OT Short Term Goals Short Term Goals Time Frame: August 01, 2017 Eating(FIM): 5 Grooming(FIM): 4 Bathing(FIM): 3 Upper Body Dressing(FIM): 4 Lower Body Dressing(FIM): 3 Toileting(FIM): 4 Transfers (B,C,W/C) (FIM): 4 Toilet/Commode Transfer(FIM): 4 Additional Short Term Goals: 1-Demonstrate ADL Tasks, 2-Verbalize Understanding , 3-ImproveStrength/[place] 1=Demonstrate adherence to instructed precautions during ADL tasks. 2=Patient will verbalize/demonstrate understanding of assistive devices/ modifications for ADL. 3=Patient will improve strength/tolerance for activity to enable patient to perform ADL's. OT Residential Goals Supervisory Historian Goals Time Frame: August 08, 2017 Eating (FIM): 6 Grooming(FIM): 5 Bathing(FIM): 4 Upper Body Dressing(FIM): 4 Lower Body Dressing(FIM): 4 Toileting(FIM): 5 Transfers (B,C,W/C) (FIM): 5 Toilet/Commode Transfer(FIM): 5 Additional Goals: 1-Demonstrate ADL Tasks, 2-Verbalize Understanding, 3- ImproveStrength/[place] 1=Demonstrate adherence to instructed precautions during ADL tasks. 2=Patient will verbalize/demonstrate understanding of assistive devices/ modifications for ADL. 3=Patient will improve strength/tolerance for activity to enable patient to perform ADL's. OT Education/Plan Problem List/Assessment Assessment: Decreased Activ Tolerance, Decreased UE Strength, Dependent Transfers, Impaired Bed Mobility, Impaired Funct Balance, Impaired I ADL's, Impaired Self-Care Skills Discharge Recommendations Plan/Recommendations: Continue POC Therapy D/C Recommendations: 24 hr Supervision Comment Goals to be addressed when pt. more medically stable. Treatment Plan/Plan of Care Treatment,Training & Education: Yes Patient would benefit from OT for education, treatment and training to promote independence in ADL's, mobility, safety and/or upper extremity function for ADL' s. Plan of Care: ADL Retraining, Functional Mobility, UE Funct Exercise/Act Treatment Duration: August 08, 2017 Frequency: 5 times per week Estimated Hrs Per Day: .25 hour per day Agreement: Yes Rehab Potential: Guarded Time/GCodes Start Time: 09:05 Stop Time: 09:25 Total Time Billed (hr/min): 20 Billed Treatment Time 1, PEYTON BRAY OT July 26, 2017 09:37
--- NOTE | 2017-07-26 09:45 | Progress Note (SOAP) ---
Subjective Subjective/Events-last exam Pt with arrhythmias overnight intermittently. PICC placed yesterday. Pt now with runs of VT when she raises her arm. Significant desats with prolonged time to recover with even minimal movement such as sitting up on the side of the bed. Review of Systems Date Seen by Provider: July 26, 2017 Time Seen by Provider: 11:11 General: No Chills, No Night Sweats HEENT: No Head Aches, No Dysphasia Pulmonary: Dyspnea, Cough Cardiovascular: Edema; No: Chest Pain, Palpitations Gastrointestinal: No: Nausea, Vomiting, Abdominal Pain Genitourinary: No Hematuria Neurological: Weakness; No: Change in speech, Seizures Objective Exam Last Set of Vital Signs Vital Signs Date Time Temp Pulse Resp B/P (MAP) Pulse Ox O2 Delivery O2 Flow Rate FiO2 07/26/17 09:00 86 20 120/56 (77) 100 Vapotherm 70.00 12.00 07/26/17 08:00 96.9 07/26/17 08:00 70 Capillary Refill : Less Than 3 Seconds I&O Intake and Output 07/26/17 00:00 Intake Total 1283 ml Output Total 1350 ml Balance -67 ml Intake Oral 1083 ml IV Total 200 ml Output Urine Total 1350 ml # Voids 1 # Bowel Movements 3 General: Alert, Oriented X3, Cooperative, Mild Distress HEENT: Atraumatic, EOMI, Mucous Memb Moist/[place] Neck: Supple, No Thyromegaly Lungs: Other (diminished with diffuse wheezing) Heart: Normal S1, Normal S2 Abdomen: Normal Bowel Sounds, Soft, No Tenderness Extremities: No Clubbing, No Cyanosis Skin: No Rashes, No Significant Lesion Neuro: Normal Tone, Sensation Intact, Cranial Nerves 3-12 NL Psych/Mental Status: Mental Status NL, Mood NL Results/Procedures Lab Laboratory Tests 07/25/17 10:24: Glucometer 168H 07/25/17 12:23: Glucometer 212H 07/25/17 17:15: Glucometer 205H 07/25/17 20:50: Glucometer 142H 07/26/17 04:00: White Blood Count 11.2H, Red Blood Count 3.37L, Hemoglobin 9.5L, Hematocrit 31L , Mean Corpuscular Volume 91, Mean Corpuscular Hemoglobin 28, Mean Corpuscular Hemoglobin Concent 31L, Red Cell Distribution Width 14.8H, Platelet Count 258, Mean Platelet Volume 9.4, Neutrophils (%) (Auto) 59, Lymphocytes (%) (Auto) 27, Monocytes (%) (Auto) 9, Eosinophils (%) (Auto) 5, Basophils (%) (Auto) 0, Neutrophils # (Auto) 6.7, Lymphocytes # (Auto) 3.0, Monocytes # (Auto) 1.0, Eosinophils # (Auto) 0.5H, Basophils # (Auto) 0.0, Sodium Level 141, Potassium Level 3.4L, Chloride Level 105, Carbon Dioxide Level 27, Anion Gap 9, Blood Urea Nitrogen 7, Creatinine 0.53L, Estimat Glomerular Filtration Rate > 60, BUN/ Creatinine Ratio 13, Glucose Level 35*L, Calcium Level 8.5, Phosphorus Level 2.9 , Magnesium Level 1.8 07/26/17 04:26: Glucometer 40*L 07/26/17 05:06: Glucometer 147H 07/26/17 06:05: Stool Occult Blood Immunoassay POSITIVEH 07/26/17 06:15: Erythrocyte Sedimentation Rate 107H, C-Reactive Protein High Sensitivity 12.88H , Rheumatoid Factor POSITIVE UNDILUTED Microbiology 07/22/17 Blood Culture - Preliminary, Resulted No growth 07/22/17 MRSA Screen - Final, Complete MRSA not isolated Radiology Date of Exam: 07/22/17 CHEST 1 VIEW, AP/PA ONLY INDICATION: Cough, shortness of air. TECHNIQUE: Single view chest 10:08 AM. CORRELATION STUDY: 06/23/2017 FINDINGS: There has been interval extubation to remove the gastric tube. Heart size enlarged. Mediastinum is prominent, likely stable. There is rather significant pulmonary vascular congestion and perihilar edema. Scattered pulmonary parenchyma is noted, likely largely edematous. A superimposed infiltrate/pneumonia would be difficult to exclude. IMPRESSION: 1. Enlargement present with pulmonary vascular congestion, perihilar and likely pulmonary edema. Superimposed infiltrate difficult to exclude. Followup imaging recommended. Assessment/Plan Assessment/Plan Assessment & Plan 1. Acute on chronic respiratory failure w/ hypoxia 07/23 - admitted 07/22/17 to ICU on Vapotherm, titrated down since admission currently on 13L 55% FIO2; O2 sat 94% (baseline 6L nc) - Dr. Bowles consulted 07/24 - Dr. Bowles managing; currently 8L on 85% Vapotherm and tolerating well, with sats >95%. Baseline O2 6L NC 07/25 - continue to defer management to Dr. Bowles 07/26 - continue to defer management to Dr. Bowles. Back on vapotherm 2. hx of ARDS w/ prolonged hospitalization June 2017 - required intubation and transfer to [place] [facility] from - recently admitted to [facility] after DC from [place] [facility] 07/24 - pt states she is planning to return to [facility] after discharge from here 07/25 - continue to monitor closely 07/26 - pulmonary management per Dr. Bowles; agree that if placed on ventilator patient would likely have very difficult time weaning off 3. possible Pneumonia - CXR in ED showed vascular congestion; unable to delineate clear infiltrated - currently on Zosyn and Vancomycin 07/24 - CXR suggestive of pulmonary vascular congestion, unable to rule out PNA, continued on abx at this time, Day 3 Vanc and Zosyn 07/25 - Day 4 Vanc and Zosyn; CT Chest pending 07/26 - ILD vs infection, solumedrol IVP per Dr. Bowles; considering bronch, but would require intubation and placement on ventilator 4. Diabetes Mellitus Type 2 - insulin requiring - restart home insulin regimen of Levemir and novolog w/ Novolog SSI 07/24 - Accucheck AC and HS, sliding scale insulin per protocol with home dose of Levemir 07/25 - continue accuchecks and sliding scale with home levemir 07/26 - hypoglycemia this morning; will monitor closely 5. Paroxysmal Afib on chronic anticoaguation - on Eliquis 07/24 - continue on eliquis for anticoagulation, metoprolol increased per cardiology, will defer management to their expertise 07/25 - continue to defer to cardiology 07/26 - increased arrhythmias overnight; when CXR reviewed, radiology report states PICC line tip in superior vena cava; difficult to discern due to pts significant lung disease, but feel that PICC line tip appears deeper than that, and coupled with pt's arrhythmias, find this likely. Radiology contacted and requested to re-evaluate films for placement, and PICC nurse requested to pull line back. 6. CHF - diastolic dysfunction w/ preserved EF - consult cardiology; pt reports she does not have primary cane flume watcher 07/24 - preserved EF per cardiology report, continue to defer to cardiology for management 07/25 - continue to defer to cardiology 07/26 - continue to defer to cardiology 7. Mild to moderate pulmonary hypertension 40-45mmHg on Echo 06/2017 8. Probably obesity-hypoventilation syndrome 9. Hypotension 07/24 - minimal response to intermittent fluid boluses, but requires diuresis from a cardiac standpoint; albumin and lasix to attempt to diurese and still buffer pressures if possible 07/25 - required levophed overnight; per nursing documentation, unable to contact surgeon for central access. Levophed off by this AM, plan for PICC placement today Hospice consult was done, as patient was not sure if she would want to be placed back on ventilator if she should decline to that point, or if she would want to be intubated for bronchoscopy; seen by hospice, and at this time patient does not appear to qualify, as she does not have a documented end stage disease. Dispo: The patient remains seriously ill and continues to require an ICU level of care at this time. Prognosis: Poor Clinical Quality Measures DVT/VTE Risk/Contraindication: VTE Addressed: Yes Risk Factor Score Per Nursin RFS Level Per Nursing on Admit: 4+=Very High Risk Score Comment: on Eliquis Copy Copies To 1: [facility]/MIKE BARRAZA DO July 26, 2017 09:44
--- NOTE | 2017-07-26 11:16 | Physical Therapy Daily Note ---
PT Daily Note-Current Subjective Patient in bed pre tx, agrees to PT, on vapotherm, no complaints of pain. Appearance Patient in bed post tx with nurse call, phone, tray, heels elevated on pillow. All needs met. Mental Status Patient Orientation: Person Attachments: Oxygen, Varma Catheter, IV Transfers Functional [place] Measure 0=Not Assessed/NA 4=Minimal Assistance 1=Total Assistance 5=Supervision or Setup 2=Maximal Assistance 6=Modified [place] 3=Moderate Assistance 7=Complete IndependenceIRFPAI Quality Coding Scale 6 Independent with activity with or without an assistive device 5 Patient requires set up or clean up by helper. Patient completes activity by themselves 4 Supervision or touching assist (CGA). [place] provide cues , steadying assist 3 The helper provides less than half the effort to complete the activity 2 The helper provides more than half the effort to complete the activity 1 Dependent. The helper does all the effort to complete an activity 7 Patient refused to complete or attempt activity 9 The patient did not perform the activity before the current illness or injury 88 Not attempted due to Medical conditions or safety concerns Transfers (B, C, W/C) (FIM): 4 Scootin Rollin Supine to/from Sit: 4 Weight Bearing Right Lower Extremity: Right Full Weight Bearing Left Lower Extremity: Left Full Weight Bearing Exercises Supine Ex: Ankle pumps, Quad Set, Glut sets, Heel Slides, Hip abd/add Supine Reps: 10 Treatments Patient sat at the edge of the bed with min assist and was only able to sit there for about 15 seconds before her O2 sats plunged to 81%. She was layed back down and her sats came back up to 90% shortly and she performed bed exercises. Assessment Current Status: Poor Progress O2 sats decrease drastically with activity. PT Short Term Goals Short Term Goals Transfers (B,C,W/C) (FIM): 4 PT Intermediate Goals Intermediate Goals PT Operations Architect Goals Time Frame: August 04, 2017 Transfers (B,C,W/C) (FIM): 2 PT Plan Problem List Problem List: Activity Tolerance, Functional Strength, Safety, Balance, Gait, Transfer, Bed Mobility, ROM Treatment/Plan Treatment Plan: Continue Plan of Care Treatment Plan: Bed Mobility, Education, Functional Activity [place], Functional Strength, Safety, Therapeutic Exercise, Transfers Treatment Duration: August 04, 2017 Frequency: 6 times per week Estimated Hrs Per Day: .5 hour per day Patient and/or Family Agrees t: Yes Safety Risks/Education Patient Education: Transfer Techniques, Correct Positioning, Safety Issues Teaching Recipient: Patient Teaching Methods: Demonstration, Discussion Response to Teaching: Reinforcement Needed Time/GCodes Time In: 1055 Time Out: 1110 Total Billed Treatment Time: 15 Total Billed Treatment 1 visit EX Sandra' KELLI FUENTES PT July 26, 2017 11:16
--- NOTE | 2017-07-26 13:49 | Cardiology Progress Note ---
Cardiology SOAP Progress Note Subjective: No chest pain. No resting shortness of breath. Events of overnight noted. Objective: I&O/Vital Signs 07/26/17 07/26/17 07/26/17 07/26/17 02:00 02:11 03:00 04:00 Pulse 101 101 Resp 33 24 B/P (MAP) 118/56 (76) 123/54 (77) Pulse Ox 98 97 93 100 O2 Delivery Vapotherm High Flow N/C Vapotherm Vapotherm O2 Flow Rate 85.00 8.00 85.00 8.00 8.00 8.00 FiO2 80 50 07/26/17 07/26/17 07/26/17 07/26/17 04:00 04:00 05:00 06:00 Temp 97.3 Pulse 90 81 78 Resp 25 22 30 B/P (MAP) 113/51 (71) 109/50 (69) 92/37 (55) Pulse Ox 100 95 90 O2 Delivery Vapotherm Vapotherm Vapotherm Vapotherm O2 Flow Rate 50.00 50.00 50.00 50.00 8.00 8.00 8.00 8.00 07/26/17 07/26/17 07/26/17 07/26/17 06:40 06:40 07:00 07:00 Pulse 85 85 Resp 21 B/P (MAP) 125/54 (77) Pulse Ox 99 93 O2 Delivery Vapotherm High Flow N/C Vapotherm O2 Flow Rate 40.00 8.00 40.00 8.00 8.00 FiO2 50 07/26/17 07/26/17 07/26/17 07/26/17 07:40 08:00 08:00 08:00 Temp 96.9 Pulse 92 Resp 23 B/P (MAP) 127/67 (87) Pulse Ox 100 100 O2 Delivery Vapotherm Vapotherm Vapotherm O2 Flow Rate 70.00 18.00 70.00 18.00 18.00 FiO2 70 07/26/17 07/26/17 07/26/17 07/26/17 08:35 09:00 10:00 10:08 Pulse 86 88 Resp 20 20 B/P (MAP) 120/56 (77) 112/60 (77) Pulse Ox 100 100 100 O2 Delivery Vapotherm Vapotherm Vapotherm High Flow N/C O2 Flow Rate 70.00 70.00 70.00 12.00 12.00 12.00 12.00 FiO2 70 18 07/26/17 12:00 12:00 Temp 97.0 Pulse Ox 100 O2 Delivery Vapotherm Vapotherm O2 Flow Rate 12.00 50.00 12.00 FiO2 50 07/26/17 00:00 Intake Total 1083 ml Output Total 1050 ml Balance 33 ml Weight (Pounds): 199 Weight (Ounces): 4.0 Weight (Calculated Kilograms): 90.674305 Constitutional: appears stated age, AAO x 3; No apparent distress; well- developed, well-nourished Respiratory: No accessory muscle use, No respiratory distress, No chest tender , No chest expansion is symmetric; chest is bilaterally symmetric; No lungs clear to percussion; lungs clear to auscultation; No crackles, No rhonchi, No rales, No stridor, No wheezing, No pleural rub, No other Cardiovascular: regular rate-rhythm; No irregularly irregular, No extra beats, No parasternal heave is noted, No JVD, No edema, No bradycardia, No tachycardia , No point of maximal impulse, No cardiac thrills are palpable; S1 and S2; No gallop/S3, No gallop/S4, No diastolic murmur, No systolic murmur, No friction rub, No click, No other Gastrointestional: No tender, No soft, No round, No distended, No pulsatile mass, No organomegaly, No guarding, No rebound, No tenderness, No hernia, No mass, No audible bowel sounds, No abnormal bowel sounds, No abdominal bruits, No spleenomegaly, No other Extremities: No normal range of motion, No non-tender, No normal inspection, No pedal edema, No calf tenderness, No normal capillary refill, No pelvis stable , No calf tenderness, No inflammation, No pedal edema, No slow capillary refill , No swelling, No other, No abrasion, No clubbing, No cyanosis, No ecchymosis, No laceration, No no lower extremity edema bilateral, No significant edema, No tenderness, No wound Neurologic/Psychiatric: no motor/sensory deficits, alert, normal mood/affect, oriented x 3, power is 5/5 both on sides Skin: No normal color, No warm/dry, No cyanosis, No cool, No diaphoresis, No damp, No ecchymosis, No jaundice, No mottled, No pallor, No rash, No tattoos/ piercings, No ulcerations, No rash on exposed areas, No ulcerations on exposed areas, No other Results/Procedures: Labs Laboratory Tests 07/25/17 17:15: Glucometer 205H 07/25/17 20:50: Glucometer 142H 07/26/17 04:00: White Blood Count 11.2H, Red Blood Count 3.37L, Hemoglobin 9.5L, Hematocrit 31L , Mean Corpuscular Volume 91, Mean Corpuscular Hemoglobin 28, Mean Corpuscular Hemoglobin Concent 31L, Red Cell Distribution Width 14.8H, Platelet Count 258, Mean Platelet Volume 9.4, Neutrophils (%) (Auto) 59, Lymphocytes (%) (Auto) 27, Monocytes (%) (Auto) 9, Eosinophils (%) (Auto) 5, Basophils (%) (Auto) 0, Neutrophils # (Auto) 6.7, Lymphocytes # (Auto) 3.0, Monocytes # (Auto) 1.0, Eosinophils # (Auto) 0.5H, Basophils # (Auto) 0.0, Sodium Level 141, Potassium Level 3.4L, Chloride Level 105, Carbon Dioxide Level 27, Anion Gap 9, Blood Urea Nitrogen 7, Creatinine 0.53L, Estimat Glomerular Filtration Rate > 60, BUN/ Creatinine Ratio 13, Glucose Level 35*L, Calcium Level 8.5, Phosphorus Level 2.9 , Magnesium Level 1.8 07/26/17 04:26: Glucometer 40*L 07/26/17 05:06: Glucometer 147H 07/26/17 06:05: Stool Occult Blood Immunoassay POSITIVEH 07/26/17 06:15: Erythrocyte Sedimentation Rate 107H, C-Reactive Protein High Sensitivity 12.88H , Rheumatoid Factor POSITIVE UNDILUTED 07/26/17 11:28: Glucometer 105 Microbiology 07/22/17 Blood Culture - Preliminary, Resulted No growth 07/22/17 MRSA Screen - Final, Complete MRSA not isolated A/P: Assessment/Dx: Shortness of breath, hypoxia, Sepsis, Pneumonia, Acute on chronic mild diastolic congestive heart failure, Paroxysmal atrial fibrillation, Wide-complex tachycardia, Pulmonary hypertension, Moderate aortic insufficiency, Frequent PVCs, Diabetes Plan: Shortness of breath, hypoxia, Broad-spectrum IV antibiotics. Vapotherm Sepsis, with lactic acidosis. Can give IV fluids as required. Pneumonia, on IV antibiotics. Borderline low blood pressure. Acute on chronic mild diastolic congestive heart failure, mild elevated BNP. Will hold Lasix for now since IV fluids need to be given for severe sepsis. Echocardiogram shows normal LVEF. Paroxysmal atrial fibrillation, currently in sinus rhythm. Continue Eliquis. Episodes of wide-complex tachycardia overnight. Review of strip show wide- complex rhythm with variable cycle length which could be atrial fibrillation with aberrancy considering that the patient does have history of paroxysmal atrial fibrillation. Longest episode for 11 beats. Nonsustained ventricular tachycardia cannot be ruled out. Treatment beta lindsay with normal EF. Dr Tatum showed me the chest x-ray which was done after a PICC line. I agree with Dr Tatum that the tip of the PICC line is definitely in the right atrium if not in the right ventricle. That could be causing irritation to either the right atrium or the RV. I will recommend that the PICC line it's pulled back at least 3 inches, to the level of the ross. Pulmonary hypertension: Continue to monitor. Moderate aortic regurgitation: Continue to monitor. Frequent PVCs: Resolved. Will hold lisinopril and metoprolol till blood pressure improves significantly. And then can restart with small dosages. Diabetes Thank you for your consultation. Please call me if you have any questions. Sloan Marie MD, FACP, FACC, FSCAI, FHRS, CCDS Interventional Cardiology Cardiac Electrophysiology Vascular Medicine and Endovascular Interventions Ratna MARIE MD July 26, 2017 1:49 pm
[2017-07-26] MEDS: AMITRIPTYLINE 50 MG (ELAVIL) TAB PO SCH (20:19)
[2017-07-26] MEDS: ACETAMINOPHEN 325 MG TABLET/CAPLET (TYLENOL) PO PRN (20:19)
[2017-07-26] MEDS: DULoxetine 30 MG (CYMBALTA) CAP PO SCH (20:20)
[2017-07-26] MEDS: inSUlin DETERMIR 1 UNIT/0.01 ML (LEVEMIR) CHARGE PER UNIT SQ SCH (20:24)
[2017-07-27] VITALS (16 sets, daily range): BP systolic 108–153; BP diastolic 42–98
[2017-07-27] MEDS: methylPREDNISolone 40 MG/ML (Solu-MEDROL) VIAL IV SCH ×4 (00:12→17:45)
[2017-07-27] MEDS: CATHETER FLUSH 10 ML SYR IV SCH ×4 (00:12→20:36)
[2017-07-27] MEDS: PIPERACILLIN/TAZO 4.5 GM/D5W 100 ML IVPB IV SCH ×6 (01:03→17:02)
[2017-07-27] MEDS: RT-ALBUTEROL SULF 2.5 MG/3 ML PRE-MIX VIAL INH SCH ×6 (02:52→22:10)
[2017-07-27 04:44] LABS: BASOPHILS % (AUTO) 0 % (0-10); EOSINOPHILS % (AUTO) 0 % (0-10); HEMATOCRIT 30 % (35-52); HEMOGLOBIN 9.2 G/DL (11.5-16.0); LYMPHOCYTES # (AUTO) 1.6 X 10^3 (1.0-4.0); LYMPHOCYTES % (AUTO) 17 % (12-44); MEAN CORPUSCULAR HEMOGLOBIN 28 PG (25-34); MEAN CORPUSCULAR HGB CONC 31 G/DL (32-36); MEAN CORPUSCULAR VOLUME 89 FL (80-99); MEAN PLATELET VOLUME 9.5 FL (7.4-10.4); MONOCYTES # (AUTO) 0.5 X 10^3 (0.0-1.0); MONOCYTES % (AUTO) 5 % (0-12); NEUTROPHILS # (AUTO) 7.4 X 10^3 (1.8-7.8); NEUTROPHILS % (AUTO) 78 % (42-75); PLATELET COUNT 272 10^3/uL (130-400); RED BLOOD COUNT 3.31 10^6/uL (4.35-5.85); RED CELL DISTRIBUTION WIDTH 14.3 % (10.0-14.5); WHITE BLOOD COUNT 9.4 10^3/uL (4.3-11.0)
[2017-07-27 05:10] LABS: BUN/CREATININE RATIO 15; CALCIUM 9.1 MG/DL (8.5-10.1); CARBON DIOXIDE 29 MMOL/L (21-32); CHLORIDE 102 MMOL/L (98-107); CREATININE SERUM 0.59 MG/DL (0.60-1.30); GFR ESTIMATED > 60; GLUCOSE 235 MG/DL (70-105); PHOSPHORUS 3.1 MG/DL (2.3-4.7); POTASSIUM 4.1 MMOL/L (3.6-5.0); SODIUM 138 MMOL/L (135-145)
[2017-07-27] MEDS: POTASSIUM CL 10MEQ/50ML IVPB 50 ML IV SCH (05:59)
[2017-07-27] MEDS: KCL 20 MEQ TAB (K-DUR) PO SCH (05:59)
[2017-07-27] MEDS: MAGNESIUM 1 GM/100 ML IVPB 100 ML IV SCH (05:59)
[2017-07-27] MEDS: inSUlin ASPART (NovoLOG) 1 UNIT/0.01 ML (CHARGE PER UNIT) SC SCH ×7 (06:08→20:34)
--- NOTE | 2017-07-27 06:13 | Pulmonary Progress Note ---
Subjective Time Seen by Provider: 06:14 Subjective/Events-last exam Pt is still on Vapotherm currently Sp02 100%. Exam Exam Vital Signs Date Time Temp Pulse Resp B/P (MAP) Pulse Ox O2 Delivery O2 Flow Rate FiO2 07/27/17 05:00 90 37 121/64 (83) 92 Vapotherm 50.00 10.00 07/27/17 04:00 88 38 112/59 (76) 98 Vapotherm 50.00 10.00 07/27/17 04:00 100 Vapotherm 10.00 50 07/27/17 04:00 97.6 07/27/17 03:00 93 26 122/64 (83) 100 Vapotherm 50.00 10.00 07/27/17 02:52 95 22 100 Vapotherm 50.00 10.00 07/27/17 02:52 89 Vapotherm 11.00 50 07/27/17 02:00 92 18 128/62 (84) 91 Vapotherm 50.00 11.00 07/27/17 01:00 86 21 117/63 (81) 99 Vapotherm 50.00 11.00 07/27/17 01:00 86 07/27/17 00:00 100 Vapotherm 11.00 50 07/27/17 00:00 85 18 112/58 (76) 100 Vapotherm 50.00 11.00 07/27/17 00:00 98.1 07/26/17 23:00 96 21 119/60 (79) 100 Vapotherm 50.00 11.00 07/26/17 22:00 102 24 127/63 (84) 100 Vapotherm 50.00 11.00 07/26/17 21:55 104 21 100 Vapotherm 50.00 11.00 07/26/17 21:55 100 Vapotherm 12.00 50 07/26/17 21:00 115 33 133/64 (87) 98 Vapotherm 50.00 12.00 07/26/17 20:00 113 32 128/73 (91) 99 Vapotherm 50.00 12.00 07/26/17 20:00 100 Vapotherm 12.00 50 07/26/17 20:00 98.3 Vapotherm 50.00 12.00 07/26/17 19:00 125 15 114/65 (81) 90 Vapotherm 50.00 12.00 5/16/18 19:00 121 07/26/17 18:14 93 Vapotherm 12.00 50 07/26/17 18:00 114 31 142/60 (87) 100 Vapotherm 50.00 12.00 07/26/17 17:00 107 15 129/56 (80) 92 Vapotherm 50.00 12.00 07/26/17 16:00 86 22 105/45 (65) 92 Vapotherm 50.00 12.00 07/26/17 16:00 100 Vapotherm 12.00 50 07/26/17 15:00 95 35 123/65 (84) 100 Vapotherm 50.00 12.00 07/26/17 14:18 100 High Flow N/C 18.00 60 07/26/17 14:00 92 25 113/52 (72) 100 Vapotherm 50.00 12.00 07/26/17 13:00 107 39 137/96 (110) 100 Vapotherm 50.00 12.00 07/26/17 13:00 103 07/26/17 12:00 96 32 143/78 (99) 98 Vapotherm 50.00 12.00 07/26/17 12:00 97.0 Vapotherm 50.00 12.00 07/26/17 12:00 100 Vapotherm 12.00 50 07/26/17 11:00 93 23 126/75 (92) 92 Vapotherm 70.00 12.00 07/26/17 10:08 100 High Flow N/C 12.00 70 07/26/17 10:00 88 20 112/60 (77) 100 Vapotherm 70.00 12.00 07/26/17 09:00 86 20 120/56 (77) 100 Vapotherm 70.00 12.00 07/26/17 08:35 Vapotherm 70.00 12.00 07/26/17 08:00 92 23 127/67 (87) 100 Vapotherm 70.00 18.00 07/26/17 08:00 96.9 07/26/17 08:00 100 Vapotherm 18.00 70 07/26/17 07:40 Vapotherm 70.00 18.00 07/26/17 07:00 85 21 125/54 (77) 93 Vapotherm 40.00 8.00 07/26/17 07:00 85 07/26/17 06:40 99 High Flow N/C 8.00 50 07/26/17 06:40 Vapotherm 40.00 8.00 I & O 07/27/17 07:00 Intake Total 670 ml Output Total 2000 ml Balance -1330 ml General Appearance: No Apparent Distress HEENT: PERRL/EOMI, Pharynx Normal Neck: Normal Inspection, Supple Respiratory: No Accessory Muscle Use, No Respiratory Distress, Crackles, Decreased Breath Sounds Cardiovascular: Other (2+ edema bilateral LE) Capillary Refill: Less Than 3 Seconds Gastrointestinal: non tender, soft Extremity: Normal Capillary Refill, Normal Inspection, Non Tender Neurologic/Psychiatric: Alert, Oriented x3 Skin: Normal Color, Warm/Dry Lymphatic: No Adenopathy Results Lab Laboratory Tests 07/26/17 04:00 07/27/17 04:30 Assessment/Plan Assessment/Plan Acute on chronic respiratory failure with severe hypoxia -Will attempt to change to regular NC. ILD inflamatory vs infectious -Add Solumedrol 125mg IV x 1 then 40 IV Q 6 -Check CRP, ESR, RA, FRIEDA, ANCA -Monitor close -Pt may need bronchoscopy however at this time she would need to be placed on vent if bronch was attempted. Hypotension- improved with IVF -PT responded to IVF. Paroxysmal Afib on anticoagulation Diastolic CHF with pulmonary HTN -PT needs out patient PSG - hep lock IVF IDDM II - Pt became hypoglycemic last night -Decrease Levemir Deconditioning -PT/OT denies ever smoking Will transfer to 4th floor. pt's overall prognosis is poor. She declined hospice 233 GONZÁLEZ YE DO July 27, 2017 06:13
[2017-07-27] MEDS: GABAPENTIN 400 MG (NEURONTIN) CAP PO SCH ×2 (08:20→20:36)
[2017-07-27] MEDS: ASPIRIN 81 MG CHEW (CHILDREN'S ASA) PO SCH (08:20)
[2017-07-27] MEDS: APIXABAN 5 MG (ELIQUIS) TABLET PO SCH ×2 (08:20→20:36)
[2017-07-27] MEDS: PANTOPRAZOLE 40 MG (PROTONIX) TAB PO SCH (08:20)
[2017-07-27] MEDS: traZODone 50 MG (DESYREL) TAB PO SCH ×3 (08:20→20:36)
--- NOTE | 2017-07-27 08:42 | Diagnostic Imaging Report ---
INDICATION: Followup pneumonia and CHF. TIME OF EXAM: 2:00 a.m. FINDINGS: Right upper extremity PICC line has tip overlying the SVC right atrial junction. The heart remains enlarged. Extensive bilateral infiltrates persist but may show slight improvement when compared with yesterday. In particular, there appears to be less consolidation in the right upper lobe. No significant effusion is seen. There is no pneumothorax. IMPRESSION: Continued diffuse bilateral pulmonary infiltrates similar to perhaps slightly improved when compared with examination one day earlier. Dictated by: Dictated on workstation # [id number]
--- NOTE | 2017-07-27 10:03 | Progress Note (SOAP) ---
Subjective Subjective/Events-last exam No complaints, patient reports that she is overall feeling better. Has weaned down significantly on her oxygen requirement. PICC line pulled back yesterday afternoon - pt with no further significant arrhythmias. Review of Systems Date Seen by Provider: July 27, 2017 Time Seen by Provider: 11:39 General: No Chills, No Night Sweats, No Fatigue HEENT: No Dysphasia, No Sore Throat Pulmonary: Dyspnea, Cough Cardiovascular: Edema; No: Chest Pain, Palpitations Gastrointestinal: No: Nausea, Vomiting, Abdominal Pain Genitourinary: No Hematuria Musculoskeletal: No: neck pain, back pain Neurological: No: Numbness, Change in speech, Confusion, Seizures Objective Exam Last Set of Vital Signs Vital Signs Date Time Temp Pulse Resp B/P (MAP) Pulse Ox O2 Delivery O2 Flow Rate FiO2 07/27/17 06:20 100 High Flow N/C 5.00 07/27/17 06:00 88 38 126/67 (86) 07/27/17 04:00 50 07/27/17 04:00 97.6 Capillary Refill : Less Than 3 Seconds I&O Intake and Output 07/27/17 00:00 Intake Total 850 ml Output Total 1800 ml Balance -950 ml Intake Oral 550 ml IV Total 300 ml Output Urine Total 1800 ml # Bowel Movements 1 General: Alert, Oriented X3, Cooperative, No Acute Distress HEENT: Atraumatic, EOMI, Mucous Memb Moist/[place] Neck: Supple, No Thyromegaly Lungs: Other (diminished with diffuse coarseness) Heart: Regular Rate, Normal S1, Normal S2 Abdomen: Normal Bowel Sounds, Soft, No Tenderness Extremities: No Clubbing, No Cyanosis Skin: No Rashes, No Significant Lesion Neuro: Normal Speech, Normal Tone, Sensation Intact, Cranial Nerves 3-12 NL Psych/Mental Status: Mental Status NL, Mood NL Results/Procedures Lab Laboratory Tests 07/26/17 11:28: Glucometer 105 07/26/17 16:24: Glucometer 290H 07/26/17 20:18: Glucometer 336H 07/27/17 04:30: White Blood Count 9.4, Red Blood Count 3.31L, Hemoglobin 9.2L, Hematocrit 30L, Mean Corpuscular Volume 89, Mean Corpuscular Hemoglobin 28, Mean Corpuscular Hemoglobin Concent 31L, Red Cell Distribution Width 14.3, Platelet Count 272, Mean Platelet Volume 9.5, Neutrophils (%) (Auto) 78H, Lymphocytes (%) (Auto) 17 , Monocytes (%) (Auto) 5, Eosinophils (%) (Auto) 0, Basophils (%) (Auto) 0, Neutrophils # (Auto) 7.4, Lymphocytes # (Auto) 1.6, Monocytes # (Auto) 0.5, Eosinophils # (Auto) 0.0, Basophils # (Auto) 0.0, Sodium Level 138, Potassium Level 4.1, Chloride Level 102, Carbon Dioxide Level 29, Anion Gap 7, Blood Urea Nitrogen 9, Creatinine 0.59L, Estimat Glomerular Filtration Rate > 60, BUN/ Creatinine Ratio 15, Glucose Level 235H, Calcium Level 9.1, Phosphorus Level 3.1 , Magnesium Level 2.0 Microbiology 07/22/17 Blood Culture - Preliminary, Resulted No growth 07/22/17 MRSA Screen - Final, Complete MRSA not isolated Radiology Date of Exam: 07/22/17 CHEST 1 VIEW, AP/PA ONLY INDICATION: Cough, shortness of air. TECHNIQUE: Single view chest 10:08 AM. CORRELATION STUDY: 06/23/2017 FINDINGS: There has been interval extubation to remove the gastric tube. Heart size enlarged. Mediastinum is prominent, likely stable. There is rather significant pulmonary vascular congestion and perihilar edema. Scattered pulmonary parenchyma is noted, likely largely edematous. A superimposed infiltrate/pneumonia would be difficult to exclude. IMPRESSION: 1. Enlargement present with pulmonary vascular congestion, perihilar and likely pulmonary edema. Superimposed infiltrate difficult to exclude. Followup imaging recommended. Assessment/Plan Assessment/Plan Assessment & Plan 1. Acute on chronic respiratory failure w/ hypoxia 07/23 - admitted 07/22/17 to ICU on Vapotherm, titrated down since admission currently on 13L 55% FIO2; O2 sat 94% (baseline 6L nc) - Dr. Bowles consulted 07/24 - Dr. Bowles managing; currently 8L on 85% Vapotherm and tolerating well, with sats >95%. Baseline O2 6L NC 07/25 - continue to defer management to Dr. Bowles 07/26 - continue to defer management to Dr. Bowles. Back on vapotherm 07/27 - has weaned down to NC, is lower than baseline 6L at admission at the time of exam 2. hx of ARDS w/ prolonged hospitalization June 2017 - required intubation and transfer to [place] from - recently admitted to [facility] after DC from [place] 07/24 - pt states she is planning to return to [facility] after discharge from here 07/25 - continue to monitor closely 07/26 - pulmonary management per Dr. Bowles; agree that if placed on ventilator patient would likely have very difficult time weaning off 07/27 - continue to defer pulm management to Dr. Bowles 3. possible Pneumonia - CXR in ED showed vascular congestion; unable to delineate clear infiltrated - currently on Zosyn and Vancomycin 07/24 - CXR suggestive of pulmonary vascular congestion, unable to rule out PNA, continued on abx at this time, Day 3 Vanc and Zosyn 07/25 - Day 4 Vanc and Zosyn; CT Chest pending 07/26 - ILD vs infection, solumedrol IVP per Dr. Bowles; considering bronch, but would require intubation and placement on ventilator 07/27 - Day 6 Zosyn; incorrectly stated above - pt never received vanc 4. Diabetes Mellitus Type 2 - insulin requiring - restart home insulin regimen of Levemir and novolog w/ Novolog SSI 07/24 - Accucheck AC and HS, sliding scale insulin per protocol with home dose of Levemir 07/25 - continue accuchecks and sliding scale with home levemir 07/26 - hypoglycemia this morning; will monitor closely 07/27 - no further hypoglycemia 5. Paroxysmal Afib on chronic anticoaguation - on Eliquis 07/24 - continue on eliquis for anticoagulation, metoprolol increased per cardiology, will defer management to their expertise 07/25 - continue to defer to cardiology 07/26 - increased arrhythmias overnight; when CXR reviewed, radiology report states PICC line tip in superior vena cava; difficult to discern due to pts significant lung disease, but feel that PICC line tip appears deeper than that, and coupled with pt's arrhythmias, find this likely. Radiology contacted and requested to re-evaluate films for placement, and PICC nurse requested to pull line back. 07/27 - arrhythmias mostly resolved after PICC pulled back; continue telemetry 6. 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 Mild to moderate pulmonary hypertension 40-45mmHg on Echo 06/2017 8. Probably obesity-hypoventilation syndrome 9. Hypotension 07/24 - minimal response to intermittent fluid boluses, but requires diuresis from a cardiac standpoint; albumin and lasix to attempt to diurese and still buffer pressures if possible 07/25 - required levophed overnight; per nursing documentation, unable to contact surgeon for central access. Levophed off by this AM, plan for PICC placement today 07/26 - no further hypotension 07/27 - no further hypotension Hospice consult was done, as patient was not sure if she would want to be placed back on ventilator if she should decline to that point, or if she would want to be intubated for bronchoscopy; seen by hospice, and at this time patient does not appear to qualify, as she does not have a documented end stage disease. Dispo: The patient has improved significantly since yesterday and will be transferred to the floor today. Prognosis: Poor Clinical Quality Measures DVT/VTE Risk/Contraindication: VTE Addressed: Yes Risk Factor Score Per Nursin RFS Level Per Nursing on Admit: 4+=Very High Risk Score Comment: on STEARCLE[employer] Copy Copies To 1: [facility]/MIKE BARRAZA DO July 27, 2017 10:03
--- NOTE | 2017-07-27 10:57 | Physical Therapy Daily Note ---
PT Daily Note-Current Subjective Patient declined sitting EOB but agrees to PT. Pain Numeric Pain Scale: 0-No Pain Location: No Pain Reported Mental Status Patient Orientation: Normal For Age Attachments: Oxygen (4L HF) Transfers Functional [place] Measure 0=Not Assessed/NA 4=Minimal Assistance 1=Total Assistance 5=Supervision or Setup 2=Maximal Assistance 6=Modified [place] 3=Moderate Assistance 7=Complete IndependenceIRFPAI Quality Coding Scale 6 Independent with activity with or without an assistive device 5 Patient requires set up or clean up by helper. Patient completes activity by themselves 4 Supervision or touching assist (CGA). [place] provide cues , steadying assist 3 The helper provides less than half the effort to complete the activity 2 The helper provides more than half the effort to complete the activity 1 Dependent. The helper does all the effort to complete an activity 7 Patient refused to complete or attempt activity 9 The patient did not perform the activity before the current illness or injury 88 Not attempted due to Medical conditions or safety concerns Weight Bearing Right Lower Extremity: Right Full Weight Bearing Left Lower Extremity: Left Full Weight Bearing Exercises Supine Ex: Ankle pumps, Quad Set, Heel Slides, Straight leg raise, Hip abd/add Supine Reps: 15 (AAROM right LE) Assessment Patient SAO2 decreases to 84% with activity. RN present to monitor patient SAO2 after PT treatment. PT Short Term Goals Short Term Goals Transfers (B,C,W/C) (FIM): 4 PT Penitentiary Goals [place] Goals PT [place] Washing Goals Time Frame: August 04, 2017 Transfers (B,C,W/C) (FIM): 2 PT Plan Treatment/Plan Treatment Plan: Continue Plan of Care Treatment Plan: Bed Mobility, Education, Functional Activity [place], Functional Strength, Safety, Therapeutic Exercise, Transfers Treatment Duration: August 04, 2017 Frequency: 6 times per week Estimated Hrs Per Day: .5 hour per day Patient and/or Family Agrees t: Yes Time/GCodes Time In: 1032 Time Out: 1040 Total Billed Treatment Time: 8 Total Billed Treatment 1 visit EX 8 min PARUL MCFARLAND PT July 27, 2017 10:57
--- NOTE | 2017-07-27 13:59 | Cardiology Progress Note ---
Cardiology SOAP Progress Note Subjective: No cardiac symptoms Objective: I&O/Vital Signs 07/27/17 07/27/17 07/27/17 07/27/17 02:00 02:52 02:52 03:00 Pulse 92 95 93 Resp 18 22 26 B/P (MAP) 128/62 (84) 122/64 (83) Pulse Ox 91 89 100 100 O2 Delivery Vapotherm Vapotherm Vapotherm Vapotherm O2 Flow Rate 50.00 11.00 50.00 50.00 11.00 10.00 10.00 FiO2 50 07/27/17 07/27/17 07/27/17 07/27/17 04:00 04:00 04:00 05:00 Temp 97.6 Pulse 88 90 Resp 38 37 B/P (MAP) 112/59 (76) 121/64 (83) Pulse Ox 100 98 92 O2 Delivery Vapotherm Vapotherm Vapotherm O2 Flow Rate 10.00 50.00 50.00 10.00 10.00 FiO2 50 07/27/17 07/27/17 07/27/17 07/27/17 06:00 06:20 07:00 07:00 Pulse 88 105 105 Resp 38 37 B/P (MAP) 126/67 (86) 148/76 (100) Pulse Ox 96 100 98 O2 Delivery Vapotherm High Flow N/C Vapotherm O2 Flow Rate 50.00 5.00 50.00 10.00 10.00 07/27/17 07/27/17 07/27/17 07/27/17 08:00 08:00 09:00 10:00 Pulse 102 111 101 Resp 22 32 33 B/P (MAP) 141/71 (94) 153/80 (104) 139/72 (94) Pulse Ox 100 93 91 99 O2 Delivery Vapotherm High Flow N/C Vapotherm Vapotherm O2 Flow Rate 50.00 5.00 50.00 50.00 10.00 10.00 10.00 07/27/17 07/27/17 10:17 13:45 Pulse Ox 97 88 O2 Delivery High Flow N/C High Flow N/C O2 Flow Rate 5.00 4.00 07/27/17 00:00 Intake Total 570 ml Output Total 1075 ml Balance -505 ml Weight (Pounds): 199 Weight (Ounces): 4.0 Weight (Calculated Kilograms): [id number] Constitutional: appears stated age, AAO x 3; No apparent distress; well- developed, well-nourished Respiratory: No accessory muscle use, No respiratory distress, No chest tender , No chest expansion is symmetric; chest is bilaterally symmetric; No lungs clear to percussion; lungs clear to auscultation; No crackles, No rhonchi, No rales, No stridor, No wheezing, No pleural rub, No other Cardiovascular: regular rate-rhythm; No irregularly irregular, No extra beats, No parasternal heave is noted, No JVD, No edema, No bradycardia, No tachycardia , No point of maximal impulse, No cardiac thrills are palpable; S1 and S2; No gallop/S3, No gallop/S4, No diastolic murmur, No systolic murmur, No friction rub, No click, No other Gastrointestional: No tender, No soft, No round, No distended, No pulsatile mass, No organomegaly, No guarding, No rebound, No tenderness, No hernia, No mass, No audible bowel sounds, No abnormal bowel sounds, No abdominal bruits, No spleenomegaly, No other Extremities: No normal range of motion, No non-tender, No normal inspection, No pedal edema, No calf tenderness, No normal capillary refill, No pelvis stable , No calf tenderness, No inflammation, No pedal edema, No slow capillary refill , No swelling, No other, No abrasion, No clubbing, No cyanosis, No ecchymosis, No laceration, No no lower extremity edema bilateral, No significant edema, No tenderness, No wound Neurologic/Psychiatric: no motor/sensory deficits, alert, normal mood/affect, oriented x 3, power is 5/5 both on sides Skin: No normal color, No warm/dry, No cyanosis, No cool, No diaphoresis, No damp, No ecchymosis, No jaundice, No mottled, No pallor, No rash, No tattoos/ piercings, No ulcerations, No rash on exposed areas, No ulcerations on exposed areas, No other Results/Procedures: Labs Laboratory Tests 07/26/17 16:24: Glucometer 290H 07/26/17 20:18: Glucometer 336H 07/27/17 04:30: White Blood Count 9.4, Red Blood Count 3.31L, Hemoglobin 9.2L, Hematocrit 30L, Mean Corpuscular Volume 89, Mean Corpuscular Hemoglobin 28, Mean Corpuscular Hemoglobin Concent 31L, Red Cell Distribution Width 14.3, Platelet Count 272, Mean Platelet Volume 9.5, Neutrophils (%) (Auto) 78H, Lymphocytes (%) (Auto) 17 , Monocytes (%) (Auto) 5, Eosinophils (%) (Auto) 0, Basophils (%) (Auto) 0, Neutrophils # (Auto) 7.4, Lymphocytes # (Auto) 1.6, Monocytes # (Auto) 0.5, Eosinophils # (Auto) 0.0, Basophils # (Auto) 0.0, Sodium Level 138, Potassium Level 4.1, Chloride Level 102, Carbon Dioxide Level 29, Anion Gap 7, Blood Urea Nitrogen 9, Creatinine 0.59L, Estimat Glomerular Filtration Rate > 60, BUN/ Creatinine Ratio 15, Glucose Level 235H, Calcium Level 9.1, Phosphorus Level 3.1 , Magnesium Level 2.0 07/27/17 10:49: Glucometer 202H Microbiology 07/22/17 Blood Culture - Preliminary, Resulted No growth 07/22/17 MRSA Screen - Final, Complete MRSA not isolated A/P: Assessment/Dx: Shortness of breath, hypoxia, Sepsis, Pneumonia, Acute on chronic mild diastolic congestive heart failure, Paroxysmal atrial fibrillation, Wide-complex tachycardia, Pulmonary hypertension, Moderate aortic insufficiency, Frequent PVCs, Diabetes Plan: Shortness of breath, hypoxia, Broad-spectrum IV antibiotics. Vapotherm Sepsis, with lactic acidosis. Can give IV fluids as required. Pneumonia, on IV antibiotics. Borderline low blood pressure. Acute on chronic mild diastolic congestive heart failure, mild elevated BNP. Will hold Lasix for now since IV fluids need to be given for severe sepsis. Echocardiogram shows normal LVEF. Paroxysmal atrial fibrillation, currently in sinus rhythm. Continue Eliquis. Sinus tachycardia: likely secondary to severe systemic illness. Pulmonary hypertension: Continue to monitor. Moderate aortic regurgitation: Continue to monitor. Frequent PVCs: Resolved. Will hold lisinopril and metoprolol till blood pressure improves significantly. And then can restart with small dosages. Diabetes Thank you for your consultation. Please call me if you have any questions. Sloan Marie MD, FACP, FACC, FSCAI, FHRS, CCDS Interventional Cardiology Cardiac Electrophysiology Vascular Medicine and Endovascular Interventions Ratna MARIE MD July 27, 2017 1:59 pm
--- NOTE | 2017-07-27 15:08 | Occupational Ther Daily Note ---
OT Current Status-Daily Note Subjective No pain reported. Appearance Pt. in bed. Agrees to work with OT. Mental Status/Objective Patient Orientation: Person Functional [place] Measure 0=Not Assessed/NA 4=Minimal Assistance 1=Total Assistance 5=Supervision or Setup 2=Maximal Assistance 6=Modified [place] 3=Moderate Assistance 7=Complete [place] ADL-Treatment Bathing (FIM): 2 (Pt. incontinent of bowel in bed. Rolled side to side for OT to cleanse all parts. OT washed bilateral LE and back. Pt. able to wash under arms and upper chest.) Lower Body Dressing (FIM): 1 Toileting (FIM): 1 (Incontinent of bowel in bed.) Transfers (B, C, W/C) (FIM): 3 (Pt. is able to roll side to side multiple times with mod assist overall. ) Other Treatment After bed bathe and erick care, OT put bed into chair position. Pt. stayed this way for approximately 5 minutes. Monitored oxygen saturations while in this position. Pt. on 5 L oxygen through nasal cannula. Pt.'s sats dropped to 84%. Pt. was laid back into supine position with HOB elevated. Pt. made comfortable. Education OT Patient Education: Correct positioning, Modified ADL techniques, Progress toward Goal/Update tx plan, Purpose of tx/functional activities, Reviewed precautions, Rehab process, Transfer techniques Teaching Recipient: Patient Teaching Methods: Demonstration Response to Teaching: Verbalize Understanding, Return Demonstration OT Short Term Goals Short Term Goals Time Frame: August 01, 2017 Eating(FIM): 5 Grooming(FIM): 4 Bathing(FIM): 3 Upper Body Dressing(FIM): 4 Lower Body Dressing(FIM): 3 Toileting(FIM): 4 Transfers (B,C,W/C) (FIM): 4 Toilet/Commode Transfer(FIM): 4 Additional Short Term Goals: 1-Demonstrate ADL Tasks, 2-Verbalize Understanding , 3-ImproveStrength/[place] 1=Demonstrate adherence to instructed precautions during ADL tasks. 2=Patient will verbalize/demonstrate understanding of assistive devices/ modifications for ADL. 3=Patient will improve strength/tolerance for activity to enable patient to perform ADL's. OT Halfway Goals Halfway Goals Time Frame: August 08, 2017 Eating (FIM): 6 Grooming(FIM): 5 Bathing(FIM): 4 Upper Body Dressing(FIM): 4 Lower Body Dressing(FIM): 4 Toileting(FIM): 5 Transfers (B,C,W/C) (FIM): 5 Toilet/Commode Transfer(FIM): 5 Additional Goals: 1-Demonstrate ADL Tasks, 2-Verbalize Understanding, 3- ImproveStrength/[place] 1=Demonstrate adherence to instructed precautions during ADL tasks. 2=Patient will verbalize/demonstrate understanding of assistive devices/ modifications for ADL. 3=Patient will improve strength/tolerance for activity to enable patient to perform ADL's. OT Education/Plan Problem List/Assessment Assessment: Decreased Activ Tolerance, Decreased UE Strength, Dependent Transfers, Impaired Bed Mobility, Impaired Funct Balance, Impaired I ADL's, Impaired Self-Care Skills Discharge Recommendations Plan/Recommendations: Continue POC Therapy D/C Recommendations: 24 hr Supervision Comment Discharge needs and equipment to be determined. Treatment Plan/Plan of Care Treatment,Training & Education: Yes Patient would benefit from OT for education, treatment and training to promote independence in ADL's, mobility, safety and/or upper extremity function for ADL' s. Plan of Care: ADL Retraining, Functional Mobility, UE Funct Exercise/Act Treatment Duration: August 08, 2017 Frequency: 5 times per week Estimated Hrs Per Day: .25 hour per day Agreement: Yes Rehab Potential: Fair Time/GCodes Start Time: 08:35 Stop Time: 09:00 Total Time Billed (hr/min): 25 Billed Treatment Time 1, ADL x 2 PEYTON GRAVES OT July 27, 2017 15:08
[2017-07-27] MEDS: inSUlin DETERMIR 1 UNIT/0.01 ML (LEVEMIR) CHARGE PER UNIT SQ SCH (20:35)
[2017-07-27] MEDS: DULoxetine 30 MG (CYMBALTA) CAP PO SCH (20:35)
[2017-07-27] MEDS: AMITRIPTYLINE 50 MG (ELAVIL) TAB PO SCH (20:36)
[2017-07-28] VITALS (26 sets, daily range): BP systolic 107–158; BP diastolic 50–98
[2017-07-28] MEDS: methylPREDNISolone 40 MG/ML (Solu-MEDROL) VIAL IV SCH ×4 (00:57→19:01)
[2017-07-28] MEDS: PIPERACILLIN/TAZO 4.5 GM/D5W 100 ML IVPB IV SCH ×6 (01:00→17:07)
[2017-07-28] MEDS: RT-ALBUTEROL SULF 2.5 MG/3 ML PRE-MIX VIAL INH SCH ×6 (02:38→21:46)
[2017-07-28] MEDS: CATHETER FLUSH 10 ML SYR IV SCH ×3 (05:33→22:08)
[2017-07-28] MEDS: inSUlin ASPART (NovoLOG) 1 UNIT/0.01 ML (CHARGE PER UNIT) SC SCH ×7 (05:34→21:24)
[2017-07-28 05:48] LABS: BASOPHILS % (AUTO) 0 % (0-10); EOSINOPHILS % (AUTO) 0 % (0-10); HEMATOCRIT 30 % (35-52); HEMOGLOBIN 9.5 G/DL (11.5-16.0); LYMPHOCYTES % (AUTO) 9 % (12-44); MEAN CORPUSCULAR HEMOGLOBIN 28 PG (25-34); MEAN CORPUSCULAR HGB CONC 31 G/DL (32-36); MEAN CORPUSCULAR VOLUME 91 FL (80-99); MEAN PLATELET VOLUME 9.6 FL (7.4-10.4); MONOCYTES # (AUTO) 0.5 X 10^3 (0.0-1.0); MONOCYTES % (AUTO) 4 % (0-12); NEUTROPHILS # (AUTO) 10.5 X 10^3 (1.8-7.8); NEUTROPHILS % (AUTO) 87 % (42-75); PLATELET COUNT 282 10^3/uL (130-400); RED BLOOD COUNT 3.34 10^6/uL (4.35-5.85); RED CELL DISTRIBUTION WIDTH 15.1 % (10.0-14.5)
[2017-07-28] MEDS: MAGNESIUM 1 GM/100 ML IVPB 100 ML IV SCH (06:02)
[2017-07-28 06:08] LABS: BUN/CREATININE RATIO 20; CALCIUM 9.1 MG/DL (8.5-10.1); CARBON DIOXIDE 29 MMOL/L (21-32); CHLORIDE 102 MMOL/L (98-107); CREATININE SERUM 0.66 MG/DL (0.60-1.30); GFR ESTIMATED > 60; GLUCOSE 316 MG/DL (70-105); PHOSPHORUS 2.7 MG/DL (2.3-4.7); POTASSIUM 4.2 MMOL/L (3.6-5.0); SODIUM 141 MMOL/L (135-145)
--- NOTE | 2017-07-28 06:29 | Pulmonary Progress Note ---
Subjective Time Seen by Provider: 06:24 Subjective/Events-last exam Pt became hypoxic with turning in bed. RT was called for stat SVN tx. Currently Sp02 is 99%. Exam Exam Vital Signs Date Time Temp Pulse Resp B/P (MAP) Pulse Ox O2 Delivery O2 Flow Rate FiO2 07/28/17 04:27 97.6 99 17 134/71 (92) 92 High Flow N/C 7.00 07/28/17 02:38 100 High Flow N/C 7.00 07/28/17 01:00 95 07/28/17 00:20 98.0 106 19 116/63 (80) 96 High Flow N/C 7.00 07/27/17 22:11 94 High Flow N/C 7.00 07/27/17 20:05 99.5 131 20 137/77 (97) 93 High Flow N/C 7.00 07/27/17 20:00 93 High Flow N/C 5.00 07/27/17 19:00 127 07/27/17 18:32 85 High Flow N/C 6.00 07/27/17 14:00 125 23 130/70 (90) 90 Vapotherm 50.00 10.00 07/27/17 13:45 88 High Flow N/C 4.00 07/27/17 13:00 123 25 108/98 (101) 90 Vapotherm 50.00 10.00 07/27/17 12:00 93 High Flow N/C 5.00 07/27/17 12:00 112 144/42 (76) 92 Vapotherm 50.00 10.00 07/27/17 12:00 98.0 07/27/17 11:00 113 141/68 (92) 96 Vapotherm 50.00 10.00 07/27/17 10:17 97 High Flow N/C 5.00 07/27/17 10:00 101 33 139/72 (94) 99 Vapotherm 50.00 10.00 07/27/17 09:00 111 32 153/80 (104) 91 Vapotherm 50.00 10.00 07/27/17 08:00 93 High Flow N/C 5.00 07/27/17 08:00 102 22 141/71 (94) 100 Vapotherm 50.00 10.00 07/27/17 07:00 105 37 148/76 (100) 98 Vapotherm 50.00 10.00 07/27/17 07:00 105 I & O 07/28/17 07:00 Intake Total 1400 ml Output Total 1700 ml Balance -300 ml General Appearance: No Apparent Distress HEENT: PERRL/EOMI, Pharynx Normal Neck: Normal Inspection, Supple Respiratory: No Accessory Muscle Use, No Respiratory Distress, Crackles, Decreased Breath Sounds Cardiovascular: Other (2+ edema bilateral LE) Capillary Refill: Less Than 3 Seconds Gastrointestinal: non tender, soft Extremity: Normal Capillary Refill, Normal Inspection, Non Tender Neurologic/Psychiatric: Alert, Oriented x3 Skin: Normal Color, Warm/Dry Lymphatic: No Adenopathy Results Lab Laboratory Tests 07/27/17 04:30 07/28/17 05:20 Assessment/Plan Assessment/Plan Acute on chronic respiratory failure with severe hypoxia -Pt will benefit from home vent to mask. Her PC02 is 53. -She is high risk for sudden and multiple readmissions. ILD inflamatory vs infectious -Solumedrol 40 IV Q 6 -Monitor close Paroxysmal Afib on anticoagulation Diastolic CHF with pulmonary HTN -repeat Lasix x 1 -Repeat BNP - hep lock IVF IDDM II - Pt became hypoglycemic last night -Decrease Levemir Deconditioning -PT/OT denies ever smoking Pt is very weak and desaturates very quickly with mvmt. Pt's overall prognosis is poor and currently she is still a full code. 233 GONZÁLEZ YE DO July 28, 2017 06:29
[2017-07-28] MEDS ORDERED: FUROSEMIDE 40 MG/4 ML INJ (LASIX) IVP ONE (06:30)
[2017-07-28] MEDS ORDERED: KCL 20 MEQ TAB (K-DUR) PO ONE (06:30)
--- NOTE | 2017-07-28 07:08 | Diagnostic Imaging Report ---
INDICATION: Dyspnea. COMPARISON: 07/27/2017 FINDINGS: Single frontal radiographic view of the chest was obtained and continues to demonstrate diffuse mixed interstitial and alveolar opacities. There may be mild improved aeration of the left base. Otherwise, there is no significant change. There is no large effusion or pneumothorax. Cardiac silhouette is mostly obscured, but does appear to be enlarged. Right upper extremity PICC line is seen with tip in the base of the right atrium. Bony structures show no gross acute abnormalities. IMPRESSION: 1. Persistent diffuse mixed interstitial and alveolar opacities with perhaps slight improved aeration of the left base. 2. Right upper extremity PICC line in the base of the right atrium. Dictated by: Dictated on workstation # [id number]
--- NOTE | 2017-07-28 07:45 | Diagnostic Imaging Report ---
INDICATION: Asymmetric expansion of the chest. COMPARISON: Earlier same day. FINDINGS: Single frontal radiographic view of the chest was obtained and again demonstrates a diffuse bilateral infiltrates. Overall, aeration is stable compared earlier same day. There is no large effusion or pneumothorax. Cardiac silhouette is heavily obscured. Right upper extremity PICC line is again identified with tip extending to the base of the right atrium. Bony structures show no new acute abnormalities. IMPRESSION: 1. Stable exam of the chest showing diffuse bilateral infiltrates. Dictated by: Dictated on workstation # [id number]
--- NOTE | 2017-07-28 08:34 | Progress Note (SOAP) ---
Subjective Subjective/Events-last exam Patient reports she is feeling pretty good today, is hoping that she continues to improve and can be discharged. No complaints or concerns. Continues to have desaturation events with movement. Review of Systems Date Seen by Provider: July 28, 2017 Time Seen by Provider: 11:27 General: No Chills, No Night Sweats HEENT: No Head Aches, No Dysphasia Pulmonary: Dyspnea, Cough Cardiovascular: Edema; No: Chest Pain Gastrointestinal: No: Vomiting, Abdominal Pain Genitourinary: No Hematuria Neurological: Weakness; No: Numbness, Seizures Objective Exam Last Set of Vital Signs Vital Signs Date Time Temp Pulse Resp B/P (MAP) Pulse Ox O2 Delivery O2 Flow Rate FiO2 07/28/17 08:09 103 31 94 60.00 07/28/17 06:37 High Flow N/C 07/28/17 04:27 97.6 134/71 (92) 07/27/17 04:00 50 Capillary Refill : Less Than 3 Seconds I&O Intake and Output 07/28/17 00:00 Intake Total 1400 ml Output Total 2325 ml Balance -925 ml Intake Oral 1400 ml Output Urine Total 2325 ml # Bowel Movements 7 General: Alert, Oriented X3, Cooperative, No Acute Distress HEENT: Atraumatic, EOMI, Mucous Memb Moist/[place] Neck: Supple, No Thyromegaly Lungs: Other (dimished, coarseness with wheezing) Heart: Regular Rate, Normal S1, Normal S2 Abdomen: Normal Bowel Sounds, Soft, No Tenderness Extremities: No Clubbing, No Cyanosis Skin: No Rashes, No Significant Lesion Neuro: Normal Speech, Normal Tone, Cranial Nerves 3-12 NL Psych/Mental Status: Mental Status NL, Mood NL Results/Procedures Lab Laboratory Tests 07/27/17 10:49: Glucometer 202H 07/27/17 16:39: Glucometer 359H 07/27/17 20:18: Glucometer 314H 07/28/17 05:20: White Blood Count 12.0H, Red Blood Count 3.34L, Hemoglobin 9.5L, Hematocrit 30L , Mean Corpuscular Volume 91, Mean Corpuscular Hemoglobin 28, Mean Corpuscular Hemoglobin Concent 31L, Red Cell Distribution Width 15.1H, Platelet Count 282, Mean Platelet Volume 9.6, Neutrophils (%) (Auto) 87H, Lymphocytes (%) (Auto) 9L , Monocytes (%) (Auto) 4, Eosinophils (%) (Auto) 0, Basophils (%) (Auto) 0, Neutrophils # (Auto) 10.5H, Lymphocytes # (Auto) 1.0, Monocytes # (Auto) 0.5, Eosinophils # (Auto) 0.0, Basophils # (Auto) 0.0, Sodium Level 141, Potassium Level 4.2, Chloride Level 102, Carbon Dioxide Level 29, Anion Gap 10, Blood Urea Nitrogen 13, Creatinine 0.66, Estimat Glomerular Filtration Rate > 60, BUN/ Creatinine Ratio 20, Glucose Level 316H, Calcium Level 9.1, Phosphorus Level 2.7 , Magnesium Level 2.0, B-Type Natriuretic Peptide 419.1H 07/28/17 05:21: Glucometer 303H Microbiology 07/22/17 Blood Culture - Final, Complete No growth 07/22/17 MRSA Screen - Final, Complete MRSA not isolated Radiology Date of Exam: 07/22/17 CHEST 1 VIEW, AP/PA ONLY INDICATION: Cough, shortness of air. TECHNIQUE: Single view chest 10:08 AM. CORRELATION STUDY: 06/23/2017 FINDINGS: There has been interval extubation to remove the gastric tube. Heart size enlarged. Mediastinum is prominent, likely stable. There is rather significant pulmonary vascular congestion and perihilar edema. Scattered pulmonary parenchyma is noted, likely largely edematous. A superimposed infiltrate/pneumonia would be difficult to exclude. IMPRESSION: 1. Enlargement present with pulmonary vascular congestion, perihilar and likely pulmonary edema. Superimposed infiltrate difficult to exclude. Followup imaging recommended. Assessment/Plan Assessment/Plan Assessment & Plan 1. Acute on chronic respiratory failure w/ hypoxia 07/23 - admitted 07/22/17 to ICU on Vapotherm, titrated down since admission currently on 13L 55% FIO2; O2 sat 94% (baseline 6L nc) - Dr. Bowles consulted 07/24 - Dr. Bowles managing; currently 8L on 85% Vapotherm and tolerating well, with sats >95%. Baseline O2 6L NC 07/25 - continue to defer management to Dr. Bowles 07/26 - continue to defer management to Dr. Bowles. Back on vapotherm 07/27 - has weaned down to NC, is lower than baseline 6L at admission at the time of exam 07/28 - continues to have desats; continued management by Dr. Bowles; patient at extremely high risk for decompensation 2. hx of ARDS w/ prolonged hospitalization June 2017 - required intubation and transfer to [place] from - recently admitted to [facility] after DC from [place] 07/24 - pt states she is planning to return to [facility] after discharge from here 07/25 - continue to monitor closely 07/26 - pulmonary management per Dr. Bowles; agree that if placed on ventilator patient would likely have very difficult time weaning off 07/27 - continue to defer pulm management to Dr. Bowles 07/28 - continue to defer pulm management to Dr. Bowles; pt remains at high risk for decompensation and intubation, and would likely be extremely difficult to wean off ventilator, if that would even be possible 3. possible Pneumonia - CXR in ED showed vascular congestion; unable to delineate clear infiltrated - currently on Zosyn and Vancomycin 07/24 - CXR suggestive of pulmonary vascular congestion, unable to rule out PNA, continued on abx at this time, Day 3 Vanc and Zosyn 07/25 - Day 4 Vanc and Zosyn; CT Chest pending 07/26 - ILD vs infection, solumedrol IVP per Dr. Bowles; considering bronch, but would require intubation and placement on ventilator 07/27 - Day 6 Zosyn; incorrectly stated above - pt never received vanc 07/28 - Day 7 Zosyn; CXR shows mild improvement 4. Diabetes Mellitus Type 2 - insulin requiring - restart home insulin regimen of Levemir and novolog w/ Novolog SSI 07/24 - Accucheck AC and HS, sliding scale insulin per protocol with home dose of Levemir 07/25 - continue accuchecks and sliding scale with home levemir 07/26 - hypoglycemia this morning; will monitor closely 07/27 - no further hypoglycemia 07/28 - monitoring sugars closely 5. Paroxysmal Afib on chronic anticoaguation - on Eliquis 07/24 - continue on eliquis for anticoagulation, metoprolol increased per cardiology, will defer management to their expertise 07/25 - continue to defer to cardiology 07/26 - increased arrhythmias overnight; when CXR reviewed, radiology report states PICC line tip in superior vena cava; difficult to discern due to pts significant lung disease, but feel that PICC line tip appears deeper than that, and coupled with pt's arrhythmias, find this likely. Radiology contacted and requested to re-evaluate films for placement, and PICC nurse requested to pull line back. 07/27 - arrhythmias mostly resolved after PICC pulled back; continue telemetry 07/28 - CXR this AM shows tip still in right atrium, PICC team requested to pull back 3 cm and reshoot CXR to confirm tip in superior vena cava and not right atrium 6. CHF - diastolic dysfunction w/ preserved EF - consult cardiology; pt reports she does not have primary armored car messenger 07/24 - preserved EF per cardiology report, continue to defer to cardiology for management 07/25 - continue to defer to cardiology 07/26 - continue to defer to cardiology 07/27 - continue to defer to cardiology; I&O net -950 in last 24 hours 07/28 - management per cardiology; responded well to diuresis 7. Mild to moderate pulmonary hypertension 40-45mmHg on Echo 06/2017 8. Probably obesity-hypoventilation syndrome 9. Hypotension 07/24 - minimal response to intermittent fluid boluses, but requires diuresis from a cardiac standpoint; albumin and lasix to attempt to diurese and still buffer pressures if possible 07/25 - required levophed overnight; per nursing documentation, unable to contact surgeon for central access. Levophed off by this AM, plan for PICC placement today 07/26 - no further hypotension 07/27 - no further hypotension Hospice consult was done, as patient was not sure if she would want to be placed back on ventilator if she should decline to that point, or if she would want to be intubated for bronchoscopy; seen by hospice, and at this time patient does not appear to qualify, as she does not have a documented end stage disease. Dispo: Patient did not go to floor yesterday, but will plan to move to floor today. Prognosis: Poor Clinical Quality Measures DVT/VTE Risk/Contraindication: VTE Addressed: Yes Risk Factor Score Per Nursin RFS Level Per Nursing on Admit: 4+=Very High Risk Score Comment: on Eliquis Copy Copies To 1: [facility]/MIKE BARRAZA DO July 28, 2017 08:34
[2017-07-28] MEDS ORDERED: LORazepam INJ 2 MG/ML (ATIVAN) VIAL ONE ×2 (08:39→22:32)
[2017-07-28 08:55] LABS: ABG BASE EXCESS 11.3 MMOL/L (-2.5-2.5); ABG OXYGEN SATURATION 98 % (94-100); ABG PCO2 50 MMHG (35-45); ABG PH 7.47 (7.37-7.43); ABG PO2 79 MMHG (79-93); ABG TCO2 37.5 MMOL/L (21.0-31.0)
[2017-07-28 08:57] LABS: ALLENS TEST YES-POS; INSPIRED O2 60% BIPAP; PATIENT TEMP 97; VENTILATOR NO
[2017-07-28] MEDS ORDERED: LORazepam INJ 2 MG/ML (ATIVAN) VIAL IVP ONE ×2 (09:00→22:45)
--- NOTE | 2017-07-28 09:37 | Diagnostic Imaging Report ---
INDICATION: PICC line placement. Time of exam 9:13 AM Correlation is made with prior study earlier the same day. The heart is enlarged. PICC line appears to have the tip overlying the right atrium. Diffuse bilateral infiltrates persist. No significant effusion or pneumothorax is seen. IMPRESSION: Right-sided PICC line does have the tip overlying the right atrium. This could be pulled back 4-5 cm. Dictated by: Dictated on workstation # [id number]
[2017-07-28] MEDS: traZODone 50 MG (DESYREL) TAB PO SCH ×3 (09:48→21:24)
[2017-07-28] MEDS: APIXABAN 5 MG (ELIQUIS) TABLET PO SCH ×2 (09:48→21:24)
[2017-07-28] MEDS: PANTOPRAZOLE 40 MG (PROTONIX) TAB PO SCH (09:48)
[2017-07-28] MEDS: GABAPENTIN 400 MG (NEURONTIN) CAP PO SCH ×2 (09:48→21:24)
[2017-07-28] MEDS: ASPIRIN 81 MG CHEW (CHILDREN'S ASA) PO SCH (09:48)
--- NOTE | 2017-07-28 10:38 | Physical Therapy Progress Note ---
Therapy Progress Note Patient transferred back to ICU. She is currently on Hold for PT. PT will monitor patient's medical status to resume. PARUL MCFARLAND PT July 28, 2017 10:38
--- NOTE | 2017-07-28 13:12 | Occ Therapy Progress Note ---
Therapy Progress Note Patient transferred back to ICU. Due to change in medical status pt will need new orders. RHONDA QUINTERO July 28, 2017 13:12
--- NOTE | 2017-07-28 13:26 | Diagnostic Imaging Report ---
INDICATION: PICC line repositioning. TIME OF EXAM: 1:00 p.m. Correlation is made with prior study earlier same day. FINDINGS: PICC line has been pulled back somewhat. The line continues to be in the region of the upper to mid right atrium. This could be pulled back another 2 cm. Bilateral pulmonary infiltrates persist. No pneumothorax is seen. IMPRESSION: Right PICC line repositioning, as described. Dictated by: Dictated on workstation # [id number]
--- NOTE | 2017-07-28 13:59 | Cardiology Progress Note ---
Cardiology SOAP Progress Note Subjective: In respiratory distress. Objective: I&O/Vital Signs 07/28/17 07/28/17 07/28/17 07/28/17 02:38 04:27 06:37 07:00 Temp 97.6 Pulse 99 106 Resp 17 B/P (MAP) 134/71 (92) Pulse Ox 100 92 93 O2 Delivery High Flow N/C High Flow N/C High Flow N/C O2 Flow Rate 7.00 7.00 7.00 07/28/17 07/28/17 07/28/17 07/28/17 07:40 08:00 08:09 09:00 Temp 96.6 Pulse 105 103 96 Resp 22 31 44 B/P (MAP) 146/75 (98) 143/84 (103) Pulse Ox 99 100 94 96 O2 Delivery NIV Bilevel NIV Bilevel NIV Bilevel O2 Flow Rate 60.00 60.00 60.00 FiO2 60 07/28/17 07/28/17 07/28/17 07/28/17 09:57 10:00 11:00 13:23 Pulse 103 98 93 103 Resp 42 35 27 27 B/P (MAP) 136/60 (85) 144/75 (98) Pulse Ox 95 95 97 99 O2 Delivery NIV Bilevel NIV Bilevel O2 Flow Rate 60.00 60.00 60.00 55.00 07/28/17 13:55 Pulse Ox 98 FiO2 55 07/28/17 00:00 Intake Total 950 ml Output Total 1400 ml Balance -450 ml Weight (Pounds): 198 Weight (Ounces): 4.0 Weight (Calculated Kilograms): [id number] Constitutional: appears stated age, AAO x 3, apparent distress, well-developed , well-nourished Respiratory: accessory muscle use, respiratory distress; No chest tender, No chest expansion is symmetric; chest is bilaterally symmetric; No lungs clear to percussion; lungs clear to auscultation; No crackles, No rhonchi, No rales, No stridor, No wheezing, No pleural rub, No other Cardiovascular: regular rate-rhythm; No irregularly irregular, No extra beats, No parasternal heave is noted, No JVD, No edema, No bradycardia, No tachycardia , No point of maximal impulse, No cardiac thrills are palpable; S1 and S2; No gallop/S3, No gallop/S4, No diastolic murmur, No systolic murmur, No friction rub, No click, No other Gastrointestional: No tender, No soft, No round, No distended, No pulsatile mass, No organomegaly, No guarding, No rebound, No tenderness, No hernia, No mass, No audible bowel sounds, No abnormal bowel sounds, No abdominal bruits, No spleenomegaly, No other Extremities: No normal range of motion, No non-tender, No normal inspection, No pedal edema, No calf tenderness, No normal capillary refill, No pelvis stable , No calf tenderness, No inflammation, No pedal edema, No slow capillary refill , No swelling, No other, No abrasion, No clubbing, No cyanosis, No ecchymosis, No laceration, No no lower extremity edema bilateral, No significant edema, No tenderness, No wound Neurologic/Psychiatric: no motor/sensory deficits, alert, normal mood/affect, oriented x 3, power is 5/5 both on sides Skin: No normal color, No warm/dry, No cyanosis, No cool, No diaphoresis, No damp, No ecchymosis, No jaundice, No mottled, No pallor, No rash, No tattoos/ piercings, No ulcerations, No rash on exposed areas, No ulcerations on exposed areas, No other Results/Procedures: Labs Laboratory Tests 07/27/17 16:39: Glucometer 359H 07/27/17 20:18: Glucometer 314H 07/28/17 05:20: White Blood Count 12.0H, Red Blood Count 3.34L, Hemoglobin 9.5L, Hematocrit 30L , Mean Corpuscular Volume 91, Mean Corpuscular Hemoglobin 28, Mean Corpuscular Hemoglobin Concent 31L, Red Cell Distribution Width 15.1H, Platelet Count 282, Mean Platelet Volume 9.6, Neutrophils (%) (Auto) 87H, Lymphocytes (%) (Auto) 9L , Monocytes (%) (Auto) 4, Eosinophils (%) (Auto) 0, Basophils (%) (Auto) 0, Neutrophils # (Auto) 10.5H, Lymphocytes # (Auto) 1.0, Monocytes # (Auto) 0.5, Eosinophils # (Auto) 0.0, Basophils # (Auto) 0.0, Sodium Level 141, Potassium Level 4.2, Chloride Level 102, Carbon Dioxide Level 29, Anion Gap 10, Blood Urea Nitrogen 13, Creatinine 0.66, Estimat Glomerular Filtration Rate > 60, BUN/ Creatinine Ratio 20, Glucose Level 316H, Calcium Level 9.1, Phosphorus Level 2.7 , Magnesium Level 2.0, B-Type Natriuretic Peptide 419.1H 07/28/17 05:21: Glucometer 303H 07/28/17 08:25: Blood Gas Puncture Site L RAD, Blood Gas Patient Temperature 97, Arterial Blood pH 7.47H, Arterial Blood Partial Pressure CO2 50H, Arterial Blood Partial Pressure O2 79, Arterial Blood HCO3 36H, Arterial Blood Total CO2 37.5H, Arterial Blood Oxygen Saturation 98, Arterial Blood Base Excess 11.3H, [place] Test YES-POS, Blood Gas Ventilator Setting NO, Blood Gas Inspired Oxygen 60% BIPAP Microbiology 07/22/17 Blood Culture - Final, Complete No growth 07/22/17 MRSA Screen - Final, Complete MRSA not isolated A/P: Assessment/Dx: Shortness of breath, hypoxia, Sepsis, Pneumonia, Acute on chronic mild diastolic congestive heart failure, Paroxysmal atrial fibrillation, Wide-complex tachycardia, Pulmonary hypertension, Moderate aortic insufficiency, Frequent PVCs, Diabetes Plan: Shortness of breath, hypoxia, Broad-spectrum IV antibiotics. Vapotherm, and respiratory distress. Sepsis, with lactic acidosis. Can give IV fluids as required. Pneumonia, on IV antibiotics. Borderline low blood pressure. Acute on chronic mild diastolic congestive heart failure, mild elevated BNP. Echocardiogram shows normal LVEF. Paroxysmal atrial fibrillation, currently in sinus rhythm. Continue Eliquis. Sinus tachycardia: likely secondary to severe systemic illness. Pulmonary hypertension: Continue to monitor. Moderate aortic regurgitation: Continue to monitor. Frequent PVCs: Resolved. Diabetes Dr. Mills covering cardiology service over the weekend. Thank you for your consultation. Please call me if you have any questions. Sloan Marie MD, FACP, FACC, FSCAI, FHRS, CCDS Interventional Cardiology Cardiac Electrophysiology Vascular Medicine and Endovascular Interventions Ratna MARIE MD July 28, 2017 1:59 pm
--- NOTE | 2017-07-28 15:44 | Diagnostic Imaging Report ---
INDICATION: PICC line reposition. EXAMINATION: Single view of the chest was obtained at 3:19 p.m. COMPARISON: Correlation is made with prior study of earlier the same day. FINDINGS: The right upper extremity PICC line has been pulled back. The tip appears to be in good position near the SVC right atrial junction. Bilateral pulmonary infiltrates persist. There is no pneumothorax. IMPRESSION: Satisfactory repositioning of the right upper extremity PICC line. Dictated by: Dictated on workstation # [id number]
[2017-07-28] MEDS: inSUlin DETERMIR 1 UNIT/0.01 ML (LEVEMIR) CHARGE PER UNIT SQ SCH (21:24)
[2017-07-28] MEDS: AMITRIPTYLINE 50 MG (ELAVIL) TAB PO SCH (21:24)
[2017-07-28] MEDS: DULoxetine 30 MG (CYMBALTA) CAP PO SCH (21:24)
[2017-07-29] VITALS (34 sets, daily range): BP systolic 98–155; BP diastolic 38–76
[2017-07-29] MEDS: methylPREDNISolone 40 MG/ML (Solu-MEDROL) VIAL IV SCH ×4 (00:16→18:39)
[2017-07-29] MEDS: PIPERACILLIN/TAZO 4.5 GM/D5W 100 ML IVPB IV SCH ×4 (00:16→09:22)
[2017-07-29] MEDS: RT-ALBUTEROL SULF 2.5 MG/3 ML PRE-MIX VIAL INH SCH ×6 (01:15→21:46)
[2017-07-29 02:29] LABS: ABG BASE EXCESS 13.1 MMOL/L (-2.5-2.5); ABG OXYGEN SATURATION 96 % (94-100); ABG PCO2 52 MMHG (35-45); ABG PH 7.47 (7.37-7.43); ABG PO2 69 MMHG (79-93); ABG TCO2 39.4 MMOL/L (21.0-31.0)
[2017-07-29 02:32] LABS: ALLENS TEST YES-POS; INSPIRED O2 50%; PATIENT TEMP 97.7; VENTILATOR NO
[2017-07-29 04:10] LABS: BASOPHILS % (AUTO) 0 % (0-10); EOSINOPHILS % (AUTO) 0 % (0-10); HEMATOCRIT 30 % (35-52); HEMOGLOBIN 9.2 G/DL (11.5-16.0); LYMPHOCYTES # (AUTO) 0.8 X 10^3 (1.0-4.0); LYMPHOCYTES % (AUTO) 8 % (12-44); MEAN CORPUSCULAR HEMOGLOBIN 28 PG (25-34); MEAN CORPUSCULAR HGB CONC 31 G/DL (32-36); MEAN CORPUSCULAR VOLUME 91 FL (80-99); MEAN PLATELET VOLUME 9.6 FL (7.4-10.4); MONOCYTES # (AUTO) 0.4 X 10^3 (0.0-1.0); MONOCYTES % (AUTO) 4 % (0-12); NEUTROPHILS # (AUTO) 9.1 X 10^3 (1.8-7.8); NEUTROPHILS % (AUTO) 88 % (42-75); PLATELET COUNT 259 10^3/uL (130-400); RED BLOOD COUNT 3.26 10^6/uL (4.35-5.85); RED CELL DISTRIBUTION WIDTH 14.6 % (10.0-14.5); WHITE BLOOD COUNT 10.4 10^3/uL (4.3-11.0)
[2017-07-29 04:23] LABS: BUN/CREATININE RATIO 29; CALCIUM 9.3 MG/DL (8.5-10.1); CARBON DIOXIDE 33 MMOL/L (21-32); CHLORIDE 98 MMOL/L (98-107); CREATININE SERUM 0.66 MG/DL (0.60-1.30); GFR ESTIMATED > 60; GLUCOSE 344 MG/DL (70-105); MAGNESIUM 2.1 MG/DL (1.8-2.4); PHOSPHORUS 2.8 MG/DL (2.3-4.7); POTASSIUM 3.8 MMOL/L (3.6-5.0); SODIUM 142 MMOL/L (135-145)
[2017-07-29] MEDS ORDERED: NS IV 1000 ML 1,000 ML ONE (04:51)
[2017-07-29] MEDS ORDERED: proPOfol 200 MG/20 ML (DIPRIVAN) VIAL IV ONE (04:52)
[2017-07-29] MEDS ORDERED: PROPOFOL DRIP (ICU) 100 ML IV ONE (04:52)
[2017-07-29] MEDS ORDERED: FUROSEMIDE 40 MG/4 ML INJ (LASIX) ONE (05:59)
[2017-07-29] MEDS ORDERED: fentaNYL INJECTION 100 MCG/2 ML AMP ONE (05:59)
[2017-07-29 06:04] LABS: ABG BASE EXCESS 11.1 MMOL/L (-2.5-2.5); ABG OXYGEN SATURATION 98 % (94-100); ABG PCO2 62 MMHG (35-45); ABG PH 7.39 (7.37-7.43); ABG PO2 102 MMHG (79-93); ABG TCO2 38.6 MMOL/L (21.0-31.0)
--- NOTE | 2017-07-29 06:08 | Procedure/Intervention Note ---
Procedure Note Preoperative Date of Service: July 29, 2017 Time of Procedure: 05:30 Vital Signs Date Time Temp Pulse Resp B/P (MAP) Pulse Ox O2 Delivery O2 Flow Rate FiO2 07/29/17 04:00 98 30 138/67 (90) 97 NIV Bilevel 50.00 07/29/17 04:00 60 07/29/17 00:00 96.9 Indication ards, failure to protect Airway. Risk/Time Out Risk and benefits explained to patient or legal guardian, verbal and written consent given. Time out performed, verified correct patient, correct procedure, correct site, and consent documented. Prep/Sedation Sedation: 20 mg etomidate 2 mg Ativan Procedure-General After risks benefits and alternatives were explained the patient and she gave consent we reclined her placed her in a position and using th typical technique we applied her with 20 mg of etomidate and 100 mg of succinylcholine by IV. She had a potassium of 3.8. Her weight was 98 kg per the record. Because of her history of arms and a bag of fluids was hung at [facility]. Her blood pressure is 138 systolic and we started in her sats were around 94-96% on 60 FiO2 with a BiPAP. We used a video laryngoscope and 7.5 ET tube and got the patient into position switch her to [id number] at her sats to 100%. When she was ascertained to be paralyzed and sedated appropriately we then suction her upper airway using a Yankauer and opened her airway and visualize the vocal cords easily using the video laryngoscope and passed a 7.5 ET tube on the first attempt. Then inflated the cuff and removed the stylette placing a colorimetric capnography A per indicate her on and give her a few breaths. Her breast fogged the ET tube and change the color on the colorimetric capnography paper as well as bilateral symmetric breath sounds could be heard. She had mild wheezing and some rales. No breath sounds could be heard over the epigastrium. Patient's sats did not get below 90%. Initial ventilator settings were set at 18 rest burs 450 mL tidal volume, PEEP of 6 cm water pressure, I time of 1.25, FiO2 of 1. Patient's sats stabilized around 96-97% and further instructions were given. An OG tube was placed in the stomach on first attempt by nursing staff and then a chest x- ray was obtained showing the OG tube to be in good position in the cardia of the stomach and the ET tube about 2 cm superior to the ross with good lung shadows and no indication of pneumothorax. Patient was then started on propofol for sedation with arrest of 1-2 and turned back over to the care of eICU staff. Complications None Blood pressure was 117 systolic, heart rate was 92, oxygen saturation was 97% at the time I left the room. Patient was sedated with propofol. IV fluids were running at [facility]. JERRELL PAREDES July 29, 2017 06:08
[2017-07-29 06:10] LABS: ALLENS TEST YES-POS; INSPIRED O2 100%; PATIENT TEMP 97.4; VENTILATOR YES
[2017-07-29] MEDS: MAGNESIUM 1 GM/100 ML IVPB 100 ML IV SCH (06:10)
[2017-07-29] MEDS: PROPOFOL DRIP (ICU) 100 ML IV SCH ×5 (06:11→20:16)
[2017-07-29] MEDS: fentaNYL INJECTION 100 MCG/2 ML AMP IVP PRN ×2 (06:12→06:56)
[2017-07-29] MEDS: CATHETER FLUSH 10 ML SYR IV SCH ×3 (06:14→21:38)
[2017-07-29] MEDS ORDERED: FUROSEMIDE 40 MG/4 ML INJ (LASIX) IVP ONE (06:15)
--- NOTE | 2017-07-29 06:20 | Diagnostic Imaging Report ---
CHEST 1 VIEW, AP/PA ONLY Comparison: Earlier same day at 3:08 AM Indication: Intubation Findings: ET tube has tip 3 cm above the ross. The enteric tube has side hole and tip in the mid stomach. Right PICC is in stable position. Diffuse bilateral pulmonary opacities and consolidations have not changed. Probable small layering left pleural effusion. No pneumothorax. Grossly stable cardiomediastinal silhouette. Impression: 1. Well-positioned support devices. 2. Unchanged pulmonary opacities which may relate to ARDS/edema, hemorrhage or multifocal infection. Dictated by: Dictated on workstation # [id number]
[2017-07-29] MEDS ORDERED: MIDAZOLAM 2 MG/2 ML (VERSED) VIAL ONE (07:00)
--- NOTE | 2017-07-29 07:08 | Pulmonary Progress Note ---
Subjective Time Seen by Provider: 07:36 Subjective/Events-last exam pt currently sedated on ventilator. Exam Exam Vital Signs Date Time Temp Pulse Resp B/P (MAP) Pulse Ox O2 Delivery O2 Flow Rate FiO2 07/29/17 06:55 Mechanical Ventilator 50.00 07/29/17 06:50 100 27 96 50 07/29/17 06:30 Mechanical Ventilator 70.00 07/29/17 06:11 96.9 104 42 107/52 100 Mechanical Ventilator 100.00 07/29/17 06:00 104 42 107/52 (70) 100 Mechanical Ventilator 100.00 07/29/17 05:55 103 28 100 100 07/29/17 05:00 93 23 145/70 (95) 92 NIV Bilevel 50.00 07/29/17 04:00 98 30 138/67 (90) 97 NIV Bilevel 50.00 07/29/17 04:00 94 NIV Bilevel 60 07/29/17 03:25 100 41 97 50.00 07/29/17 03:00 106 14 138/57 (84) 89 NIV Bilevel 50.00 07/29/17 02:00 99 33 140/55 (83) 99 NIV Bilevel 50.00 07/29/17 01:15 93 26 94 50.00 07/29/17 01:00 90 07/29/17 01:00 92 28 138/62 (87) 98 NIV Bilevel 50.00 07/29/17 00:05 96 NIV Bilevel 40 07/29/17 00:00 92 25 129/64 (85) 99 NIV Bilevel 40.00 07/29/17 00:00 96.9 07/28/17 23:07 NIV Bilevel 40.00 07/28/17 23:07 102 37 94 50.00 07/28/17 23:00 104 33 135/66 (89) 100 NIV Bilevel 50.00 07/28/17 22:00 109 44 147/67 (93) 97 NIV Bilevel 50.00 07/28/17 21:46 108 38 94 50.00 07/28/17 21:45 NIV Bilevel 50.00 07/28/17 21:00 111 32 141/57 (85) 99 Vapotherm 80.00 35.00 07/28/17 20:00 92 Vapotherm 35.00 80 5/18/18 20:00 113 31 123/66 (85) 96 Vapotherm 80.00 35.00 07/28/17 19:16 98.8 112 30 107/50 (69) 97 Vapotherm 80.00 35.00 07/28/17 19:00 119 07/28/17 19:00 115 37 107/50 (69) 92 Vapotherm 80.00 35.00 18 18:10 97 Vapotherm 35.00 80 07/28/17 18:00 99 26 154/81 (105) 98 Vapotherm 80.00 35.00 07/28/17 17:00 104 28 152/82 (105) 98 Vapotherm 80.00 35.00 07/28/17 16:50 Vapotherm 80.00 35.00 07/28/17 16:00 100 NIV Bilevel 60 07/28/17 16:00 97.6 110 30 157/77 (103) 91 NIV Bilevel 50.00 07/28/17 15:00 NIV Bilevel 50.00 07/28/17 15:00 96 29 158/83 (108) 95 NIV Bilevel 50.00 07/28/17 14:54 96 26 96 50.00 07/28/17 14:00 125 34 130/70 (90) 98 NIV Bilevel 60.00 07/28/17 13:55 98 55 07/28/17 13:23 103 27 99 55.00 07/28/17 13:01 102 07/28/17 13:00 99 16 108/98 (101) 92 NIV Bilevel 60.00 07/28/17 12:00 115 36 144/72 (96) 90 NIV Bilevel 60.00 07/28/17 12:00 97.2 07/28/17 12:00 100 NIV Bilevel 60 07/28/17 11:00 93 27 144/75 (98) 97 NIV Bilevel 60.00 07/28/17 10:00 98 35 136/60 (85) 95 NIV Bilevel 60.00 07/28/17 09:57 103 42 95 60.00 07/28/17 09:00 96 44 143/84 (103) 96 NIV Bilevel 60.00 07/28/17 08:09 103 31 94 60.00 07/28/17 08:00 101 27 141/71 (94) 92 NIV Bilevel 60.00 07/28/17 08:00 100 NIV Bilevel 60 07/28/17 07:40 96.6 105 22 146/75 (98) 99 NIV Bilevel 60.00 I & O 07/29/17 07:00 Intake Total 420 ml Output Total 2650 ml Balance -2230 ml General Appearance: Moderate Distress HEENT: PERRL/EOMI, Pharynx Normal Neck: Normal Inspection, Supple Respiratory: Accessory Muscle Use, Crackles, Decreased Breath Sounds Cardiovascular: Other (2+ edema bilateral LE) Capillary Refill: Less Than 3 Seconds Gastrointestinal: non tender, soft Extremity: Normal Capillary Refill, Normal Inspection, Non Tender Neurologic/Psychiatric: Other Skin: Normal Color, Warm/Dry Lymphatic: No Adenopathy Results Lab Laboratory Tests 07/28/17 05:20 07/29/17 03:50 Assessment/Plan Assessment/Plan Acute on chronic respiratory failure with severe hypoxia Worsening respiratory failure -Pt had to be reintubated -PT is requiring ventilator therapy with PC. Change from VC to PC and check ABG in 1hr. ILD inflamatory vs infectious -Solumedrol 40 IV Q 6 -Monitor close -Continue Zosyn and repan culture start BCTM for possible PCP -Check HIV Paroxysmal Afib on anticoagulation Diastolic CHF with pulmonary HTN -repeat Lasix x 1 IDDM II - Pt became hypoglycemic last night Deconditioning -PT/OT denies ever smoking Pt's prognosis is very poor. Her pulmonary status continues to worsen despite aggressive medical care.I discussed with patients poor prognosis him and daughter are on their way to see patient. Total time spent with patient, family and medical staff regarding patients critical condition not including procedure is 60min. Critical Care: Critically Ill Patient Time spent with patient (mins): 60 Advance Care discuss with: patient CASSIGONZÁLEZ FRENCH July 29, 2017 07:08
[2017-07-29] MEDS ORDERED: NOREPINEPHRINE 4 MG/4 ML (LEVOPHED) AMP IV ONE (07:25)
[2017-07-29] MEDS ORDERED: NS (IVPB) 250 ML ONE (07:25)
[2017-07-29] MEDS: PANTOPRAZOLE 40 MG/10 ML (PROTONIX) VIAL IV SCH ×2 (07:28→18:42)
[2017-07-29] MEDS: CATHETER FLUSH 10 ML SYR IV PRN ×2 (07:28→13:31)
[2017-07-29] MEDS: inSUlin ASPART (NovoLOG) 1 UNIT/0.01 ML (CHARGE PER UNIT) SC SCH ×4 (07:28→20:22)
[2017-07-29] MEDS ORDERED: NOREPINEPHRINE 4 MG in NS (IVPB) 250 ML IV SCH (07:45)
[2017-07-29] MEDS ORDERED: MIDAZOLAM 5 MG/5 ML (VERSED) VIAL IVP ONE (07:45)
--- NOTE | 2017-07-29 07:59 | Pulmonary Procedures ---
Pulmonary Procedures Date of Procedure Date of Service: July 29, 2017 Bronch Bronchoscopy with bronchoalveolar lavage (BAL), transbronchial washes. Preop DX ILD Postop DX: same Complications: none After informed consent obtained and formal time out pt was sedated using Fentanyl and Versed. Bronchoscope was advanced through the ET tube. An anatomical tour was undertaken down to the segmental bronchi bilaterally. No endobronchial lesions noted. From the RML a bronchoalveolar lavage (BAL), transbronchial washes and, bilateral wash were obtained. Pt tolerated procedure well. No complications noted. Stat CXR is pending. GONZÁLEZ YE DO July 29, 2017 07:59
--- NOTE | 2017-07-29 08:05 | Cardiology Progress Note ---
Subjective Date Seen by Provider: July 29, 2017 Time Seen by Provider: 07:59 Subjective/Events-last exam Patient was seen and evaluated at bedside, events since admission were reviewed , she progressed into respiratory failure and intubated earlier, And my evaluation patient is sedated laying down in bed, currently hypertensive after she was started on Levophed. Review of Systems General: Other (Sedated and intubated, unable to provide review of systems) Focused Exam Sepsis Stage: Severe Sepsis Possible Source: Pulmonary Respiratory: Decreased Breath Sounds, Rhonci, Other (Intubated and sedated) Cardiovascular: Regular Rate, Rhythm, No Edema, Normal Peripheral Pulses Capillary Refill: Less Than 3 Seconds Objective-Cardiology Exam Last Set of Vital Signs Vital Signs 07/29/17 07/29/17 07:35 07:49 Temp 96.9 Pulse 102 Resp 27 B/P (MAP) 118/55 Pulse Ox 95 O2 Delivery Mechanical Ventilator O2 Flow Rate 50.00 FiO2 50 Capillary Refill : Less Than 3 Seconds I&O Intake and Output 07/29/17 00:00 Intake Total 520 ml Output Total 3100 ml Balance -2580 ml Intake Oral 520 ml Output Urine Total 3100 ml # Bowel Movements 3 General: Severe Distress, Other (Sedated and intubated) HEENT: Atraumatic, EOMI, Mucous Memb Moist/[place] Neck: Supple, No Thyromegaly Lungs: Other (Bilateral rhonchi) Heart: Normal S1, Normal S2, Other (Tachycardia) Abdomen: Normal Bowel Sounds, Soft, No Tenderness Extremities: No Clubbing, No Cyanosis Skin: No Rashes, No Significant Lesion Neuro: Other (Sedated and intubated) Psych/Mental Status: Other (Sedated) Results Lab Laboratory Tests 07/29/17 03:50 A/P-Cardiology Admission Diagnosis Acute respiratory failure Paroxysmal atrial fibrillation Hypotension Sepsis Assessment/Plan Acute respiratory failure, intubated, progressed fairly quickly, noncardiogenic pulmonary edema. Receiving antibiotic, starting on IV Bactrim today, could be secondary to immunocompromise, discussed management plan with Dr. Bowles. Borderline hypotension, received Levophed, currently hypertensive, Levophed is being weaned off, monitor blood pressure Sepsis, receiving antibiotic, metabolic acidosis has improved. Still receiving antibiotics. Acute on chronic mild diastolic congestive heart failure, mild elevated BNP. Echocardiogram shows normal LVEF, continue to monitor Paroxysmal atrial fibrillation, currently in sinus rhythm. Maintained on Eliquis Sinus tachycardia: likely secondary to severe systemic illness. Pulmonary hypertension: Continue to monitor. Moderate aortic regurgitation: Continue to monitor. Frequent PVCs: Resolved. Diabetes Overall poor prognosis despite aggressive management. Clinical Quality Measures DVT/VTE Risk/Contraindication: VTE Addressed: Yes Risk Factor Score Per Nursin RFS Level Per Nursing on Admit: 4+=Very High Risk Score Comment: on DEVANTE Diaz MD July 29, 2017 08:05
--- NOTE | 2017-07-29 08:20 | Diagnostic Imaging Report ---
Clinical indication: Patient with pneumonia. Exam: Portable chest x-ray upright view. Comparison: Chest x-ray dated 07/28/2017. Findings: There is subtle improved aeration of the left midlung field. There is otherwise persistent patchy consolidation and diffuse infiltrate throughout the left lung with minimal sparing of both lung apices. There is moderate airspace opacification/infiltrate in right lung. The left costophrenic angle is not seen and a left pleural effusion cannot be excluded. There is no pneumothorax. Stable cardiomegaly. Pulmonary vasculature is obscured. Right PICC line again seen with tip in the distal superior vena cava. There are degenerative spurs involving the spine. Impression: 1: There is minimal slight improved aeration of the left midlung field. Otherwise there is no significant change in the diffuse bilateral lung infiltrates (left side more than the right). 2: Possible left pleural effusion. 3: Cardiomegaly. Dictated by: Dictated on workstation # [id number]
--- NOTE | 2017-07-29 08:31 | Diagnostic Imaging Report ---
Clinical indication: Patient post bronchoscopy. Check ET tube and OG tube placement. Exam: Portable chest x-ray semiupright view. Comparison: Portable chest x-ray semiupright view dated 07/29/2017. Findings: ET tube again seen in good position which is roughly 2.7 cm from the level of ross. A right PICC line seen with tip in the superior vena cava. Orogastric feeding tube is noted with its distal portion across midline overlying the expected region of the gastric antrum or second portion of the duodenum. Stable cardiomegaly. There is slight improved aeration of the right lung and left midlung field. There is persistent patchy consolidation involving the left midlung field, left lung base. There is diffuse bilateral lung infiltrate still present. The left costophrenic angle is not well visualized and left pleural effusion may be present. Pulmonary vasculature is obscured, but does not appear significantly congested. There is no pneumothorax. The remainder of this exam shows no significant interval change compared to the prior study of comparison. Impression: 1: Lines and tubes are seen in good position. 2: There is slight improved aeration of both lungs with persistent bilateral lung infiltrates (left side more than the right) 3: Possible left pleural effusion. 4: Stable cardiomegaly. Dictated by: Dictated on workstation # [id number]
--- NOTE | 2017-07-29 08:53 | Progress Note (SOAP) ---
Subjective Subjective/Events-last exam Patient with acute decompensation overnight and increased work of breathing. Intubated this morning by ED physician for respiratory distress. Bronch by Dr. Bowles this morning. Pt's family present and tearful. Review of Systems Date Seen by Provider: July 29, 2017 Time Seen by Provider: 09:25 Pulmonary: Dyspnea Cardiovascular: Edema Gastrointestinal: No: Vomiting, Melena Genitourinary: No Hematuria Neurological: Weakness Objective Exam Last Set of Vital Signs Vital Signs Date Time Temp Pulse Resp B/P (MAP) Pulse Ox O2 Delivery O2 Flow Rate FiO2 07/29/17 07:49 102 27 95 50 07/29/17 07:35 96.9 118/55 Mechanical Ventilator 50.00 Capillary Refill : Less Than 3 Seconds I&O Intake and Output 07/29/17 00:00 Intake Total 520 ml Output Total 3100 ml Balance -2580 ml Intake Oral 520 ml Output Urine Total 3100 ml # Bowel Movements 3 General: Other (sedated and intubated) HEENT: Atraumatic, Mucous Memb Moist/[place] Neck: Supple, No Thyromegaly Lungs: Other (diminished, diffuse coarseness and wheezing) Heart: Regular Rate, Normal S1, Normal S2 Abdomen: Normal Bowel Sounds, Soft, No Masses Extremities: No Clubbing, No Cyanosis Skin: No Rashes, No Significant Lesion Neuro: Other (sedated, on ventilator) Results/Procedures Lab Laboratory Tests 07/28/17 14:02: Glucometer 240H 07/28/17 17:11: Glucometer 277H 07/28/17 20:21: Glucometer 381H 07/29/17 02:18: Blood Gas Puncture Site LEFT RADIAL, Blood Gas Patient Temperature 97.7, Arterial Blood pH 7.47H, Arterial Blood Partial Pressure CO2 52H, Arterial Blood Partial Pressure O2 69L, Arterial Blood HCO3 38H, Arterial Blood Total CO2 39.4H, Arterial Blood Oxygen Saturation 96, Arterial Blood Base Excess 13.1H , [place] Test YES-POS, Blood Gas Ventilator Setting NO, Blood Gas Inspired Oxygen 50% 07/29/17 03:50: White Blood Count 10.4, Red Blood Count 3.26L, Hemoglobin 9.2L, Hematocrit 30L, Mean Corpuscular Volume 91, Mean Corpuscular Hemoglobin 28, Mean Corpuscular Hemoglobin Concent 31L, Red Cell Distribution Width 14.6H, Platelet Count 259, Mean Platelet Volume 9.6, Neutrophils (%) (Auto) 88H, Lymphocytes (%) (Auto) 8L , Monocytes (%) (Auto) 4, Eosinophils (%) (Auto) 0, Basophils (%) (Auto) 0, Neutrophils # (Auto) 9.1H, Lymphocytes # (Auto) 0.8L, Monocytes # (Auto) 0.4, Eosinophils # (Auto) 0.0, Basophils # (Auto) 0.0, Sodium Level 142, Potassium Level 3.8, Chloride Level 98, Carbon Dioxide Level 33H, Anion Gap 11, Blood Urea Nitrogen 19H, Creatinine 0.66, Estimat Glomerular Filtration Rate > 60, BUN /Creatinine Ratio 29, Glucose Level 344H, Calcium Level 9.3, Phosphorus Level 2.8, Magnesium Level 2.1 07/29/17 06:02: Blood Gas Puncture Site LEFT RADIAL, Blood Gas Patient Temperature 97.4, Arterial Blood pH 7.39, Arterial Blood Partial Pressure CO2 62H, Arterial Blood Partial Pressure O2 102H, Arterial Blood HCO3 37H, Arterial Blood Total CO2 38.6H, Arterial Blood Oxygen Saturation 98, Arterial Blood Base Excess 11.1H, [place] Test YES-POS, Blood Gas Ventilator Setting YES, Blood Gas Inspired Oxygen 100% 07/29/17 07:50: Microbiology 07/22/17 Blood Culture - Final, Complete No growth 07/22/17 MRSA Screen - Final, Complete MRSA not isolated Radiology Date of Exam: 07/22/17 CHEST 1 VIEW, AP/PA ONLY INDICATION: Cough, shortness of air. TECHNIQUE: Single view chest 10:08 AM. CORRELATION STUDY: 06/23/2017 FINDINGS: There has been interval extubation to remove the gastric tube. Heart size enlarged. Mediastinum is prominent, likely stable. There is rather significant pulmonary vascular congestion and perihilar edema. Scattered pulmonary parenchyma is noted, likely largely edematous. A superimposed infiltrate/pneumonia would be difficult to exclude. IMPRESSION: 1. Enlargement present with pulmonary vascular congestion, perihilar and likely pulmonary edema. Superimposed infiltrate difficult to exclude. Followup imaging recommended. Procedures Intubated at ~0500 by ED physician Assessment/Plan Assessment/Plan Assessment & Plan 1. Acute on chronic respiratory failure w/ hypoxia 07/23 - admitted 07/22/17 to ICU on Vapotherm, titrated down since admission currently on 13L 55% FIO2; O2 sat 94% (baseline 6L nc) - Dr. Bowles consulted 07/24 - Dr. Bowles managing; currently 8L on 85% Vapotherm and tolerating well, with sats >95%. Baseline O2 6L NC 07/25 - continue to defer management to Dr. Bowles 07/26 - continue to defer management to Dr. Bowles. Back on vapotherm 07/27 - has weaned down to NC, is lower than baseline 6L at admission at the time of exam 07/28 - continues to have desats; continued management by Dr. Bowles; patient at extremely high risk for decompensation 07/29 - pt with acute decompensation overnight, now on ventilator; bronch by Dr. Bowles this morning. Continue to defer management to Dr. Bowles. 2. hx of ARDS w/ prolonged hospitalization June 2017 - required intubation and transfer to [facility] from - recently admitted to [facility] after DC from [facility] 07/24 - pt states she is planning to return to [facility] after discharge from here 07/25 - continue to monitor closely 07/26 - pulmonary management per Dr. Bowles; agree that if placed on ventilator patient would likely have very difficult time weaning off 07/27 - continue to defer pulm management to Dr. Bowles 07/28 - continue to defer pulm management to Dr. Bowles; pt remains at high risk for decompensation and intubation, and would likely be extremely difficult to wean off ventilator, if that would even be possible 07/29 - decompensated overnight, now intubated on ventilator 3. possible Pneumonia - CXR in ED showed vascular congestion; unable to delineate clear infiltrated - currently on Zosyn and Vancomycin 07/24 - CXR suggestive of pulmonary vascular congestion, unable to rule out PNA, continued on abx at this time, Day 3 Vanc and Zosyn 07/25 - Day 4 Vanc and Zosyn; CT Chest pending 07/26 - ILD vs infection, solumedrol IVP per Dr. Bowles; considering bronch, but would require intubation and placement on ventilator 07/27 - Day 6 Zosyn; incorrectly stated above - pt never received vanc 07/28 - Day 7 Zosyn; CXR shows mild improvement 07/29 - Day 8 Zosyn, pt now intubated. Bronch per Dr. Bowles this AM. Bactrim q6h for possible PCP PNA per Dr. Bowles. Would also consider MAC as possible cause. 4. Diabetes Mellitus Type 2 - insulin requiring - restart home insulin regimen of Levemir and novolog w/ Novolog SSI 07/24 - Accucheck AC and HS, sliding scale insulin per protocol with home dose of Levemir 07/25 - continue accuchecks and sliding scale with home levemir 07/26 - hypoglycemia this morning; will monitor closely 07/27 - no further hypoglycemia 07/28 - monitoring sugars closely 07/29 - continue accuchecks, but will change to q6h; increase sliding scale, bactrim mixed in large amount of D5 and causing hyperglycemia 5. Paroxysmal Afib on chronic anticoaguation - on Eliquis 07/24 - continue on eliquis for anticoagulation, metoprolol increased per cardiology, will defer management to their expertise 07/25 - continue to defer to cardiology 07/26 - increased arrhythmias overnight; when CXR reviewed, radiology report states PICC line tip in superior vena cava; difficult to discern due to pts significant lung disease, but feel that PICC line tip appears deeper than that, and coupled with pt's arrhythmias, find this likely. Radiology contacted and requested to re-evaluate films for placement, and PICC nurse requested to pull line back. 07/27 - arrhythmias mostly resolved after PICC pulled back; continue telemetry 07/28 - CXR this AM shows tip still in right atrium, PICC team requested to pull back 3 cm and reshoot CXR to confirm tip in superior vena cava and not right atrium 07/29 - PICC exchanged yesterday and then pulled back, tip now appears in superior vena cava. 6. 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 Mild to moderate pulmonary hypertension 40-45mmHg on Echo 06/2017 8. Probably obesity-hypoventilation syndrome 9. Hypotension 07/24 - minimal response to intermittent fluid boluses, but requires diuresis from a cardiac standpoint; albumin and lasix to attempt to diurese and still buffer pressures if possible 07/25 - required levophed overnight; per nursing documentation, unable to contact surgeon for central access. Levophed off by this AM, plan for PICC placement today 07/26 - no further hypotension 07/27 - no further hypotension 07/28 - continue to monitor 07/29 - continue to monitor pressure closely Hospice consult was done, as patient was not sure if she would want to be placed back on ventilator if she should decline to that point, or if she would want to be intubated for bronchoscopy; seen by hospice, and at this time patient does not appear to qualify, as she does not have a documented end stage disease. Dispo: Patient now intubated and requiring ventilator, requires ICU level of care. Prognosis: Extremely Poor, which is being discussed at length with pt's family by Dr. Bowles Clinical Quality Measures DVT/VTE Risk/Contraindication: VTE Addressed: Yes Risk Factor Score Per Nursin RFS Level Per Nursing on Admit: 4+=Very High Risk Score Comment: on Eliquis Copy Copies To 1: [facility]/MIKE BARRAZA DO July 29, 2017 08:53
[2017-07-29 09:23] LABS: ABG BASE EXCESS 9.8 MMOL/L (-2.5-2.5); ABG OXYGEN SATURATION 100 % (94-100); ABG PCO2 54 MMHG (35-45); ABG PH 7.42 (7.37-7.43); ABG PO2 114 MMHG (79-93); ABG TCO2 36.5 MMOL/L (21.0-31.0)
[2017-07-29] MEDS: APIXABAN 5 MG (ELIQUIS) TABLET PO SCH ×2 (09:23→20:23)
[2017-07-29] MEDS: ASPIRIN 81 MG CHEW (CHILDREN'S ASA) PO SCH (09:23)
[2017-07-29] MEDS: GABAPENTIN 400 MG (NEURONTIN) CAP PO SCH ×2 (09:23→20:16)
[2017-07-29] MEDS: traZODone 50 MG (DESYREL) TAB PO SCH ×3 (09:23→20:23)
[2017-07-29] MEDS: PANTOPRAZOLE 40 MG (PROTONIX) TAB PO SCH (09:24)
[2017-07-29 09:25] LABS: ALLENS TEST YES-POS; INSPIRED O2 65; VENTILATOR YES
[2017-07-29] MEDS: TRIMETHO IV SCH ×3 (10:49→21:37)
[2017-07-29] MEDS: SULFAMETHOXAZOLE IV SCH ×3 (10:49→21:37)
[2017-07-29] MEDS: D5W IV SCH ×3 (10:49→21:37)
[2017-07-29] MEDS ORDERED: SUCCINYLCHOLINE INJ 100 MG/5 ML SYR INJ ONE (12:01)
[2017-07-29] MEDS ORDERED: ETOMIDATE IV SOLN 20 MG/10 ML VIAL IV ONE (12:01)
[2017-07-29] MEDS: CHLORHEXIDINE 0.12% SOLN 15 ML (PERIDEX) UDC PO SCH ×2 (12:35→20:16)
[2017-07-29] MEDS ORDERED: inSUlin (REGULAR) HUMAN 1 UNIT/0.01 ML (CHARGE PER UNIT) IV ONE (12:45)
[2017-07-29] MEDS ORDERED: inSUlin (REGULAR) HUMAN 1 UNIT/0.01 ML (CHARGE PER UNIT) IJ ONE (14:15)
[2017-07-29 16:05] LABS: ABG BASE EXCESS 9.4 MMOL/L (-2.5-2.5); ABG OXYGEN SATURATION 96 % (94-100); ABG PCO2 56 MMHG (35-45); ABG PH 7.41 (7.37-7.43); ABG PO2 74 MMHG (79-93); ABG TCO2 36.2 MMOL/L (21.0-31.0)
[2017-07-29 16:07] LABS: ALLENS TEST YES-POS; PATIENT TEMP 98.2; VENTILATOR YES
[2017-07-29] MEDS: PIPERACILLIN SODIUM/TAZOBACTAM 4.5 GM in D5W 100 ML IVPB 100 ML IV SCH (16:31)
[2017-07-29 18:25] LABS: BILIRUBIN,URINE NEGATIVE (NEGATIVE); CLARITY,URINE VERY CLOUDY; COLOR,URINE YELLOW; GLUCOSE, URINE (UA) 2+ (NEGATIVE); KETONES,URINE NEGATIVE (NEGATIVE); LEUKOCYTE ESTERASE ,URINE 3+ (NEGATIVE); NITRITE,URINE NEGATIVE (NEGATIVE); PH,URINE 5 (5-9); PROTEIN,URINE 1+ (NEGATIVE); UROBILINOGEN,URINE NORMAL (NORMAL)
[2017-07-29 18:42] LABS: BACTERIA,URINE FEW /HPF; RENAL EPITHELIAL CELLS,URINE 0-2 /HPF; YEAST,URINE LARGE /HPF
[2017-07-29] MEDS: DULoxetine 30 MG (CYMBALTA) CAP PO SCH (20:16)
[2017-07-29] MEDS: AMITRIPTYLINE 50 MG (ELAVIL) TAB PO SCH (20:16)
[2017-07-29] MEDS: inSUlin DETERMIR 1 UNIT/0.01 ML (LEVEMIR) CHARGE PER UNIT SQ SCH (20:16)
[2017-07-30] VITALS (34 sets, daily range): BP systolic 90–142; BP diastolic 36–72
[2017-07-30] MEDS: PIPERACILLIN SODIUM/TAZOBACTAM 4.5 GM in D5W 100 ML IVPB 100 ML IV SCH ×3 (00:01→17:54)
[2017-07-30] MEDS: methylPREDNISolone 40 MG/ML (Solu-MEDROL) VIAL IV SCH ×4 (00:01→17:57)
[2017-07-30] MEDS: inSUlin ASPART (NovoLOG) 1 UNIT/0.01 ML (CHARGE PER UNIT) SC SCH ×6 (00:08→20:38)
[2017-07-30] MEDS: RT-ALBUTEROL SULF 2.5 MG/3 ML PRE-MIX VIAL INH SCH ×6 (01:53→21:10)
[2017-07-30 04:36] LABS: ABG BASE EXCESS 11.1 MMOL/L (-2.5-2.5); ABG OXYGEN SATURATION 94 % (94-100); ABG PCO2 51 MMHG (35-45); ABG PH 7.46 (7.37-7.43); ABG PO2 56 MMHG (79-93); ABG TCO2 37.5 MMOL/L (21.0-31.0)
[2017-07-30 04:38] LABS: ALLENS TEST YES-POS; INSPIRED O2 40%; PATIENT TEMP 96.3; VENTILATOR YES
[2017-07-30] MEDS: PROPOFOL DRIP (ICU) 100 ML IV SCH ×6 (04:39→20:38)
[2017-07-30] MEDS: TRIMETHO IV SCH ×4 (04:40→22:41)
[2017-07-30] MEDS: D5W IV SCH ×4 (04:40→22:41)
[2017-07-30] MEDS: SULFAMETHOXAZOLE IV SCH ×4 (04:40→22:41)
[2017-07-30 04:59] LABS: BASOPHILS % (AUTO) 0 % (0-10); EOSINOPHILS % (AUTO) 0 % (0-10); HEMATOCRIT 26 % (35-52); HEMOGLOBIN 8.8 G/DL (11.5-16.0); LYMPHOCYTES # (AUTO) 0.8 X 10^3 (1.0-4.0); LYMPHOCYTES % (AUTO) 7 % (12-44); MEAN CORPUSCULAR HEMOGLOBIN 30 PG (25-34); MEAN CORPUSCULAR HGB CONC 34 G/DL (32-36); MEAN CORPUSCULAR VOLUME 88 FL (80-99); MEAN PLATELET VOLUME 9.5 FL (7.4-10.4); MONOCYTES # (AUTO) 0.5 X 10^3 (0.0-1.0); MONOCYTES % (AUTO) 4 % (0-12); NEUTROPHILS # (AUTO) 10.6 X 10^3 (1.8-7.8); NEUTROPHILS % (AUTO) 89 % (42-75); PLATELET COUNT 233 10^3/uL (130-400); RED BLOOD COUNT 2.95 10^6/uL (4.35-5.85); RED CELL DISTRIBUTION WIDTH 14.6 % (10.0-14.5); WHITE BLOOD COUNT 11.9 10^3/uL (4.3-11.0)
[2017-07-30 05:18] LABS: BUN/CREATININE RATIO 21; CARBON DIOXIDE 31 MMOL/L (21-32); CHLORIDE 94 MMOL/L (98-107); CREATININE SERUM 0.77 MG/DL (0.60-1.30); GFR ESTIMATED > 60; GLUCOSE 124 MG/DL (70-105); MAGNESIUM 2.1 MG/DL (1.8-2.4); PHOSPHORUS 2.4 MG/DL (2.3-4.7); POTASSIUM 2.7 MMOL/L (3.6-5.0); SODIUM 137 MMOL/L (135-145)
[2017-07-30] MEDS ORDERED: KCL 20 MEQ POWDER FOR ORAL SOLUTION PO ONE (06:00)
[2017-07-30] MEDS ORDERED: BUMETANIDE 1 MG/4 ML (BUMEX) VIAL IV ONE (06:00)
--- NOTE | 2017-07-30 06:03 | Pulmonary Progress Note ---
Subjective Time Seen by Provider: 06:00 Subjective/Events-last exam pt on vent and sedated. Exam Exam Vital Signs Date Time Temp Pulse Resp B/P (MAP) Pulse Ox O2 Delivery O2 Flow Rate FiO2 07/30/17 05:00 84 27 142/53 (82) 100 Mechanical Ventilator 40.00 07/30/17 04:39 110/72 07/30/17 04:35 82 28 92 40 07/30/17 04:24 96.3 07/30/17 04:00 80 27 109/59 (76) 99 Mechanical Ventilator 40.00 07/30/17 03:00 84 28 118/51 (73) 100 Mechanical Ventilator 40.00 07/30/17 02:15 Mechanical Ventilator 40.00 07/30/17 02:00 73 33 107/50 (69) 100 Mechanical Ventilator 50.00 07/30/17 01:53 73 28 100 50 07/30/17 01:00 78 38 106/48 (67) 100 Mechanical Ventilator 50.00 07/30/17 01:00 78 07/30/17 00:09 96.6 07/30/17 00:00 82 38 110/48 (68) 100 Mechanical Ventilator 50.00 07/30/17 00:00 82 07/30/17 00:00 96 Mechanical Ventilator 50.00 07/29/17 23:00 86 42 116/46 (69) 100 Mechanical Ventilator 50.00 07/29/17 22:00 92 38 122/47 (72) 99 Mechanical Ventilator 50.00 07/29/17 21:46 90 28 96 50 07/29/17 21:00 94 28 125/52 (76) 98 Mechanical Ventilator 50.00 07/29/17 20:40 96.9 Mechanical Ventilator 50.00 07/29/17 20:37 96 28 100 55 07/29/17 20:16 98 07/29/17 20:00 96 Mechanical Ventilator 55.00 07/29/17 20:00 99 28 117/52 (73) 100 Mechanical Ventilator 55.00 07/29/17 19:00 103 22 104/50 (68) 100 Mechanical Ventilator 55.00 07/29/17 19:00 103 07/29/17 18:13 101 28 100 55 07/29/17 18:00 109 28 104/50 (68) 99 Mechanical Ventilator 55.00 07/29/17 17:00 111 28 113/45 (67) 99 Mechanical Ventilator 55.00 07/29/17 16:10 98 28 99 55 07/29/17 16:00 98 36 127/58 (81) 99 Mechanical Ventilator 55.00 07/29/17 15:56 Mechanical Ventilator 55 07/29/17 15:56 98.2 Mechanical Ventilator 55.00 07/29/17 15:18 98 28 107/50 91 Mechanical Ventilator 55.00 07/29/17 15:17 100 28 96 60 07/29/17 15:00 97 25 120/68 (85) 90 Mechanical Ventilator 45.00 07/29/17 14:19 Mechanical Ventilator 45.00 07/29/17 14:10 99 27 99 45 07/29/17 14:00 91 24 120/50 (73) 100 Mechanical Ventilator 55.00 07/29/17 13:00 97 23 155/76 (102) 100 Mechanical Ventilator 55.00 07/29/17 13:00 97 07/29/17 12:28 97.5 93 33 100/44 (62) 99 Mechanical Ventilator 55.00 07/29/17 12:28 Mechanical Ventilator 55 07/29/17 12:00 95 19 112/51 (71) 99 Mechanical Ventilator 55.00 07/29/17 11:26 92 24 122/60 95 Mechanical Ventilator 55.00 07/29/17 11:00 94 23 129/64 (85) 100 Mechanical Ventilator 55.00 07/29/17 10:50 Mechanical Ventilator 55.00 07/29/17 10:19 95 25 93 60 07/29/17 10:00 97 24 105/54 (71) 93 Mechanical Ventilator 65.00 07/29/17 09:00 94 24 123/58 (79) 92 Mechanical Ventilator 100.00 07/29/17 08:58 92 Mechanical Ventilator 100.00 07/29/17 08:50 86 Mechanical Ventilator 50.00 07/29/17 08:49 97.1 Mechanical Ventilator 50.00 07/29/17 08:00 Mechanical Ventilator 50 07/29/17 08:00 113 18 126/58 (80) 95 Mechanical Ventilator 50.00 07/29/17 07:49 102 27 95 50 07/29/17 07:35 96.9 100 27 118/55 96 Mechanical Ventilator 50.00 07/29/17 07:00 105 20 107/51 (69) 95 Mechanical Ventilator 50.00 07/29/17 07:00 105 07/29/17 06:55 Mechanical Ventilator 50.00 07/29/17 06:50 100 27 96 50 07/29/17 06:30 Mechanical Ventilator 70.00 07/29/17 06:11 96.9 104 42 107/52 100 Mechanical Ventilator 100.00 07/29/17 06:00 104 42 107/52 (70) 100 Mechanical Ventilator 100.00 I & O 07/30/17 07:00 Intake Total 2714.375 ml Output Total 1735 ml Balance 979.375 ml General Appearance: Moderate Distress HEENT: PERRL/EOMI, Pharynx Normal Neck: Normal Inspection, Supple Respiratory: Decreased Breath Sounds, Rhonci, Other (Intubated and sedated) Cardiovascular: Regular Rate, Rhythm, No Edema, Normal Peripheral Pulses Capillary Refill: Less Than 3 Seconds Gastrointestinal: non tender, soft Extremity: Normal Capillary Refill, Normal Inspection, Non Tender Neurologic/Psychiatric: Other Skin: Normal Color, Warm/Dry Lymphatic: No Adenopathy Results Lab Laboratory Tests 07/29/17 03:50 07/30/17 04:50 Assessment/Plan Assessment/Plan Acute on chronic respiratory failure with severe hypoxia Worsening respiratory failure with left pleural effusion/pulmonary edema -give bumex 2mg x 1 -Pt seemed to improve after 60mg of lasix yesterday -Pt had to be reintubated -PT is requiring ventilator therapy with PC. Change from VC to PC and check ABG in 1hr. Hypokalemia -replace ILD inflamatory vs infectious -Solumedrol 40 IV Q 6 -Monitor close -Continue Zosyn and repan culture start BCTM for possible PCP -Check HIV Paroxysmal Afib on anticoagulation Diastolic CHF with pulmonary HTN IDDM II - Pt became hypoglycemic last night Deconditioning -PT/OT denies ever smoking 233 Critical Care: Critically Ill Patient GONZÁLEZ YE DO July 30, 2017 06:03
[2017-07-30] MEDS: PANTOPRAZOLE 40 MG/10 ML (PROTONIX) VIAL IV SCH ×2 (06:33→17:57)
[2017-07-30] MEDS: CATHETER FLUSH 10 ML SYR IV SCH ×3 (06:34→22:41)
[2017-07-30] MEDS: POTASSIUM CL 10MEQ/50ML IVPB 50 ML IV SCH ×6 (06:36→09:49)
[2017-07-30] MEDS: MAGNESIUM 1 GM/100 ML IVPB 100 ML IV SCH (06:36)
[2017-07-30] MEDS: traZODone 50 MG (DESYREL) TAB PO SCH ×3 (08:01→20:38)
[2017-07-30] MEDS: PANTOPRAZOLE 40 MG (PROTONIX) TAB PO SCH (08:01)
[2017-07-30] MEDS: CHLORHEXIDINE 0.12% SOLN 15 ML (PERIDEX) UDC PO SCH ×2 (08:01→20:38)
[2017-07-30] MEDS: ASPIRIN 81 MG CHEW (CHILDREN'S ASA) PO SCH (08:01)
[2017-07-30] MEDS: GABAPENTIN 400 MG (NEURONTIN) CAP PO SCH ×2 (08:01→20:39)
[2017-07-30] MEDS: APIXABAN 5 MG (ELIQUIS) TABLET PO SCH ×2 (08:01→20:38)
--- NOTE | 2017-07-30 10:30 | Cardiology Progress Note ---
Subjective Date Seen by Provider: July 30, 2017 Time Seen by Provider: 10:00 Subjective/Events-last exam Patient is sedated and intubated. Blood pressure is better. Review of Systems General: Other (Unable to provide review of systems due to current condition) Objective-Cardiology Exam Last Set of Vital Signs Vital Signs 07/30/17 07/30/17 07/30/17 07/30/17 07:59 08:00 08:55 10:20 Temp 97.4 Pulse 82 Resp 25 B/P (MAP) 127/57 Pulse Ox 98 O2 Delivery Mechanical Ventilator O2 Flow Rate 40.00 FiO2 40 Capillary Refill : Less Than 3 Seconds I&O Intake and Output 07/30/17 00:00 Intake Total 2564.375 ml Output Total 1635 ml Balance 929.375 ml Intake Oral 50 ml IV Total 2184.375 ml Other 330 ml Output Urine Total 1285 ml Gastric Drainage Total 350 ml # Bowel Movements 2 General: Severe Distress, Other (Sedated and intubated) HEENT: Atraumatic, EOMI, Mucous Memb Moist/[place] Neck: Supple, No Thyromegaly Lungs: Other (Bilateral rhonchi) Heart: Normal S1, Normal S2, Other (Tachycardia) Abdomen: Normal Bowel Sounds, Soft, No Tenderness Extremities: No Clubbing, No Cyanosis Skin: No Rashes, No Significant Lesion Neuro: Other (Sedated and intubated) Psych/Mental Status: Other (Sedated) Results Lab Laboratory Tests 07/30/17 04:50 A/P-Cardiology Admission Diagnosis Acute respiratory failure Paroxysmal atrial fibrillation Hypotension Sepsis Assessment/Plan Acute respiratory failure, intubated, pulmonary edema and pleural effusion, some improvement after Lasix, given Bumex. Continue to monitor intake and output. Hypokalemia secondary to diuretics, replace and monitor Status post hypotension, blood pressure is better now, she is off Levophed Pneumonia, receiving antibiotics, managed by Dr Bowles Acute on chronic mild diastolic congestive heart failure, mild elevated BNP. Echocardiogram shows normal LVEF, continue to monitor Paroxysmal atrial fibrillation, currently in sinus rhythm. Maintained on Eliquis Sinus tachycardia: likely secondary to severe systemic illness. Pulmonary hypertension: Continue to monitor. Moderate aortic regurgitation: Continue to monitor. Frequent PVCs: Resolved. Diabetes Overall poor prognosis despite aggressive management. Clinical Quality Measures DVT/VTE Risk/Contraindication: VTE Addressed: Yes Risk Factor Score Per Nursin RFS Level Per Nursing on Admit: 4+=Very High Risk Score Comment: on DEVANTE Diaz MD July 30, 2017 10:30
--- NOTE | 2017-07-30 10:50 | Diagnostic Imaging Report ---
Indication: Shortness of breath. Evaluation for pleural effusion. Findings: Study is quite limited as patient is on ventilator and unable to roll. Limited images show no evidence of significant pleural fluid collections on the right or left. IMPRESSION: No sonographic findings to suggest pleural effusion. Dictated by: Dictated on workstation # [id number]
--- NOTE | 2017-07-30 12:42 | Diagnostic Imaging Report ---
Clinical indication: Patient with dyspnea. Exam: Portable chest x-ray upright view. Comparisons: Chest x-ray dated 07/29/2017. Findings: Stable multiple lines and tubes. ET tube again seen roughly 3.7 cm from the level of ross. Orogastric feeding tube seen with proximal port overlying the expected region of the gastric antrum and the distal tip overlying the expected region of the first portion of the duodenum. There is no significant change to the diffuse bilateral lung infiltrates. Left costophrenic angle continues to be obscured and a left pleural effusion cant be completely excluded. There is no pneumothorax. The appearance of the cardiac silhouette and pulmonary vasculature is similar, but is partially obscured. The remainder of this exam shows no significant interval change compared to the prior study of comparison. Right PICC line again seen with tip in the distal superior vena cava. Impression: 1: Stable bilateral lung infiltrates. 2: Stable lines and tubes, as described above. Dictated by: Dictated on workstation # [id number]
[2017-07-30 14:32] LABS: ABG BASE EXCESS 11.3 MMOL/L (-2.5-2.5); ABG OXYGEN SATURATION 92 % (94-100); ABG PCO2 52 MMHG (35-45); ABG PH 7.45 (7.37-7.43); ABG PO2 61 MMHG (79-93); ABG TCO2 37.5 MMOL/L (21.0-31.0); ALLENS TEST YES-POS; INSPIRED O2 40%; VENTILATOR YES
[2017-07-30 14:33] LABS: PATIENT TEMP 98.1
[2017-07-30] MEDS: inSUlin DETERMIR 1 UNIT/0.01 ML (LEVEMIR) CHARGE PER UNIT SQ SCH (20:38)
[2017-07-30] MEDS: AMITRIPTYLINE 50 MG (ELAVIL) TAB PO SCH (20:38)
[2017-07-30] MEDS: DULoxetine 30 MG (CYMBALTA) CAP PO SCH (20:38)
[2017-07-31] VITALS (17 sets, daily range): BP systolic 90–140; BP diastolic 47–81
[2017-07-31] MEDS: PROPOFOL DRIP (ICU) 100 ML IV SCH ×2 (00:23→04:49)
[2017-07-31] MEDS: methylPREDNISolone 40 MG/ML (Solu-MEDROL) VIAL IV SCH ×2 (00:23→05:09)
--- NOTE | 2017-07-31 00:26 | Progress Note (SOAP) ---
Subjective Subjective/Events-last exam Patient remains sedated and on ventilator. Pt's family continues to struggle with patient's poor prognosis; pt had previously expressed that she did not want to "live on a ventilator" to family. She also expressed an interest in hospice care during this hospitalization. Added: This evening, the patient's family has decided that they would like to change her code status to DNR. Chart updated to reflect request. Review of Systems Date Seen by Provider: July 30, 2017 Time Seen by Provider: 11:30 General: No Night Sweats Cardiovascular: Edema Gastrointestinal: No: Vomiting, Melena Genitourinary: No Hematuria Neurological: Other (sedated on ventilator) Objective Exam Last Set of Vital Signs Vital Signs Date Time Temp Pulse Resp B/P (MAP) Pulse Ox O2 Delivery O2 Flow Rate FiO2 07/31/17 00:00 68 22 90/50 (63) 96 Mechanical Ventilator 40.00 07/30/17 22:48 40 07/30/17 20:13 96.8 Capillary Refill : Less Than 3 Seconds I&O Intake and Output 07/31/17 00:00 Intake Total 1998.125 ml Output Total 2999 ml Balance -1000.875 ml Intake Oral 0 ml IV Total 1728.125 ml Other 270 ml Output Urine Total 2749 ml Gastric Drainage Total 250 ml General: No Acute Distress, Other (sedated, on ventilator) HEENT: Atraumatic, Mucous Memb Moist/Spelter Neck: Supple, No Thyromegaly Lungs: Other (diminished, diffuse coarseness, wheezing) Heart: Regular Rate, Normal S1, Normal S2 Abdomen: Normal Bowel Sounds, Soft, No Masses Extremities: No Clubbing, No Cyanosis Skin: No Rashes, No Significant Lesion Neuro: Normal Tone Psych/Mental Status: Other (sedated, ventilated) Results/Procedures Lab Laboratory Tests 07/30/17 04:30: Blood Gas Puncture Site RIGHT RADIAL, Blood Gas Patient Temperature 96.3, Arterial Blood pH 7.46H, Arterial Blood Partial Pressure CO2 51H, Arterial Blood Partial Pressure O2 56L, Arterial Blood HCO3 36H, Arterial Blood Total CO2 37.5H, Arterial Blood Oxygen Saturation 94, Arterial Blood Base Excess 11.1H , Ludwin Test YES-POS, Blood Gas Ventilator Setting YES, Blood Gas Inspired Oxygen 40% 07/30/17 04:50: White Blood Count 11.9H, Red Blood Count 2.95L, Hemoglobin 8.8L, Hematocrit 26L , Mean Corpuscular Volume 88, Mean Corpuscular Hemoglobin 30, Mean Corpuscular Hemoglobin Concent 34, Red Cell Distribution Width 14.6H, Platelet Count 233, Mean Platelet Volume 9.5, Neutrophils (%) (Auto) 89H, Lymphocytes (%) (Auto) 7L , Monocytes (%) (Auto) 4, Eosinophils (%) (Auto) 0, Basophils (%) (Auto) 0, Neutrophils # (Auto) 10.6H, Lymphocytes # (Auto) 0.8L, Monocytes # (Auto) 0.5, Eosinophils # (Auto) 0.0, Basophils # (Auto) 0.0, Sodium Level 137, Potassium Level 2.7L, Chloride Level 94L, Carbon Dioxide Level 31, Anion Gap 12, Blood Urea Nitrogen 16, Creatinine 0.77, Estimat Glomerular Filtration Rate > 60, BUN/ Creatinine Ratio 21, Glucose Level 124H, Calcium Level 9.0, Phosphorus Level 2.4 , Magnesium Level 2.1 07/30/17 07:57: Glucometer 209H 07/30/17 12:27: Glucometer 240H 07/30/17 14:20: Blood Gas Puncture Site RT RAD, Blood Gas Patient Temperature 98.1, Arterial Blood pH 7.45H, Arterial Blood Partial Pressure CO2 52H, Arterial Blood Partial Pressure O2 61L, Arterial Blood HCO3 36H, Arterial Blood Total CO2 37.5H, Arterial Blood Oxygen Saturation 92L, Arterial Blood Base Excess 11.3H, Ludwin Test YES-POS, Blood Gas Ventilator Setting YES, Blood Gas Inspired Oxygen 40% 07/30/17 16:00: Potassium Level 4.3 07/30/17 16:05: Glucometer 106 07/30/17 20:16: Glucometer 260H Microbiology 07/29/17 Blood Culture - Preliminary, Resulted No growth 07/29/17 Mycobacterial Culture - Preliminary, Resulted See Comments 07/29/17 Urine Culture - Preliminary, Resulted Sent To [facility] Radiology Date of Exam: 07/22/17 CHEST 1 VIEW, AP/PA ONLY INDICATION: Cough, shortness of air. TECHNIQUE: Single view chest 10:08 AM. CORRELATION STUDY: 06/23/2017 FINDINGS: There has been interval extubation to remove the gastric tube. Heart size enlarged. Mediastinum is prominent, likely stable. There is rather significant pulmonary vascular congestion and perihilar edema. Scattered pulmonary parenchyma is noted, likely largely edematous. A superimposed infiltrate/pneumonia would be difficult to exclude. IMPRESSION: 1. Enlargement present with pulmonary vascular congestion, perihilar and likely pulmonary edema. Superimposed infiltrate difficult to exclude. Followup imaging recommended. Assessment/Plan Assessment/Plan Assessment & Plan 1. Acute on chronic respiratory failure w/ hypoxia 07/23 - admitted 07/22/17 to ICU on Vapotherm, titrated down since admission currently on 13L 55% FIO2; O2 sat 94% (baseline 6L nc) - Dr. Bowles consulted 07/24 - Dr. Bowles managing; currently 8L on 85% Vapotherm and tolerating well, with sats >95%. Baseline O2 6L NC 07/25 - continue to defer management to Dr. Bowles 07/26 - continue to defer management to Dr. Bowles. Back on vapotherm 07/27 - has weaned down to NC, is lower than baseline 6L at admission at the time of exam 07/28 - continues to have desats; continued management by Dr. Bowles; patient at extremely high risk for decompensation 07/29 - pt with acute decompensation overnight, now on ventilator; bronch by Dr. Bowles this morning. Continue to defer management to Dr. Bowles. 07/30 - remains ventilated, management per Dr. Bowles 2. hx of ARDS w/ prolonged hospitalization June 2017 - required intubation and transfer to [place] from - recently admitted to [facility] after DC from [place] 07/24 - pt states she is planning to return to [facility] after discharge from here 07/25 - continue to monitor closely 07/26 - pulmonary management per Dr. Bowles; agree that if placed on ventilator patient would likely have very difficult time weaning off 07/27 - continue to defer pulm management to Dr. Bowles 07/28 - continue to defer pulm management to Dr. Bowles; pt remains at high risk for decompensation and intubation, and would likely be extremely difficult to wean off ventilator, if that would even be possible 07/29 - decompensated overnight, now intubated on ventilator 07/30 - remains intubated, management per Dr. Bowles 3. possible Pneumonia - CXR in ED showed vascular congestion; unable to delineate clear infiltrated - currently on Zosyn and Vancomycin 07/24 - CXR suggestive of pulmonary vascular congestion, unable to rule out PNA, continued on abx at this time, Day 3 Vanc and Zosyn 07/25 - Day 4 Vanc and Zosyn; CT Chest pending 07/26 - ILD vs infection, solumedrol IVP per Dr. Bowles; considering bronch, but would require intubation and placement on ventilator 07/27 - Day 6 Zosyn; incorrectly stated above - pt never received vanc 07/28 - Day 7 Zosyn; CXR shows mild improvement 07/29 - Day 8 Zosyn, pt now intubated. Bronch per Dr. Bowles this AM. Bactrim q6h for possible PCP PNA per Dr. Bowles. Would also consider MAC as possible cause. 07/30 - Day 9 Zosyn, Day 2 Bactrim. Bronch Cx pending. 4. Diabetes Mellitus Type 2 - insulin requiring - restart home insulin regimen of Levemir and novolog w/ Novolog SSI 07/24 - Accucheck AC and HS, sliding scale insulin per protocol with home dose of Levemir 07/25 - continue accuchecks and sliding scale with home levemir 07/26 - hypoglycemia this morning; will monitor closely 07/27 - no further hypoglycemia 07/28 - monitoring sugars closely 07/29 - continue accuchecks, but will change to q6h; increase sliding scale, bactrim mixed in large amount of D5 and causing hyperglycemia 07/30 - sugars improved after increasing to sliding scale C, continue to monitor and adjust accordingly 5. Paroxysmal Afib on chronic anticoaguation - on Eliquis 07/24 - continue on eliquis for anticoagulation, metoprolol increased per cardiology, will defer management to their expertise 07/25 - continue to defer to cardiology 07/26 - increased arrhythmias overnight; when CXR reviewed, radiology report states PICC line tip in superior vena cava; difficult to discern due to pts significant lung disease, but feel that PICC line tip appears deeper than that, and coupled with pt's arrhythmias, find this likely. Radiology contacted and requested to re-evaluate films for placement, and PICC nurse requested to pull line back. 07/27 - arrhythmias mostly resolved after PICC pulled back; continue telemetry 07/28 - CXR this AM shows tip still in right atrium, PICC team requested to pull back 3 cm and reshoot CXR to confirm tip in superior vena cava and not right atrium 07/29 - PICC exchanged yesterday and then pulled back, tip now appears in superior vena cava. 07/30 - patient with down trending blood pressures, rhythm stable 6. CHF - diastolic dysfunction w/ preserved EF - consult cardiology; pt reports she does not have primary building architect 07/24 - preserved EF per cardiology report, continue to defer to cardiology for management 07/25 - continue to defer to cardiology 07/26 - continue to defer to cardiology 07/27 - continue to defer to cardiology; I&O net -950 in last 24 hours 07/28 - management per cardiology; responded well to diuresis 07/29 - management per cardiology, continued diuresis 07/30 - management per cardiology, continue to diurese per Dr. Bowles 7. Mild to moderate pulmonary hypertension 40-45mmHg on Echo 06/2017 8. Probably obesity-hypoventilation syndrome 9. Hypotension 07/24 - minimal response to intermittent fluid boluses, but requires diuresis from a cardiac standpoint; albumin and lasix to attempt to diurese and still buffer pressures if possible 07/25 - required levophed overnight; per nursing documentation, unable to contact surgeon for central access. Levophed off by this AM, plan for PICC placement today 07/26 - no further hypotension 07/27 - no further hypotension 07/28 - continue to monitor 07/29 - continue to monitor pressure closely 07/30 - pressures trending down, monitor closely, levophed per protocol if needed Hospice consult was done, as patient was not sure if she would want to be placed back on ventilator if she should decline to that point, or if she would want to be intubated for bronchoscopy; seen by hospice, and at this time patient does not appear to qualify, as she does not have a documented end stage disease. Added this evening at 1930 - patient's family, after much tearful discussion amongst themselves, has changed the patient's code status to DNR. Pt has had a large amount of family visiting today. Dispo: Patient intubated and requiring ventilator, requires ICU level of care. Prognosis: Extremely Poor. Clinical Quality Measures DVT/VTE Risk/Contraindication: VTE Addressed: Yes Risk Factor Score Per Nursin RFS Level Per Nursing on Admit: 4+=Very High Risk Score Comment: on Eliquis Copy Copies To 1: [facility]/MIKE BARRAZA DO July 31, 2017 00:26
[2017-07-31] MEDS: inSUlin ASPART (NovoLOG) 1 UNIT/0.01 ML (CHARGE PER UNIT) SC SCH ×3 (00:27→09:03)
[2017-07-31] MEDS: PIPERACILLIN SODIUM/TAZOBACTAM 4.5 GM in D5W 100 ML IVPB 100 ML IV SCH ×2 (00:28→08:53)
[2017-07-31] MEDS: RT-ALBUTEROL SULF 2.5 MG/3 ML PRE-MIX VIAL INH SCH ×3 (01:02→10:11)
[2017-07-31 03:34] LABS: ABG BASE EXCESS 8.7 MMOL/L (-2.5-2.5); ABG OXYGEN SATURATION 95 % (94-100); ABG PCO2 45 MMHG (35-45); ABG PH 7.47 (7.37-7.43); ABG PO2 65 MMHG (79-93); ABG TCO2 34.5 MMOL/L (21.0-31.0); BASOPHILS % (AUTO) 0 % (0-10); EOSINOPHILS % (AUTO) 0 % (0-10); HEMATOCRIT 26 % (35-52); HEMOGLOBIN 8.7 G/DL (11.5-16.0); LYMPHOCYTES # (AUTO) 0.8 X 10^3 (1.0-4.0); LYMPHOCYTES % (AUTO) 7 % (12-44); MEAN CORPUSCULAR HEMOGLOBIN 29 PG (25-34); MEAN CORPUSCULAR HGB CONC 34 G/DL (32-36); MEAN CORPUSCULAR VOLUME 86 FL (80-99); MEAN PLATELET VOLUME 9.9 FL (7.4-10.4); MONOCYTES # (AUTO) 0.6 X 10^3 (0.0-1.0); MONOCYTES % (AUTO) 5 % (0-12); NEUTROPHILS # (AUTO) 9.9 X 10^3 (1.8-7.8); NEUTROPHILS % (AUTO) 88 % (42-75); PLATELET COUNT 237 10^3/uL (130-400); RED CELL DISTRIBUTION WIDTH 14.4 % (10.0-14.5); WHITE BLOOD COUNT 11.3 10^3/uL (4.3-11.0)
[2017-07-31 03:35] LABS: ALLENS TEST YES-POS
[2017-07-31 03:36] LABS: INSPIRED O2 35%; PATIENT TEMP 96.3; VENTILATOR YES
[2017-07-31 03:59] LABS: BUN/CREATININE RATIO 18; CALCIUM 8.7 MG/DL (8.5-10.1); CARBON DIOXIDE 27 MMOL/L (21-32); CHLORIDE 89 MMOL/L (98-107); CREATININE SERUM 0.87 MG/DL (0.60-1.30); GFR ESTIMATED > 60; GLUCOSE 140 MG/DL (70-105); PHOSPHORUS 2.5 MG/DL (2.3-4.7); POTASSIUM 3.9 MMOL/L (3.6-5.0); SODIUM 131 MMOL/L (135-145)
[2017-07-31] MEDS: TRIMETHO IV SCH ×2 (04:49→11:10)
[2017-07-31] MEDS: SULFAMETHOXAZOLE IV SCH ×2 (04:49→11:10)
[2017-07-31] MEDS: D5W IV SCH ×2 (04:49→11:10)
[2017-07-31] MEDS: CATHETER FLUSH 10 ML SYR IV SCH (04:50)
[2017-07-31] MEDS: MAGNESIUM 1 GM/100 ML IVPB 100 ML IV SCH (05:19)
--- NOTE | 2017-07-31 05:37 | Pulmonary Progress Note ---
Subjective Time Seen by Provider: 05:57 Subjective/Events-last exam family at bedside. Pt is sedated on ventilator. Exam Exam Vital Signs Date Time Temp Pulse Resp B/P (MAP) Pulse Ox O2 Delivery O2 Flow Rate FiO2 07/31/17 05:00 83 21 97/55 (69) 100 Mechanical Ventilator 40.00 07/31/17 04:49 86 110/56 07/31/17 04:00 88 21 101/54 (70) 100 Mechanical Ventilator 40.00 07/31/17 04:00 Mechanical Ventilator 35 07/31/17 03:37 90 22 99 40 07/31/17 03:16 96.3 07/31/17 03:00 92 21 100/58 (72) 99 Mechanical Ventilator 40.00 07/31/17 02:00 96 21 113/55 (74) 97 Mechanical Ventilator 40.00 07/31/17 01:03 91 22 99 40 07/31/17 01:00 90 07/31/17 01:00 90 22 111/47 (68) 100 Mechanical Ventilator 40.00 07/31/17 00:41 96.6 07/31/17 00:23 88/49 07/31/17 00:00 Mechanical Ventilator 35 07/31/17 00:00 68 22 90/50 (63) 96 Mechanical Ventilator 40.00 07/30/17 23:00 75 21 93/50 (64) 96 Mechanical Ventilator 40.00 07/30/17 22:48 78 22 97 40 07/30/17 22:00 86 25 102/54 (70) 98 Mechanical Ventilator 40.00 07/30/17 21:10 83 24 100 40 07/30/17 21:00 84 26 106/53 (70) 100 Mechanical Ventilator 40.00 07/30/17 20:38 85 108/58 07/30/17 20:13 96.8 07/30/17 20:00 Mechanical Ventilator 40 07/30/17 20:00 86 27 113/56 (75) 91 Mechanical Ventilator 40.00 07/30/17 19:00 76 07/30/17 19:00 87 25 111/56 (74) 99 Mechanical Ventilator 40.00 07/30/17 18:25 85 25 97 40 07/30/17 18:00 84 22 106/49 (68) 98 Mechanical Ventilator 40.00 07/30/17 17:00 87 22 117/57 (77) 99 Mechanical Ventilator 40.00 07/30/17 16:22 91 26 116/62 98 Mechanical Ventilator 40.00 07/30/17 16:01 92 22 91 40 07/30/17 16:00 87 26 106/56 (73) 95 Mechanical Ventilator 40.00 07/30/17 15:57 99.2 Mechanical Ventilator 40.00 07/30/17 15:57 Mechanical Ventilator 40 07/30/17 15:00 87 23 99/36 (57) 100 Mechanical Ventilator 40.00 07/30/17 14:29 75 25 100 40 07/30/17 14:00 75 24 104/55 (71) 100 Mechanical Ventilator 40.00 07/30/17 13:00 75 25 100/56 (71) 100 Mechanical Ventilator 40.00 07/30/17 13:00 75 07/30/17 12:43 76 25 100/52 100 Mechanical Ventilator 07/30/17 12:24 97.3 Mechanical Ventilator 40.00 07/30/17 12:24 Mechanical Ventilator 40 07/30/17 12:23 75 25 94 40 07/30/17 12:00 78 21 90/50 (63) 95 Mechanical Ventilator 40.00 07/30/17 11:00 80 30 121/57 (78) 99 40.00 07/30/17 10:20 82 25 98 40 07/30/17 10:00 85 25 135/67 (89) 99 40.00 07/30/17 09:00 82 24 129/52 (77) 96 Mechanical Ventilator 40.00 07/30/17 08:55 84 25 127/57 100 40.00 07/30/17 08:28 84 29 93 40 07/30/17 08:00 78 20 125/59 (81) 100 Mechanical Ventilator 50.00 07/30/17 07:59 Mechanical Ventilator 40 07/30/17 07:59 97.4 Mechanical Ventilator 40.00 07/30/17 07:00 78 07/30/17 07:00 76 24 100/49 (66) 99 Mechanical Ventilator 50.00 07/30/17 06:41 72 24 100 50 07/30/17 06:00 76 27 120/46 (70) 100 Mechanical Ventilator 40.00 I & O 07/31/17 07:00 Intake Total 2826.250 ml Output Total 2474 ml Balance 352.250 ml General Appearance: No Apparent Distress HEENT: PERRL/EOMI, Pharynx Normal Neck: Normal Inspection, Supple Respiratory: Decreased Breath Sounds, Rhonci, Other (Intubated and sedated) Cardiovascular: Regular Rate, Rhythm, No Edema, Normal Peripheral Pulses Capillary Refill: Less Than 3 Seconds Gastrointestinal: non tender, soft Extremity: Normal Capillary Refill, Normal Inspection, Non Tender Neurologic/Psychiatric: Other Skin: Normal Color, Warm/Dry Lymphatic: No Adenopathy Results Lab Laboratory Tests 07/30/17 04:50 07/30/17 16:00 07/31/17 03:16 Assessment/Plan Assessment/Plan Acute on chronic respiratory failure with severe hypoxia Worsening respiratory failure with left pleural effusion/pulmonary edema -Change vent to AC and repeat ABG in 1hr. ILD inflamatory vs infectious -Solumedrol 40 IV Q 6 -Monitor close - Zosyn and repan culture start BCTM for possible PCP -Check HIV Paroxysmal Afib on anticoagulation Diastolic CHF with pulmonary HTN IDDM II - Pt became hypoglycemic last night Deconditioning -PT/OT denies ever smoking 120min spent with patient family and medical staff discussing patients care and prognosis. PT is in very critical condition with a poor prognosis. All options explained to family including comfort care vs DNR care. Critical Care: Critically Ill Patient GONZÁLEZ YE DO July 31, 2017 05:37
[2017-07-31] MEDS: PANTOPRAZOLE 40 MG/10 ML (PROTONIX) VIAL IV SCH (06:33)
--- NOTE | 2017-07-31 08:23 | Diagnostic Imaging Report ---
INDICATION: Dyspnea, pneumonia. TECHNIQUE: Single view chest 3:24 AM. CORRELATION STUDY: 07/30/2017 FINDINGS: Endotracheal, gastric tube and right-sided central line all remain in place. Heart size remains enlarged, mediastinum prominent. There is a continued but improved severity of pulmonary vascular congestion and perihilar edema from prior study. Continued diffuse mixed infiltrate throughout both lung kerns but does appear to be partially improved and cleared. IMPRESSION: 1. Stable support lines and tubes. 2. The severity of pulmonary vascular congestion has improved and slightly diminished but does persist. 3. Continued but improved bilateral pulmonary infiltrates. Dictated by: Dictated on workstation # [id number]
[2017-07-31] MEDS: ASPIRIN 81 MG CHEW (CHILDREN'S ASA) PO SCH (08:49)
[2017-07-31] MEDS: GABAPENTIN 400 MG (NEURONTIN) CAP PO SCH (08:49)
[2017-07-31] MEDS: APIXABAN 5 MG (ELIQUIS) TABLET PO SCH (08:49)
[2017-07-31] MEDS: CHLORHEXIDINE 0.12% SOLN 15 ML (PERIDEX) UDC PO SCH (08:53)
[2017-07-31] MEDS: traZODone 50 MG (DESYREL) TAB PO SCH (09:03)
--- NOTE | 2017-07-31 10:16 | Cardiology Progress Note ---
Cardiology SOAP Progress Note Subjective: Intubated, ventilated. Objective: I&O/Vital Signs 07/31/17 07/31/17 07/31/17 07/31/17 02:00 03:00 03:16 03:37 Temp 96.3 Pulse 96 92 90 Resp 22 B/P (MAP) 113/55 (74) 100/58 (72) Pulse Ox 97 99 99 O2 Delivery Mechanical Ventilator Mechanical Ventilator O2 Flow Rate 40.00 40.00 FiO2 40 07/31/17 07/31/17 07/31/17 07/31/17 04:00 04:00 04:49 05:00 Pulse 88 86 83 Resp B/P (MAP) 101/54 (70) 110/56 97/55 (69) Pulse Ox 100 100 O2 Delivery Mechanical Ventilator Mechanical Ventilator Mechanical Ventilator O2 Flow Rate 40.00 40.00 FiO2 35 07/31/17 07/31/17 07/31/17 07/31/17 06:00 06:55 07:00 07:00 Temp 97.3 Pulse 77 79 79 Resp 17 B/P (MAP) 92/54 (67) 105/52 (69) Pulse Ox 100 99 100 O2 Delivery Mechanical Ventilator Mechanical Ventilator Mechanical Ventilator O2 Flow Rate 40.00 40.00 40.00 FiO2 35 07/31/17 07/31/17 07/31/17 07/31/17 07:00 08:00 08:45 09:00 Pulse 79 81 80 Resp 24 23 B/P (MAP) 106/57 (73) 113/59 (77) Pulse Ox 97 98 O2 Delivery Mechanical Ventilator Mechanical Ventilator Mechanical Ventilator O2 Flow Rate 40.00 40.00 FiO2 40 07/31/17 07/31/17 07/31/17 07/31/17 10:00 10:11 11:00 12:00 Pulse 80 82 80 86 Resp 29 22 24 B/P (MAP) 107/57 (74) 109/58 (75) Pulse Ox 98 92 98 O2 Delivery Mechanical Ventilator Mechanical Ventilator Nasal Cannula O2 Flow Rate 40.00 40.00 2.00 FiO2 35 07/31/17 00:00 Intake Total 1758.125 ml Output Total 1225 ml Balance 533.125 ml Weight (Pounds): 205 Weight (Ounces): 4.0 Weight (Calculated Kilograms): [id number] Constitutional: appears stated age, AAO x 3, well-developed, well-nourished Respiratory: accessory muscle use, respiratory distress; No chest tender, No chest expansion is symmetric; chest is bilaterally symmetric; No lungs clear to percussion; lungs clear to auscultation; No crackles, No rhonchi, No rales, No stridor, No wheezing, No pleural rub, No other Cardiovascular: regular rate-rhythm; No irregularly irregular, No extra beats, No parasternal heave is noted, No JVD, No edema, No bradycardia, No tachycardia , No point of maximal impulse, No cardiac thrills are palpable; S1 and S2; No gallop/S3, No gallop/S4, No diastolic murmur, No systolic murmur, No friction rub, No click, No other Gastrointestional: No tender, No soft, No round, No distended, No pulsatile mass, No organomegaly, No guarding, No rebound, No tenderness, No hernia, No mass, No audible bowel sounds, No abnormal bowel sounds, No abdominal bruits, No spleenomegaly, No other Extremities: No normal range of motion, No non-tender, No normal inspection, No pedal edema, No calf tenderness, No normal capillary refill, No pelvis stable , No calf tenderness, No inflammation, No pedal edema, No slow capillary refill , No swelling, No other, No abrasion, No clubbing, No cyanosis, No ecchymosis, No laceration, No no lower extremity edema bilateral, No significant edema, No tenderness, No wound Neurologic/Psychiatric: other (intubated/ventilated) Skin: No normal color, No warm/dry, No cyanosis, No cool, No diaphoresis, No damp, No ecchymosis, No jaundice, No mottled, No pallor, No rash, No tattoos/ piercings, No ulcerations, No rash on exposed areas, No ulcerations on exposed areas, No other Results/Procedures: Labs Laboratory Tests 07/30/17 14:20: Blood Gas Puncture Site RT RAD, Blood Gas Patient Temperature 98.1, Arterial Blood pH 7.45H, Arterial Blood Partial Pressure CO2 52H, Arterial Blood Partial Pressure O2 61L, Arterial Blood HCO3 36H, Arterial Blood Total CO2 37.5H, Arterial Blood Oxygen Saturation 92L, Arterial Blood Base Excess 11.3H, Ludwin Test YES-POS, Blood Gas Ventilator Setting YES, Blood Gas Inspired Oxygen 40% 07/30/17 16:00: Potassium Level 4.3 07/30/17 16:05: Glucometer 106 07/30/17 20:16: Glucometer 260H 07/31/17 00:21: Glucometer 288H 07/31/17 03:14: Glucometer 157H 07/31/17 03:16: White Blood Count 11.3H, Red Blood Count 3.00L, Hemoglobin 8.7L, Hematocrit 26L , Mean Corpuscular Volume 86, Mean Corpuscular Hemoglobin 29, Mean Corpuscular Hemoglobin Concent 34, Red Cell Distribution Width 14.4, Platelet Count 237, Mean Platelet Volume 9.9, Neutrophils (%) (Auto) 88H, Lymphocytes (%) (Auto) 7L , Monocytes (%) (Auto) 5, Eosinophils (%) (Auto) 0, Basophils (%) (Auto) 0, Neutrophils # (Auto) 9.9H, Lymphocytes # (Auto) 0.8L, Monocytes # (Auto) 0.6, Eosinophils # (Auto) 0.0, Basophils # (Auto) 0.0, Blood Gas Puncture Site RIGHT RADIAL, Blood Gas Patient Temperature 96.3, Arterial Blood pH 7.47H, Arterial Blood Partial Pressure CO2 45, Arterial Blood Partial Pressure O2 65L, Arterial Blood HCO3 33H, Arterial Blood Total CO2 34.5H, Arterial Blood Oxygen Saturation 95, Arterial Blood Base Excess 8.7H, Ludwin Test YES-POS, Blood Gas Ventilator Setting YES, Blood Gas Inspired Oxygen 35%, Sodium Level 131L, Potassium Level 3.9, Chloride Level 89L, Carbon Dioxide Level 27, Anion Gap 15H , Blood Urea Nitrogen 16, Creatinine 0.87, Estimat Glomerular Filtration Rate > 60, BUN/Creatinine Ratio 18, Glucose Level 140H, Calcium Level 8.7, Phosphorus Level 2.5, Magnesium Level 2.0, B-Type Natriuretic Peptide 79.7 07/31/17 08:55: Glucometer 218H Microbiology 07/29/17 Blood Culture - Preliminary, Resulted No growth 07/29/17 Mycobacterial Culture - Preliminary, Resulted See Comments 07/29/17 Urine Culture - Final, Complete Yeast species A/P: Assessment/Dx: Patient family changed status to comfort care, patient will be extubated. Shortness of breath, hypoxia, Sepsis, Pneumonia, Acute on chronic mild diastolic congestive heart failure, Paroxysmal atrial fibrillation, Wide-complex tachycardia, Pulmonary hypertension, Moderate aortic insufficiency, Frequent PVCs, Diabetes Plan: Patient will be made comfort care today. Will be extubated. Shortness of breath, hypoxia, currently on Broad-spectrum IV antibiotics. Intubated/ventilated for respiratory distress. Sepsis, with lactic acidosis. Can give IV fluids as required. Pneumonia, on IV antibiotics. Borderline low blood pressure. Acute on chronic mild diastolic congestive heart failure, mild elevated BNP. Echocardiogram shows normal LVEF. Paroxysmal atrial fibrillation, currently in sinus rhythm. Continue Eliquis. Sinus tachycardia: likely secondary to severe systemic illness. Pulmonary hypertension: Continue to monitor. Moderate aortic regurgitation: Continue to monitor. Frequent PVCs: Resolved. Diabetes Thank you for your consultation. Please call me if you have any questions. Sloan Marie MD, FACP, FACC, FSCAI, FHRS, CCDS Interventional Cardiology Cardiac Electrophysiology Vascular Medicine and Endovascular Interventions Ratna MARIE MD July 31, 2017 10:16
--- NOTE | 2017-07-31 11:40 | Physical Therapy Progress Note ---
Therapy Progress Note Checked with nurse regarding patient. Currently we do not have effective PT orders. Nurse is awaiting further clarification of patient status. She is aware we do not have orders and if continued PT is indicated, she will pursue PT orders. RHONDA RAMIREZ PT July 31, 2017 11:40
--- NOTE | 2017-07-31 11:58 | Progress Note (SOAP) ---
Subjective Subjective/Events-last exam This morning family decided to proceed with extubation and comfort care. Patient is currently extubated and responsive and denies pain. Review of Systems Date Seen by Provider: July 31, 2017 Time Seen by Provider: 11:45 Objective Exam Last Set of Vital Signs Vital Signs Date Time Temp Pulse Resp B/P (MAP) Pulse Ox O2 Delivery O2 Flow Rate FiO2 07/31/17 10:11 82 29 92 35 07/31/17 09:00 104/60 (75) Mechanical Ventilator 40.00 07/31/17 07:00 97.3 Capillary Refill : Less Than 3 Seconds I&O Intake and Output 07/31/17 00:00 Intake Total 2198.125 ml Output Total 3274 ml Balance -1075.875 ml Intake Oral 0 ml IV Total 1828.125 ml Tube Feeding 100 ml Other 270 ml Output Urine Total 2924 ml Gastric Drainage Total 350 ml General: No Acute Distress Skin: Other (cyanotic) Psych/Mental Status: Other (lethargic, answers with shaking head when spoken directly to) Results/Procedures Lab Laboratory Tests 07/30/17 12:27: Glucometer 240H 07/30/17 14:20: Blood Gas Puncture Site RT RAD, Blood Gas Patient Temperature 98.1, Arterial Blood pH 7.45H, Arterial Blood Partial Pressure CO2 52H, Arterial Blood Partial Pressure O2 61L, Arterial Blood HCO3 36H, Arterial Blood Total CO2 37.5H, Arterial Blood Oxygen Saturation 92L, Arterial Blood Base Excess 11.3H, Ludwin Test YES-POS, Blood Gas Ventilator Setting YES, Blood Gas Inspired Oxygen 40% 07/30/17 16:00: Potassium Level 4.3 07/30/17 16:05: Glucometer 106 07/30/17 20:16: Glucometer 260H 07/31/17 00:21: Glucometer 288H 07/31/17 03:14: Glucometer 157H 07/31/17 03:16: White Blood Count 11.3H, Red Blood Count 3.00L, Hemoglobin 8.7L, Hematocrit 26L , Mean Corpuscular Volume 86, Mean Corpuscular Hemoglobin 29, Mean Corpuscular Hemoglobin Concent 34, Red Cell Distribution Width 14.4, Platelet Count 237, Mean Platelet Volume 9.9, Neutrophils (%) (Auto) 88H, Lymphocytes (%) (Auto) 7L , Monocytes (%) (Auto) 5, Eosinophils (%) (Auto) 0, Basophils (%) (Auto) 0, Neutrophils # (Auto) 9.9H, Lymphocytes # (Auto) 0.8L, Monocytes # (Auto) 0.6, Eosinophils # (Auto) 0.0, Basophils # (Auto) 0.0, Blood Gas Puncture Site RIGHT RADIAL, Blood Gas Patient Temperature 96.3, Arterial Blood pH 7.47H, Arterial Blood Partial Pressure CO2 45, Arterial Blood Partial Pressure O2 65L, Arterial Blood HCO3 33H, Arterial Blood Total CO2 34.5H, Arterial Blood Oxygen Saturation 95, Arterial Blood Base Excess 8.7H, Ludwin Test YES-POS, Blood Gas Ventilator Setting YES, Blood Gas Inspired Oxygen 35%, Sodium Level 131L, Potassium Level 3.9, Chloride Level 89L, Carbon Dioxide Level 27, Anion Gap 15H , Blood Urea Nitrogen 16, Creatinine 0.87, Estimat Glomerular Filtration Rate > 60, BUN/Creatinine Ratio 18, Glucose Level 140H, Calcium Level 8.7, Phosphorus Level 2.5, Magnesium Level 2.0, B-Type Natriuretic Peptide 79.7 07/31/17 08:55: Glucometer 218H Microbiology 07/29/17 Blood Culture - Preliminary, Resulted No growth 07/29/17 Mycobacterial Culture - Preliminary, Resulted See Comments 07/29/17 Urine Culture - Preliminary, Resulted Yeast species Radiology Date of Exam: 07/22/17 CHEST 1 VIEW, AP/PA ONLY INDICATION: Cough, shortness of air. TECHNIQUE: Single view chest 10:08 AM. CORRELATION STUDY: 06/23/2017 FINDINGS: There has been interval extubation to remove the gastric tube. Heart size enlarged. Mediastinum is prominent, likely stable. There is rather significant pulmonary vascular congestion and perihilar edema. Scattered pulmonary parenchyma is noted, likely largely edematous. A superimposed infiltrate/pneumonia would be difficult to exclude. IMPRESSION: 1. Enlargement present with pulmonary vascular congestion, perihilar and likely pulmonary edema. Superimposed infiltrate difficult to exclude. Followup imaging recommended. Procedures Intubated at ~0500 by ED physician Assessment/Plan Assessment/Plan Assessment & Plan 1. Acute on chronic respiratory failure w/ hypoxia 07/23 - admitted 07/22/17 to ICU on Vapotherm, titrated down since admission currently on 13L 55% FIO2; O2 sat 94% (baseline 6L nc) - Dr. Bowles consulted 07/24 - Dr. Bowles managing; currently 8L on 85% Vapotherm and tolerating well, with sats >95%. Baseline O2 6L NC 07/25 - continue to defer management to Dr. Bowles 07/26 - continue to defer management to Dr. Bowles. Back on vapotherm 07/27 - has weaned down to NC, is lower than baseline 6L at admission at the time of exam 07/28 - continues to have desats; continued management by Dr. Bowles; patient at extremely high risk for decompensation 07/29 - pt with acute decompensation overnight, now on ventilator; bronch by Dr. Bowles this morning. Continue to defer management to Dr. Bowles. 07/30 - remains ventilated, management per Dr. Bowles 07/31 - family has decided to proceed with comfort care, patient extubated at 11 am, morphine and ativan prn is ordered 2. hx of ARDS w/ prolonged hospitalization June 2017 - required intubation and transfer to [place] from - recently admitted to [facility] after DC from [place] 07/24 - pt states she is planning to return to [facility] after discharge from here 07/25 - continue to monitor closely 07/26 - pulmonary management per Dr. Bowles; agree that if placed on ventilator patient would likely have very difficult time weaning off 07/27 - continue to defer pulm management to Dr. Bowles 07/28 - continue to defer pulm management to Dr. Bowles; pt remains at high risk for decompensation and intubation, and would likely be extremely difficult to wean off ventilator, if that would even be possible 07/29 - decompensated overnight, now intubated on ventilator 07/30 - remains intubated, management per Dr. oBwles 07/31- goals changed to comfort care, see above 3. possible Pneumonia - CXR in ED showed vascular congestion; unable to delineate clear infiltrated - currently on Zosyn and Vancomycin 07/24 - CXR suggestive of pulmonary vascular congestion, unable to rule out PNA, continued on abx at this time, Day 3 Vanc and Zosyn 07/25 - Day 4 Vanc and Zosyn; CT Chest pending 07/26 - ILD vs infection, solumedrol IVP per Dr. Bowles; considering bronch, but would require intubation and placement on ventilator 07/27 - Day 6 Zosyn; incorrectly stated above - pt never received vanc 07/28 - Day 7 Zosyn; CXR shows mild improvement 07/29 - Day 8 Zosyn, pt now intubated. Bronch per Dr. Bowles this AM. Bactrim q6h for possible PCP PNA per Dr. Bowles. Would also consider MAC as possible cause. 07/30 - Day 9 Zosyn, Day 2 Bactrim. Bronch Cx pending. 07/31 - d/c antibiotics, changed to comfort care 4. Diabetes Mellitus Type 2 - insulin requiring - restart home insulin regimen of Levemir and novolog w/ Novolog SSI 07/24 - Accucheck AC and HS, sliding scale insulin per protocol with home dose of Levemir 07/25 - continue accuchecks and sliding scale with home levemir 07/26 - hypoglycemia this morning; will monitor closely 07/27 - no further hypoglycemia 07/28 - monitoring sugars closely 07/29 - continue accuchecks, but will change to q6h; increase sliding scale, bactrim mixed in large amount of D5 and causing hyperglycemia 07/30 - sugars improved after increasing to sliding scale C, continue to monitor and adjust accordingly 07/31 - goals changed to comfort care 5. Paroxysmal Afib on chronic anticoaguation - on Eliquis 07/24 - continue on eliquis for anticoagulation, metoprolol increased per cardiology, will defer management to their expertise 07/25 - continue to defer to cardiology 07/26 - increased arrhythmias overnight; when CXR reviewed, radiology report states PICC line tip in superior vena cava; difficult to discern due to pts significant lung disease, but feel that PICC line tip appears deeper than that, and coupled with pt's arrhythmias, find this likely. Radiology contacted and requested to re-evaluate films for placement, and PICC nurse requested to pull line back. 07/27 - arrhythmias mostly resolved after PICC pulled back; continue telemetry 07/28 - CXR this AM shows tip still in right atrium, PICC team requested to pull back 3 cm and reshoot CXR to confirm tip in superior vena cava and not right atrium 07/29 - PICC exchanged yesterday and then pulled back, tip now appears in superior vena cava. 07/30 - patient with down trending blood pressures, rhythm stable 6. CHF - diastolic dysfunction w/ preserved EF - consult cardiology; pt reports she does not have primary chief of planning 07/24 - preserved EF per cardiology report, continue to defer to cardiology for management 07/25 - continue to defer to cardiology 07/26 - continue to defer to cardiology 07/27 - continue to defer to cardiology; I&O net -950 in last 24 hours 07/28 - management per cardiology; responded well to diuresis 07/29 - management per cardiology, continued diuresis 07/30 - management per cardiology, continue to diurese per Dr. Bowles 7. Mild to moderate pulmonary hypertension 40-45mmHg on Echo 06/2017 8. Probably obesity-hypoventilation syndrome 9. Hypotension 07/24 - minimal response to intermittent fluid boluses, but requires diuresis from a cardiac standpoint; albumin and lasix to attempt to diurese and still buffer pressures if possible 07/25 - required levophed overnight; per nursing documentation, unable to contact surgeon for central access. Levophed off by this AM, plan for PICC placement today 07/26 - no further hypotension 07/27 - no further hypotension 07/28 - continue to monitor 07/29 - continue to monitor pressure closely 07/30 - pressures trending down, monitor closely, levophed per protocol if needed Hospice consult was done, as patient was not sure if she would want to be placed back on ventilator if she should decline to that point, or if she would want to be intubated for bronchoscopy; seen by hospice, and at that time patient did not appear to qualify, as she doid not have a documented end stage disease. Hospital course as noted above with worsening and ultimately intubated and ventilated, now extubated and comfort care being pursued. Clinical Quality Measures DVT/VTE Risk/Contraindication: VTE Addressed: Yes Risk Factor Score Per Nursin RFS Level Per Nursing on Admit: 4+=Very High Risk Score Comment: on SARAH Crowell MD July 31, 2017 11:58 am
[2017-07-31] MEDS: LORazepam INJ 2 MG/ML (ATIVAN) VIAL IVP PRN ×2 (19:44→23:40)
[2017-07-31] MEDS: morphine INJ 4 MG/ML 1 ML (VIAL/SYRINGE) IVP PRN ×2 (19:45→21:08)
[2017-08-01] MEDS: morphine INJ 4 MG/ML 1 ML (VIAL/SYRINGE) IVP PRN ×4 (04:44→21:33)
--- NOTE | 2017-08-01 05:47 | Pulmonary Progress Note ---
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 NO complications noted. Exam Exam Vital Signs Date Time Temp Pulse Resp B/P (MAP) Pulse Ox O2 Delivery O2 Flow Rate FiO2 07/31/17 21:00 High Flow N/C 2.00 07/31/17 12:00 86 24 Nasal Cannula 2.00 07/31/17 11:00 80 22 109/58 (75) 98 Mechanical Ventilator 40.00 07/31/17 10:11 82 29 92 35 07/31/17 10:00 80 21 107/57 (74) 98 Mechanical Ventilator 40.00 07/31/17 09:00 80 23 113/59 (77) 98 Mechanical Ventilator 40.00 07/31/17 08:45 Mechanical Ventilator 40 07/31/17 08:00 81 24 106/57 (73) 97 Mechanical Ventilator 40.00 07/31/17 07:00 79 07/31/17 07:00 97.3 Mechanical Ventilator 40.00 07/31/17 07:00 79 17 105/52 (69) 100 Mechanical Ventilator 40.00 07/31/17 06:55 79 22 99 35 07/31/17 06:00 77 17 92/54 (67) 100 Mechanical Ventilator 40.00 I & O 08/01/17 07:00 Intake Total 559.125 ml Output Total 1550 ml Balance -990.875 ml General Appearance: No Apparent Distress HEENT: Pharynx Normal Neck: Normal Inspection, Supple Respiratory: Decreased Breath Sounds, Rhonci Cardiovascular: Regular Rate, Rhythm, No Edema, Normal Peripheral Pulses Capillary Refill: Less Than 3 Seconds Gastrointestinal: non tender, soft Extremity: Normal Capillary Refill, Normal Inspection, Non Tender Neurologic/Psychiatric: Other Skin: Normal Color, Warm/Dry Lymphatic: No Adenopathy Results Lab Laboratory Tests 07/30/17 16:00 07/31/17 03:16 Assessment/Plan Assessment/Plan Acute on chronic respiratory failure with severe hypoxia Worsening respiratory failure with left pleural effusion/pulmonary edema ILD inflamatory vs infectious Paroxysmal Afib on anticoagulation Diastolic CHF with pulmonary HTN IDDM II - Pt became hypoglycemic last night Deconditioning denies ever smoking PT is now Comfort Care Only. No complications noted. I am going to sign off. Please call with any questions or concerns. 232 Critical Care: Critically Ill Patient GONZÁLEZ YE DO August 01, 2017 05:47
--- NOTE | 2017-08-01 10:35 | Progress Note (SOAP) ---
Subjective Subjective/Events-last exam Resting fairly comfortably, family states she was talking a lot yesterday afternoon and some this morning, but mostly just rare moaning now. They are wondering if any of her heart medications would help her lungs get better from the ARDS. Review of Systems Date Seen by Provider: August 01, 2017 Time Seen by Provider: 10:04 Objective Exam Last Set of Vital Signs Vital Signs Date Time Temp Pulse Resp B/P (MAP) Pulse Ox O2 Delivery O2 Flow Rate FiO2 08/01/17 09:25 High Flow N/C 2.00 07/31/17 12:00 86 24 07/31/17 11:00 109/58 (75) 07/31/17 10:11 35 07/31/17 07:00 97.3 Capillary Refill : Less Than 3 Seconds I&O Intake and Output 08/01/17 00:00 Intake Total 1387.250 ml Output Total 2250 ml Balance -862.750 ml Intake Oral 0 ml IV Total 1387.250 ml Output Urine Total 2150 ml Gastric Drainage Total 100 ml General: Mild Distress Lungs: Other (ronchi) Heart: Regular Rate Psych/Mental Status: Other (lethargic, opens eyes to name) Results/Procedures Lab Microbiology 07/29/17 Blood Culture - Preliminary, Resulted No growth 07/29/17 Mycobacterial Culture - Preliminary, Resulted See Comments 07/29/17 Urine Culture - Final, Complete Yeast species Radiology Date of Exam: 07/22/17 CHEST 1 VIEW, AP/PA ONLY INDICATION: Cough, shortness of air. TECHNIQUE: Single view chest 10:08 AM. CORRELATION STUDY: 06/23/2017 FINDINGS: There has been interval extubation to remove the gastric tube. Heart size enlarged. Mediastinum is prominent, likely stable. There is rather significant pulmonary vascular congestion and perihilar edema. Scattered pulmonary parenchyma is noted, likely largely edematous. A superimposed infiltrate/pneumonia would be difficult to exclude. IMPRESSION: 1. Enlargement present with pulmonary vascular congestion, perihilar and likely pulmonary edema. Superimposed infiltrate difficult to exclude. Followup imaging recommended. Procedures Intubated at ~0500 by ED physician Assessment/Plan Assessment/Plan Assessment & Plan 1. Acute on chronic respiratory failure w/ hypoxia 07/23 - admitted 07/22/17 to ICU on Vapotherm, titrated down since admission currently on 13L 55% FIO2; O2 sat 94% (baseline 6L nc) - Dr. Bowles consulted 07/24 - Dr. Bowles managing; currently 8L on 85% Vapotherm and tolerating well, with sats >95%. Baseline O2 6L NC 07/25 - continue to defer management to Dr. Bowles 07/26 - continue to defer management to Dr. Bowles. Back on vapotherm 07/27 - has weaned down to NC, is lower than baseline 6L at admission at the time of exam 07/28 - continues to have desats; continued management by Dr. Bowles; patient at extremely high risk for decompensation 07/29 - pt with acute decompensation overnight, now on ventilator; bronch by Dr. Bowles this morning. Continue to defer management to Dr. Bowles. 07/30 - remains ventilated, management per Dr. Bowles 07/31 - family has decided to proceed with comfort care, patient extubated at 11 am, morphine and ativan prn is ordered 08/01 - family wondering if anything besides ventilation can be done to improve her condition, discussed that while recovery may be theoretically possible, it is not expected and there is no specific lung treatment at this time besides ventilatory support that would be expected to even possibly be helpful and they continue to endorse that she does not want to be intubated again, will monitor condition today. 2. hx of ARDS w/ prolonged hospitalization June 2017 - required intubation and transfer to [place] from - recently admitted to [facility] after DC from [place] 07/24 - pt states she is planning to return to [facility] after discharge from here 07/25 - continue to monitor closely 07/26 - pulmonary management per Dr. Bowles; agree that if placed on ventilator patient would likely have very difficult time weaning off 07/27 - continue to defer pulm management to Dr. Bowles 07/28 - continue to defer pulm management to Dr. Bowles; pt remains at high risk for decompensation and intubation, and would likely be extremely difficult to wean off ventilator, if that would even be possible 07/29 - decompensated overnight, now intubated on ventilator 07/30 - remains intubated, management per Dr. Bowles 07/31- goals changed to comfort care, see above 3. possible Pneumonia - CXR in ED showed vascular congestion; unable to delineate clear infiltrated - currently on Zosyn and Vancomycin 07/24 - CXR suggestive of pulmonary vascular congestion, unable to rule out PNA, continued on abx at this time, Day 3 Vanc and Zosyn 07/25 - Day 4 Vanc and Zosyn; CT Chest pending 07/26 - ILD vs infection, solumedrol IVP per Dr. Bowles; considering bronch, but would require intubation and placement on ventilator 07/27 - Day 6 Zosyn; incorrectly stated above - pt never received vanc 07/28 - Day 7 Zosyn; CXR shows mild improvement 07/29 - Day 8 Zosyn, pt now intubated. Bronch per Dr. Bowles this AM. Bactrim q6h for possible PCP PNA per Dr. Bowles. Would also consider MAC as possible cause. 07/30 - Day 9 Zosyn, Day 2 Bactrim. Bronch Cx pending. 07/31 - d/c antibiotics, changed to comfort care, cultures without growth and treated with zosyn for over 7 days. 4. Diabetes Mellitus Type 2 - insulin requiring - restart home insulin regimen of Levemir and novolog w/ Novolog SSI 07/24 - Accucheck AC and HS, sliding scale insulin per protocol with home dose of Levemir 07/25 - continue accuchecks and sliding scale with home levemir 07/26 - hypoglycemia this morning; will monitor closely 07/27 - no further hypoglycemia 07/28 - monitoring sugars closely 07/29 - continue accuchecks, but will change to q6h; increase sliding scale, bactrim mixed in large amount of D5 and causing hyperglycemia 07/30 - sugars improved after increasing to sliding scale C, continue to monitor and adjust accordingly 07/31 - goals changed to comfort care 5. Paroxysmal Afib on chronic anticoaguation - on Eliquis 07/24 - continue on eliquis for anticoagulation, metoprolol increased per cardiology, will defer management to their expertise 07/25 - continue to defer to cardiology 07/26 - increased arrhythmias overnight; when CXR reviewed, radiology report states PICC line tip in superior vena cava; difficult to discern due to pts significant lung disease, but feel that PICC line tip appears deeper than that, and coupled with pt's arrhythmias, find this likely. Radiology contacted and requested to re-evaluate films for placement, and PICC nurse requested to pull line back. 07/27 - arrhythmias mostly resolved after PICC pulled back; continue telemetry 07/28 - CXR this AM shows tip still in right atrium, PICC team requested to pull back 3 cm and reshoot CXR to confirm tip in superior vena cava and not right atrium 07/29 - PICC exchanged yesterday and then pulled back, tip now appears in superior vena cava. 07/30 - patient with down trending blood pressures, rhythm stable 6. 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 Bowles 08/01 - comfort care measures, may diurese if appears to have increasing rales with increased work of breathing or increasing swelling 7. Mild to moderate pulmonary hypertension 40-45mmHg on Echo 06/2017 8. Probably obesity-hypoventilation syndrome 9. Hypotension 07/24 - minimal response to intermittent fluid boluses, but requires diuresis from a cardiac standpoint; albumin and lasix to attempt to diurese and still buffer pressures if possible 07/25 - required levophed overnight; per nursing documentation, unable to contact surgeon for central access. Levophed off by this AM, plan for PICC placement today 07/26 - no further hypotension 07/27 - no further hypotension 07/28 - continue to monitor 07/29 - continue to monitor pressure closely 07/30 - pressures trending down, monitor closely, levophed per protocol if needed Hospice consult was done, as patient was not sure if she would want to be placed back on ventilator if she should decline to that point, or if she would want to be intubated for bronchoscopy; seen by hospice, and at that time patient did not appear to qualify, as she doid not have a documented end stage disease. Hospital course as noted above with worsening and ultimately intubated and ventilated, now extubated and comfort care being pursued. Clinical Quality Measures DVT/VTE Risk/Contraindication: VTE Addressed: Yes Risk Factor Score Per Nursin RFS Level Per Nursing on Admit: 4+=Very High Risk Score Comment: on SARAH Crowell MD August 01, 2017 10:35
[2017-08-01] MEDS: LORazepam INJ 2 MG/ML (ATIVAN) VIAL IVP PRN (19:41)
[2017-08-01 19:44] VITALS: BP 127/60
[2017-08-02] MEDS: LORazepam INJ 2 MG/ML (ATIVAN) VIAL IVP PRN ×2 (00:55→12:39)
[2017-08-02] MEDS: morphine INJ 4 MG/ML 1 ML (VIAL/SYRINGE) IVP PRN ×3 (04:24→14:01)
[2017-08-02] MEDS ORDERED: GLYCOPYRROLATE 0.2 MG/ML (ROBINUL) 2 ML VIAL IV PRN (13:15)
--- NOTE | 2017-08-02 13:37 | Progress Note (SOAP) ---
Subjective Subjective/Events-last exam Family report she has not spoken in last 24 hours and they thought she was going to last night when she stopped breathing for an extremely long period , but did start again. They state they are hopeful she will be at peace to pass on soon and have told her it is okay for her to leave them. Review of Systems Date Seen by Provider: August 02, 2017 Time Seen by Provider: 10:12 Objective Exam Last Set of Vital Signs Vital Signs Date Time Temp Pulse Resp B/P (MAP) Pulse Ox O2 Delivery O2 Flow Rate FiO2 08/02/17 09:16 Nasal Cannula 2.00 08/01/17 19:44 98.1 86 25 127/60 (82) 61 07/31/17 10:11 35 Capillary Refill : Less Than 3 Seconds I&O Intake and Output 08/02/17 00:00 Intake Total 100 ml Output Total 775 ml Balance -675 ml Intake Oral 100 ml Output Urine Total 775 ml # Bowel Movements 2 General: Other (unresponsive, breathing with abdominal musculature, fingers cyanotic) Results/Procedures Lab Microbiology 07/29/17 Blood Culture - Preliminary, Resulted No growth 07/29/17 Mycobacterial Culture - Preliminary, Resulted See Comments 07/29/17 Urine Culture - Final, Complete Yeast species Radiology Date of Exam: 07/22/17 CHEST 1 VIEW, AP/PA ONLY INDICATION: Cough, shortness of air. TECHNIQUE: Single view chest 10:08 AM. CORRELATION STUDY: 06/23/2017 FINDINGS: There has been interval extubation to remove the gastric tube. Heart size enlarged. Mediastinum is prominent, likely stable. There is rather significant pulmonary vascular congestion and perihilar edema. Scattered pulmonary parenchyma is noted, likely largely edematous. A superimposed infiltrate/pneumonia would be difficult to exclude. IMPRESSION: 1. Enlargement present with pulmonary vascular congestion, perihilar and likely pulmonary edema. Superimposed infiltrate difficult to exclude. Followup imaging recommended. Procedures Intubated at ~0500 by ED physician Assessment/Plan Assessment/Plan Assessment & Plan 1. Acute on chronic respiratory failure w/ hypoxia 07/23 - admitted 07/22/17 to ICU on Vapotherm, titrated down since admission currently on 13L 55% FIO2; O2 sat 94% (baseline 6L nc) - Dr. Bowles consulted 07/24 - Dr. Bowles managing; currently 8L on 85% Vapotherm and tolerating well, with sats >95%. Baseline O2 6L NC 07/25 - continue to defer management to Dr. Bowles 07/26 - continue to defer management to Dr. Bowles. Back on vapotherm 07/27 - has weaned down to NC, is lower than baseline 6L at admission at the time of exam 07/28 - continues to have desats; continued management by Dr. Bowles; patient at extremely high risk for decompensation 07/29 - pt with acute decompensation overnight, now on ventilator; bronch by Dr. Bowles this morning. Continue to defer management to Dr. Bowles. 07/30 - remains ventilated, management per Dr. Bowles 07/31 - family has decided to proceed with comfort care, patient extubated at 11 am, morphine and ativan prn is ordered 08/01 - family wondering if anything besides ventilation can be done to improve her condition, discussed that while recovery may be theoretically possible, it is not expected and there is no specific lung treatment at this time besides ventilatory support that would be expected to even possibly be helpful and they continue to endorse that she does not want to be intubated again, will monitor condition today. 08/02- family expecting her to pass soon, had long breathing pause last night, continue morphine and ativan prn, add glycopyrrolate as needed 2. hx of ARDS w/ prolonged hospitalization June 2017 - required intubation and transfer to [place] from - recently admitted to [facility] after DC from [place] 07/24 - pt states she is planning to return to [facility] after discharge from here 07/25 - continue to monitor closely 07/26 - pulmonary management per Dr. Bowles; agree that if placed on ventilator patient would likely have very difficult time weaning off 07/27 - continue to defer pulm management to Dr. Bowles 07/28 - continue to defer pulm management to Dr. Bowles; pt remains at high risk for decompensation and intubation, and would likely be extremely difficult to wean off ventilator, if that would even be possible 07/29 - decompensated overnight, now intubated on ventilator 07/30 - remains intubated, management per Dr. Bowles 07/31- goals changed to comfort care, see above 3. possible Pneumonia - CXR in ED showed vascular congestion; unable to delineate clear infiltrated - currently on Zosyn and Vancomycin 07/24 - CXR suggestive of pulmonary vascular congestion, unable to rule out PNA, continued on abx at this time, Day 3 Vanc and Zosyn 07/25 - Day 4 Vanc and Zosyn; CT Chest pending 07/26 - ILD vs infection, solumedrol IVP per Dr. Bowles; considering bronch, but would require intubation and placement on ventilator 07/27 - Day 6 Zosyn; incorrectly stated above - pt never received vanc 07/28 - Day 7 Zosyn; CXR shows mild improvement 07/29 - Day 8 Zosyn, pt now intubated. Bronch per Dr. Bowles this AM. Bactrim q6h for possible PCP PNA per Dr. Bowles. Would also consider MAC as possible cause. 07/30 - Day 9 Zosyn, Day 2 Bactrim. Bronch Cx pending. 07/31 - d/c antibiotics, changed to comfort care, cultures without growth and treated with zosyn for over 7 days. 4. Diabetes Mellitus Type 2 - insulin requiring - restart home insulin regimen of Levemir and novolog w/ Novolog SSI 07/24 - Accucheck AC and HS, sliding scale insulin per protocol with home dose of Levemir 07/25 - continue accuchecks and sliding scale with home levemir 07/26 - hypoglycemia this morning; will monitor closely 07/27 - no further hypoglycemia 07/28 - monitoring sugars closely 07/29 - continue accuchecks, but will change to q6h; increase sliding scale, bactrim mixed in large amount of D5 and causing hyperglycemia 07/30 - sugars improved after increasing to sliding scale C, continue to monitor and adjust accordingly 07/31 - goals changed to comfort care 5. Paroxysmal Afib on chronic anticoaguation - on Eliquis 07/24 - continue on eliquis for anticoagulation, metoprolol increased per cardiology, will defer management to their expertise 07/25 - continue to defer to cardiology 07/26 - increased arrhythmias overnight; when CXR reviewed, radiology report states PICC line tip in superior vena cava; difficult to discern due to pts significant lung disease, but feel that PICC line tip appears deeper than that, and coupled with pt's arrhythmias, find this likely. Radiology contacted and requested to re-evaluate films for placement, and PICC nurse requested to pull line back. 07/27 - arrhythmias mostly resolved after PICC pulled back; continue telemetry 07/28 - CXR this AM shows tip still in right atrium, PICC team requested to pull back 3 cm and reshoot CXR to confirm tip in superior vena cava and not right atrium 07/29 - PICC exchanged yesterday and then pulled back, tip now appears in superior vena cava. 07/30 - patient with down trending blood pressures, rhythm stable 6. 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 Bowles 08/01 - comfort care measures, may diurese if appears to have increasing rales with increased work of breathing or increasing swelling 7. Mild to moderate pulmonary hypertension 40-45mmHg on Echo 06/2017 8. Probably obesity-hypoventilation syndrome 9. Hypotension 07/24 - minimal response to intermittent fluid boluses, but requires diuresis from a cardiac standpoint; albumin and lasix to attempt to diurese and still buffer pressures if possible 07/25 - required levophed overnight; per nursing documentation, unable to contact surgeon for central access. Levophed off by this AM, plan for PICC placement today 07/26 - no further hypotension 07/27 - no further hypotension 07/28 - continue to monitor 07/29 - continue to monitor pressure closely 07/30 - pressures trending down, monitor closely, levophed per protocol if needed Hospice consult was done, as patient was not sure if she would want to be placed back on ventilator if she should decline to that point, or if she would want to be intubated for bronchoscopy; seen by hospice, and at that time patient did not appear to qualify, as she doid not have a documented end stage disease. Hospital course as noted above with worsening and ultimately intubated and ventilated, now extubated and comfort care being pursued. Clinical Quality Measures DVT/VTE Risk/Contraindication: VTE Addressed: Yes Risk Factor Score Per Nursin RFS Level Per Nursing on Admit: 4+=Very High Risk Score Comment: on SARAH Crowell MD August 02, 2017 1:37 pm
--- NOTE | 2017-08-02 16:02 | Discharge Summary ---
Diagnosis/Chief Complaint Date of Admission July 22, 2017 at 11:08 am Date of Discharge August 02, 2017 Admission Diagnosis Admission Diagnosis 1. Acute on chronic respiratory failure w/ hypoxia 2. hx of ARDS w/ prolonged hospitalization June 2017 3. possible Pneumonia 4. Diabetes Mellitus Type 2 - insulin requiring 5. Paroxysmal Afib on chronic anticoagulation 6. CHF - diastolic dysfunction w/ preserved EF 7. Mild to moderate pulmonary hypertension 40-45mmHg on Echo 06/2017 8. Probably obesity-hypoventilation syndrome 9. Hypotension Discharge Diagnosis 1. Acute on chronic respiratory failure w/ hypoxia 07/23 - admitted 07/22/17 to ICU on Vapotherm, titrated down since admission currently on 13L 55% FIO2; O2 sat 94% (baseline 6L nc) - Dr. Bowles consulted, required intubation on 07/29 07/31 - family has decided to proceed with comfort care, patient extubated at 11 am, morphine and ativan prn is ordered 08/01 - family wondering if anything besides ventilation can be done to improve her condition, discussed that while recovery may be theoretically possible, it is not expected and there is no specific lung treatment at this time besides ventilatory support that would be expected to even possibly be helpful and they continue to endorse that she does not want to be intubated again, will monitor condition today. 08/02- on comfort care measures 2. hx of ARDS w/ prolonged hospitalization June 201707/31- goals changed to comfort care, see above 3. possible Pneumonia - CXR in ED showed vascular congestion; unable to delineate clear infiltrated 07/30 - Day 9 Zosyn, Day 2 Bactrim. Bronch Cx pending. 07/31 - d/c antibiotics, changed to comfort care, cultures without growth and treated with zosyn for over 7 days. 4. Diabetes Mellitus Type 2 - insulin requiring - restart home insulin regimen of Levemir and novolog w/ Novolog SSI 07/31 - goals changed to comfort care, insulin discontinued 5. Paroxysmal Afib on chronic anticoagulation - on Eliquis, Cardiology following during admission 6. 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 Mild to moderate pulmonary hypertension 40-45mmHg on Echo 06/2017 8. Probably obesity-hypoventilation syndrome 9. Hypotension Hospice consult was done, as patient was not sure if she would want to be placed back on ventilator if she should decline to that point, or if she would want to be intubated for bronchoscopy; seen by hospice, and at that time patient did not appear to qualify, as she doid not have a documented end stage disease. Hospital course as noted above with worsening and ultimately intubated and ventilated, ultimately extubated with comfort care measures and on 08/02. Chief Complaint/HPI Chief Complaint/HPI Was hospitalized 1 month ago at for pneumonia w/ ARDS, required intubation and was transferred to [place]. Pt was just recently admitted to [facility]; required 6L oxygen as baseline after DC from [place] (did not require oxygen prior to that hospitalization). Pt was stable until the day of admission and sats were in the 70's. Pt did not feel SOA. Denies cough or fever. Currently on 13L Vapotherm at 55% sats 94%. Discharge Summary-Simple/Stand Procedures Intubated at ~0500 by ED physician Consultations Discharge Physical Examination Allergies: Coded Allergies: No Known Drug Allergies (Unverified , 11/22/16) Vitals & I&Os Vital Sign - Last 12Hours Date Time Temp Pulse Resp B/P (MAP) Pulse Ox O2 Delivery O2 Flow Rate FiO2 08/02/17 09:16 Nasal Cannula 2.00 08/01/17 19:44 98.1 86 25 127/60 (82) 61 07/31/17 10:11 35 Intake and Output 08/02/17 00:00 Intake Total 100 ml Output Total 425 ml Balance -325 ml Hospital Course See final discharge diagnosis. Radiology Reviewed Date of Exam: 07/22/17 CHEST 1 VIEW, AP/PA ONLY INDICATION: Cough, shortness of air. TECHNIQUE: Single view chest 10:08 AM. CORRELATION STUDY: 06/23/2017 FINDINGS: There has been interval extubation to remove the gastric tube. Heart size enlarged. Mediastinum is prominent, likely stable. There is rather significant pulmonary vascular congestion and perihilar edema. Scattered pulmonary parenchyma is noted, likely largely edematous. A superimposed infiltrate/pneumonia would be difficult to exclude. IMPRESSION: 1. Enlargement present with pulmonary vascular congestion, perihilar and likely pulmonary edema. Superimposed infiltrate difficult to exclude. Followup imaging recommended. Discharge Condition at discharge Instructions to patient/family Please see electronic discharge instructions given to patient. Discharge Medications Reviewed and agree with Discharge Medication list on patient's Discharge Instruction sheet Clinical Quality Measures DVT/VTE Risk/Contraindication: VTE Addressed: Yes Risk Factor Score Per Nursin RFS Level Per Nursing on Admit: 4+=Very High Risk Score Comment: on Eliquis Comfort Measures/ Type of Care: Comfort Measures Date of : August 02, 2017 Copy Copies To 1: AMY ANDERSON MD, BETHANY N MD August 02, 2017 16:02
== END 2017-08-02 17:40 | disposition expired | DRG 871 ==
LOC: ER 09:14 → EDUNIT# 09:19 → ICU 11:08 → 4TH 07-27 14:12 → ICU 07-28 07:24 → 4TH 07-31 21:00
PROVIDERS: ADMIT Family Medicine; ATTEND Family Medicine
PROC: 5A1945Z Respiratory Ventilation, 24-96 Consecutive Hours (ICD-10-PCS; principal; 2017-07-29)
PROC: 0B958ZX Drainage of Right Middle Lobe Bronchus, Via Natural or Artificial Opening Endoscopic, Diagnostic (ICD-10-PCS; 2017-07-29)
DX: A41.9 Sepsis, unspecified organism (principal); J80 Acute respiratory distress syndrome; J18.9 Pneumonia, unspecified organism; I11.0 Hypertensive heart disease with heart failure; I50.33 Acute on chronic diastolic (congestive) heart failure; E66.2 Morbid (severe) obesity with alveolar hypoventilation; E87.2 Acidosis; Z66 Do not resuscitate; Z51.5 Encounter for palliative care; I47.2 Ventricular tachycardia; I48.0 Paroxysmal atrial fibrillation; E11.40 Type 2 diabetes mellitus with diabetic neuropathy, unspecified; I27.20 Pulmonary hypertension, unspecified; I35.1 Nonrheumatic aortic (valve) insufficiency; I49.3 Ventricular premature depolarization; E11.649 Type 2 diabetes mellitus with hypoglycemia without coma; K21.9 Gastro-esophageal reflux disease without esophagitis; E87.6 Hypokalemia; M19.91 Primary osteoarthritis, unspecified site; Z79.4 Long term (current) use of insulin; F41.9 Anxiety disorder, unspecified; F32.9 Major depressive disorder, single episode, unspecified; Z87.891 Personal history of nicotine dependence; Z79.01 Long term (current) use of anticoagulants; Z86.73 Personal history of transient ischemic attack (TIA), and cerebral infarction without residual deficits; Z68.36 Body mass index [BMI] 36.0-36.9, adult; Z96.653 Presence of artificial knee joint, bilateral
CPT/HCPCS: 36415; 36569; 36584; 36600; 71045; 71260; 76604; 76937; 80048; 80053; 80202; 81000; 82164; 82274; 82805; 82962; 83605; 83735; 83880; 84100; 84132; 84484; 85007; 85025; 85027; 85379; 85652; 86021; 86038; 86141; 86430; 86703; 87040; 87070; 87081; 87088; 87101; 87116; 87205; 88112; 88305; 88312; 93005; 93041; 93306; 94002; 94003; 94640; 94660; 94664; 94760; 94799; 96365; 96375